=== PATIENT | female | born 1935 | race Caucasian/White ===

== ENCOUNTER 2017-09-29 16:42 | Observation (INO) | payer MEDICARE ==
[2017-09-29 18:27] LABS: Hematocrit 44 % (35-47); Hemoglobin 14.7 g/dl (12.0-16.0); Mean Corpuscular HGB Conc 34 g/dl (31-36); Mean Corpuscular Hemoglobin 31 pg (27-31); Mean Corpuscular Volume 91 fL (80-97); Mean Platelet Volume 8.4 um3 (7.4-10.4); Platelet Count 150 10^3/ul (150-450); Red Blood Count 4.79 10^6/ul (4.0-5.4); Red Cell Distribution Width 14 % (10.5-15); White Blood Count 6.1 10^3/ul (3.5-10.8)
[2017-09-29 18:57] LABS: EGFR Non-African American 110.2 (>60)
[2017-09-29] MEDS ORDERED: Acetaminophen TAB* 325 MG PO PRN (20:28)
--- NOTE | 2017-09-29 20:37 | CONS ---
CONSULTATION REPORT: DATE OF CONSULT: 09/29/17 HISTORY OF PRESENT ILLNESS: The patient is a very pleasant 82-year-old female with history of pacemaker, on Coumadin, hypertension, who was seen earlier today in Dr. Ernandez's office for back pain. Requested to see the patient by Dr. Ernandez because of CT scan findings consistent with a T12 subacute versus chronic fracture. Patient reports that approximately 2 weeks ago she felt a pop in her back when she was trying to open the refrigerator door. She felt mild pain and the pain improved initially, but gradually after that, started having more and more pain. She denies any weakness, numbness, or tingling of the extremities. She reports that the pain is mostly in the right paraspinal area. She denies any difficulty with her ambulation. She is ambulating at her baseline. Patient has severe kyphosis. Patient also denies any urinary or GI incontinence. She is wearing a pad because she has urinary urgency for the last 4 months or so. She denies any loss of perineal sensation. Patient is a , lives by herself and has 7 children, is accompanied today by her daughter -in-law. PAST MEDICAL HISTORY: Hypertension, atrial fibrillation, osteoporosis. PAST SURGICAL HISTORY: Pacemaker. MEDICATIONS: The patient is on Coumadin. SOCIAL HISTORY: Tobacco negative. Alcohol negative. Recreational use negative. PHYSICAL EXAM: The patient is not in acute distress. She is awake, alert, and oriented x3. Her pupils are equal and reactive. Cranial nerves II through XII are grossly intact. Motor 4-5/5 in the lower extremities. Sensory grossly intact to light touch. Deep tendon reflexes +1 bilaterally. No clonus, no Babinski. Goins's negative. Straight leg test negative in the sitting position. Patient ambulates without difficulty. Patient also has no tenderness to palpation in the cervical, thoracic, or lumbar spine. She has range of motion of the cervical spine. She has mild tenderness in the right paraspinal area and other aspect of her back. DIAGNOSTIC STUDIES: Patient had a CT scan of her thoracic spine that reveals stable old T7 compression fracture with an indeterminate age T12 burst fracture with approximately 25% canal compromise and retropulsion. The characteristic of the fracture seems to be chronic. Unfortunately, the patient is not able to have an MRI because of the pacemaker. ASSESSMENT: The patient is a very pleasant 82-year-old female with T7 chronic and T12 possible subacute fracture. PLAN: The patient at this point is doing quite well. She initially had some mild pain, but is able to ambulate and has no neurological deficits. We discussed about her imaging findings with her and her [id number] explaining that based on her presentation, this may represent a subacute injury , but it is difficult to confirm without an MRI or bone scan. The bone scan may not be very accurate in terms of timing of her injury. Based on her imaging , we discussed conservative versus operative treatment options with risks and benefits explained in detail to the patient and her [id number]. Patient at this point would like to continue with conservative treatments based on her age and her comorbidities. She understands that if there is progression of the fracture or more retropulsion occurs there is a risk of spinal cord injury with paralysis, loss of bladder and bowel function or even . We discussed again with Dr. Ernandez and will be happy to see the patient for followup if she can tolerate a brace. Patient also should get a baseline thoracolumbar plain x-ray and exercise full fall precautions and avoid any strenuous activities or activities that put her at risk of further injury. Also a DEXA scan may be useful if the patient did not have a recent study. Full instructions given to the patient and her [id number]. Thank you very much for allowing us to participate in the care of this patient. Please do not hesitate to contact our office in case you have any further questions or concerns regarding the care of this patient. [id number]/[facility] #: [id number] DEBRA
[2017-09-29] MEDS ORDERED: Metoprolol Succinate XL TAB* 100 MG PO SCH (21:00)
[2017-09-29] MEDS ORDERED: Warfarin TAB(*) 1 MG PO SCH (21:00)
[2017-09-29] MEDS: Calcitonin NASAL(NF) 200 UNITS/SPRAY NASAL.SPR ALT NARE SCH (21:19)
--- NOTE | 2017-09-30 01:19 | HP ---
CC: Dr. Solano, Neurosurgery * HISTORY AND PHYSICAL: DATE OF ADMISSION: 09/29/17 HISTORY OF PRESENT ILLNESS: Ann Duval is an 82-year-old woman admitted with back pain due to a T12 compression fracture. The patient presented to my office today with the history that she was in her usual state of health until 6 days ago. She was opening a refrigerator door when she heard a pop and experienced sudden pain in the right flank region. Since that time, she has had intermitted sharp pain like a knife in her back. She denied any abdominal pain, numbness, tingling of the lower extremities. She had been applying Icy Hot as well as a heating pad. Tylenol was ineffective. She was unable to take NSAIDs because of being on long-term warfarin therapy. The patient's INR earlier this weak was elevated at 4.5 and 4.8 on 09/26/17, yesterday down to 2 after holding warfarin for 2 days. She presented to my office, was sent to imaging for a CT scan of the thoracic spine and abdomen and pelvis and was found to have a T12 compression fracture, which was new since last September. Bladder was large and she had mild hydronephrosis. She is being admitted at this time. PAST MEDICAL HISTORY: Otherwise significant for the following medical problems: 1. Osteoporosis, on alendronate with history of T7 fracture last year. 2. Chronic atrial fibrillation, on warfarin therapy. 3. Pacemaker. 4. Mild cognitive impairment. 5. 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 6. Hypertension. 7. Hyperlipidemia. 8. History of colonic polyps. PAST SURGICAL HISTORY: Includes: 1. Mohs excision, dermatofibrosarcoma protuberans, left lateral thigh, . 2. Pacemaker insertion, 2007. 3. Hysterectomy, 1983. 4. Varicose vein stripping, injection in 1969. 5. Drainage of her abscess, left neck in 1936. CURRENT MEDICATIONS: 1. Alendronate 70 mg weekly. 2. Digoxin 125 mcg daily. 3. Norvasc 2.5 mg daily. 4. Potassium chloride extended release 10 mEq 2 capsules daily. 5. Metoprolol succinate ER 50 mg one and half in the morning, 100 mg at night. 6. Coumadin was 1.5 mg for the last 3 days since her INR was too high on 3 mg a day. 7. Furosemide 20 mg daily. 8. Vitamin D 1400 units daily. ALLERGIES: ZITHROMAX cause diarrhea, abdominal cramps. FAMILY HISTORY: Black lung disease in her father, who was a charcoal kiln burner. Mother at age 84. SOCIAL HISTORY AND PERSONAL HISTORY: The patient is . She lives alone. She has adult children in the area. Her daughter, Salome, is with her today. REVIEW OF SYSTEMS: Generally, she has been feeling well until her current back pain started. Appetite has been good. She denied fevers, chills, sweats, trouble sleeping. Her daughter says she does not eat enough and shows me food logs. Skin: Negative. HEENT: Negative. Nodes: Negative. Heme: Negative. Breast: Negative. Endocrine: Negative. Respiratory: Negative. Cardiovascular: See above. GI: Negative. : See above. Musculoskeletal: See above. Neurologic: Negative. PHYSICAL EXAMINATION GENERAL: She is an elderly white female, in no acute distress with discomfort on movement. VITAL SIGNS: Blood pressure 150/80, pulse 74, respirations 18, temp 97 degrees. SKIN: Warm and dry with bilateral long onychomycotic toenails. HEENT: Head: Atraumatic, normocephalic. Full EOMs. Oropharynx shows no lesions. Mucous membranes appear moist. NECK: Supple without thyromegaly. NODES: Without adenopathy. CHEST: Chest is clear with the pacemaker left upper chest. HEART: Regular. Normal S1, S2. Grade 1/6 systolic murmur. No rubs or gallops. Pulses are full except for absent left dorsalis pedis and posterior tibial. ABDOMEN: Soft, nontender. No hepatosplenomegaly. No hernias or masses. Bowel sounds are normal. EXTREMITIES: Without cyanosis, clubbing. She has varicose veins of the legs and 1+ ankle edema. MUSCULOSKELETAL: She has tenderness in lower thoracic spine and right posterior rib cage. NEUROLOGIC: She is alert and oriented. Cranial nerves are intact. Motor strength is 5/5 in lower extremities. DTRs show 1+ knee jerks. Absent ankle jerks, symmetric. PSYCHIATRIC: She seems to be in a good mood, anxious to go home. She does have somewhat tangential speech and has a hard time staying on topic. LABORATORY DATA/DIAGNOSTIC STUDIES: Imaging: An old T7 and what appears to be a new T12 compression fracture. Labs are essentially normal. IMPRESSION: The patient with known osteoporosis, on alendronate with new painful T12 compression fracture. She had similar pain with compression fracture last year. PLAN: Plan is to start her on calcitonin. She is having a neurosurgical consult. Thoracolumbar brace is being ordered. She will have a physical therapy evaluation. She will be followed by Neurosurgery in the future. Dr. Solano has seen her and does not recommend surgery at this time. Consideration will be given to switching from alendronate to either denosumab or teriparatide. She is DNR. This was discussed with her and a MOLST form was completed. She would have short term intubation if needed. She does not want feeding tube. This was discussed in the presence of her daughter, Salome. I will not give her DVT prophylaxis at this time as she is probably going to home tomorrow. She did actually walk from the x-ray department to the floor. She seemed to be in less pain this afternoon than she did earlier this morning. Tylenol is ordered for pain. [id number]/[facility] #: [id number] [facility]OSPITALHaile
[2017-09-30 06:20] LABS: INR 1.95 (0.77-1.02)
[2017-09-30] MEDS: Calcitonin NASAL(NF) 200 UNITS/SPRAY NASAL.SPR ALT NARE SCH (08:24)
[2017-09-30] MEDS ORDERED: Digoxin TAB* 0.125 MG PO SCH (09:00)
[2017-09-30] MEDS ORDERED: Cholecalciferol TAB* 400 UNIT PO SCH (09:00)
[2017-09-30] MEDS ORDERED: amLODIPine TAB* 5 MG PO SCH (09:00)
[2017-09-30] MEDS ORDERED: Metoprolol Succinate XL TAB* 25 MG PO SCH (09:00)
[2017-09-30] MEDS ORDERED: Cholecalciferol TAB* 1000 UNITS PO SCH (09:00)
[2017-09-30] MEDS ORDERED: Furosemide TAB* 20 MG PO SCH (09:00)
[2017-09-30] MEDS ORDERED: Potassium Chlor TAB* 20 MEQ TAB.ER PO SCH (09:00)
--- NOTE | 2017-09-30 10:09 | PN ---
Progress Note - Progress Note Date of Service: 09/30/17 SOAP: Subjective: []No events ON. Pain is significantly improved and is not present constantly. Ambulates well, Voids Objective: []AAOx3 JANENE, CN II-XII grossly intact. Motor 4-5/5 all extremities Sensory grossly intact to light touch. Assessment: [] 82 yof T12, T7 fractures. Plan: []Monitor VS, Neurochecks. Brace if tolerated. Medical treatment of osteoporosis. Follow up in the office in 2 weeks with new XR of thoracolumbar spine. Will be available if needed. Melba Solano MD
[2017-09-30 11:29] VITALS: BP 122/66
== END 2017-09-30 13:50 | disposition home or self-care (01) ==
LOC: SSU 16:54
PROVIDERS: ADMIT Internal Medicine Geriatric Medicine; ATTEND Internal Medicine Geriatric Medicine
DX: M81.8 Other osteoporosis without current pathological fracture (principal); Z87.310 Personal history of (healed) osteoporosis fracture; I48.2 Chronic atrial fibrillation; Z79.01 Long term (current) use of anticoagulants; Z95.0 Presence of cardiac pacemaker; G31.84 Mild cognitive impairment of uncertain or unknown etiology; I83.93 Asymptomatic varicose veins of bilateral lower extremities; I10 Essential (primary) hypertension; E78.5 Hyperlipidemia, unspecified; Z86.010 Personal history of colon polyps; S22.069A Unspecified fracture of T7-T8 vertebra, initial encounter for closed fracture; S22.089A Unspecified fracture of T11-T12 vertebra, initial encounter for closed fracture; X50.9XXA Other and unspecified overexertion or strenuous movements or postures, initial encounter; Y92.9 Unspecified place or not applicable; K76.89 Other specified diseases of liver; N13.39 Other hydronephrosis; K40.90 Unilateral inguinal hernia, without obstruction or gangrene, not specified as recurrent; M48.8X4 Other specified spondylopathies, thoracic region; M48.04 Spinal stenosis, thoracic region
CPT/HCPCS: 36415; 80053; 80162; 80375; 85027; 85610; 86140; 87086; A9270-GY; G0378; G0480; G8978-GP-CH; G8979-GP-CH; G8980-GP-CH

== ENCOUNTER 2017-10-06 10:58 | Inpatient (IN) | payer MEDICARE ==
[2017-10-06] MEDS ORDERED: NS 0.9% 1000 ML* 1,000 ML IV ONE ×2 (11:01→21:40)
--- NOTE | 2017-10-06 11:20 | RAD ---
HISTORY: Neurological changes, code garcia COMPARISONS: CT dated October 04, 2006 TECHNIQUE: Multiple contiguous axial CT scans were obtained of the head without intravenous contrast. FINDINGS: HEMORRHAGE/INFARCT: There is no hemorrhage or acute infarct. MASSES/SHIFT: There is no mass or shift. EXTRA-AXIAL SPACES: There are no extra-axial fluid collections. SULCI AND VENTRICLES: The sulci and ventricles are normal in size and position for the patient's stated age. CEREBRUM: There is hypoattenuation of the periventricular and subcortical white matter. There is stable encephalomalacia system with remote right GROUP SEGMENT CONSULTANT infarct.. BRAINSTEM: There are no focal parenchymal abnormalities. CEREBELLUM: There are no focal parenchymal abnormalities. VESSELS: There is calcification of the cavernous segments of the internal carotid arteries bilaterally and of the distal vertebral arteries bilaterally. PARANASAL SINUSES: The paranasal sinuses are clear. ORBITS: The orbits are unremarkable. BONES AND SOFT TISSUE: No bone or soft tissue abnormalities are noted. OTHER: None IMPRESSION: 1. NO ACUTE INTRACRANIAL PATHOLOGY. 2. REMOTE RIGHT GROUP SEGMENT CONSULTANT TERRITORY INFARCT. 3. CHRONIC SMALL VESSEL ISCHEMIC CHANGES. PRELIMINARY FINDINGS WERE DISCUSSED WITH DR. COATS AT APPROXIMATELY 11:16 AM ON OCTOBER 06, 2017.
[2017-10-06 11:25] LABS: ABS Basophils 0 10^3/ul (0-0.2); ABS Eosinophils 0.1 10^3/ul (0-0.6); ABS Lymphocytes 0.9 10^3/ul (1.0-4.8); ABS Monocytes 0.3 10^3/ul (0-0.8); ABS Neutrophils 3.5 10^3/ul (1.5-7.7); ABS Nucleated RBC 0 10^3/ul; Eosinophil % 2.2 % (0-6); Hematocrit 42 % (35-47); Hemoglobin 14.3 g/dl (12.0-16.0); Mean Corpuscular HGB Conc 34 g/dl (31-36); Mean Corpuscular Hemoglobin 31 pg (27-31); Mean Corpuscular Volume 91 fL (80-97); Mean Platelet Volume 8.4 um3 (7.4-10.4); Nucleated Red Blood Cells % 0.1; Platelet Count 145 10^3/ul (150-450); Red Blood Count 4.66 10^6/ul (4.0-5.4); Red Cell Distribution Width 14 % (10.5-15); White Blood Count 4.8 10^3/ul (3.5-10.8)
[2017-10-06 11:35] LABS: INR 1.33 (0.77-1.02)
[2017-10-06 11:46] LABS: EGFR Non-African American 82.6 (>60)
[2017-10-06] MEDS ORDERED: Iohexol 350* (CONTRAST) 500 ML MDV IV ONE (12:00)
--- NOTE | 2017-10-06 12:28 | RAD ---
INDICATION: Neurologic change. Code blake COMPARISON: July 30, 2016 TECHNIQUE: An AP portable view obtained at 1149 hours is submitted. FINDINGS: Bones/Soft Tissues: There are no acute bony findings. There is osteopenia with kyphosis. There is a left-sided cardiac pacemaker. Cardiomediastinal: The cardiomediastinal silhouette is normal. Lungs: There are no infiltrates. Pleura: There are no pleural effusions. Other: None IMPRESSION: NO ACTIVE DISEASE.
[2017-10-06 12:51] LABS: Urine Appearance Clear; Urine Blood Negative (Negative); Urine Color Yellow; Urine Ketones Negative (Negative); Urine Protein Negative (Negative); Urine Specific Gravity 1.008 (1.010-1.030); Urine Urobilinogen Negative (Negative)
--- NOTE | 2017-10-06 13:27 | RAD ---
HISTORY: Left dysmetria COMPARISONS: Head CT dated October 06, 2017 TECHNIQUE: Multiple contiguous axial CT scans were obtained of the head and neck after the administration of nonionic intravenous contrast timed to the systemic arterial phase of contrast enhancement. Coronal and sagittal multiplanar reformations are submitted for review. Multiple 3-D maximum intensity projection reconstructions are also submitted for review. FINDINGS: CTA NECK: AORTIC ARCH: The aortic arch is not completely visualized within the [id number] the current examination. There is no proximal stenosis of the cephalic great vessels. RIGHT VERTEBRAL ARTERY: The right vertebral artery is patent along its course, without stenosis. LEFT VERTEBRAL ARTERY: The left vertebral artery is patent along its course, without stenosis. DOMINANCE: The right vertebral artery is dominant. RIGHT COMMON CAROTID ARTERY: The right common carotid artery is patent. The right carotid bifurcation occurs at C4-C5 RIGHT INTERNAL CAROTID ARTERY: There is atheromatous disease of the right carotid bifurcation, without right internal carotid artery stenosis by NASCET criteria. RIGHT EXTERNAL CAROTID ARTERY: The right external carotid artery is unremarkable. LEFT COMMON CAROTID ARTERY: The left common carotid artery is patent. The left carotid bifurcation occurs at C4-C5 LEFT INTERNAL CAROTID ARTERY: There is atheromatous disease of the left carotid bifurcation, without left internal carotid artery stenosis by NASCET criteria. LEFT EXTERNAL CAROTID ARTERY: The left external carotid artery is unremarkable. VENOUS CIRCULATION: The venous system is unremarkable. SALIVARY GLANDS: The parotid glands, submandibular glands, sublingual glands are normal. NASAL CAVITY/NASOPHARYNX: The nasal cavity and nasopharynx are normal. ORAL CAVITY/OROPHARYNX: The oral cavity is obscured by streak artifact from dental amalgam. The visualized oral cavity and oropharynx are unremarkable. LARYNGEAL APPARATUS/HYPOPHARYNX: The laryngeal apparatus and hypopharynx are normal. UPPER AIRWAY/UPPER ESOPHAGUS: The visualized upper airway and esophagus are normal. LUNG APICES: The lung apices are clear. THYROID GLAND: The thyroid gland is normal. LYMPH NODES: There is no lymphadenopathy by size criteria. BONES AND SOFT TISSUES: Mild degenerative changes are noted. CTA HEAD: INTRACRANIAL CIRCULATION: There is attenuation of the right posterior cerebral artery distal to the P2 segment corresponding to the territory of infarct described below. Elsewhere, there is no aneurysm, vascular malformation, occlusion, or stenosis of the visualized intracranial circulation. The anterior communicating artery complex is clear. The posterior communicating arteries are diminutive, if present. VENOUS CIRCULATION: The venous system is unremarkable. PERFUSION: There is no obvious parenchymal perfusion deficit. HEMORRHAGE/INFARCT: There is no hemorrhage or acute infarct. MASSES/SHIFT: There is no mass or shift. EXTRA-AXIAL SPACES: There are no extra-axial fluid collections. SULCI AND VENTRICLES: There is diffuse and proportional enlargement of the sulci and ventricles. CEREBRUM: There is hypoattenuation of the periventricular and subcortical white matter. Again noted is right posterior temporal and occipital encephalomalacia consistent with remote right [employer]AG[employer] MACHINES territory infarct. BRAINSTEM: There are no focal parenchymal abnormalities. CEREBELLUM: There are no focal parenchymal abnormalities. PARANASAL SINUSES: The paranasal sinuses are clear. ORBITS: The orbits are unremarkable. BONES AND SOFT TISSUE: No bone or soft tissue abnormalities are noted. OTHER: There is no abnormal enhancement. IMPRESSION: 1. ATHEROSCLEROSIS. 2. NO INTERNAL CAROTID ARTERY STENOSIS BY NASCET CRITERIA. 3. THERE IS A CHRONIC APPEARING RIGHT [employer]ES TERRITORY INFARCT WITH ATTENUATION OF THE RIGHT [employer]ACHINES DISTAL TO THE P3 SEGMENT. 4. ELSEWHERE, THERE IS NO ANEURYSM, VASCULAR MALFORMATION, OCCLUSION, OR STENOSIS OF THE VISUALIZED INTRACRANIAL CIRCULATION. CPT II Codes: 3100F
[2017-10-06] MEDS ORDERED: Ondansetron INJ* 2 MG/ML VIAL IV PRN (15:37)
[2017-10-06] MEDS ORDERED: hydrALAZINE IV* 20 MG/ML VIAL IV SLOW PU PRN (15:37)
[2017-10-06] MEDS ORDERED: Acetaminophen TAB* 325 MG PO PRN (15:37)
[2017-10-06] MEDS ORDERED: Potassium Chlor TAB* 20 MEQ TAB.ER PO PRN (15:42)
[2017-10-06] MEDS ORDERED: Metoprolol Succinate XL TAB* 100 MG PO SCH (18:00)
--- NOTE | 2017-10-06 18:03 | PN ---
Hospitalist Progress Note Date of Service: 10/06/17 called by nursing staff as patient requesting full code status. Will update status in computer. Full code ordered placed.
--- NOTE | 2017-10-06 18:31 | ED ---
Anand Mccoy Gabriel, scribed for Tin Funk MD on 10/06/17 at 1106 . Neurological HPI - HPI Summary HPI Summary: This patient is a 82 year old F presenting to [facility] accompanied by her daughter with a chief complaint of a possible CVA. Pts daughter states when she talked to her on the phone at 0800 this morning she recognized some slurred speech. The patient was last seen normal late afternoon yesterday. Daughter reports slurred speech, left sided facial droop, unsteady ambulation, and left sided weakness. The patient states she feels fine, she woke up this morning and made breakfast for her self. She was recently admitted for 2 compression fractures in her back. - History of Current Complaint Stated Complaint: POSS. STROKE Hx Obtained From: Patient, Family/Business Applications Analyst Onset/Duration: Still Present, Other - unknown onset Timing: Constant Onset Severity: Mild Current Severity: Mild Pain Intensity: 0 Pain Scale Used: 0-10 Numeric Character: Impaired Speech, Other: - facial droop Associated Signs and Symptoms: Positive: Weakness - Additional Pertinent History Primary Care Physician: [id number] - Allergy/Home Medications Allergies/Adverse Reactions: Allergies Allergy/AdvReac Type Severity Reaction Status Date / Time azithromycin Allergy Nausea Verified 10/06/17 11:28 narcotics Allergy Altered Uncoded 10/06/17 11:28 Mental Status Home Medications: Home Medications Alendronate (NF) [Fosamax (NF)] 70 mg PO .Fridays10/06/17 [History Confirmed ] Cholecalciferol TAB* [Vitamin D TAB*] 1,400 unit PO DAILY 10/06/17 [History Confirmed 10/06/17] Digoxin TAB* [Lanoxin TAB*] 0.125 mg PO DAILY 10/06/17 [History Confirmed ] Metoprolol Succinate XL TAB* [Toprol XL TAB*] 75 mg PO QAM 10/06/17 [History Confirmed 10/06/17] Metoprolol Succinate XL TAB* [Toprol XL TAB*] 100 mg PO QPM 10/06/17 [History Confirmed 10/06/17] Potassium Chlor TAB* [Klor Con ER TAB*] 20 meq PO DAILY PRN 10/06/17 [History Confirmed 10/06/17] Warfarin TAB(*) [Coumadin TAB(*)] 1.5 - 3 mg PO QPM 10/06/17 [History Confirmed 10/06/17] amLODIPine TAB* [Norvasc 5 mg TAB*] 2.5 mg PO DAILY 10/06/17 [History Confirmed 10/06/17] PMH/Surg Hx/FS Hx/Imm Hx Cardiovascular History: Reports: Hx Hypercholesterolemia, Hx Hypertension, Hx Pacemaker/ICD - around 2005 Musculoskeletal History: Reports: Hx Arthritis, Hx Back Problems, Hx Osteoporosis, Other Musculoskeletal History Denies: Hx Rheumatoid Arthritis Sensory History: Reports: Hx Contacts or Glasses Denies: Hx Hearing Aid Opthamlomology History: Reports: Hx Contacts or Glasses - Surgical History Surgery Procedure, Year, and Place: PACER - Family History Known Family History: Negative: Hypertension, Respiratory Disease, Seizure Disorder - Social History Occupation: Unemployed Lives: Alone Alcohol Use: Rare Alcohol Amount: white wine with ice and water Substance Use Type: Reports: None Smoking Status (MU): Never Smoked Tobacco Review of Systems Positive: Other - pt denies any pain Neurological: Other - slurred speech, left sided facial droop, unsteady ambulation, and left sided weakness. The All Other Systems Reviewed And Are Negative: Yes Physical Exam - Summary Physical Exam Summary: Appearance: The patient is an elderly woman lying comfortable Skin: The skin is warm and dry and skin color reflects adequate perfusion. HEENT: The head is normocephalic and atraumatic. The pupils are equal and reactive. The conjunctivae are clear and without drainage. Nares are patent and without drainage. Mouth reveals moist mucous membranes and the throat is without erythema and exudate. The external ears are intact. The ear canals are patent and without drainage. The tympanic membranes are intact. Neck: the neck is supple with full range of motion and non-tender. There are no carotid bruits. There is no neck vein distension. Respiratory: Chest is non-tender. Lungs are clear to auscultation and breath sounds are symmetrical and equal. Cardiovascular: Heart is regular rate and rhythm. There is no murmur or rub auscultated. There is no peripheral edema and pulses are symmetrical and equal. Abdomen: The abdomen is soft and non-tender. There are normal bowel sounds heard in all four quadrants and there is no organomegaly palpated. Musculoskeletal: There is no back tenderness noted. Extremities are non-tender with full range of motion. There is good capillary refill. There is no peripheral edema or calf tenderness elicited. Neurological: Patient is alert and oriented to person, place and time.. Cranial nerves are grossly intact. Deep tendon reflexes are symmetrical and equal in all four extremities. Psychiatric: The patient has an appropriate affect and does not exhibit any anxiety or depression. Triage Information Reviewed: Yes Vital Signs On Initial Exam: Initial Vitals Pulse Ox 96 10/06/17 11:01 Vital Signs Reviewed: Yes Diagnostics - Vital Signs Vital Signs Temp Pulse Resp BP Pulse Ox 10/06/17 15:20 70 169/92 97 10/06/17 15:00 70 98 10/06/17 14:50 71 175/92 97 10/06/17 14:20 16 10/06/17 14:00 71 21 97 10/06/17 13:50 18 161/85 10/06/17 13:20 20 150/88 10/06/17 13:00 72 19 97 10/06/17 12:00 72 20 97 10/06/17 11:50 70 13 175/87 97 10/06/17 11:20 98.8 F 75 18 143/73 97 10/06/17 11:16 18 10/06/17 11:01 96 - Laboratory Lab Results: Lab Results 10/06/17 10/06/17 10/06/17 Range/Units 11:15 11:15 11:15 WBC 4.8 (3.5-10.8) 10^3/ul RBC 4.66 (4.0-5.4) 10^6/ul Hgb 14.3 (12.0-16.0) g/dl Hct 42 (35-47) % MCV 91 (80-97) fL MCH 31 (27-31) pg MCHC 34 (31-36) g/dl RDW 14 (10.5-15) % Plt Count 145 L (150-450) 10^3/ul MPV 8.4 (7.4-10.4) um3 Neut % (Auto) 72.6 (38-83) % Lymph % (Auto) 18.0 L (25-47) % [place] % (Auto) 6.9 (0-7) % Eos % (Auto) 2.2 (0-6) % Baso % (Auto) 0.3 (0-2) % Absolute Neuts (auto) 3.5 (1.5-7.7) 10^3/ul Absolute Lymphs (auto) 0.9 L (1.0-4.8) 10^3/ul Absolute Monos (auto) 0.3 (0-0.8) 10^3/ul Absolute Eos (auto) 0.1 (0-0.6) 10^3/ul Absolute Basos (auto) 0 (0-0.2) 10^3/ul Absolute Nucleated RBC 0 10^3/ul Nucleated RBC % 0.1 INR (Anticoag Therapy) 1.33 H (0.77-1.02) APTT 26.5 (26.0-36.3) seconds Sodium 139 (139-145) mmol/L Potassium 3.8 (3.5-5.0) mmol/L Chloride 104 (101-111) mmol/L Carbon Dioxide 28 (22-32) mmol/L Anion Gap 7 (2-11) mmol/L BUN 16 (6-24) mg/dL Creatinine 0.68 (0.51-0.95) mg/dL Est GFR ( Amer) 106.3 (>60) Est GFR (Non-Af Amer) 82.6 (>60) BUN/Creatinine Ratio 23.5 H (8-20) Glucose 110 H (70-100) mg/dL Lactic Acid (0.5-2.0) mmol/L Calcium 9.6 (8.6-10.3) mg/dL Total Bilirubin 1.60 H (0.2-1.0) mg/dL AST 23 (13-39) U/L ALT 17 (7-52) U/L Alkaline Phosphatase 55 (34-104) U/L Troponin I 0.02 (<0.04) ng/mL Total Protein 7.4 (6.4-8.9) g/dL Albumin 4.1 (3.2-5.2) g/dL Globulin 3.3 (2-4) g/dL Albumin/Globulin Ratio 1.2 (1-3) Triglycerides 101 mg/dL Cholesterol 255 mg/dL LDL Cholesterol 178 mg/dL HDL Cholesterol 56.9 mg/dL Urine Color Urine Appearance Urine pH (5-9) Ur Specific [place] (1.010-1.030) Urine Protein (Negative) Urine Ketones (Negative) Urine Blood (Negative) Urine Nitrate (Negative) Urine Bilirubin (Negative) Urine Urobilinogen (Negative) Ur Leukocyte Esterase (Negative) Urine Glucose (Negative) Digoxin 1.3 (0.8-2.0) ng/ml Blood Type Antibody Screen 10/06/17 10/06/17 10/06/17 Range/Units 11:15 11:15 12:30 WBC (3.5-10.8) 10^3/ul RBC (4.0-5.4) 10^6/ul Hgb (12.0-16.0) g/dl Hct (35-47) % MCV (80-97) fL MCH (27-31) pg MCHC (31-36) g/dl RDW (10.5-15) % Plt Count (150-450) 10^3/ul MPV (7.4-10.4) um3 Neut % (Auto) (38-83) % Lymph % (Auto) (25-47) % [place] % (Auto) (0-7) % Eos % (Auto) (0-6) % Baso % (Auto) (0-2) % Absolute Neuts (auto) (1.5-7.7) 10^3/ul Absolute Lymphs (auto) (1.0-4.8) 10^3/ul Absolute Monos (auto) (0-0.8) 10^3/ul Absolute Eos (auto) (0-0.6) 10^3/ul Absolute Basos (auto) (0-0.2) 10^3/ul Absolute Nucleated RBC 10^3/ul Nucleated RBC % INR (Anticoag Therapy) (0.77-1.02) APTT (26.0-36.3) seconds Sodium (139-145) mmol/L Potassium (3.5-5.0) mmol/L Chloride (101-111) mmol/L Carbon Dioxide (22-32) mmol/L Anion Gap (2-11) mmol/L BUN (6-24) mg/dL Creatinine (0.51-0.95) mg/dL Est GFR ( Amer) (>60) Est GFR (Non-Af Amer) (>60) BUN/Creatinine Ratio (8-20) Glucose (70-100) mg/dL Lactic Acid 1.5 (0.5-2.0) mmol/L Calcium (8.6-10.3) mg/dL Total Bilirubin (0.2-1.0) mg/dL AST (13-39) U/L ALT (7-52) U/L Alkaline Phosphatase (34-104) U/L Troponin I (<0.04) ng/mL Total Protein (6.4-8.9) g/dL Albumin (3.2-5.2) g/dL Globulin (2-4) g/dL Albumin/Globulin Ratio (1-3) Triglycerides mg/dL Cholesterol mg/dL LDL Cholesterol mg/dL HDL Cholesterol mg/dL Urine Color Yellow Urine Appearance Clear Urine pH 7.0 (5-9) Ur Specific [place] 1.008 L (1.010-1.030) Urine Protein Negative (Negative) Urine Ketones Negative (Negative) Urine Blood Negative (Negative) Urine Nitrate Negative (Negative) Urine Bilirubin Negative (Negative) Urine Urobilinogen Negative (Negative) Ur Leukocyte Esterase Negative (Negative) Urine Glucose Negative (Negative) Digoxin (0.8-2.0) ng/ml Blood Type B Positive Antibody Screen Negative Result Diagrams: 10/06/17 11:15 10/06/17 11:15 Lab Statement: Any lab studies that have been ordered have been reviewed, and results considered in the medical decision making process. - Radiology CXR Radiology Interpretation Completed By: Radiologist - no active disease ED physician has reviewed this radiology report - CT CT Head CT Interpretation Completed By: Radiologist - 1. NO ACUTE INTRACRANIAL PATHOLOGY. 2. REMOTE RIGHT MANUFACTURING TECHNICIAN TERRITORY INFARCT. 3. CHRONIC SMALL VESSEL ISCHEMIC CHANGES. ED physician has reviewed this radiology report. CTA Head CT Interpretation Completed By: Radiologist - 1. ATHEROSCLEROSIS. 2. NO INTERNAL CAROTID ARTERY STENOSIS BY NASCET CRITERIA. 3. THERE IS A CHRONIC APPEARING RIGHT MANUFACTURING TECHNICIAN TERRITORY INFARCT WITH ATTENUATION OF THE RIGHT MANUFACTURING TECHNICIAN DISTAL TO THE P3 SEGMENT. 4. ELSEWHERE, THERE IS NO ANEURYSM, VASCULAR MALFORMATION, OCCLUSION, OR STENOSIS OF THE VISUALIZED INTRACRANIAL CIRCULATION. CPT II Codes: 3100F Dr. Funk has reviewed this report - EKG 11:16 Cardiac Rate: NL, Other Rate - PACED EKG Interpretation: ventricular paced rhythm at 70 BPM Course/Dx - Course Course Of Treatment: Ms. Duval felt fine when she went to bed last night although she can't say when that was. She didn't feel quite right when she got up and had a little trouble picking something up with her left hand. At 0800 her [id number] called and noticed that her speech was slurred so she went over and called 911 when she saw that the patient had a facial droop. On arrival she was noted to have a lower facial droop with a possible visual field cut on the left and some left arm dysmetria. Her speech was a little unclear also. A Code Bermudez was called as she was within the 24 hour window for clot retrieval although she was out of the thrombolytic window. Her CT showed an old right MANUFACTURING TECHNICIAN infact that apparently was asymptomatic. Dr. Plummer was consulted and a CTA was obtained. She had no indication for clor removal therefore she is being admitted here for a further W/U. - Diagnoses Provider Diagnoses: CVA (cerebral vascular accident) - Critical Care Time Critical Care Time: 30-74 min Discharge - Sign-Out/Discharge Documenting (check all that apply): Discharge - Discharge Plan Condition: Fair Disposition: ADMITTED TO [facility] - Billing Disposition and Condition Condition: FAIR Disposition: [facility] Consult Consult: We discussed patient care with Dr. Alvarez and they recommended admission and states there is no retrievable clot. We discussed patient care with Dr. Ernandez and they agreed that the patient should be admitted; she also agreed to see the patient tomorrow. We discussed patient care with Dr. Alexis and they have accepted the patient for admission, The documentation as recorded by the Anand monroy Gabriel accurately reflects the service I personally performed and the decisions made by me, Tin Funk MD.
[2017-10-06] MEDS: Aspirin 81 mg CHEW TAB* 81 MG TAB.CHEW PO SCH (18:47)
--- NOTE | 2017-10-06 20:09 | HP ---
CC: Dr. Ernandez; Dr. Plummer * HISTORY AND PHYSICAL: DATE OF ADMISSION: 10/06/17 PRIMARY CARE PHYSICIAN: Dr. Ernandez. ATTENDING PHYSICIAN WHILE IN THE HOSPITAL: Jhon Alexis MD * (report dictated by Stephon De Leon NP). CONSULTING NEUROLOGIST: Dr. Plummer. CHIEF COMPLAINT: 1. Difficulty with speech. 2. Left facial droop. HISTORY OF PRESENT ILLNESS: Ms. Duval is an 82-year-old female patient. She carries a history of T12 fracture and a T7 fracture, history of osteoporosis, and AFib. She has been having difficulty managing her INR. She also carries a history of mild cognitive impairment of her varicose vein, hypertension, hyperlipidemia, colon polyps, and a history of skin cancer. She came into the ED today. Basically, the patient was just here in the hospital last week with a T12 compression fracture, was evaluated for that, was fitted with a brace, was sent home on the for conservative therapy. She was seen in evaluation by Dr. Solano and she was following with Dr. Ernandez, her primary. Unfortunately, the patient this morning, she was going for a followup with her primary. According to her, she picked the phone around 9 o'clock and the daughter noted that her speech did not sound right. Something was off. The speech was slowed. The patient did not recognize this. The family immediately went over and evaluated her. They noticed the left facial droop and the daughter brought the patient right into the hospital. The last time that she was seen well was 5 o'clock last night, presumably the patient woke up with this. The patient did not recall even noting that she had a facial droop. There was weakness noted to the left upper and left lower extremity as well. The patient says that prior to that she had been feeling well. Her pain has been well controlled in her back. She denied having any chest pain recently. No shortness of breath. No abdominal pain. There has been no nausea or vomiting. No diarrhea. No dysuria or frequency, but there was concern because of the facial drooping and the weakness of the left side for CVA, which was found on CT of the brain. The patient has no recollection of a previous stroke. She came into the ED. Because of these findings, we were asked to evaluate for admission. PAST MEDICAL HISTORY: Significant for: 1. T12 and 7 compression fracture, most recently the T12 fracture. 2. Osteoporosis. 3. AFib. 4. Mild cognitive impairment. 5. Varicose veins. 6. Hypertension. 7. Hyperlipidemia. 8. Colon polyps. 9. History of skin cancer. PAST SURGICAL HISTORY: 1. She has had a Mohs excision. 2. She has had a neck abscess I and D. 3. Vein stripping. 4. Hysterectomy. 5. Pacemaker implantation. HOME MEDICATIONS: Includes: 1. Toprol-XL 100 mg at bedtime, 75 mg in the morning. 2. Warfarin, she is alternating between 1.5 and 3 mg p.o. daily. 3. Fosamax 70 mg on Fridays. 4. Norvasc 2.5 mg daily. 5. Potassium 20 mEq p.o. daily as needed. 6. Lasix 20 mg p.o. daily as needed. 7. Digoxin 0.125 mg p.o. daily. 8. Vitamin D 1400 units p.o. daily. ALLERGIES: AZITHROMYCIN. She also is sensitive to TRAMADOL. FAMILY HISTORY: Her mother at the age of 84. Father had a history of a black lung. SOCIAL HISTORY: The patient does not smoke. Does not drink. Surrogate decision maker is her daughter, Perry. REVIEW OF SYSTEMS: There is no documented fever. She denied having any significant weight change. There was no double vision. She denies having any ear discharge. There is no rhinorrhea. There is no sore throat. No thyroid enlargement. She denies having any chest pain. There is no orthopnea. There is no nocturnal dyspnea. She denies having any abdominal pain. There is no nausea. No vomiting. No dysuria. No frequency. No seizure. No loss of consciousness. No pruritus. No skin ulcerations. Review of 14 systems completed, all others negative. PHYSICAL EXAMINATION GENERAL: At this time, Ms. Duval is an 82-year-old female patient. She appears to be well-nourished, well-developed. She is sitting in the ED stretcher. She does not appear to be in any acute distress. VITAL SIGNS: Blood pressure 161/85, pulse 71, respirations 18, O2 sat 97%, temperature 98.8. HEENT: Head: Atraumatic, normocephalic. Eyes: EOMs are intact. Sclerae are anicteric and not pale. Throat: Oral mucosa appears to be moist. No oropharyngeal erythema. NECK: Supple. LUNGS: Clear to auscultation bilaterally. No wheezes, rales, or rhonchi. HEART: Sounds S1, S2. Regular rate and rhythm. She did have a grade 2 to 3 aortic murmur. ABDOMEN: Soft, flat, and nontender. Bowel sounds were present. EXTREMITIES: Pulses were 2+ throughout. She is about 4/5 on the left. On the right, she has 5/5. NEUROLOGIC: She is awake. She is alert. She is oriented x3. Speech is clear. She does have a facial droop on the left side. Her project builder was a little weaker on the left side as well and [id number] on the left, she had some ataxia with that. [id number] was intact bilaterally. There was a little bit of weakness noted to the left lower extremity compared to the right. No other gross focal deficits. SKIN: Intact. DIAGNOSTIC STUDIES/LAB DATA: WBC 4.8, RBC of 4.66, hemoglobin of 14.3, hematocrit of 42, platelet count 145. INR was 1.33, PTT was 26.5. Sodium was 139, potassium 3.8, chloride 104, bicarb 28, BUN 16, creatinine 0.68, glucose 110, lactate 1.5, calcium 9.6. Total bili 1.6, AST 20, ALT 17, alk phos 55. Troponin 0.02. Albumin of 4.1. LDH is 178. Urine was obtained. It was negative. She did have a brain CT obtained today, impression: Showed no acute intracranial pathology. Remote right SURGICAL PHYSICIAN ASSISTANT infarct, chronic small vessel ischemic changes. Chest x-ray obtained today, showed no active disease. There was a head CTA which showed atherosclerosis. No internal carotid artery stenosis by NASCET criteria. There is a chronic appearing right SURGICAL PHYSICIAN ASSISTANT territory infarct with attenuation of the right SURGICAL PHYSICIAN ASSISTANT distal to the P3 segment. Elsewhere, there is no aneurysm, vascular malformation, occlusion, or stenosis visualized in the intracranial circulation. She did have an EKG today as well which showed a paced rhythm at a rate of 70 with a PVC that is again last EKG, I have is from 2006. At that point, she was not paced which was a normal rhythm. Old medical records were reviewed. ASSESSMENT AND PLAN: Ms. Duval is an 82-year-old female patient coming into the ED today with complaints of difficulty with speech and also facial droop evaluation. There is concern for cerebrovascular accident. She will be admitted under inpatient status for: 1. Cerebrovascular accident. Again I suspect, the patient did have a cerebrovascular accident. Unfortunately, we cannot do an MRI because of the pacemaker. I do think she needs an echo with bubble study. In addition to this , we will check a lipid panel A1c. Dr. Plummer did recommend giving the patient an aspirin which I am going to start for now. I think the culprit behind this stroke is most likely related to her INR being subtherapeutic. Certainly, she may have formed a clot which certainly may have caused the cerebrovascular accident. At some point, we should consider bridging. Dr. Plummer would like to repeat CT scan in 24 hours. This may be too acute to start the follow on anticoagulation and the risk for hemorrhagic conversion is too great at this point. So I think at this point, start aspirin only, get her back on her warfarin with a bridge and to get her INR between 2 and 3 when it is deemed appropriate by Neurology. I ordered swallow evaluation with nursing. In addition to this, ordered a PT evaluation. I will also order an OT evaluation and I have also ordered neuro checks. 2. T12 and 7 compression fracture. Again, I did ask the family to bring in her brace. They will be bringing this. 3. Atrial fibrillation. Again, I think at this point, I do not want her to go into rapid atrial fibrillation as that certainly would decrease perfusion. If she goes into rapid atrial fibrillation, which could make her stroke worse. I would like to go ahead and continue her on her beta-mary ann and her digoxin to maintain that. 4. Hypertension. I would like to try to keep her blood pressure at least greater than 140 to continue with cerebral perfusion. She is doing well now. I will give her boluses to get the blood pressure up, but I am going to continue the blood pressure meds, particularly the beta-mary ann. I do not want her to go into rapid atrial fibrillation. I will continue the digoxin as well. 5. Hyperlipidemia. At this point, we should consider starting a statin therapy. Her LDH was 178. Again, that was a nonfasting sample. We will get a fasting sample tomorrow morning and then consider starting statin therapy. 6. Varicose veins. Follow up with her primary. 7. History of mild cognitive impairment. Continue with supportive care. 8. History of colon polyps and skin cancer, not active. She is to follow with primary. 9. Osteoporosis. Follow with primary. It is an active issue, but at this point, it is not an acute issue. 10. DVT prophylaxis. Again, in the setting of acute cerebrovascular accident, I am going to hold off on heparin subcu. I will just put her on SCDs. 11. Code status: She wishes to be a do not resuscitate. There is a MOLST form in the computer. TIME SPENT: On the admission was approximately 60 minutes, greater than half of the time was spent [id number] with the patient obtaining my history and physical, other half the time spent going over the plan of care with the patient and implementing the plan of care. I did discuss the plan of care with my attending, Dr. Alexis; he is in agreement. STEPHON DE LEON, EDUARDO [id number]/CPS #: [id number]
--- NOTE | 2017-10-06 21:20 | RAD ---
INDICATION: New neurologic deficits. COMPARISON: Comparison is made with a prior CT of the brain from approximately 10 hours earlier. TECHNIQUE: Contiguous axial sections of the brain were obtained from the skull base to the vertex without contrast. FINDINGS: The ventricles, cisterns and sulci are enlarged consistent with diffuse atrophy. There are multiple focal areas of decreased density in the subcortical and periventricular white matter suggestive of moderate chronic small vessel ischemic changes. There is a focal area of encephalomalacia which is moderate in size in the right occipital lobe which is unchanged. No other focal abnormalities or mass effect are seen. There is no evidence for hemorrhage. No significant focal osseous abnormality is seen. The visualized portion of the paranasal sinuses and mastoid air cells appear clear. IMPRESSION: 1. NO EVIDENCE FOR GROSS ACUTE INFARCT, MASS EFFECT OR HEMORRHAGE. 2. OLD RIGHT OCCIPITAL LOBE INFARCT. 3. ATROPHY AND MODERATE CHRONIC SMALL VESSEL ISCHEMIC CHANGES.
--- NOTE | 2017-10-06 21:40 | PN ---
Hospitalist Progress Note Date of Service: 10/06/17 Dr shoemaker notifed of worsening facial droop at 20[address] Ct brain ordered. At [address] to assess patient pt noted to be in CT. On exam facial droop worse and noted left hand lineman weaker along with raising left arm. Pt in Ct scanner after CT scan completed asked for stat BP noted 130/60, pt in bed flat. Accompanied patient up to 447 1000ns bolus ordered, cased discussed with neuro site promotion agent recommended ivf and HOB flat, On reeval at 2129 after patient flat noted increased lineman to left hand facial droop improved to intial exam when patient eval in ED. Bolus infusing 2129 BP 136/65, goal is to try for sbp >140 and DBP > 70, will increase neuro checks and vital signs, will stop beta mary ann. Initially continued given concern for afib and abruptly stopping could lead to afib with rvr and could lead to hypoperfusion due to afib rvr, will hold now, hydrate and continue with frequent reassessment,
[2017-10-07] MEDS: NS 0.9% 1000 ML* 1,000 ML IV SCH ×3 (00:21→22:54)
[2017-10-07 06:37] LABS: INR 1.31 (0.77-1.02)
[2017-10-07 06:45] LABS: ABS Basophils 0.1 10^3/ul (0-0.2); ABS Eosinophils 0.2 10^3/ul (0-0.6); ABS Lymphocytes 0.9 10^3/ul (1.0-4.8); ABS Monocytes 0.4 10^3/ul (0-0.8); ABS Neutrophils 3.5 10^3/ul (1.5-7.7); ABS Nucleated RBC 0 10^3/ul; Eosinophil % 4.1 % (0-6); Hematocrit 39 % (35-47); Hemoglobin 13.3 g/dl (12.0-16.0); Lymphocyte % 17.4 % (25-47); Mean Corpuscular HGB Conc 34 g/dl (31-36); Mean Corpuscular Hemoglobin 31 pg (27-31); Mean Corpuscular Volume 91 fL (80-97); Mean Platelet Volume 8.8 um3 (7.4-10.4); Nucleated Red Blood Cells % 0.1; Platelet Count 122 10^3/ul (150-450); Red Cell Distribution Width 14 % (10.5-15); White Blood Count 5.1 10^3/ul (3.5-10.8)
--- NOTE | 2017-10-07 08:49 | RAD ---
INDICATION: CVA COMPARISON: October 06, 2017 TECHNIQUE: Noncontrast axial source images were acquired from the skull base to the vertex. FINDINGS: Ventricles/sulci: There is cortical atrophy with compensatory dilatation of the CSF spaces. Brain parenchyma: There is no acute focal parenchymal finding, evidence of intracranial mass, or intracranial mass effect. There are chronic microvascular ischemic changes and there is an old right occipital infarct with resultant encephalomalacia. Intracranial hemorrhage:None. Extra-axial spaces: There are no abnormal extra axial fluid collections or evidence of extra-axial mass. Calvarium: There is no calvarial fracture or other calvarial abnormality. Scalp: There is no evidence of scalp or extracalvarial soft tissue abnormality. Paranasal sinuses/mastoid: The paranasal sinuses and mastoid air cells are clear. Other: None. IMPRESSION: SEQUELA OF PRIOR VASCULAR INSULT TO INCLUDE REMOTE RIGHT OCCIPITAL INFARCT AND CHRONIC MICROVASCULAR ISCHEMIC CHANGE NO ACUTE FINDINGS OR INTERVAL CHANGES.
[2017-10-07] MEDS ORDERED: Metoprolol Succinate XL TAB* 50 MG PO SCH (09:00)
[2017-10-07 13:23] LABS: EGFR Non-African American 120.6 (>60)
--- NOTE | 2017-10-07 13:42 | ECHO ---
Patient: YARITZA BEYER [facility] Rec#: [id number] : 1935 Date: 10/07/2017 Age: 82y Height: 152.4 cm / 60.0 in Weight: 45.36 kg / 100.0 lbs Sex: F BSA: 1.39 Room#: [facility] Admit Date#: 10/06/2017 Type: Inpatient Referring: Stephon De Leon NP Reading: Dean De MD Law Tutor: Jody Tan RDCS CC: Sonia Ernandez MD Transthoracic Echocardiogram Indication: CVA BP: 129/65 HR: 69 Rhythm: Paced Findings History: S/P pacer/ICD, HTN, HLD, osteoporosis, chronic a-fib, murmur 06/25, T12 compression fracture 09/29/17. Technical Comments: The study quality is fair. The study is technically limited due to poor acoustic windows. Completed at 1300. Left Ventricle: The left ventricular chamber size is decreased. Mild concentric left ventricular hypertrophy is observed. There is increased basal septal hypertrophy noted without evidence of an increased gradient across the left ventricular outflow tract. Global left ventricular wall motion and contractility are within normal limits. There is normal left ventricular systolic function. The estimated ejection fraction is 60-65%. The assessment of diastolic function is non-diagnostic. Left Atrium: The left atrium is moderate to severely dilated. Right Ventricle: Moderator Band present. The right ventricle is mild to moderately dilated. The right ventricular global systolic function is normal. A pacemaker wire is visualized in the right ventricle. Right Atrium: The right atrium is moderately dilated. A pacemaker wire is visualized in the right atrium. Interatrial septum appears intact without evidence of shunting. The bubble study is negative. A patent foramen ovale is not demonstrated with color Doppler and agitated contrast. Aortic Valve: The aortic valve is trileaflet. Moderate aortic leaflet calcification is visualized. Systolic excursion of the aortic valve cusps is reduced. There is aortic annular calcification. There is no evidence of aortic regurgitation. There is moderate aortic stenosis. Mitral Valve: There is mitral annular calcification. The mitral valve leaflets are moderately thickened. There is mild to moderate mitral regurgitation. Tricuspid Valve: The tricuspid valve leaflets are mildly thickened. There is moderate tricuspid regurgitation. The right ventricular systolic pressure is estimated at 44 mmHg. There is evidence of mild to moderate pulmonary hypertension. Pulmonic Valve: The pulmonic valve appears normal. There is trace to mild pulmonic regurgitation. There is no pulmonic stenosis. Pericardium: There is no significant pericardial effusion. Aorta: There is no dilatation of the ascending aorta. There is no dilatation of the aortic arch. The aortic root is normal in size. Pulmonary Artery: The main pulmonary artery appears normal. Venous: The inferior vena cava appears normal in size. There is a greater than 50% respiratory change in the inferior vena cava dimension. Contrast: Normal saline was used as contrast for the bubble study. Images 1 and 2. Intravenous contrast was used to help determine presence of intracardiac shunting. Conclusions There is normal left ventricular systolic function. The estimated ejection fraction is 60-65%. Global left ventricular wall motion and contractility are within normal limits. The left ventricular chamber size is decreased. Mild concentric left ventricular hypertrophy is observed. The left atrium is moderate to severely dilated. The right ventricle is mild to moderately dilated. The right ventricular global systolic function is normal. The right atrium is moderately dilated. A patent foramen ovale is not demonstrated with color Doppler nor agitated contrast. There is moderate aortic stenosis. There is mild to moderate mitral regurgitation. There is moderate tricuspid regurgitation. There is evidence of mild to moderate pulmonary hypertension. Since the prior echocardiogram completed 01/06/17, pertinent changes are prior normal left ventricular size reported, prior normal right ventricular size reported and prior severe pulmonary hypertension reported. Measurements Name Value Normal Range RVIDd (AP) 2D 3.4 cm (0.9 - 2.6) RVDdMajor (2D) 4.9 cm (2.2 - 4.4) RAd ISD 4CH 5.8 cm (3.4 - 4.9) RA (A4C)W 4.7 cm (2.9 - 4.6) IVSd (2D) 1.3 cm (0.6 - 1) LVPWd (2D) 1.1 cm (0.6 - 1) LVIDd (2D) 3.5 cm (3.6 - 5.4) LVIDs (2D) 1.99 cm - LV FS (2D) 43 % (25 - 45) Aortic Annulus 1.7 cm (1.4 - 2.6) Ao root diameter (2D) 2.8 cm (2.1 - 3.5) Ascending Ao 3.2 cm (2.1 - 3.4) Aortic arch 2.3 cm (1.8 - 3.4) LA dimension (AP) 2D 5.5 cm (2.3 - 3.8) LAd ISD 4CH 6.2 cm (2.9 - 5.3) LA ISD 4CH W 4.8 cm (2.5 - 4.5) Name Value Normal Range LA ESV SP 4CH (A/L) 61 ml - LA ESV SP 2CH (A/L) 74 ml - LA ESV BP (A/L) 69 ml - LA ESV BP (A/L) index 50 ml/m2 - LA ESV SP 4CH (MOD) 58 ml - LA ESV SP 2CH (MOD) 70 ml - Name Value Normal Range MV E-wave Vmax 1 m/sec - MV deceleration time 181.7 msec - LV septal e' Vmax 0.06 m/sec - LV lateral e' Vmax 0.06 m/sec - LV E:e' septal ratio 16.67 ratio - LV E:e' lateral ratio 16.67 ratio - Name Value Normal Range AV Vmax 3.2 m/sec - AV VTI 76.9 cm - AV peak gradient 39.76 mmHg - AV mean gradient 21.8 mmHg - LVOT diameter 2 cm - LVOT Vmax 0.71 m/sec - LVOT VTI 15.09 cm - LVOT peak gradient 2.05 mmHg - LVOT mean gradient 1.27 mmHg - DOI (VTI) 0.2 ratio - CHELSEA Vmax 1.1 m/sec - Name Value Normal Range MR Vmax 5.4 m/sec - MR VTI 195 cm - MR flow (PISA) 76.89 ml/sec - MR ERO 0.14 cm2 - MR PISA radius 0.6 cm - MR alias Vmax 31 cm/sec - Name Value Normal Range TR Vmax 3.2 m/sec - TR peak gradient 41 mmHg - RAP 3 mmHg - RVSP 44 mmHg - IVC diameter 1.9 cm - Name Value Normal Range PV Vmax 0.8 m/sec - PV peak gradient 2.56 mmHg - IA end-diastolic Vmax 1.26 m/sec -
[2017-10-07] MEDS: Digoxin TAB* 0.125 MG PO SCH (16:53)
[2017-10-07] MEDS ORDERED: Warfarin TAB(*) 3 MG PO ONE (17:00)
--- NOTE | 2017-10-07 17:33 | CONS ---
CONSULTATION REPORT: DATE OF CONSULT: 10/07/17 PATIENT OF: Dr. Sonia Ernandez. HISTORY OF PRESENT ILLNESS: This is an 82-year-old right-handed woman I am asked to evaluate for stroke. Her stroke occurred sometime between 5 the night of Tuesday and 8 a.m. in the morning. It was noted that the speech sounded slurred and she had left facial droop and left arm and leg weakness. This is improved over the past 24 hours. She has some mild cognitive impairment. In general, she has a history of atrial fibrillation and has been on anticoagulation. She has had no headaches. She has had no clear visual changes. She denied any numbness. PAST MEDICAL HISTORY: She has had T12 and 7 compression fracture, osteoporosis , AFib, mild cognitive impairment, varicose veins, hypertension, hyperlipidemia , colonic polyps, and history of skin cancer. PAST SURGICAL HISTORY: She has had moles excision. She has had a neck abscess I and D. She has had vein stripping. She has had a hysterectomy and pacemaker implant. MEDICATIONS: Medicines at home include: 1. Toprol-XL 100 mg at bedtime, 75 in the morning. 2. Warfarin alternating between 1.5 and 3 mg a day. 3. Fosamax 70 mg daily. 4. Norvasc 2.5 daily. 5. Potassium 20 mEq daily. 6. Lasix 20 mg daily. 7. Digoxin 0.125 daily. 8. Vitamin D 1400 units daily. ALLERGIES: She is allergic to AZITHROMYCIN and sensitive to tramadol. FAMILY HISTORY: Mother at 84. Dad had a history of black lung. SOCIAL HISTORY: She does not smoke or drink. REVIEW OF SYSTEMS: Negative in all 14 spheres. PHYSICAL EXAM: Temperature 99.5, pulse 72, respiratory rate is 15, blood pressure 150/69. She was alert and oriented x3. She knew she was on the 4th floor, but she did not know that she had a stroke even though people had been telling her this all since yesterday repeatedly. She had a left facial droop. Cranial nerves II through XII were otherwise intact. Motor exam revealed normal tone. She had a right pronator drift and 5-/5 strength in the left arm. There is trace weakness in the left leg. Sensation decreased in the left arm and leg to touch. Reflexes were 1, toes were equivocal. She reached for objects, coordination in the left arm. Chest: Clear. Cardiovascular: Irregular rate and rhythm. Abdomen: Soft. There is no bruising or rashes. DIAGNOSTIC STUDIES/LAB DATA: Her CT scans were reviewed and showed no acute change but a right VALVER old stroke and chronic ischemic vessel disease and she had a scan last night when she had decreased blood pressure and some worsening of her symptoms which improved with improvement of blood pressure. Her CTA showed attenuation of the right posterior cerebral artery corresponding to the old stroke. No other major findings. Her echo showed no source of clot , there is moderate aortic stenosis, [id number] pulmonary hypertension, there is no PFO. Labs include normal CBC other than platelet count of 122. INR 1.31, initially 1.33. Normal CMP other than hemoglobin A1c of 5.8. Calcium today was 8.5. Total bili was 1.6. Her LDL was 162. UA was normal. Digoxin is 1.3. IMPRESSION AND PLAN: I discussed with the family that Ann most likely has a partial right middle cerebral artery stroke characterized by left facial weakness and arm weakness and some sensory deficit and what appears to be denial of illnesses. She is 82 and minimally confused, but the denial of illness seemed out of proportion with somebody who knew what floor she was on. She will ultimately need to continue her anticoagulation, it will need to be adjusted to maintain a therapeutic INR. However, given the recent stroke, she should be just on antiplatelet therapy for the next several days. Dr. Hyatt was called and will decide when it will be safe to switch her back to anticoagulation. She will be going to rehab in-house here. Thank you for sharing her case. [id number]/[facility] #: [id number] DEBRA
[2017-10-08] MEDS ORDERED: LORazepam INJ* 2 MG/ML 1 ML VIAL IV PUSH ONE ×2 (00:07→01:45)
[2017-10-08] MEDS ORDERED: LORazepam INJ* 2 MG/ML 1 ML VIAL IV PUSH PRN (04:00)
[2017-10-08 06:57] LABS: Hematocrit 40 % (35-47); Hemoglobin 13.5 g/dl (12.0-16.0); Mean Corpuscular HGB Conc 34 g/dl (31-36); Mean Corpuscular Hemoglobin 31 pg (27-31); Mean Corpuscular Volume 90 fL (80-97); Mean Platelet Volume 8.4 um3 (7.4-10.4); Platelet Count 108 10^3/ul (150-450); Red Blood Count 4.42 10^6/ul (4.0-5.4); Red Cell Distribution Width 14 % (10.5-15); White Blood Count 5.4 10^3/ul (3.5-10.8)
[2017-10-08 07:01] LABS: INR 1.29 (0.77-1.02)
[2017-10-08 07:12] LABS: EGFR Non-African American 120.6 (>60)
[2017-10-08] MEDS: Aspirin 81 mg CHEW TAB* 81 MG TAB.CHEW PO SCH (13:00)
[2017-10-08] MEDS: NS 0.9% 1000 ML* 1,000 ML IV SCH (13:00)
--- NOTE | 2017-10-08 16:50 | PN ---
CC: Dr. Sonia Ernandez PROGRESS NOTE: DATE OF FOLLOWUP: 10/08/17 OVERNIGHT EVENTS: No acute overnight events. The patient's family indicates that she had a rough night last night and this morning has been sleeping more and they are trying to allow her to get some rest. It appears that her left side weakness and dysarthria is improving. The patient reports that she had been on a cholesterol medication in the past, but this was discontinued when her cholesterol was doing well. HOSPITAL MEDICATIONS: 1. Acetaminophen 650 mg q.4 p.r.n. 2. Aspirin 81 mg daily. 3. Digoxin 0.125 mg daily. PHYSICAL EXAMINATION: Vital Signs: Temperature 99.1, blood pressure 155/66, heart rate 71, oxygen saturation 100% on 2 L nasal cannula. On examination, she is sleepy, but will wake up to participate in exam. She has a systolic ejection murmur and heart rhythm is irregularly irregular. Lungs appeared clear laterally but I did not ask her to sit up due to pain in her back when she does so. Extremities showed no edema. When asked why she is in the hospital, she states that it is related to some back problem that she has been having. When prompted, she does recall that she has been told that she has had stroke, but does not offer this spontaneously. She is aware that it is September 2017 and that she is on the 4th floor in the hospital. Her speech is mildly dysarthric. Otherwise, her versions are full, but she required tracking the examiner's face and was not able to perform eye movements with just tracking the finger. Pupils were equal, round, and reactive from 3 to 2 mm bilaterally. Sage appeared full to confrontation. She did appear to have some mild lower left facial weakness, but good activation with smile. Facial sensation is full and symmetric. The palate elevates symmetrically and the tongue is midline. On motor testing, she gave good resistance in both upper extremities today, but it was difficult to have her cooperate with pronator drift testing. Her paint dipper appeared to be slightly weaker on the left side. Her left lower extremity was approximately grade 4 at the hip flexor, but she gave good and essentially equal resistance in the knee flexor and extensor as well as ankle dorsiflexors bilaterally. Sensation to light touch was intact throughout with no extinction to double simultaneous stimulation. Her reflexes were 2+ in the upper extremities and at the knees. Her toes were downgoing. I did not complete coordination testing with her today. DIAGNOSTIC STUDIES/LAB DATA: Her BMP is notable only for slightly low sodium of 137 today. Hemoglobin A1c 5.8. Cholesterol studies notable for triglycerides of 102, total cholesterol 234, LDL 162, and HDL 51.9. Her telemetry showed a paced rhythm. I reviewed her CT scan, which shows an old right occipital infarction, but no evidence of any new process. IMPRESSION AND PLAN: An 82-year-old woman, who has most likely suffered a small right-sided ischemic infarct resulting in some left-sided weakness and dysarthria, which is improving. The exact localization of this event is uncertain. Given the fact that it has not yet shown up on a CAT scan, it may be a brainstem process and something small, which may not show up on CAT scan. However, there has been some question also as to whether this could have been partial right middle cerebral artery given her apparent denial of her new symptoms. However, it is not clear to me whether this could simply be a memory deficit as she is known to have some mild cognitive impairment per her chart. She has been continued on aspirin and the mechanism of the stroke is thought to be related to the subtherapeutic INR. I think it is likely safe to restart warfarin tomorrow, but would like to repeat CAT scan in the morning to see if there has been any evolution of a subacute stroke. I would bridge her with aspirin until her INR is therapeutic. In addition, in order to address all of her potential risk factors of her stroke, I think it would be advisable to restart her on a statin given her LDL of 162, though I do recognize that her HDL is in a good range. I can discuss this further with Dr. Ernandez tomorrow. [id number]/[facility] #: [id number] DEBRA
[2017-10-08] MEDS: Digoxin TAB* 0.125 MG PO SCH (17:34)
[2017-10-08] MEDS: Atorvastatin* 40 MG TAB PO SCH (17:34)
--- NOTE | 2017-10-08 17:40 | RAD ---
Indication: Follow-up stroke, left-sided hemiparesis. CT of the brain was performed without IV contrast. Ventricular structures are midline. No midline shift is noted. Central and cortical atrophy is noted. There is no evidence of intracranial mass or hemorrhage. No other high or low density lesions are identified. Hypodensity in the right medial occipital lobe consistent with old right posterior cerebral artery infarct is noted. Lacunar infarct is noted in the right thalamus region. This has evolved since previous exam. Periventricular lucency consistent with chronic ischemic White matter change is noted. IMPRESSION: Old infarct right occipital lobe. Right thalamus lacunar infarct. Chronic ischemic White matter change is noted.
[2017-10-08] MEDS ORDERED: Warfarin TAB(*) 3 MG PO ONE (18:40)
[2017-10-08] MEDS ORDERED: NS 0.9% 250 ML* 250 ML IV ONE (22:00)
[2017-10-09] MEDS: NS 0.9% 1000 ML* 1,000 ML IV SCH ×2 (03:06→15:56)
[2017-10-09 06:20] LABS: INR 1.95 (0.77-1.02)
[2017-10-09] MEDS: Aspirin 81 mg CHEW TAB* 81 MG TAB.CHEW PO SCH (08:25)
[2017-10-09] MEDS: Atorvastatin* 40 MG TAB PO SCH (16:44)
[2017-10-09] MEDS: Digoxin TAB* 0.125 MG PO SCH (16:44)
[2017-10-09] MEDS ORDERED: Warfarin TAB(*) 1 MG PO ONE (17:00)
[2017-10-10] MEDS: NS 0.9% 1000 ML* 1,000 ML IV SCH (02:18)
[2017-10-10 07:27] LABS: INR 1.74 (0.77-1.02)
[2017-10-10] MEDS ORDERED: ALENDRONATE 70 MG PO SCH (08:00)
[2017-10-10] MEDS: Aspirin 81 mg CHEW TAB* 81 MG TAB.CHEW PO SCH (08:19)
[2017-10-10 08:41] VITALS: BP 136/72
--- NOTE | 2017-10-10 11:39 | DS ---
DISCHARGE SUMMARY: DATE OF ADMISSION: 10/06/17 DATE OF DISCHARGE: 10/10/17 DISCHARGE DIAGNOSES: 1. Cerebrovascular accident with left hemiparesis, uncertain of exact localization, possible brainstem, possible right middle cerebral artery distribution.. 2. History of atrial fibrillation, on warfarin therapy. 3. Mild cognitive impairment. 4. Osteoporosis with recent T12 compression fracture, old T7 compression fracture. 5. History of hypertension. 6. Hyperlipidemia. 7. History of colonic polyps. 8. Pacemaker. 9. Varicose veins. 10. Moderate aortic stenosis on echo. 11. Mild dysphagia, improving. 12. Mild thrombocytopenia, chronic. 13. Impaired fasting glucose. HISTORY OF PRESENT ILLNESS: Ann Mccollum is an 82-year-old woman admitted with slurred speech and left-sided weakness. Please see the dictated admission note for details of the present illness, past medical history, family history, social and personal history, review of systems, and physical examination. LABORATORY DATA: CBC on admission: WBC 4.8, H and H 4.3/42, MCV 91, PLT 145K. CBC remains essentially unchanged during hospitalization except for a platelet count dropping to 108K. INRs were 1.33, 1.31, 1.29, 1.95, 1.74. Chemistries on admission: Sodium 139, potassium 3.8, chloride 104, CO2 28, BUN and creatinine 16 and 0.68, glucose 110. Total bili of 1.60. Otherwise, chemistry profile within normal limits. Triglycerides 101, total cholesterol 255, LDL cholesterol 178, HDL cholesterol 56.9. Calciums were 9.6, 8.5/8.3. Hemoglobin A1c was 5.8%. Urinalysis: Yellow, clear, specific gravity 1.08, pH 7, dipsticks negative. Toxicology: Digoxin level 1.3. IMAGING: Brain CT on 10/06/17 showed a remote PU[employer]IC[employer] HELPER territory infarct, small vessel ischemic changes. Chest x-ray on 10/06/17 showed no active disease. Head CT on 10/06/17 showed atherosclerosis. No internal carotid artery stenosis , chronic appearing right PU[employer] territory infarct with attenuation of the right [employer]PER distal to the P3 segment. Brain CT on 10/06/17, repeat, no evidence of gross acute infarct, mass effect or hemorrhage. Old right occipital lobe infarct, atrophy and moderate chronic small vessel ischemic changes. CT showed sequelae of prior vascular insult to the remote right occipital infarct and chronic microvascular ischemic changes. No acute findings. CT brain 10/08/17 showed old infarct of right occipital lobe, right thalamus lacunar infarct, chronic ischemic white matter change is noted. EKG 10/06/17 showed ventricular paced rhythm, 1 PVC, 1 fusion beat. Transthoracic echocardiogram 10/06/17 showed LVH, [id number] left atrial dilatation, moderator band in the right ventricle with [id number] right ventricular dilatation, pacemaker wire in the right ventricle, moderate right atrial dilatation, negative bubble study, moderate aortic stenosis, mitral annular calcification with mild to moderate mitral regurgitation, moderate tricuspid regurgitation, [id number] pulmonary hypertension. HOSPITAL COURSE: Patient was initially admitted, placed on telemetry. MRI could not be done because of her pacemaker. She had studies done as noted above. She was seen in neurological consultation by Dr. Plummer. He recommended repeat CT in 24 hours. He recommended aspirin and then holding her warfarin for now. Her INR was subtherapeutic. Neuro checks were done. Her hemiparesis gradually improved. Her heart was monitored. Her heart rate remained controlled. We were able to maintain her initial blood pressure greater than 140. She had been on the statin previously, this is being restarted. With regard to her osteoporosis, the family brought in her brace. This will be used when the patient is up. SCDs were used for DVT prophylaxis. She was DNR per her wishes. Neurological consultation by Dr. Plummer on . He felt that the patient had stroke. She had denial of illness related to her stroke. He recommended keeping her INR therapeutic and to be on antiplatelet therapy for several days. Dr. Hyatt saw her in followup neurological consultation on 10/08/17. She felt that the stroke could not clearly be localized to the cerebrum versus the brainstem. She felt that the stroke could have been done due to her subtherapeutic INR. She felt that it was safe to restart warfarin, continue aspirin in the meantime. The aspirin can be stopped when the INR is therapeutic. She recommended restarting statins. She received OT and PT evaluations. IV fluids were given. On , it was felt that she had dysphagia, did not pass swallow eval, but on , she did, so she was allowed to eat. She was able to eat, although she did not like having thickened liquids. On 10/10/17, she will be transferring to [facility]. MEDICATIONS: At the time of discharge: 1. Acetaminophen 650 p.o. q.4 h. p.r.n. fever or pain. 2. Alendronate 70 mg weekly. 3. Aspirin 81 mg daily, which should be stopped when her INR is therapeutic. 4. Atorvastatin 40 mg daily. 5. Digoxin 0.125 mg daily. 6. Lorazepam 0.5 mg q.6 h. p.r.n. agitation. 7. Ondansetron 4 mg IV q.6 h. p.r.n. nausea. 8. Warfarin 3 mg should be given today. INR should be measured daily. Dysphagia evaluation should be reviewed. [id number]/[facility] #: [id number] [facility]
== END 2017-10-10 11:08 | DRG 65 ==
LOC: ED 10:58 → MEDTELE 15:24
PROVIDERS: ADMIT Internal Medicine; ATTEND Internal Medicine Geriatric Medicine
DX: I63.9 Cerebral infarction, unspecified (principal); G81.94 Hemiplegia, unspecified affecting left nondominant side; R13.10 Dysphagia, unspecified; I48.91 Unspecified atrial fibrillation; G31.84 Mild cognitive impairment of uncertain or unknown etiology; M80.08XD Age-related osteoporosis with current pathological fracture, vertebra(e), subsequent encounter for fracture with routine healing; I10 Essential (primary) hypertension; E78.5 Hyperlipidemia, unspecified; I83.90 Asymptomatic varicose veins of unspecified lower extremity; D69.6 Thrombocytopenia, unspecified; I27.20 Pulmonary hypertension, unspecified; I35.0 Nonrheumatic aortic (valve) stenosis; R73.01 Impaired fasting glucose; Z85.828 Personal history of other malignant neoplasm of skin; Z79.01 Long term (current) use of anticoagulants; Z95.0 Presence of cardiac pacemaker; Z79.899 Other long term (current) drug therapy; Z88.1 Allergy status to other antibiotic agents; Z88.8 Allergy status to other drugs, medicaments and biological substances; Z82.5 Family history of asthma and other chronic lower respiratory diseases
CPT/HCPCS: 36415; 70450; 70496; 70498; 71045; 80048; 80053; 80061; 80162; 81003; 83036; 83605; 84484; 85025; 85027; 85610; 85730; 86850; 86900; 86901; 93005; 93306; 94760; 99284; A9270-GY; G8978-GP-CK; G8978-GP-CL; G8979-GP-CH; G8987-GO-CL; G8988-GO-CI; J2060; Q9967

== ENCOUNTER 2017-10-10 10:02 | Inpatient (IN) | payer MEDICARE ==
[2017-10-10] MEDS ORDERED: Magnesium Hydroxide LIQ* 30 ML UDC PO PRN (11:58)
[2017-10-10] MEDS ORDERED: Bisacodyl SUPP* 10 MG SUPP PR PRN (11:58)
[2017-10-10] MEDS ORDERED: Acetaminophen TAB* 325 MG PO PRN (11:58)
[2017-10-10] MEDS: Atorvastatin* 40 MG TAB PO SCH (16:54)
[2017-10-10] MEDS: Digoxin TAB* 0.125 MG PO SCH (16:54)
[2017-10-10] MEDS ORDERED: Warfarin TAB(*) 2 MG PO SCH (17:00)
[2017-10-10] MEDS: Docusate CAP* 100 MG PO SCH (19:52)
--- NOTE | 2017-10-10 21:16 | HP ---
ADMISSION HISTORY AND PHYSICAL: DATE OF ADMISSION: 10/10/17 REASON FOR ADMISSION: Stroke with left hemiparesis. HISTORY OF ILLNESS: Ann Duval is an 82-year-old female. She has a medical history significant for osteoporosis. She was hospitalized in early September with a T12 compression fracture. She was given a brace to wear. The patient began to wear it at home. She eased into the brace. A family member had checked up on her on 10/05/17. When they checked in on her again on 10/06/17 in the morning, she had left-sided weakness. The patient was brought to [facility]. She had a CT of the brain, which did not show any intracranial pathology. She had a CT angiogram showing some atherosclerosis. The patient cannot have an MRI because of her pacemaker. The patient was on Coumadin at that time. Because of the timing of getting into the hospital and because of the Coumadin, she was not a candidate for TPA. The patient was hospitalized. She had several subsequent CAT scans, which did not show an exact location of the stroke. As mentioned, the patient could not have an MRI because of the pacemaker. The patient was left with left-sided weakness. She also had some difficulty acknowledging that she had a stroke. The patient was felt to have physical therapy and occupational therapy needs. She is now being admitted for inpatient rehab so that she might return to independent living. PAST MEDICAL HISTORY: Significant for the aforementioned osteoporosis. She also has atrial fibrillation, is on chronic Coumadin therapy. She has a history of having had a pacemaker. She has a mild cognitive impairment, hypertension, hyperlipidemia, and colonic polyps. PAST SURGICAL HISTORY: She has had a skin cancer removed from her left lateral thigh and has had a hysterectomy. CURRENT MEDICATIONS: Include: 1. Lipitor. 2. Aspirin. 3. Digoxin. 4. She is on Coumadin and bowel medications. ALLERGIES: The patient has allergies listed to ZITHROMAX. SOCIAL HISTORY: She lives in the 3-story house by herself. She can live all on one level. She has 7 children, 3 sons live in the area. Usually, a family member checks in on her every day. She is a nonsmoker, nondrinker. REVIEW OF SYSTEMS: The patient reports no current shortness of breath or chest pain. PHYSICAL EXAMINATION VITAL SIGNS: The patient's temperature is 98.8, blood pressure is 136/53, pulse 74, respirations 18. HEENT: She did not have a facial palsy that I could detect. Her speech was clear. NECK: Supple. LUNGS: Sounded clear to auscultation bilaterally. HEART: Sounds were regular. S1, S2 audible. ABDOMEN: Soft, nontender. EXTREMITIES: Showed normal muscle tone. Peripheral pulses were intact. NEUROLOGIC: The patient was awake. She was oriented to herself and to place. She had difficulty acknowledging why she was in the hospital. Muscle strength was about 4/5 on the left and 5/5 on the right. FUNCTIONAL EXAM: She transfers with min assist. ASSESSMENT: Right-sided cerebrovascular accident. Exact location is unknown. Left hemiparesis. PLAN/RECOMMENDATIONS: Our plan is to integrate her into a comprehensive and therapeutic rehab program with the following goals: 1. Physical Therapy will work with the patient. They are going to work on functional transfer training and ambulation training with a walker. 2. Occupational Therapy will see the patient, work on her activities of daily living including toileting and toilet transfers. 3. Continue Coumadin for atrial fibrillation as well as DVT prophylaxis. 4. For her atrial fibrillation, we are going to continue her digoxin as well as her Coumadin. 5. Continue Lipitor. 6. She is on aspirin. We will check with Neurology if she needs both aspirin and Coumadin. 7. Consider SSRIs including Prozac as appropriate. 8. Family training as appropriate. 9. Home with appropriate services. ESTIMATED LENGTH OF STAY: Ten days. [id number]/[facility] #: [id number] DEBRA
[2017-10-11 06:38] LABS: INR 1.5 (0.77-1.02)
[2017-10-11] MEDS: Docusate CAP* 100 MG PO SCH ×2 (09:49→20:42)
[2017-10-11] MEDS: Aspirin 81 mg CHEW TAB* 81 MG TAB.CHEW PO SCH (09:49)
--- NOTE | 2017-10-11 12:35 | PMRUTEAM ---
PMRU: Team Meeting Current Status: Nursing: Current Status Skin Deviations [Bilateral Other Foot] Skin Deviations [Midline Other Breast] Skin Deviations [Left Breast] Other Skin Deviation Description [ mottled purple Bilateral Foot] Skin Deviation Description [ redness Midline Breast] Skin Deviation Description [ redness Left Breast] Bladder Current Status voiding using a cylinder. unable to sit on bsc or toilet d/t back spasm Bowel Current Status bowel meds given. last bm 10/09/17 Nutrition Current Status adequate Medication Current Status tylenol for pain Physical Therapy: Current Status Bed Mobility Assistance Supervision Transfer Moblility Assistance Supervision Ambulation Assistance Supervision Ambulation Assistive Devices Rolling Walker Stairs Assistance Contact guard Stairs Recommended Devices Two Rails Number of Stairs 10 Occupational Therapy: Current Status Upper Body Dressing Min Assist Lower Body Dressing Mod Assist Bathing Min Assist Toileting Min Assist Toilet Transfer Contact Guard Assist Eating Supervision Rec Therapy: Current Status Summary of Assessment and RT services introduced, enter RT assessment. Pt. Clinical Impression open to continued leisure visits. Treatment Goals Pt. will engage in leisure activities while on the unit. Treatment Plan Provide RT services and encourage involvement. Enter RT assessment. Social Work: Current Status Discharge Plan return home with home care svs and family support Potential for Family Training pt's family is involved and supportive Anticipated Discharge Home Destination Discharge With home care svs and family support Nutrition: Current Status Monitoring new adm; nutrition assessment planned 10/14 per NDS protocol. 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 Initial goals as outlined below. Goals: Occupational Therapy: Initial Goals Goals to be Completed in (Days 7-10 days ) Upper Body Bathing Routine Modified Independent with Lower Body Bathing Routine Modified Independent with Upper Body Dressing Routine Independent Lower Body Dressing Routine Modified Independent with Toilet Hygeine and Clothing Modified Independent with Management Routine Toilet Transfer Routine Modified Independent with Tub Transfer Routine Modified Independent with Functional Transfers for ADL Modified Independent with Grooming Routine Independent Feeding Routine Independent Nursing: Goals Bladder Goal independent Bowel Goal independent Nutrition Goal 100% of all meals eaten Medication Goal supervision of family Nutrition: Goals Intervention Goals 1. pt will tolerate least-restrictive diet texture without difficulty chewing or swallowing 2. adequate po intake to maintain stable wt, hydration, and lean body mass 3. maintain regular bowel pattern without c/o constipation or diarrhea 4. skin integrity will be maintained without evidence of breakdown Social Work: Goals Discharge Plan return home with home care svs and family support Potential for Family Training pt's family is involved and supportive Anticipated Discharge Home Destination Discharge With home care svs and family support Medicine Note: Length of Stay: 4 days Anticipated Discharge Destination: Home Tentative Discharge Date: October 15, 2017 Discharged to: Home
--- NOTE | 2017-10-11 16:41 | PN ---
Progress Note Date of Service: 10/11/17 Note: YARITZA BEYER was visited. Therapy notes read and reviewed. She is wondering about restarting her metoprolol and Norvasc. Generally want pressures a little high after a stroke. Her INR was 1.5, will increase Coumadin Current Medications: Active Medications Generic Name Dose Route Start Last Admin Trade Name Freq PRN Reason Stop Dose Admin Acetaminophen 650 mg 10/10/17 11:58 10/11/17 09:49 Tylenol Tab* PO 650 mg Q6H PRN Administration FEVER/PAIN Aspirin 81 mg 10/11/17 09:00 10/11/17 09:49 Aspirin 81 Mg Chew Tab* PO 81 mg DAILY [facility] Administration Atorvastatin Calcium 40 mg 10/10/17 17:00 10/10/17 16:54 Lipitor* PO 40 mg 1700 [facility] Administration Bisacodyl 10 mg 10/10/17 11:58 Dulcolax Supp* [place] DAILY PRN CONSTIPATION Digoxin 0.125 mg 10/10/17 17:00 10/10/17 16:54 Lanoxin Tab* PO 0.125 mg 1700 [facility] Administration Docusate Sodium 100 mg 10/10/17 21:00 10/11/17 09:49 Colace Cap* PO 100 mg BID [facility] Administration Magnesium Hydroxide 30 ml 10/10/17 11:58 Milk Of Magnesia Liq* PO Q6H PRN CONSTIPATION Pharmacy Profile Note 1 note 10/11/17 17:00 Coumadin Daily Reminder* FOLLOW UP 1700 [facility] Senna 2 tab 10/10/17 11:58 Senokot Tab* PO BEDTIME PRN CONSTIPATION Warfarin Sodium 3 mg 10/11/17 17:00 Coumadin Tab(*) PO DAILY@1700 [facility] Protocol Vital Signs: Vital Signs Temp Pulse Resp BP Pulse Ox 98.3 F 74 16 137/70 100 10/11/17 15:29 10/11/17 15:29 10/11/17 15:29 10/11/17 15:29 10/11/17 15:29 Lab Results: Laboratory Results - last 24 hr 10/11/17 06:04 INR (Anticoag Therapy) 1.50 H Exam: HEENT: No facial asymmetry LUNGS: Clear bilaterally HEART: Irreg rhythm ABDOMEN: Soft, +BS NEUROLOGIC: Strength 4-4+/5 on left Assessment/Plan: 1. Right CVA with left hemiparesis: PT/OT. She is improving rapidly. Lipitor/ASA /Coumadin 2. Atrial fibrillation: Coumadin. May resume beta mary ann 3. Osteoporosis: Fosamax 4. T12 Compression fracture: Brace 5. DVT Prophylaxis: Coumadin 6. Advanced directives: full code 10/11/17 16:43 10/11/17 16:44
[2017-10-11] MEDS: Warfarin TAB(*) 3 MG PO SCH (17:04)
[2017-10-11] MEDS: Digoxin TAB* 0.125 MG PO SCH (17:04)
[2017-10-11] MEDS: Atorvastatin* 40 MG TAB PO SCH (17:04)
[2017-10-11] MEDS: Metoprolol Tartrate TAB* 25 MG PO SCH (20:42)
[2017-10-12 07:56] LABS: ABS Basophils 0 10^3/ul (0-0.2); ABS Eosinophils 0.4 10^3/ul (0-0.6); ABS Lymphocytes 0.9 10^3/ul (1.0-4.8); ABS Monocytes 0.3 10^3/ul (0-0.8); ABS Neutrophils 2.8 10^3/ul (1.5-7.7); ABS Nucleated RBC 0 10^3/ul; Eosinophil % 8.3 % (0-6); Hematocrit 40 % (35-47); Hemoglobin 13.8 g/dl (12.0-16.0); Lymphocyte % 20.6 % (25-47); Mean Corpuscular HGB Conc 35 g/dl (31-36); Mean Corpuscular Hemoglobin 31 pg (27-31); Mean Corpuscular Volume 90 fL (80-97); Mean Platelet Volume 8.5 um3 (7.4-10.4); Nucleated Red Blood Cells % 0.2; Platelet Count 144 10^3/ul (150-450); Red Blood Count 4.43 10^6/ul (4.0-5.4); Red Cell Distribution Width 14 % (10.5-15); White Blood Count 4.5 10^3/ul (3.5-10.8)
[2017-10-12 08:00] LABS: INR 1.63 (0.77-1.02)
[2017-10-12] MEDS: Aspirin 81 mg CHEW TAB* 81 MG TAB.CHEW PO SCH (08:03)
[2017-10-12] MEDS: Docusate CAP* 100 MG PO SCH ×2 (08:03→20:44)
[2017-10-12] MEDS: Metoprolol Tartrate TAB* 25 MG PO SCH ×2 (08:03→20:44)
[2017-10-12 08:12] LABS: EGFR Non-African American 129.7 (>60)
[2017-10-12] MEDS: Digoxin TAB* 0.125 MG PO SCH (16:58)
[2017-10-12] MEDS: Warfarin TAB(*) 3 MG PO SCH (16:58)
[2017-10-12] MEDS: Atorvastatin* 40 MG TAB PO SCH (16:58)
--- NOTE | 2017-10-12 19:40 | PN ---
Progress Note Date of Service: 10/12/17 Note: YARITZA BEYER was visited. Therapy notes read and reviewed. She has some back pain that comes and feels like a spasm. She is reluctant to try a new pill. I have advised her it might be better to try it while in hospital. Current Medications: Active Medications Generic Name Dose Route Start Last Admin Trade Name Freq PRN Reason Stop Dose Admin Acetaminophen 650 mg 10/10/17 11:58 10/11/17 09:49 Tylenol Tab* PO 650 mg Q6H PRN Administration FEVER/PAIN Aspirin 81 mg 10/11/17 09:00 10/12/17 08:03 Aspirin 81 Mg Chew Tab* PO 81 mg DAILY [facility] Administration Atorvastatin Calcium 40 mg 10/10/17 17:00 10/12/17 16:58 Lipitor* PO 40 mg 1700 [facility] Administration Bisacodyl 10 mg 10/10/17 11:58 Dulcolax Supp* [place] DAILY PRN CONSTIPATION Digoxin 0.125 mg 10/10/17 17:00 10/12/17 16:58 Lanoxin Tab* PO 0.125 mg 1700 [facility] Administration Docusate Sodium 100 mg 10/10/17 21:00 10/12/17 08:03 Colace Cap* PO 100 mg BID [facility] Administration Magnesium Hydroxide 30 ml 10/10/17 11:58 Milk Of Magnesia Liq* PO Q6H PRN CONSTIPATION Metoprolol Tartrate 25 mg 10/11/17 21:00 10/12/17 08:03 Lopressor Tab* PO 25 mg BID [facility] Administration Pharmacy Profile Note 1 note 10/11/17 17:00 10/12/17 17:00 Coumadin Daily Reminder* FOLLOW UP 1 note 1700 [facility] Administration Senna 2 tab 10/10/17 11:58 Senokot Tab* PO BEDTIME PRN CONSTIPATION Warfarin Sodium 3 mg 10/11/17 17:00 10/12/17 16:58 Coumadin Tab(*) PO 3 mg DAILY@1700 [facility] Administration Protocol Vital Signs: Vital Signs Temp Pulse Resp BP Pulse Ox 98.4 F 76 18 134/54 99 10/12/17 15:09 10/12/17 16:58 10/12/17 15:09 10/12/17 15:09 10/12/17 15:09 Lab Results: Laboratory Results - last 24 hr 0410/12/17 10/12/17 07:45 07:45 07:45 WBC 4.5 RBC 4.43 Hgb 13.8 Hct 40 MCV 90 MCH 31 MCHC 35 RDW 14 Plt Count 144 L MPV 8.5 Neut % (Auto) 63.0 Lymph % (Auto) 20.6 L Hickman % (Auto) 7.8 H Eos % (Auto) 8.3 H Baso % (Auto) 0.3 Absolute Neuts (auto) 2.8 Absolute Lymphs (auto) 0.9 L Absolute Monos (auto) 0.3 Absolute Eos (auto) 0.4 Absolute Basos (auto) 0 Absolute Nucleated RBC 0 Nucleated RBC % 0.2 INR (Anticoag Therapy) 1.63 H Sodium 140 Potassium 4.0 Chloride 108 Carbon Dioxide 27 Anion Gap 5 BUN 8 Creatinine 0.46 L Est GFR ( Amer) 166.8 Est GFR (Non-Af Amer) 129.7 BUN/Creatinine Ratio 17.4 Glucose 92 Calcium 8.9 Total Bilirubin 1.10 H AST 23 ALT 16 Alkaline Phosphatase 45 Total Protein 6.3 L Albumin 3.3 Globulin 3.0 Albumin/Globulin Ratio 1.1 Exam: HEENT: No facial asymmetry LUNGS: Clear bilaterally HEART: Irreg rhythm ABDOMEN: Soft, +BS NEUROLOGIC: Strength 4-4+/5 on left Assessment/Plan: 1. Right CVA with left hemiparesis: PT/OT. She is improving rapidly. Lipitor/ASA /Coumadin 2. Atrial fibrillation: Coumadin. Resumed beta mary ann 3. Osteoporosis: Fosamax 4. T12 Compression fracture: Brace. will try Robaxin 5. DVT Prophylaxis: Coumadin 6. Advanced directives: full code 10/12/17 19:41 10/12/17 19:41
[2017-10-12] MEDS: Senna TAB PO PRN (20:46)
[2017-10-13 06:56] LABS: INR 1.78 (0.77-1.02)
[2017-10-13] MEDS: Metoprolol Tartrate TAB* 25 MG PO SCH (09:26)
[2017-10-13] MEDS: Aspirin 81 mg CHEW TAB* 81 MG TAB.CHEW PO SCH (09:26)
[2017-10-13] MEDS: Docusate CAP* 100 MG PO SCH ×2 (09:26→21:22)
--- NOTE | 2017-10-13 17:07 | PN ---
Progress Note Date of Service: 10/13/17 Note: YARITZA BEYER was visited. Therapy notes read and reviewed. She has not taken the muscle relaxant yet. She is moving pretty well. Current Medications: Active Medications Generic Name Dose Route Start Last Admin Trade Name Freq PRN Reason Stop Dose Admin Acetaminophen 650 mg 10/10/17 11:58 10/11/17 09:49 Tylenol Tab* PO 650 mg Q6H PRN Administration FEVER/PAIN Aspirin 81 mg 10/11/17 09:00 10/13/17 09:26 Aspirin 81 Mg Chew Tab* PO 81 mg DAILY [facility] Administration Atorvastatin Calcium 40 mg 10/10/17 17:00 10/12/17 16:58 Lipitor* PO 40 mg 1700 [facility] Administration Bisacodyl 10 mg 10/10/17 11:58 Dulcolax Supp* [place] DAILY PRN CONSTIPATION Digoxin 0.125 mg 10/10/17 17:00 10/12/17 16:58 Lanoxin Tab* PO 0.125 mg 1700 [facility] Administration Docusate Sodium 100 mg 10/10/17 21:00 10/13/17 09:26 Colace Cap* PO 100 mg BID [facility] Administration Magnesium Hydroxide 30 ml 10/10/17 11:58 Milk Of Magnesia Liq* PO Q6H PRN CONSTIPATION Methocarbamol 500 mg 10/12/17 19:42 Robaxin Tab* PO TID PRN SPASMS Metoprolol Tartrate 25 mg 10/11/17 21:00 10/13/17 09:26 Lopressor Tab* PO 25 mg BID [facility] Administration Pharmacy Profile Note 1 note 10/11/17 17:00 10/12/17 17:00 Coumadin Daily Reminder* FOLLOW UP 1 note 1700 [facility] Administration Senna 2 tab 10/10/17 11:58 10/12/17 20:46 Senokot Tab* PO 2 tab BEDTIME PRN Administration CONSTIPATION Warfarin Sodium 3 mg 10/11/17 17:00 10/12/17 16:58 Coumadin Tab(*) PO 3 mg DAILY@1700 [facility] Administration Protocol Vital Signs: Vital Signs Temp Pulse Resp BP Pulse Ox 97.6 F 70 16 82/60 80 10/13/17 14:32 10/13/17 14:32 10/13/17 14:32 10/13/17 15:56 10/13/17 15:56 Lab Results: Laboratory Results - last 24 hr 10/13/17 06:31 INR (Anticoag Therapy) 1.78 H Exam: HEENT: No facial asymmetry LUNGS: Clear bilaterally HEART: Irreg rhythm ABDOMEN: Soft, +BS NEUROLOGIC: Strength 4+/5 on left Assessment/Plan: 1. Right CVA with left hemiparesis: PT/OT. She is improving rapidly. Lipitor/ASA /Coumadin 2. Atrial fibrillation: Coumadin. Resumed beta mary ann. Check INR in am. 3. Osteoporosis: Fosamax 4. T12 Compression fracture: Brace. will try Robaxin 5. DVT Prophylaxis: Coumadin 6. Advanced directives: full code 10/13/17 17:07
[2017-10-13] MEDS: Atorvastatin* 40 MG TAB PO SCH (17:16)
[2017-10-13] MEDS: Digoxin TAB* 0.125 MG PO SCH (17:17)
[2017-10-13] MEDS: Warfarin TAB(*) 3 MG PO SCH (17:18)
[2017-10-13] MEDS: Methocarbamol TAB* 500 MG PO PRN (19:05)
[2017-10-13] MEDS: Metoprolol Succinate XL TAB* 50 MG PO SCH (21:22)
[2017-10-13] MEDS: Senna TAB PO PRN (21:22)
[2017-10-14 07:01] LABS: INR 1.89 (0.77-1.02)
[2017-10-14] MEDS: Aspirin 81 mg CHEW TAB* 81 MG TAB.CHEW PO SCH (08:20)
[2017-10-14] MEDS: Docusate CAP* 100 MG PO SCH ×2 (08:20→21:25)
[2017-10-14] MEDS: Metoprolol Succinate XL TAB* 50 MG PO SCH ×2 (08:20→21:25)
[2017-10-14] MEDS: Methocarbamol TAB* 500 MG PO PRN (12:37)
--- NOTE | 2017-10-14 15:56 | PN ---
Progress Note Date of Service: 10/14/17 Note: YARITZA BEYER was visited. Therapy notes read and reviewed. Family training went well today. Got one dose of muscle relaxer. made her very sleepy. She is also quite constipated. Current Medications: Active Medications Generic Name Dose Route Start Last Admin Trade Name Freq PRN Reason Stop Dose Admin Acetaminophen 650 mg 10/10/17 11:58 10/11/17 09:49 Tylenol Tab* PO 650 mg Q6H PRN Administration FEVER/PAIN Aspirin 81 mg 10/11/17 09:00 10/14/17 08:20 Aspirin 81 Mg Chew Tab* PO 81 mg DAILY [facility] Administration Atorvastatin Calcium 40 mg 10/10/17 17:00 10/13/17 17:16 Lipitor* PO 40 mg 1700 [facility] Administration Bisacodyl 10 mg 10/10/17 11:58 Dulcolax Supp* [place] DAILY PRN CONSTIPATION Digoxin 0.125 mg 10/10/17 17:00 10/13/17 17:17 Lanoxin Tab* PO 0.125 mg 1700 [facility] Administration Docusate Sodium 100 mg 10/10/17 21:00 10/14/17 08:20 Colace Cap* PO 100 mg BID [facility] Administration Lactulose 30 ml 10/14/17 17:00 Lactulose* PO 10/14/17 17:01 ONCE ONE Magnesium Hydroxide 30 ml 10/10/17 11:58 10/14/17 12:48 Milk Of Magnesia Liq* PO 30 ml Q6H PRN Administration CONSTIPATION Methocarbamol 500 mg 10/12/17 19:42 10/14/17 12:37 Robaxin Tab* PO 500 mg TID PRN Administration SPASMS Metoprolol Succinate 50 mg 10/13/17 21:00 10/14/17 08:20 Toprol Xl Tab* PO 50 mg BID [facility] Administration Pharmacy Profile Note 1 note 10/11/17 17:00 10/13/17 17:22 Coumadin Daily Reminder* FOLLOW UP 1 note 1700 [facility] Administration Senna 2 tab 10/10/17 11:58 10/13/17 21:22 Senokot Tab* PO 2 tab BEDTIME PRN Administration CONSTIPATION Warfarin Sodium 3 mg 10/11/17 17:00 10/13/17 17:18 Coumadin Tab(*) PO 3 mg DAILY@1700 [facility] Administration Protocol Vital Signs: Vital Signs Temp Pulse Resp BP Pulse Ox 98.2 F 70 16 133/53 93 10/14/17 05:32 10/14/17 05:32 10/14/17 14:38 10/14/17 05:32 10/14/17 05:32 Lab Results: Laboratory Results - last 24 hr 10/14/17 06:19 INR (Anticoag Therapy) 1.89 H Exam: HEENT: No facial asymmetry LUNGS: Clear bilaterally HEART: Irreg rhythm ABDOMEN: Soft, +BS NEUROLOGIC: Strength 4+/5 on left Assessment/Plan: 1. Right CVA with left hemiparesis: PT/OT. She is improving rapidly. Lipitor/ASA /Coumadin 2. Atrial fibrillation: Coumadin. Resumed beta mary ann. Check INR in am. 3. Osteoporosis: Fosamax 4. T12 Compression fracture: Brace. will d/c Robaxin as it made her sleepy 5. DVT Prophylaxis: Coumadin 6. Advanced directives: full code 7. Constipation: Had MOM. Will give Lactulose if no BM 10/14/17 15:56
[2017-10-14] MEDS: Digoxin TAB* 0.125 MG PO SCH (16:57)
[2017-10-14] MEDS: Atorvastatin* 40 MG TAB PO SCH (16:57)
[2017-10-14] MEDS: Warfarin TAB(*) 3 MG PO SCH (16:58)
[2017-10-14] MEDS ORDERED: celeCOXIB CAP* 100 MG PO PRN (22:55)
[2017-10-15 04:52] VITALS: BP 128/60
[2017-10-15 06:39] LABS: INR 2.11 (0.77-1.02)
[2017-10-15] MEDS: Docusate CAP* 100 MG PO SCH (09:16)
[2017-10-15] MEDS: Metoprolol Succinate XL TAB* 50 MG PO SCH (09:16)
[2017-10-15] MEDS: Aspirin 81 mg CHEW TAB* 81 MG TAB.CHEW PO SCH (09:16)
--- NOTE | 2017-10-15 13:43 | DS ---
CC: Sonia Ernandez MD * DISCHARGE SUMMARY: DATE OF ADMISSION: 10/10/17 DATE OF DISCHARGE: 10/15/17 DISCHARGE DIAGNOSES: 1. Stroke with left hemiparesis 2. Osteoporosis. 3. T12 compression fracture. 4. Atrial fibrillation. 5. Cognitive impairment. 6. Hypertension. 7. Hyperlipidemia. HISTORY OF PRESENT ILLNESS AND HOSPITAL COURSE: For complete history of the events leading up to her rehab stay, please see the history and physical dictated by me on 10/10/17. While on the rehab unit, the patient remained fairly stable from a medical point of view. Her beta-mary ann, her Toprol-XL was restarted. At the time of discharge, she was not at her usual dose, but was on 50 mg twice daily. Her Coumadin dose was kept at 3 mg and her INR slowly increased. Otherwise, she was medically stable. She was seen by physical therapy and occupational therapy and made good gains with both disciplines. With physical therapy at the time of admission, the patient required contact guard to transfer. She was able to ambulate 300 feet with supervision. With occupational therapy at the time of admission, the patient required min assist for upper body dressing, mod assist for lower body dressing , min assist for toileting, contact guard for toilet transfers. By the time of discharge, the patient was independent in transfers, independent ambulating 150 feet, independent with dressing, independent with toileting and toilet transfers. It is recommended that she wait for the home therapist in order to be cleared to do stairs at home. The patient's family came in for family training prior to discharge. The patient was discharged home on 10/15/17. DISCHARGE DIET: Regular. DISCHARGE MEDICATIONS: 1. Aspirin 81 mg daily. 2. Lipitor 40 mg daily. 3. Digoxin 0.125 mg daily. 4. Toprol-XL 50 mg twice daily. 5. Coumadin 3 mg daily at 5 p.m. 6. Lasix 20 mg daily as needed. 7. Potassium chloride 20 mEq daily as needed. 8. Fosamax 70 mg daily on Fridays. SERVICES AFTER DISCHARGE: Through [facility]. She will have home nursing, home physical therapy, and a home health aide. FOLLOWUP: Follow up with Dr. Sonia Ernandez in 1 to 2 weeks. [id number]/[facility] #: [id number] [facility]
== END 2017-10-15 11:45 | disposition home health service (06) | DRG 57 ==
LOC: PMRU 11:22 → EEVIPCON 11:22
PROVIDERS: ADMIT Physical Medicine & Rehabilitation; ATTEND Physical Medicine & Rehabilitation
PROC: F07Z5ZZ Bed Mobility Treatment (ICD-10-PCS; principal; 2017-10-10)
PROC: F07Z9ZZ Gait Training/Functional Ambulation Treatment (ICD-10-PCS; 2017-10-10)
PROC: F07Z8ZZ Transfer Training Treatment (ICD-10-PCS; 2017-10-10)
PROC: F08Z0ZZ Bathing/Showering Techniques Treatment (ICD-10-PCS; 2017-10-10)
PROC: F08Z1ZZ Dressing Techniques Treatment (ICD-10-PCS; 2017-10-10)
PROC: F08Z3ZZ Feeding/Eating Treatment (ICD-10-PCS; 2017-10-10)
DX: I69.354 Hemiplegia and hemiparesis following cerebral infarction affecting left non-dominant side (principal); M81.0 Age-related osteoporosis without current pathological fracture; M48.54XD Collapsed vertebra, not elsewhere classified, thoracic region, subsequent encounter for fracture with routine healing; I48.91 Unspecified atrial fibrillation; G31.84 Mild cognitive impairment of uncertain or unknown etiology; I10 Essential (primary) hypertension; E78.5 Hyperlipidemia, unspecified; K59.00 Constipation, unspecified; Z95.0 Presence of cardiac pacemaker; Z85.828 Personal history of other malignant neoplasm of skin; Z79.01 Long term (current) use of anticoagulants; Z79.82 Long term (current) use of aspirin; Z79.899 Other long term (current) drug therapy; Z88.1 Allergy status to other antibiotic agents
CPT/HCPCS: 36415; 80053; 85025; 85610; A9270-GY

== ENCOUNTER 2019-02-24 11:20 | Inpatient (IN) | payer MEDICARE ==
[2019-02-24] MEDS ORDERED: Nitroglycerin TAB 0.4 MG* 0.4 MG TAB SL ONE ×2 (11:47→12:35)
[2019-02-24 12:13] LABS: ABS Basophils 0.1 10^3/ul (0-0.2); ABS Eosinophils 0.1 10^3/ul (0-0.6); ABS Lymphocytes 0.6 10^3/ul (1.0-4.8); ABS Monocytes 0.5 10^3/ul (0-0.8); ABS Neutrophils 5.4 10^3/ul (1.5-7.7); Eosinophil % 1.4 %; Hematocrit 37 % (35-47); Hemoglobin 12.5 g/dL (12.0-16.0); Lymphocyte % 8.6 %; Mean Corpuscular HGB Conc 34 g/dL (31-36); Mean Corpuscular Hemoglobin 33 pg (27-31); Mean Corpuscular Volume 98 fL (80-97); Mean Platelet Volume 8.8 fL (7.4-10.4); Platelet Count 150 10^3/uL (150-450); Red Blood Count 3.79 10^6 /uL (3.70-4.87); Red Cell Distribution Width 14 % (10-15); White Blood Count 6.7 10^3/uL (3.5-10.8)
[2019-02-24 12:24] LABS: Albumin 3.9 g/dL (3.2-5.2); Albumin/Globulin Ratio 1.1 (1-3); BUN/Creatinine Ratio 43.4 (8-20); Calcium 9.1 mg/dL (8.6-10.3); EGFR Non-African American 109.9 (>60); Globulin 3.5 g/dL (2-4); Potassium 4.1 mmol/L (3.5-5.0); Total Bilirubin 1.8 mg/dL (0.2-1.0); Total Protein 7.4 g/dL (6.4-8.9)
[2019-02-24 12:26] LABS: Troponin I 0.03 ng/mL (<0.04)
--- NOTE | 2019-02-24 12:43 | ED ---
Shortness of Breath - HPI Summary HPI Summary: 83 year old F brought to [facility] by EMS with a chief complaint of shortness of breath since today, 02/24/19, at 11:23. Symptoms aggravated by nothing. Symptoms alleviated by nothing. Patient denies trouble breathing though half-way thinks she is breathing hard to the point that she is having trouble finishing sentences, fever, pain, and coughing. Patient reports worsening swelling in legs leading to concern of trouble of heart (patient denies no heart failure but has pacemaker). 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 Patient reports use of Coumadin for years but does not recall what for. Patient denies hx high BP and diabetes. Patient denies current smoking, allergies to medication, or inhaler use on daily basis. Patient is on Lasix. - History of Current Complaint Chief Complaint: EDShortnessOfBreath Time Seen by Provider: 02/24/19 11:31 Hx Obtained From: Patient Onset/Duration: Lasting Hours, Still Present Timing: Constant Aggravating Factors: Nothing Alleviating Factors: Nothing Associated Signs & Symptoms: Negative - denies fever, pain, coughing, trouble breathing (per pt), Calf Pain/Swelling - swelling in legs - Allergy/Home Medications Allergies/Adverse Reactions: Allergies Allergy/AdvReac Type Severity Reaction Status Date / Time azithromycin Allergy Nausea Verified 10/06/17 11:28 narcotics Allergy Altered Uncoded 10/06/17 11:28 Mental Status Home Medications: Home Medications Acetaminophen [Acetaminophen Extra Strength] 500 mg PO TID 02/24/19 [History Confirmed 02/24/19] Docusate CAP* [Colace Cap*] 100 mg PO DAILY PRN 02/24/19 [History Confirmed 01/05] Donepezil TAB* [Aricept 5 MG TAB*] 10 mg PO DAILY 02/24/19 [History Confirmed ] Nystatin 1 admin TOPICAL SEE INSTRUCTIONS PRN 02/24/19 [History Confirmed ] Ondansetron ODT TAB* [Zofran 4 MG Odt TAB*] 4 mg PO Q6HR 02/24/19 [History Confirmed 02/24/19] PMH/Surg Hx/FS Hx/Imm Hx Cardiovascular History: Reports: Hx Hypercholesterolemia, Hx Hypertension, Hx Pacemaker/ICD - around 2005, Other Cardiovascular Problems/Disorders - pacemaker Musculoskeletal History: Reports: Hx Arthritis, Hx Back Problems, Hx Osteoporosis, Other Musculoskeletal History - t 12 fracture, old t7 Denies: Hx Rheumatoid Arthritis Sensory History: Reports: Hx Contacts or Glasses Denies: Hx Hearing Aid Opthamlomology History: Reports: Hx Contacts or Glasses - Cancer History Cancer Type, Location and Year: skin cancer - Surgical History Surgery Procedure, Year, and Place: PACER, neck abscess I+D, vein stripping, hysterectomy Infectious Disease History: No Infectious Disease History: Denies: Traveled Outside the [place] in Last 30 Days - Family History Known Family History: Negative: Hypertension, Respiratory Disease, Seizure Disorder - Social History Alcohol Use: Rare Alcohol Amount: white wine with ice and water Hx Substance Use: No Substance Use Type: Reports: None Hx Tobacco Use: No Smoking Status (MU): Never Smoked Tobacco Review of Systems Negative: Fever Positive: Shortness Of Breath. Negative: Cough Positive: Other - swelling in legs All Other Systems Reviewed And Are Negative: Yes Physical Exam - Summary Physical Exam Summary: Constitutional: Well-developed, Well-nourished, Alert. (-) Distressed Skin: Warm, Dry HENT: Normocephalic; Atraumatic Eyes: Conjunctiva normal Neck: Musculoskeletal ROM normal neck. (-) JVD, (-) Stridor, (-) Tracheal deviation Cardio: Rhythm regular, rate normal, Heart sounds normal; Intact distal pulses; The pedal pulses are 2+ and symmetric. Radial pulses are 2+ and symmetric. (-) Murmur Pulmonary/Chest wall:Speaking and shortened sentences, tachypneic, Mild crackles at the bases Abd: Soft, (-) tenderness, (-) Distension, (-) Guarding, (-) Rebound Musculoskeletal: 2+ pedal edema Lymph: (-) Cervical adenopathy Neuro: Alert, Oriented x3 Psych: Mood and affect Normal Triage Information Reviewed: Yes Vital Signs On Initial Exam: Initial Vitals Temp Pulse Resp BP Pulse Ox 97.2 F 58 12 160/74 92 02/24/19 11:22 02/24/19 11:22 02/24/19 11:22 02/24/19 11:22 02/24/19 11:22 Vital Signs Reviewed: Yes Diagnostics - Vital Signs Vital Signs Temp Pulse Resp BP Pulse Ox 02/24/19 12:22 22 09/07/19 12:10 84 27 149/83 90 02/24/19 12:00 86 22 90 02/24/19 11:41 79 29 87 02/24/19 11:40 72 19 162/94 84 02/24/19 11:22 97.2 F 58 12 160/74 92 - Laboratory Lab Results: Lab Results 02/24/19 02/24/19 02/24/19 Range/Units 11:58 11:58 11:58 WBC 6.7 (3.5-10.8) 10^3/uL RBC 3.79 (3.70-4.87) 10^6 /uL Hgb 12.5 (12.0-16.0) g/dL Hct 37 (35-47) % MCV 98 H (80-97) fL MCH 33 H (27-31) pg MCHC 34 (31-36) g/dL RDW 14 (10-15) % Plt Count 150 (150-450) 10^3/uL MPV 8.8 (7.4-10.4) fL Neut % (Auto) 81.0 % Lymph % (Auto) 8.6 % [place] % (Auto) 7.8 % Eos % (Auto) 1.4 % Baso % (Auto) 1.2 % Absolute Neuts (auto) 5.4 (1.5-7.7) 10^3/ul Absolute Lymphs (auto) 0.6 L (1.0-4.8) 10^3/ul Absolute Monos (auto) 0.5 (0-0.8) 10^3/ul Absolute Eos (auto) 0.1 (0-0.6) 10^3/ul Absolute Basos (auto) 0.1 (0-0.2) 10^3/ul Absolute Nucleated RBC 0.0 10^3/ul Nucleated RBC % 0.0 Sodium 137 (135-145) mmol/L Potassium 4.1 (3.5-5.0) mmol/L Chloride 104 (101-111) mmol/L Carbon Dioxide 24 (22-32) mmol/L Anion Gap 9 (2-11) mmol/L BUN 23 (6-24) mg/dL Creatinine 0.53 (0.51-0.95) mg/dL Est GFR ( Amer) 133.0 (>60) Est GFR (Non-Af Amer) 109.9 (>60) BUN/Creatinine Ratio 43.4 H (8-20) Glucose 112 H (70-100) mg/dL Calcium 9.1 (8.6-10.3) mg/dL Total Bilirubin 1.80 H (0.2-1.0) mg/dL AST 93 H (13-39) U/L ALT 100 H (7-52) U/L Alkaline Phosphatase 110 H (34-104) U/L Troponin I 0.03 (<0.04) ng/mL B-Natriuretic Peptide 778 H (<=100) pg/mL Total Protein 7.4 (6.4-8.9) g/dL Albumin 3.9 (3.2-5.2) g/dL Globulin 3.5 (2-4) g/dL Albumin/Globulin Ratio 1.1 (1-3) Result Diagrams: 02/24/19 11:58 02/24/19 11:58 Lab Statement: Any lab studies that have been ordered have been reviewed, and results considered in the medical decision making process. - Radiology Chest X-Ray Radiology Interpretation Completed By: Radiologist Summary of Radiographic Findings: Per radiologist,. #. Pulmonary edema. #. Underlying stigmata obstructive lung disease. ED physician has reviewed this imaging report. - EKG 1149 Cardiac Rate: NL - 85 BPM Summary of EKG Findings: multiple paced beats followed by a strain of unpaced beats that are afib, no evident ischemia Re-Evaluation - Re-Evaluation First Eval Re-Evaluation Time: 12:30 Comment: Physician checks up on patient. Course/Dx - Course Course Of Treatment: Patient is here with shortness of breath from the half-way. Upon arrival, patient had no complaints but was obviously short of breath with tachypnea and speaking in shortened sentences. Patient has a new oxygen requirement as well. Patient was clinically fluid overloaded which was confirmed with a chest x-ray. Patient was given 2 doses of sublingual nitroglycerin due to her hypertension and possible flash pulmonary edema. Patient is also given 40 mg of IV Lasix. Patient has an elevated BNP. Patient had an EKG which showed a paced rhythm followed by atrial fibrillation. Patient had her pacemaker interrogated at the report is not back yet. Patient' s last echo was roughly 1 year ago which showed a normal EF. Given patient's probable new-onset heart failure, patient is admitted to the hospital for further management. - Diagnoses Provider Diagnoses: Pulmonary edema, Tachypnea, Hypoxemia, Atrial fibrillation, Respiratory distress - Physician Notifications Discussed Care of Patient With: Alessia Salcedo - hospitalist Time Discussed With Above Provider: 13:01 Instructed by Provider To: Admit As Inpatient Discharge ED - Sign-Out/Discharge Documenting (check all that apply): Patient Departure - admit Patient Received Moderate/Deep Sedation with Procedure: No - Discharge Plan Condition: Stable Disposition: ADMITTED TO [facility] Referrals: Sonia Ernandez MD [Primary Care Provider] - - Billing Disposition and Condition Condition: STABLE Disposition: Admitted to [facility] - Attestation Statements Document Initiated by Scribe: Yes Documenting Scribe: Padmini Malik Provider For Whom Wayne is Documenting (Include Credential): Dr. Dany Benitez MD Scribe Attestation: Padmini Mccoy, scribed for Dr. Dany Benitez MD on 02/24/19 at 1322. Scribe Documentation Reviewed: Yes Provider Attestation: The documentation as recorded by the Padmini monroy accurately reflects the service I personally performed and the decisions made by me, Dr. Dany Benitez MD Status of Scribe Document: Viewed
[2019-02-24] MEDS ORDERED: Furosemide IV* 10 MG/ML VIAL (40 MG) IV SCH (13:00)
[2019-02-24 14:55] LABS: Digoxin 1.4 ng/ml (0.8-2.0)
[2019-02-24 15:11] LABS: INR 3.46 (0.82-1.09)
[2019-02-24 15:25] LABS: TSH (Thyroid Stimulating Horm) 1.36 mcIU/mL (0.34-5.60)
[2019-02-24] MEDS: Atorvastatin* 40 MG TAB PO SCH (16:27)
--- NOTE | 2019-02-24 16:48 | HP ---
CC: Dr. Ernandez; Dr. Johnson * HISTORY AND PHYSICAL: DATE OF ADMISSION: 02/24/19 PRIMARY CARE PROVIDER: Sonia Ernandez MD CHIEF COMPLAINT: Shortness of breath. HISTORY OF PRESENT ILLNESS: Ms. Duval is an 83-year-old female who has a history of atrial fibrillation, mild cognitive impairment, hypertension, and hyperlipidemia, who presents to the emergency room with complaints of shortness of breath. I will prefer suspecting it is incredibly difficult to obtain any history from the patient. Reportedly, she became short of breath on the morning of admission, perhaps at breakfast time. EMS was contacted and the patient was found to be hypoxic at 83% on room air. The patient was brought to the emergency room for evaluation. The patient states that she does not believe that she needs to be in the hospital. She does not want to use oxygen. She states that she does not need it. She denies any cough or sputum production. She denies any fevers or chills, but she does feel cold in the ER room (it is cold in the room). The patient does note that her legs are swollen , but they are chronically swollen. She has staining on her shoes. She does not know what it came from. She in fact asked the aide in the ER if she missed the toilet and urinated on her shoes. PAST MEDICAL HISTORY: 1. Atrial fibrillation. 2. Mild cognitive impairment. 3. Hypertension. 4. Hyperlipidemia. 5. Osteoporosis. 6. T7 and T12 compression fractures - old. PAST SURGICAL HISTORY: 1. Mohs surgery. 2. Vein stripping. 3. Hysterectomy. 4. Pacer insertion. MEDICATIONS: 1. Colace 100 mg p.o. daily p.r.n. constipation. 2. Tylenol 500 mg p.o. t.i.d. 3. Nystatin apply topically for joao infection. 4. Zofran ODT 4 mg p.o. q.6 hours. 5. Donepezil 10 mg p.o. daily. 6. Fosamax 70 mg p.o. q. Tuesday. 7. Vitamin D 1400 units p.o. daily. 8. Lipitor 40 mg p.o. daily at 1700. 9. Lasix 20 mg p.o. daily p.r.n. leg edema. 10. Digoxin 0.125 mg p.o. daily. 11. Metoprolol XL 50 mg p.o. b.i.d. 12. Coumadin 3 mg p.o. daily. 13. Potassium chloride 20 mEq p.o. daily to be taken with the Lasix. 14. Amlodipine 5 mg p.o. daily. ALLERGIES: AZITHROMYCIN and NARCOTICS. FAMILY HISTORY: The patient's father had black lung disease. Mom at the age of 84 of unclear causes. SOCIAL HISTORY: The patient is . She lives at [address]. She has 7 children. She indicates her daughter, Chantell, would be her healthcare proxy as Chantell is a nurse. REVIEW OF SYSTEMS: A complete 11-system review of systems is obtained. Pertinent positives and negatives are as per HPI and otherwise negative. PHYSICAL EXAMINATION GENERAL: The patient is a well-developed, elderly female, seen sitting in the bed, appearing somewhat anxious and agitated, but in no acute distress. She is quite tachypneic and only able to speak in 2 to 3 word groupings at a time. VITAL SIGNS: Blood pressure 155/87, pulse 85, respirations 22, temp 97.2, O2 sat 90% on 5 L. HEENT: Pupils are equal. Extraocular muscles are intact. Oropharynx is clear. Oral mucosa is dry. The patient wears upper dentures. There is no submandibular, cervical, or supraclavicular adenopathy. PULMONARY: Breath sounds are diminished. There may be few coarse crackles at the bases, though the patient does not participate well with my exam. CARDIAC: Normal S1, S2. Heart rate is irregularly irregular and a controlled rate. There is a 3/6 systolic murmur heard best at the right upper sternal border. There is 2+ bilateral lower extremity pitting edema up to the hips. There is weeping of serous fluid from the right distal leg. ABDOMEN: Bowel sounds are present. Abdomen is soft, nontender, nondistended. MUSCULOSKELETAL: There is no cyanosis of the fingers. There is what appeared to be spider veins on the bilateral feet with slight purplish discoloration. NEURO: Cranial nerves II through XII are grossly intact. Sensation is intact to light touch throughout. Strength is 5/5 and symmetric in both upper and lower extremities bilaterally. PSYCH: The patient is alert. She appears to be oriented x3, though generally is a very poor historian, but is agitated and anxious at this time, not wanting to be admitted to the hospital. SKIN: Skin is warm. Her bilateral lower legs have chronic venous stasis changes with slight erythema and petechial lesions, and there is noted weeping of serous fluid from the right distal anterior leg. DIAGNOSTIC STUDIES/LAB DATA: WBC 6.7, hemoglobin 12.5, hematocrit 37, platelets 150. Sodium 137, potassium 4.1, chloride 104, CO2 of 24, BUN 23, creatinine 0.53, glucose 112, calcium 9.1. Bilirubin 1.8, AST 93, ALT 100, alk phos 110. Troponin 0.03. BNP 778. Albumin 3.9. EKG reveals a partially paced rhythm with underlying atrial fibrillation, there are inverted T waves inferolaterally in the intrinsic rhythm. Chest x-ray reveals pulmonary edema and underlying stigmata of obstructive lung disease. ASSESSMENT AND PLAN: Ms. Duval is an 83-year-old female with a history of atrial fibrillation, hypertension, hyperlipidemia, mild cognitive impairment, and chronic lower extremity edema which is treated with p.r.n. Lasix, who presents to the emergency room with complaints of shortness of breath and is found to be markedly hypoxic on room air. 1. Acute decompensated congestive heart failure. The patient at this time is appearing to be in acute decompensated congestive heart failure. Her most recent echocardiogram was in September 2017 which revealed an EF of 60% to 65%, though the assessment of diastolic function is nondiagnostic. At this point, she will be admitted to receive IV Lasix and supplemental oxygen. A new transthoracic echocardiogram has been ordered for tomorrow. The patient's BNP is elevated at 778 which is higher than where it has been previously. She has elevated LFTs which may be related to passive congestion of the liver; however, she also has been on standing Tylenol and this will be discontinued. 2. Atrial fibrillation. The patient is in a controlled rate. She will continue metoprolol XL 50 mg twice daily and digoxin 0.125 mg p.o. daily. She is on Coumadin 3 mg daily; however, an INR is yet to be obtained. I will therefore obtain an INR now and determine if the Coumadin should be continued or held based on her INR. 3. Hypertension. Blood pressure has been moderately elevated. For now, I am going to continue her metoprolol XL and amlodipine. If her blood pressures fail to come under control, adjustments will need to be made. The amlodipine may be contributing to her lower extremity edema. I am not stopping it at this point, but this as a source of her lower extremity edema could be considered. 4. Mild cognitive impairment. Continue donepezil. 5. Hyperlipidemia. Continue Lipitor. 6. DVT prophylaxis. According to the Adult Thrombosis Prophylaxis Risk Factor Assessment Guide, the patient has a total risk factor score of 5, making her the highest risk. Coumadin for now will be utilized as DVT prophylaxis unless her INR is subtherapeutic, at which time subcu heparin will be added. 7. Code status is full. TIME SPENT: Sixty-five minutes was spent admitting this patient. [id number]/[facility] #: [id number] DEBRA
[2019-02-24] MEDS ORDERED: Warfarin TAB(*) 3 MG PO SCH (17:00)
[2019-02-24 19:17] LABS: Urine Appearance Clear; Urine Bilirubin Negative (Negative); Urine Blood Negative (Negative); Urine Color Straw; Urine Glucose Negative (Negative); Urine Ketones Negative (Negative); Urine Nitrite Negative (Negative); Urine Protein Negative (Negative); Urine Specific Gravity 1.008 (1.010-1.030); Urine Urobilinogen Positive (Negative)
[2019-02-24] MEDS: Metoprolol Succinate XL TAB* 50 MG PO SCH (21:50)
[2019-02-24] MEDS ORDERED: Heparin VIAL(*) 5000 UNITS/ML VIAL (FIVE THOUSAND) SUBCUT SCH (22:00)
[2019-02-24] MEDS: Donepezil TAB* 5 MG PO SCH (22:58)
[2019-02-25 07:01] LABS: Albumin 3.4 g/dL (3.2-5.2); Albumin/Globulin Ratio 1.1 (1-3); BUN/Creatinine Ratio 27.1 (8-20); Calcium 8.4 mg/dL (8.6-10.3); EGFR African American 149.1 (>60); EGFR Non-African American 123.2 (>60); Potassium 3.9 mmol/L (3.5-5.0); Total Bilirubin 1.4 mg/dL (0.2-1.0); Total Protein 6.4 g/dL (6.4-8.9)
[2019-02-25] MEDS: amLODIPine TAB* 5 MG PO SCH (10:21)
[2019-02-25] MEDS: Furosemide IV* 10 MG/ML VIAL (40 MG) IV SCH (10:21)
[2019-02-25] MEDS: Metoprolol Succinate XL TAB* 50 MG PO SCH ×2 (10:21→21:40)
[2019-02-25] MEDS: Cholecalciferol TAB* 1000 UNITS PO SCH (10:21)
[2019-02-25] MEDS: Cholecalciferol TAB* 400 UNIT PO SCH (10:21)
[2019-02-25] MEDS: Digoxin TAB* 0.125 MG PO SCH (10:21)
[2019-02-25 11:53] LABS: INR 3.61 (0.82-1.09)
[2019-02-25] MEDS ORDERED: WARFARIN - No Order Today* 1 NOTE MISC FOLLOW UP ONE (14:00)
[2019-02-25] MEDS: Atorvastatin* 40 MG TAB PO SCH (17:07)
[2019-02-25] MEDS: Donepezil TAB* 5 MG PO SCH (21:41)
[2019-02-26 07:32] LABS: ABS Basophils 0.1 10^3/ul (0-0.2); ABS Eosinophils 0.2 10^3/ul (0-0.6); ABS Lymphocytes 0.6 10^3/ul (1.0-4.8); ABS Monocytes 0.5 10^3/ul (0-0.8); ABS Neutrophils 3.3 10^3/ul (1.5-7.7); Eosinophil % 4.5 %; Hematocrit 39 % (35-47); Lymphocyte % 12.4 %; Mean Corpuscular HGB Conc 34 g/dL (31-36); Mean Corpuscular Hemoglobin 33 pg (27-31); Mean Corpuscular Volume 97 fL (80-97); Mean Platelet Volume 8.3 fL (7.4-10.4); Nucleated Red Blood Cells % 0.1; Platelet Count 162 10^3/uL (150-450); Red Blood Count 3.97 10^6 /uL (3.70-4.87); Red Cell Distribution Width 14 % (10-15); White Blood Count 4.6 10^3/uL (3.5-10.8)
[2019-02-26 07:37] LABS: INR 3.63 (0.82-1.09)
[2019-02-26 07:46] LABS: Albumin 3.3 g/dL (3.2-5.2); Albumin/Globulin Ratio 1.1 (1-3); Calcium 8.6 mg/dL (8.6-10.3); EGFR African American 117.5 (>60); EGFR Non-African American 97.1 (>60); Potassium 4.1 mmol/L (3.5-5.0); Total Bilirubin 1.1 mg/dL (0.2-1.0); Total Protein 6.3 g/dL (6.4-8.9)
[2019-02-26] MEDS: amLODIPine TAB* 5 MG PO SCH (09:35)
[2019-02-26] MEDS: Cholecalciferol TAB* 1000 UNITS PO SCH (09:36)
[2019-02-26] MEDS: Metoprolol Succinate XL TAB* 50 MG PO SCH ×2 (09:36→20:31)
[2019-02-26] MEDS: Cholecalciferol TAB* 400 UNIT PO SCH (09:36)
[2019-02-26] MEDS: Digoxin TAB* 0.125 MG PO SCH (09:36)
[2019-02-26] MEDS: Furosemide IV* 10 MG/ML VIAL (40 MG) IV SCH (09:37)
--- NOTE | 2019-02-26 16:29 | ECHO ---
*[facility]* [place] [address] Fax #: [phone] Transthoracic Echocardiogram Patient: Ann Duval : 1935 Study Date: 02/26/2019 Age: 83 Gender: F HR: 70 bpm Height: 60 in /152.4 cm BSA: 1.48 m^2 Weight: 115.8 lb /52.6 kg BMI: 22.7 kg/m^2 *Ag Service Manager: Saloni Jimenez [facility] *Referring Physician: * Alessia Salcedo *Reading Physician: * Dean De MD Indications: Congestive Heart Failure. History: Atrial fibrillation. Aortic stenosis. Risk factors: Hypertension. Dyslipidemia. Labs, prior tests, procedures, and surgery: ICD system implantation. Conclusions Summary: - Left ventricle: The cavity size is normal. Wall thickness is moderately increased. Systolic function is normal. The estimated ejection fraction is 55-60%. Wall motion is normal; there are no regional wall motion abnormalities. - Left atrium: The atrium is severely dilated. - Mitral valve: There is mild to moderate regurgitation. - Aortic valve: The findings are consistent with severe stenosis. The valve area by the mean velocity method is 0.6 cm^2. - Tricuspid valve: There is moderate regurgitation. - Pulmonary arteries: Systolic pressure is moderately to severely increased. The peak pressure during systole by Doppler is 55.0 mm Hg. - Since the prior echocardiogram completed 10/07/17, pertinent changes are prior aortic stenosis graded moderate, prior decreased left ventricular size noted and prior mild to moderate pulmonary hypertension noted. Study data: Transthoracic echocardiogram. Procedure: Transthoracic echocardiography was performed. Image quality was good. Complete 2D, spectral Doppler, and color flow Doppler. Location: Bedside. Patient status: Inpatient. Patient room number: 447 01. Rhythm: Paced rhythm. Findings Left ventricle: The cavity size is normal. Wall thickness is moderately increased. Systolic function is normal. The estimated ejection fraction is 55-60%. Wall motion is normal; there are no regional wall motion abnormalities. The outflow tract shows moderate hypertrophy and a velocity flow profile with a normal, non-obstructive pattern. Left ventricular diastolic function parameters are indeterminate. Right ventricle: The cavity size is normal. Pacer wire noted in the right ventricle. Systolic function is normal. Left atrium: The atrium is severely dilated. Right atrium: The atrium is normal in size. Pacer wire noted in right atrium. Mitral valve: The Mitral valve annulus appears calcified. The leaflets are mildly thickened. There is no evidence of stenosis. There is mild to moderate regurgitation. Aortic valve: The annulus is calcified. The leaflets are severely calcified. Valve mobility is restricted. The findings are consistent with severe stenosis. There is no significant regurgitation. MAREK estimated at 0.6 cm2. Tricuspid valve: The leaflets are normal thickness. There is moderate regurgitation. Pulmonic valve: The leaflets are normal thickness. There is no evidence of stenosis. There is trace to mild regurgitation. Aorta: The aortic root appears normal. The aortic arch appears normal. Pericardium: No significant pericardial effusion is identified. Pulmonary arteries: Systolic pressure is moderately to severely increased. Systemic veins: Inferior vena cava: Not well visualized. Measurements Left ventricle Value Ref Aortic valve Value Ref CRISTÓBAL, LAX 3.8 cm 3.8 - 5.2 Gerard diam, ED 1.8 cm ----- ESD, LAX (L) 1.9 cm 2.2 - 3.5 Peak v, S 4.2 m/sec ----- FS, LAX (H) 51 % 27 - 45 VTI, S 95.6 cm ----- PW, ED, LAX (H) 1.4 cm 0.6 - 0.9 Mean grad, S 47.0 mm Hg ----- EF (H) 83 % 54 - 74 Peak grad, S 70.6 mm Hg ----- E', lat gerard, TDI (L) 6.9 cm/sec >=10.0 E/e', lat gerard, 16 Mitral valve Value Ref TDI Peak E 1.13 m/sec ----- Peak A 0.03 m/sec ----- LVOT Value Ref Decel time 164 ms ----- Diam, S 2.00 cm PHT 96 ms ----- Area 3.1 cm^2 Mean grad, D 2.0 mm Hg ----- Peak candice, S 0.83 m/sec Peak grad, D 8.0 mm Hg ----- Mean grad, S 2 mm Hg Peak E/A ratio 36.5 ----- SV 58 ml MVA, PHT 3.2 cm^2 ----- Ventricular septum Value Ref Pulmonic valve Value Ref IVS, ED (H) 1.4 cm 0.6 - 0.9 Peak v, S 0.78 m/sec ----- Peak grad, S 2.0 mm Hg ----- Right ventricle Value Ref CRISTÓBAL, LAX 3.8 cm Tricuspid valve Value Ref CRISTÓBAL minor ax, A4C 3.3 cm 1.9 - 3.5 TR peak v (H) 3.5 m/sec <=2.8 mid Peak RV-RA grad, S 49 mm Hg ----- Pressure, S 57 mm Hg Aortic root Value Ref Left atrium Value Ref Root diam 2.5 cm <3.8 AP dim, ES (H) 4.80 cm 2.70 - 3.80 Aortic arch Value Ref ML dim, A4C 4.9 cm Arch diam 3.1 cm ----- SI dim, A4C 6.6 cm Vol/bsa, ES, A/L (H) 71 ml/m^2 16 - 34 Decending aorta Value Ref Boris peak candice 0.45 m/sec ----- Right atrium Value Ref SI dim, ES 5.1 cm 3.4 - 5.3 Pulmonary artery Value Ref ML dim, ES, A4C 4.0 cm 2.6 - 4.4 Pressure, S 55.0 mm Hg ----- Estimated RAP 8 mm Hg Legend: (L) and (H) dede values outside specified reference range. Prepared and electronically signed by Dean De MD 02/26/2019 16:28
[2019-02-26] MEDS: Atorvastatin* 40 MG TAB PO SCH (17:17)
[2019-02-26] MEDS: Acetaminophen TAB* 325 MG PO PRN (18:34)
[2019-02-26] MEDS: Donepezil TAB* 5 MG PO SCH (20:31)
[2019-02-26 21:18] LABS: C Reactive Protein 74.48 mg/L (<8.01)
[2019-02-26 21:19] LABS: Urine Appearance Clear; Urine Bilirubin Negative (Negative); Urine Blood Negative (Negative); Urine Color Yellow; Urine Glucose Negative (Negative); Urine Ketones Negative (Negative); Urine Nitrite Negative (Negative); Urine Protein Negative (Negative); Urine Specific Gravity 1.013 (1.010-1.030); Urine Urobilinogen Positive (Negative)
[2019-02-26] MEDS: Cefepime 2 GM in Dextrose(*) 2 GM/50 ML BAG IV SCH (21:33)
[2019-02-27 05:58] LABS: ABS Basophils 0.1 10^3/ul (0-0.2); ABS Eosinophils 0.1 10^3/ul (0-0.6); ABS Lymphocytes 0.6 10^3/ul (1.0-4.8); ABS Monocytes 0.6 10^3/ul (0-0.8); Hematocrit 38 % (35-47); Hemoglobin 12.7 g/dL (12.0-16.0); Lymphocyte % 5.2 %; Mean Corpuscular HGB Conc 34 g/dL (31-36); Mean Corpuscular Hemoglobin 32 pg (27-31); Mean Corpuscular Volume 96 fL (80-97); Platelet Count 171 10^3/uL (150-450); Red Blood Count 3.91 10^6 /uL (3.70-4.87); Red Cell Distribution Width 14 % (10-15); White Blood Count 11.4 10^3/uL (3.5-10.8)
[2019-02-27 06:18] LABS: BUN/Creatinine Ratio 25.8 (8-20); C Reactive Protein 79.7 mg/L (<8.01); Calcium 8.8 mg/dL (8.6-10.3); EGFR Non-African American 91.7 (>60); Potassium 3.9 mmol/L (3.5-5.0)
[2019-02-27] MEDS: Cefepime 2 GM in Dextrose(*) 2 GM/50 ML BAG IV SCH ×2 (08:56→21:51)
[2019-02-27] MEDS: Furosemide IV* 10 MG/ML VIAL (40 MG) IV SCH (08:58)
[2019-02-27] MEDS: Metoprolol Succinate XL TAB* 50 MG PO SCH ×2 (09:03→21:48)
[2019-02-27] MEDS: Docusate CAP* 100 MG PO PRN (09:04)
[2019-02-27] MEDS: Acetaminophen TAB* 325 MG PO PRN (09:04)
[2019-02-27] MEDS: Digoxin TAB* 0.125 MG PO SCH (09:06)
[2019-02-27] MEDS: Cholecalciferol TAB* 400 UNIT PO SCH (09:07)
[2019-02-27] MEDS: Cholecalciferol TAB* 1000 UNITS PO SCH (09:07)
[2019-02-27] MEDS: amLODIPine TAB* 5 MG PO SCH (09:07)
[2019-02-27] MEDS ORDERED: Senna TAB 8.6 mg* TAB PO PRN (09:30)
[2019-02-27 09:42] LABS: C Reactive Protein 103.42 mg/L (<8.01)
[2019-02-27] MEDS ORDERED: WARFARIN - No Order Today* 1 NOTE MISC FOLLOW UP SCH (10:00)
[2019-02-27] MEDS ORDERED: Furosemide IV* 10 MG/ML VIAL (40 MG) IV ONE (12:00)
--- NOTE | 2019-02-27 17:45 | HP ---
H&P (Free Text) History and Physical: Full consultation to follow. Pt admitted with CHF, echo revealed severe , significant MR and pulmonary hypertension with good systolic ventricular function. Fever last night. The patient's daughter was present. The patient denies c/o, has significant dementia. Exam: Fluid in the lung bases Increased JVP Barely audible S2, loud late peaking SM and delay in carotid upstroke s/w severe . Legs showed signs of chronic edema, trace to mild noted today (improved markedly per daughter). Laboratory Results - last 24 hr 02/24/19 02/25/19 02/26/19 11:58 06:01 06:48 WBC RBC Hgb Hct MCV MCH MCHC RDW Plt Count MPV Neut % (Auto) Lymph % (Auto) [place] % (Auto) Eos % (Auto) Baso % (Auto) Absolute Neuts (auto) Absolute Lymphs (auto) Absolute Monos (auto) Absolute Eos (auto) Absolute Basos (auto) Absolute Nucleated RBC Nucleated RBC % Sodium 137 139 138 Potassium 4.1 3.9 4.1 Chloride 104 106 104 Carbon Dioxide 24 27 32 Anion Gap 9 6 2 BUN 23 13 13 Creatinine 0.53 0.48 L 0.59 Est GFR ( Amer) 133.0 149.1 117.5 Est GFR (Non-Af Amer) 109.9 123.2 97.1 BUN/Creatinine Ratio 43.4 H 27.1 H 22.0 H Glucose 112 H 92 85 Calcium 9.1 8.4 L 8.6 Total Bilirubin 1.80 H 1.40 H 1.10 H AST 93 H 68 H 49 H ALT 100 H 85 H 70 H Alkaline Phosphatase 110 H 85 87 Lactate Dehydrogenase 289 H Troponin I 0.03 C-Reactive Protein 137.00 H 103.42 H 74.48 H B-Natriuretic Peptide Total Protein 7.4 6.4 6.3 L Albumin 3.9 3.4 3.3 Globulin 3.5 3.0 3.0 Albumin/Globulin Ratio 1.1 1.1 1.1 Vitamin B12 804 TSH 1.36 Urine Color Urine Appearance Urine pH Ur Specific [place] Urine Protein Urine Ketones Urine Blood Urine Nitrate Urine Bilirubin Urine Urobilinogen Ur Leukocyte Esterase Urine Glucose Digoxin 1.4 02/26/19 02/27/19 02/27/19 21:00 05:47 05:47 WBC 11.4 H RBC 3.91 Hgb 12.7 Hct 38 MCV 96 MCH 32 H MCHC 34 RDW 14 Plt Count 171 MPV 8.0 Neut % (Auto) 87.1 Lymph % (Auto) 5.2 [place] % (Auto) 5.4 Eos % (Auto) 1.0 Baso % (Auto) 1.3 Absolute Neuts (auto) 10.0 H Absolute Lymphs (auto) 0.6 L Absolute Monos (auto) 0.6 Absolute Eos (auto) 0.1 Absolute Basos (auto) 0.1 Absolute Nucleated RBC 0.0 Nucleated RBC % 0.0 Sodium 139 Potassium 3.9 Chloride 103 Carbon Dioxide 33 H Anion Gap 3 BUN 16 Creatinine 0.62 Est GFR ( Amer) 111.0 Est GFR (Non-Af Amer) 91.7 BUN/Creatinine Ratio 25.8 H Glucose 109 H Calcium 8.8 Total Bilirubin AST ALT Alkaline Phosphatase Lactate Dehydrogenase Troponin I C-Reactive Protein 79.70 H B-Natriuretic Peptide Total Protein Albumin Globulin Albumin/Globulin Ratio Vitamin B12 TSH Urine Color Yellow Urine Appearance Clear Urine pH 7.0 Ur Specific [place] 1.013 Urine Protein Negative Urine Ketones Negative Urine Blood Negative Urine Nitrate Negative Urine Bilirubin Negative Urine Urobilinogen Positive A Ur Leukocyte Esterase Negative Urine Glucose Negative Digoxin 02/27/19 05:47 WBC RBC Hgb Hct MCV MCH MCHC RDW Plt Count MPV Neut % (Auto) Lymph % (Auto) [place] % (Auto) Eos % (Auto) Baso % (Auto) Absolute Neuts (auto) Absolute Lymphs (auto) Absolute Monos (auto) Absolute Eos (auto) Absolute Basos (auto) Absolute Nucleated RBC Nucleated RBC % Sodium Potassium Chloride Carbon Dioxide Anion Gap BUN Creatinine Est GFR ( Amer) Est GFR (Non-Af Amer) BUN/Creatinine Ratio Glucose Calcium Total Bilirubin AST ALT Alkaline Phosphatase Lactate Dehydrogenase Troponin I C-Reactive Protein B-Natriuretic Peptide 771 H Total Protein Albumin Globulin Albumin/Globulin Ratio Vitamin B12 TSH Urine Color Urine Appearance Urine pH Ur Specific [place] Urine Protein Urine Ketones Urine Blood Urine Nitrate Urine Bilirubin Urine Urobilinogen Ur Leukocyte Esterase Urine Glucose Digoxin A/P 83 yo with severe , acute CHF and longstanding dementia. I had significant discussions with the patient and her daughter about the natural course of w/o replacement. We discussed TAVR. I feel the patient is an excellent candidate for TAVR based on her physcical health, but need to determine etiology of fever, elevated CRP. Will continue with discussions on TAVR with dementia, patient wishes. The patient stated she is breathing well, isn't interested in a major procedure out of town.
[2019-02-27] MEDS: Atorvastatin* 40 MG TAB PO SCH (18:20)
[2019-02-27] MEDS: Donepezil TAB* 5 MG PO SCH (21:49)
[2019-02-28 06:17] LABS: ABS Basophils 0.1 10^3/ul (0-0.2); ABS Eosinophils 0.3 10^3/ul (0-0.6); ABS Lymphocytes 0.7 10^3/ul (1.0-4.8); ABS Monocytes 0.7 10^3/ul (0-0.8); ABS Neutrophils 4.8 10^3/ul (1.5-7.7); Eosinophil % 4.7 %; Hematocrit 36 % (35-47); Hemoglobin 12.2 g/dL (12.0-16.0); Lymphocyte % 10.8 %; Mean Corpuscular HGB Conc 34 g/dL (31-36); Mean Corpuscular Hemoglobin 32 pg (27-31); Mean Corpuscular Volume 97 fL (80-97); Mean Platelet Volume 8.3 fL (7.4-10.4); Platelet Count 177 10^3/uL (150-450); Red Blood Count 3.76 10^6 /uL (3.70-4.87); Red Cell Distribution Width 13 % (10-15); White Blood Count 6.5 10^3/uL (3.5-10.8)
[2019-02-28 06:23] LABS: INR 2.31 (0.82-1.09)
[2019-02-28 06:35] LABS: BUN/Creatinine Ratio 33.3 (8-20); C Reactive Protein 81.64 mg/L (<8.01); Calcium 8.6 mg/dL (8.6-10.3); EGFR Non-African American 114.9 (>60); Magnesium 1.9 mg/dL (1.9-2.7); Potassium 3.8 mmol/L (3.5-5.0)
[2019-02-28] MEDS: Furosemide IV* 10 MG/ML VIAL (40 MG) IV SCH (10:30)
[2019-02-28] MEDS: Cholecalciferol TAB* 400 UNIT PO SCH (10:30)
[2019-02-28] MEDS: Cholecalciferol TAB* 1000 UNITS PO SCH (10:30)
[2019-02-28] MEDS: amLODIPine TAB* 5 MG PO SCH (10:32)
[2019-02-28] MEDS: Metoprolol Succinate XL TAB* 50 MG PO SCH ×2 (10:33→21:02)
[2019-02-28] MEDS: Digoxin TAB* 0.125 MG PO SCH (10:33)
[2019-02-28] MEDS: Cefepime 2 GM in Dextrose(*) 2 GM/50 ML BAG IV SCH ×2 (10:35→22:51)
[2019-02-28] MEDS: Acetaminophen TAB* 325 MG PO PRN ×2 (13:33→21:00)
[2019-02-28] MEDS: Atorvastatin* 40 MG TAB PO SCH (16:40)
[2019-02-28] MEDS ORDERED: Warfarin TAB(*) 2 MG PO ONE (17:00)
[2019-02-28] MEDS: Lidocaine PATCH 5%* 1 PATCH TRANSDERM SCH (20:57)
--- NOTE | 2019-02-28 20:57 | CONS ---
CC: Dr. Sonia Ernandez; Dr. Johnson CARDIOLOGY CONSULTATION: DATE OF CONSULT: 02/27/19 REASON FOR CONSULTATION: Congestive heart failure. HISTORY OF PRESENT ILLNESS: Mrs. Duval is a very nice 83-year-old woman followed by Dr. Johnson w ith chronic AFib, pacer for tachybrady syndrome, and significant aortic stenosis. The patient's daughter was present and the patient has dementia. The patient's daughter stated that her mother is a resident of [place] and she was quite tachypneic on the phone and on the visit, so she was brought to the emergency room for evaluation. The patient was short of breath talking, having trouble finishing her sentences, coughing, significant increase in leg swelling according to her daughter, and orthopnea. She was admitted on 02/24/19. The emergency room workup on 02/24/19 revealed she was somewhat hypert ensive with a systolic blood pressure 160, increased transaminases, BNP was elevated at 778 and chest x-ray showed pulmonary edema. Since admission, the patient was given intravenous Lasix with good diu resis. An echo revealed her aortic valve stenosis had now reached to severe degree with preserved ve ntricular systolic function. At the time I saw her, she was sleeping, but I was able to wake her up. Her daughter stated she had some fevers the night before and had not slept well, but that her breathing is much improved from whe n she came in to the hospital and her leg swelling has markedly improved. In reviewing Dr. Johnson's note, a decision had been made in the past because of the patient's tania ntia not to proceed with interventional measures for her valve, but I have been asked to reevaluate t his decision. Her daughter had many questions. PAST MEDICAL HISTORY: The patient has a past medical history of: 1. Chronic AFib. 2. Tachybrady syndrome with [employer] pacemaker implantation. 3. Aortic valve stenosis, moderate to severe in 2018, severe in 2019. 4. Longstanding moderate to severe pulmonary hypertension. 5. Dyslipidemia. 6. Longstanding dementia. 7. TIAs in 2006. 8. Colonic polyps. 9. Osteoporosis. 10. T7 and T12 compression fractures. PAST SURGICAL HISTORY: Includes: 1. Pacemaker implantation, originally in 2005 with generator change in 2014. 2. Hysterectomy in 1970. 3. Vein stripping in 1972. 4. Tonsillectomy. MEDICATIONS: Outpatient medications include: 1. Metoprolol 75 mg a day. 2. Digoxin 0.125 mg a day. 3. Coumadin. 4. Fosamax 70 mg weekly. 5. Lasix 20 mg p.r.n. 6. Potassium chloride 20 mEq with Lasix. 7. Vitamin D 1000 units daily. 8. Norvasc 2.5 mg a day. 9. Donepezil 5 mg a day. 10. Lidocaine patch 12 hours a day. 11. Tylenol p.r.n. 12. Atorvastatin 40 mg a day. Current inpatient medications include: 1. Tylenol. 2. Norvasc. 3. Lipitor. 4. Digoxin. 5. Colace. 6. Aricept 10 mg a day. 7. Lasix 40 mg IV daily. 8. Toprol-XL 50 mg b.i.d. 9. Coumadin. 10. Senokot. ALLERGIES: AZITHROMYCIN. SOCIAL HISTORY: The patient is , resident at [place]. Never smoked. Not currently drinkin g alcohol. She has 7 children. FAMILY HISTORY: Significant that her father had black lung disease and mother at age 84. REVIEW OF SYSTEMS: Based on the daughter is as above with slowly progressive decline in functional a bility, orthopnea, lower extremity edema, trouble with sentences due to shortness of breath. The pat ient denies chest pain, pressure, heaviness. She thinks she feels fine. She states she walks around [place] and helps other people. All other review of systems was negative, but also unreliable due to the patient's dementia. PHYSICAL EXAM: On exam, the patient is 129 pounds and 5 feet with a BMI of 25. Vitals: Blood pressu re was 112/52, pulse was 70, respiratory rate was 18, oxygen saturation 87% on 4 L nasal cannula. Ge neral Appearance: Petite elderly woman, lying in bed, sleeping when I first met her at 30 degrees, s he was arousable, answered questions, thought she was in [facility], she did know that her cardio logist was Dr. Johnson. Psychologically, pleasant and cooperative. Neurologically, awake, alert, oriented to person. She kn ew her daughter, but not place or time. HEENT: Pupils are equal and round. Mucous membranes moist. Neck with palpable carotid pulses and referred bruits bilaterally. Breath sounds heard, crackles i n the lower one-thirds of the bases. Coronary: S1, barely audible S2, 3/6 late peaking systolic mur mur heard best in the right upper sternal border with radiation. Abdomen: Mild pulsatile liver. Lo wer extremities showed changes of chronic venous stasis with bony discoloration that was pronounced. She had only trace edema, but evidence of recent more prominent edema. DIAGNOSTIC STUDIES/LAB DATA: The patient's transthoracic echo from 04/26/15 showed an ejection fract ion of 55 to 60% with moderate left ventricular hypertrophy, mild to moderate mitral insufficiency, s evere aortic stenosis, aortic valve area 0.6 cm2, moderate tricuspid insufficiency, and moderate to s evere elevation PA pressure estimated at 55 mmHg. Chest x-ray showed pulmonary edema. Labs showed white count of 11.4, up from 6.7 on admission, hemoglobin 12.7, platelets 171. INR 3.63. Sodium 139, potassium 3.9, chloride 103, bicarb 33, BUN 16, creatinine 0.62, glucose 109. C-reacti ve protein 79.7 on 02/27/19, 74.5 on 02/26/19, 101.4 on 02/25/19, and 137 on 02/24/19. BNP 778 on ad mission and on 02/27/19 was 771. Troponin 0.03. TSH 1.36. Transaminases on admission, AST of 93, A LT 100 and on 02/26/19, AST improved to 49, ALT improved to 70. Urinalysis on admission was positive for urobilinogen, negative for nitrite or leukocyte esterase. Toxicology, digoxin level 1.4. IMPRESSION: In summary, Ann Duval is a very nice 83-year-old woman who presented with significan t congestive heart failure in the setting of chronic atrial fibrillation, on rate control and anticoa gulation with pacer backup, aortic stenosis that has been progressive over years has now reached the severe range and longstanding significant pulmonary hypertension presumed to be due to left heart sofiya vular heart disease who is demented and resident of [place]. From an acute standpoint, diuresis will improve the patient's quality of life going forward. Instead of p.r.n. Lasix, she will probably need Lasix a few days a week and low salt meals. I agree with th e use of metoprolol to avoid tachycardic response from her atrial fibrillation and from my standpoint , Norvasc could be stopped to allow blood pressure for her diuretics. I had a long comprehensive discussion with the patient's daughter about the details and specifics of TAVR. We discussed the natural course of aortic valve stenosis without replacement, which includes a 1 to 3 year life expectancy with progressive decline. The daughter wanted to know if we could keep her comfortable and I explained that this could be done [facility]. I also went through the details of the procedure, the acute risks and potential benefits, she underst ands. I suspect that Mrs. Duval is a good candidate physically to go through the aortic valve repla cement, although she would need formal evaluation with an educator senior clinical to fully determine th e risk, benefits, but I explained that her mentation would not improve from the procedure. The patient has another daughter who is a nurse who will be in town and we will try to have discussion with her when she is available. It is my understanding she will have power of manager statistics. Thank you for allowing me to assist in this nice woman's care. [id number]/[facility] #: [id number]
[2019-02-28] MEDS: Donepezil TAB* 5 MG PO SCH (20:59)
[2019-02-28] MEDS: Lidocaine Patch REMOVE* 1 NOTE MISC PATCH OFF SCH (21:00)
[2019-02-28] MEDS: Docusate CAP* 100 MG PO PRN (21:01)
--- NOTE | 2019-02-28 23:47 | PN ---
Cardiology Progress Note Date of Service: 02/28/19 - CC: tachypnea, fluid overload The patient was seen in the presence of both daughters (nurse corinna had arrived from [place]). The patient thinks she is feeling well. Hasn't walked, attributes this to her wardrobe (hospital gown) and IV's, O2. The patient's daughters think the patient is much improved wrt leg edema and comfort talking, sleeping. The nurse daughter asked if fevers and elevated CRP could be from endocarditis. ROS: + low back pain limiting activity. Acetaminophen (Tylenol Tab*) 650 mg PO Q4H PRN PRN Reason: TEMPERATURE > 101 Last Admin: 02/28/19 21:00 Dose: 650 mg Amlodipine Besylate (Norvasc Tab*) 5 mg PO DAILY [facility] Last Admin: 02/28/19 10:32 Dose: 5 mg Atorvastatin Calcium (Lipitor*) 40 mg PO 1700 AYE Last Admin: 02/28/19 16:40 Dose: 40 mg Cholecalciferol (Vitamin D Tab*) 1,000 units PO DAILY AYE Last Admin: 02/28/19 10:30 Dose: 1,000 units Cholecalciferol (Vitamin D Tab*) 400 unit PO DAILY AYE Last Admin: 02/28/19 10:30 Dose: 400 unit Digoxin (Lanoxin Tab*) 0.125 mg PO DAILY AYE Last Admin: 02/28/19 10:33 Dose: 0.125 mg Docusate Sodium (Colace Cap*) 100 mg PO DAILY PRN PRN Reason: CONSTIPATION Last Admin: 02/28/19 21:01 Dose: 100 mg Donepezil HCl (Aricept Tab*) 10 mg PO BEDTIME AYE Last Admin: 02/28/19 20:59 Dose: 10 mg Furosemide (Lasix Iv*) 40 mg IV DAILY [facility] Last Admin: 02/28/19 10:30 Dose: 40 mg Cefepime HCl (Maxipime 2 Gm In Dextrose Duplex (*)) 2 gm in 50 mls @ 100 mls/ hr IV Q12H [facility] Last Admin: 02/28/19 22:51 Dose: 100 mls/hr Lidocaine (Lidoderm 5% Patch*) 1 patch TRANSDERM DAILY [facility] Last Admin: 02/28/19 20:57 Dose: 1 patch Metoprolol Succinate (Toprol Xl Tab*) 50 mg PO BID [facility] Last Admin: 02/28/19 21:02 Dose: 50 mg Pharmacy Profile Note (Coumadin Daily Reminder*) 1 note FOLLOW UP 1700 [facility] Last Admin: 02/28/19 16:40 Dose: 1 note Pharmacy Profile Note (Lidocaine Patch Remove*) 1 note PATCH OFF 2100 [facility] Senna (Senokot 8.6 Mg Tab*) 2 tab PO DAILY PRN PRN Reason: CONSTIPATION Vital Signs - 12 hr Temp Pulse Resp BP Pulse Ox 02/28/19 16:00 97 02/28/19 15:50 97.5 F 70 20 118/55 97 Intake & Output 02/26/19 02/27/19 02/28/19 03/01/19 04:59 04:59 04:59 04:59 Intake Total 720 560 962 920 Output Total 0 0 600 0 Balance 720 560 362 920 Weight 112 lb 3.2 oz 116 lb 11.2 oz 129 lb 11.2 oz Intake: IV Fluids 30 10 20 IV fluids and antibiotics 30 10 20 IVPB 50 112 60 IV fluids and antibiotics 50 112 60 Oral 720 480 840 840 Output: Urine 0 0 600 0 Other: Estimated Void Medium # Voids 2 General appearance: Sleeping comfortabley, arrousable. HEENT: PERRLA, mucous membranes moist. Psychological: Pleasant, cooperative. Neuro: Follows commands, no gross motor abnormalities, +dementia. Lungs: Diminished BS and crackles lower 1/3 of the lung [place]. COr: S1, barely audible S2, 3/6 late peaking murmur USB, delay in carotid upstroke noted. Abd: Normal bowel sounds, soft. Ext: No edema, stippling/discoloration c/w chronic venous stasis. Laboratory Results - last 24 hr 02/27/19 02/28/19 02/28/19 05:47 05:42 05:42 WBC 6.5 RBC 3.76 Hgb 12.2 Hct 36 MCV 97 MCH 32 H MCHC 34 RDW 13 Plt Count 177 MPV 8.3 Neut % (Auto) 73.2 Lymph % (Auto) 10.8 [place] % (Auto) 10.4 Eos % (Auto) 4.7 Baso % (Auto) 0.9 Absolute Neuts (auto) 4.8 Absolute Lymphs (auto) 0.7 L Absolute Monos (auto) 0.7 Absolute Eos (auto) 0.3 Absolute Basos (auto) 0.1 Absolute Nucleated RBC 0.0 Nucleated RBC % 0.0 INR (Anticoag Therapy) 2.31 H Sodium Potassium Chloride Carbon Dioxide Anion Gap BUN Creatinine Est GFR ( Amer) Est GFR (Non-Af Amer) BUN/Creatinine Ratio Glucose Calcium Magnesium C-Reactive Protein B-Natriuretic Peptide Procalcitonin 4.0 H 02/28/19 02/28/19 05:42 05:42 WBC RBC Hgb Hct MCV MCH MCHC RDW Plt Count MPV Neut % (Auto) Lymph % (Auto) [place] % (Auto) Eos % (Auto) Baso % (Auto) Absolute Neuts (auto) Absolute Lymphs (auto) Absolute Monos (auto) Absolute Eos (auto) Absolute Basos (auto) Absolute Nucleated RBC Nucleated RBC % INR (Anticoag Therapy) Sodium 139 Potassium 3.8 Chloride 102 Carbon Dioxide 33 H Anion Gap 4 BUN 17 Creatinine 0.51 Est GFR ( Amer) 139.0 Est GFR (Non-Af Amer) 114.9 BUN/Creatinine Ratio 33.3 H Glucose 102 H Calcium 8.6 Magnesium 1.9 C-Reactive Protein 81.64 H B-Natriuretic Peptide 344 H Procalcitonin Patient Name: YARITZA BEYER Order Information: CT CHEST W/O Accession Number: [id number] CPT: 61413 HISTORY: pneumonia COMPARISONS: CT of the thoracic spine dated September 29, 2017 TECHNIQUE: Multiple contiguous axial CT scans of the chest were obtained without intravenous contrast. Coronal and sagittal multiplanar reformations are also submitted for review. FINDINGS: NECK AND THYROID: The lower neck and thyroid are unremarkable. CHEST WALL: There is no lower cervical, axillary, or supraclavicular lymphadenopathy by size criteria. HEART AND PERICARDIUM: There is biatrial and biventricular enlargement. AORTA AND PULMONARY VASCULATURE: There is calcification of the thoracic aorta. The pulmonary vasculature is unremarkable. MEDIASTINUM: There is no mediastinal lymphadenopathy by size criteria. ARIC: There is no hilar lymphadenopathy by size criteria. AIRWAY AND ESOPHAGUS: The airway is unremarkable, without endobronchial filling defect. The esophagus is grossly normal. LUNG PARENCHYMA: There is minimal compressive atelectasis of the lung bases bilaterally. There is a 0.7 cm nodule of the right upper lobe. This is stable from 2018. PLEURA: There are small bilateral pleural effusions. UPPER ABDOMEN: The upper abdomen is unremarkable. BONES AND SOFT TISSUES: There is diffuse osteopenia. There are stable compression deformities of T7 and T12. There is been interval element of a compression deformity at T10. There is osseous retropulsion at T12, stable. OTHER: A left-sided pacemaker is noted. IMPRESSION: 1. CARDIOMEGALY. 2. SMALL BILATERAL PLEURAL EFFUSIONS WITH COMPRESSIVE ATELECTASIS OF THE LOWER LUNGS BILATERALLY. 3. ATHEROSCLEROSIS 4. OSTEOPENIA WITH COMPRESSION DEFORMITIES OF THE THORACIC SPINE. THERE IS A COMPRESSION DEFORMITY OF T10 WITHOUT OSSEOUS RETROPULSION THAT IS NEW COMPARED TO SEPTEMBER 29, 2017. A/P 83 yo with chronic AF, pacer, that has progressed to severe presented with biventricular failure, elevated CRP and ? pneumonia. Clinically improved with IV diuresis, I presume I/o's and weights are not correct. : Continue diuretics Continue metoprolol, may be of benefit to lower dose with lasix added. Possible TAVR, comprehensive discussion with daughters had tonight. They stated if she did proceed with TAVR it would not be in [place] as their father there. It would be traumatic for their mother, they are interested in [place] (Dr Gonzalez performs TAVR). Fevers/elev. CRP: Uncertain etiology. SBE a possibility although not seen on TTE, the specificity of NIECY is much better. Consider NIECY for TAVR and ID evaluation if no other etiology of inflammation determined. Dr Johnson, the patient's regular bone plant supervisor will be rounding and TuesdayMarch 01
[2019-03-01 06:21] LABS: ABS Basophils 0.1 10^3/ul (0-0.2); ABS Eosinophils 0.3 10^3/ul (0-0.6); ABS Lymphocytes 0.7 10^3/ul (1.0-4.8); ABS Monocytes 0.6 10^3/ul (0-0.8); ABS Neutrophils 4.1 10^3/ul (1.5-7.7); Eosinophil % 4.8 %; Hematocrit 37 % (35-47); Hemoglobin 12.5 g/dL (12.0-16.0); Lymphocyte % 11.8 %; Mean Corpuscular HGB Conc 34 g/dL (31-36); Mean Corpuscular Hemoglobin 33 pg (27-31); Mean Corpuscular Volume 96 fL (80-97); Mean Platelet Volume 8.2 fL (7.4-10.4); Nucleated Red Blood Cells % 0.1; Platelet Count 182 10^3/uL (150-450); Red Blood Count 3.82 10^6 /uL (3.70-4.87); Red Cell Distribution Width 13 % (10-15); White Blood Count 5.7 10^3/uL (3.5-10.8)
[2019-03-01 06:26] LABS: INR 1.67 (0.82-1.09)
[2019-03-01] MEDS: Lidocaine Patch REMOVE* 1 NOTE MISC PATCH OFF SCH ×2 (06:29→21:22)
[2019-03-01 06:48] LABS: C Reactive Protein 43.61 mg/L (<8.01); Calcium 8.8 mg/dL (8.6-10.3); EGFR African American 142.2 (>60); EGFR Non-African American 117.5 (>60); Potassium 3.8 mmol/L (3.5-5.0)
[2019-03-01] MEDS: Cholecalciferol TAB* 400 UNIT PO SCH (10:03)
[2019-03-01] MEDS: Cholecalciferol TAB* 1000 UNITS PO SCH (10:03)
[2019-03-01] MEDS: Metoprolol Succinate XL TAB* 50 MG PO SCH ×2 (10:03→21:22)
[2019-03-01] MEDS: Furosemide IV* 10 MG/ML VIAL (40 MG) IV SCH (10:04)
[2019-03-01] MEDS: Lidocaine PATCH 5%* 1 PATCH TRANSDERM SCH (10:04)
[2019-03-01] MEDS: amLODIPine TAB* 5 MG PO SCH (10:04)
[2019-03-01] MEDS: Digoxin TAB* 0.125 MG PO SCH (10:05)
[2019-03-01] MEDS: Cefepime 2 GM in Dextrose(*) 2 GM/50 ML BAG IV SCH ×2 (10:07→21:22)
[2019-03-01] MEDS: Acetaminophen TAB* 325 MG PO PRN (14:12)
[2019-03-01] MEDS ORDERED: Warfarin TAB(*) 4 MG PO ONE (17:00)
[2019-03-01] MEDS: Atorvastatin* 40 MG TAB PO SCH (17:00)
[2019-03-01] MEDS: Donepezil TAB* 5 MG PO SCH (21:22)
[2019-03-02 06:07] LABS: INR 1.87 (0.82-1.09)
[2019-03-02] MEDS: Cefepime 2 GM in Dextrose(*) 2 GM/50 ML BAG IV SCH (09:22)
[2019-03-02] MEDS: Metoprolol Succinate XL TAB* 50 MG PO SCH ×2 (09:23→20:56)
[2019-03-02] MEDS: Cholecalciferol TAB* 1000 UNITS PO SCH (09:23)
[2019-03-02] MEDS: Cholecalciferol TAB* 400 UNIT PO SCH (09:24)
[2019-03-02] MEDS: amLODIPine TAB* 5 MG PO SCH (09:24)
[2019-03-02] MEDS: Digoxin TAB* 0.125 MG PO SCH (09:24)
[2019-03-02] MEDS: Lidocaine PATCH 5%* 1 PATCH TRANSDERM SCH (09:37)
[2019-03-02] MEDS: Furosemide IV* 10 MG/ML VIAL (40 MG) IV SCH (10:16)
[2019-03-02] MEDS: Atorvastatin* 40 MG TAB PO SCH (16:29)
[2019-03-02] MEDS ORDERED: Warfarin TAB(*) 3 MG PO ONE (17:00)
[2019-03-02] MEDS: Acetaminophen TAB* 325 MG PO PRN (18:02)
[2019-03-02] MEDS: Donepezil TAB* 5 MG PO SCH (20:57)
[2019-03-02] MEDS: Lidocaine Patch REMOVE* 1 NOTE MISC PATCH OFF SCH (22:00)
[2019-03-02] MEDS: Cefdinir cap* 300 MG CAP PO SCH (22:03)
[2019-03-03 08:12] LABS: ABS Eosinophils 0.2 10^3/ul (0-0.6); ABS Lymphocytes 0.6 10^3/ul (1.0-4.8); ABS Monocytes 0.5 10^3/ul (0-0.8); ABS Neutrophils 4.4 10^3/ul (1.5-7.7); Eosinophil % 3.5 %; Hematocrit 39 % (35-47); Hemoglobin 13.3 g/dL (12.0-16.0); Mean Corpuscular HGB Conc 34 g/dL (31-36); Mean Corpuscular Hemoglobin 33 pg (27-31); Mean Corpuscular Volume 96 fL (80-97); Mean Platelet Volume 8.2 fL (7.4-10.4); Nucleated Red Blood Cells % 0.1; Platelet Count 161 10^3/uL (150-450); Red Blood Count 4.08 10^6 /uL (3.70-4.87); Red Cell Distribution Width 13 % (10-15); White Blood Count 5.8 10^3/uL (3.5-10.8)
[2019-03-03 08:32] LABS: Calcium 8.7 mg/dL (8.6-10.3); Magnesium 2.1 mg/dL (1.9-2.7)
[2019-03-03 08:38] LABS: BUN/Creatinine Ratio 22.4 (8-20); C Reactive Protein 17.42 mg/L (<8.01); EGFR African American 119.8 (>60)
[2019-03-03] MEDS: Digoxin TAB* 0.125 MG PO SCH (09:57)
[2019-03-03] MEDS: Cholecalciferol TAB* 1000 UNITS PO SCH (09:58)
[2019-03-03] MEDS: Metoprolol Succinate XL TAB* 50 MG PO SCH ×2 (09:58→21:11)
[2019-03-03] MEDS: amLODIPine TAB* 5 MG PO SCH (09:58)
[2019-03-03] MEDS: Cholecalciferol TAB* 400 UNIT PO SCH (09:59)
[2019-03-03] MEDS: Furosemide TAB* 40 MG PO SCH (09:59)
[2019-03-03] MEDS: Cefdinir cap* 300 MG CAP PO SCH ×2 (09:59→21:11)
[2019-03-03] MEDS: Lidocaine PATCH 5%* 1 PATCH TRANSDERM SCH (10:09)
--- NOTE | 2019-03-03 14:17 | PN ---
Subjective Date of Service: 03/03/19 - CC: SOB Interval History: Patient seen with nurse daughter. Eating, coughing a bit. Daughter informed me of her mother walking around floor, able to do so but SOB/ fatigue. No sig. drop in sats walking. Discussed overnight oximetry with drop in sats 19%. Medications Active Medications: Acetaminophen (Tylenol Tab*) 650 mg PO Q4H PRN PRN Reason: TEMPERATURE > 101 Last Admin: 03/02/19 18:02 Dose: 650 mg Amlodipine Besylate (Norvasc Tab*) 5 mg PO DAILY [facility] Last Admin: 03/03/19 09:58 Dose: 5 mg Atorvastatin Calcium (Lipitor*) 40 mg PO 1700 [facility] Last Admin: 03/02/19 16:29 Dose: 40 mg Cefdinir (Cefdinir Cap*) 300 mg PO BID [facility] Last Admin: 03/03/19 09:59 Dose: 300 mg Cholecalciferol (Vitamin D Tab*) 1,000 units PO DAILY [facility] Last Admin: 03/03/19 09:58 Dose: 1,000 units Cholecalciferol (Vitamin D Tab*) 400 unit PO DAILY [facility] Last Admin: 03/03/19 09:59 Dose: 400 unit Digoxin (Lanoxin Tab*) 0.125 mg PO DAILY [facility] Last Admin: 03/03/19 09:57 Dose: 0.125 mg Docusate Sodium (Colace Cap*) 100 mg PO DAILY PRN PRN Reason: CONSTIPATION Last Admin: 02/28/19 21:01 Dose: 100 mg Donepezil HCl (Aricept Tab*) 10 mg PO BEDTIME [facility] Last Admin: 03/02/19 20:57 Dose: 10 mg Furosemide (Lasix Tab*) 40 mg PO DAILY [facility] Last Admin: 03/03/19 09:59 Dose: 40 mg Lidocaine (Lidoderm 5% Patch*) 1 patch TRANSDERM DAILY [facility] Last Admin: 03/03/19 10:09 Dose: 1 patch Metoprolol Succinate (Toprol Xl Tab*) 50 mg PO BID [facility] Last Admin: 03/03/19 09:58 Dose: 50 mg Pharmacy Profile Note (Coumadin Daily Reminder*) 1 note FOLLOW UP 1700 [facility] Last Admin: 03/02/19 16:30 Dose: 1 note Pharmacy Profile Note (Lidocaine Patch Remove*) 1 note PATCH OFF 2100 [facility] Last Admin: 03/02/19 22:00 Dose: 1 note Potassium Chloride (Klor Con Er Tab*) 20 meq PO DAILY [facility] Senna (Senokot 8.6 Mg Tab*) 2 tab PO DAILY PRN PRN Reason: CONSTIPATION Warfarin Sodium (Coumadin Tab(*)) 3 mg PO ONCE@1700 ONE; Protocol Stop: 03/03/19 17:01 Objective Vital Signs: Temp Pulse Resp BP Pulse Ox 98.4 F 78 18 121/60 93 03/03/19 11:30 03/03/19 11:30 03/03/19 11:30 03/03/19 11:30 03/03/19 11:30 Appearance: petite, elederly, lying 45 degrees. Eyes: PERRLA Ears/Nose/Mouth/Throat: Clear Oropharnyx Neck: No Thyroid Enlargement, Masses Respiratory: Symmetrical Chest Expansion and Respiratory Effort - crackles bases Cardiovascular: RRR - 2-3/6 late peaking murmur usb, barely audible S2. Abdominal: NL Sounds; No Tenderness; No Distention Extremities: No Edema Lines/Tubes/Other Access: Clean, Dry and Intact Peripheral IV Nutrition: Taking PO's Laboratory Results: 03/03/19 07:56 03/03/19 07:56 INR (Anticoag Therapy) 1.87 (0.82-1.09) H 03/02/19 05:33 Total Bilirubin 1.10 mg/dL (0.2-1.0) H 02/26/19 06:48 AST 49 U/L (13-39) H 02/26/19 06:48 ALT 70 U/L (7-52) H 02/26/19 06:48 Alkaline Phosphatase 87 U/L (34-104) 02/26/19 06:48 B-Natriuretic Peptide 305 pg/mL (<=100) H 03/03/19 07:53 Total Protein 6.3 g/dL (6.4-8.9) L 02/26/19 06:48 Albumin 3.3 g/dL (3.2-5.2) 02/26/19 06:48 Globulin 3.0 g/dL (2-4) 02/26/19 06:48 Albumin/Globulin Ratio 1.1 (1-3) 02/26/19 06:48 TSH 1.36 mcIU/mL (0.34-5.60) 02/24/19 11:58 02/24/19 11:58 Troponin I 0.03 Diagnostic Imaging: *[facility]* Transthoracic Echocardiogram Patient: Ann Duval *Reading Physician: Dean Desai MD Summary: - Left ventricle: The cavity size is normal. Wall thickness is moderately increased. Systolic function is normal. The estimated ejection fraction is 55-60%. Wall motion is normal; there are no regional wall motion abnormalities. - Left atrium: The atrium is severely dilated. - Mitral valve: There is mild to moderate regurgitation. - Aortic valve: The findings are consistent with severe stenosis. The valve area by the mean velocity method is 0.6 cm^2. - Tricuspid valve: There is moderate regurgitation. - Pulmonary arteries: Systolic pressure is moderately to severely increased. The peak pressure during systole by Doppler is 55.0 mm EKG Data: Monitor: afib Assessment/Plan 83 yo female with progressive increase in SOB, tachypnea, LE edema with CHF, severe . CHF: Short term improved with diuresis half-way Dr Johnson arranging for TAVR outpatient with Dr Parker. AFIB: Rate control and anticoagulation, chronic. ID: Getting treated for pneumonia. Hypoxemia noted, hx O2 being arranged by Dr Sonia Ernandez. Cardiology will follow distantly/PRN for in patient stay.
[2019-03-03] MEDS: Acetaminophen TAB* 325 MG PO PRN ×2 (14:28→21:35)
[2019-03-03] MEDS: Potassium Chlor TAB* 20 MEQ TAB.ER PO SCH (14:28)
[2019-03-03] MEDS ORDERED: Warfarin TAB(*) 3 MG PO ONE (17:00)
[2019-03-03] MEDS: Atorvastatin* 40 MG TAB PO SCH (17:54)
[2019-03-03] MEDS: Donepezil TAB* 5 MG PO SCH (21:11)
[2019-03-03] MEDS: Lidocaine Patch REMOVE* 1 NOTE MISC PATCH OFF SCH (21:18)
[2019-03-04 07:08] LABS: INR 2.13 (0.82-1.09)
--- NOTE | 2019-03-04 10:02 | PN ---
Subjective - Subjective Reason for Note: Progress Note History: I spoke at length with Dr. Sonia Ernandez about Ann Duval and have reviewed her EMR. She is due for discharge after an episode of CHF, atrial fibrillation and pneumonia. She is feeling no distress this morning and is looking forward to discharge. She has dyspnea - no worse today. She is not coughing and has no chest pain. She ate her full breakfast and has normal bowel movements. She has no fevers/ sweats. Active Problems: Active Problems Aortic stenosis, severe (Acute) I35.0 Congestive heart failure due to valvular disease (Acute) I50.9, I38 Hypoxemia requiring supplemental oxygen (Acute) R09.02, Z99.81 Pneumonia (Acute) J18.9 Anticoagulation goal of INR 2 to 3 (Chronic) Z51.81, Z79.01 Atrial fibrillation (Chronic) I48.91 Dementia (Chronic) F03.90 Hyperlipidemia (Chronic) E78.5 Hypertension (Chronic) I10 Osteoporosis (Chronic) M81.0 Current Medications: Current Medications Acetaminophen (Tylenol Tab*) 650 mg PO Q4H PRN PRN Reason: TEMPERATURE > 101 Last Admin: 03/03/19 21:35 Dose: 650 mg Amlodipine Besylate (Norvasc Tab*) 5 mg PO DAILY REPLACED BY [facility] Last Admin: 03/03/19 09:58 Dose: 5 mg Atorvastatin Calcium (Lipitor*) 40 mg PO 1700 [facility] Last Admin: 03/03/19 17:54 Dose: 40 mg Cefdinir (Cefdinir Cap*) 300 mg PO BID REPLACED BY [facility] Last Admin: 03/03/19 21:11 Dose: 300 mg Cholecalciferol (Vitamin D Tab*) 1,000 units PO DAILY [facility] Last Admin: 03/03/19 09:58 Dose: 1,000 units Cholecalciferol (Vitamin D Tab*) 400 unit PO DAILY [facility] Last Admin: 03/03/19 09:59 Dose: 400 unit Digoxin (Lanoxin Tab*) 0.125 mg PO DAILY REPLACED BY [facility] Last Admin: 03/03/19 09:57 Dose: 0.125 mg Docusate Sodium (Colace Cap*) 100 mg PO DAILY PRN PRN Reason: CONSTIPATION Last Admin: 02/28/19 21:01 Dose: 100 mg Donepezil HCl (Aricept Tab*) 10 mg PO BEDTIME REPLACED BY [facility] Last Admin: 03/03/19 21:11 Dose: 10 mg Furosemide (Lasix Tab*) 40 mg PO DAILY REPLACED BY [facility] Last Admin: 03/03/19 09:59 Dose: 40 mg Lidocaine (Lidoderm 5% Patch*) 1 patch TRANSDERM DAILY REPLACED BY [facility] Last Admin: 03/03/19 10:09 Dose: 1 patch Metoprolol Succinate (Toprol Xl Tab*) 50 mg PO BID REPLACED BY [facility] Last Admin: 03/03/19 21:11 Dose: 50 mg Pharmacy Profile Note (Coumadin Daily Reminder*) 1 note FOLLOW UP 1700 REPLACED BY [facility] Last Admin: 03/03/19 17:54 Dose: 1 note Pharmacy Profile Note (Lidocaine Patch Remove*) 1 note PATCH OFF 2100 REPLACED BY [facility] Last Admin: 03/03/19 21:18 Dose: 1 note Potassium Chloride (Klor Con Er Tab*) 20 meq PO DAILY REPLACED BY [facility] Last Admin: 03/03/19 14:28 Dose: 20 meq Senna (Senokot 8.6 Mg Tab*) 2 tab PO DAILY PRN PRN Reason: CONSTIPATION Home Medications: Home Medications Medication Instructions Recorded Confirmed Type Furosemide TAB* [Lasix TAB*] 20 mg PO DAILY PRN 12/30/14 02/24/19 History Alendronate (NF) [Fosamax (NF)] 70 mg PO .Fridays10/06/17 02/24/19 History Cholecalciferol TAB* [Vitamin D 1,400 unit PO DAILY 10/06/17 02/24/19 History TAB*] Digoxin TAB* [Lanoxin TAB*] 0.125 mg PO DAILY 10/06/17 02/24/19 History Potassium Chlor TAB* [Potassium 20 meq PO DAILY PRN 10/06/17 02/24/19 History Chlor TAB 20 MEQ*] amLODIPine TAB* [Norvasc 5 mg TAB*] 5 mg PO DAILY 10/06/17 02/24/19 History Atorvastatin* [Lipitor 40 MG*] 40 mg PO 1700 #30 tab 10/15/17 02/24/19 Rx Metoprolol Succinate XL TAB* 50 mg PO BID tab.xl 10/15/17 02/24/19 Rx [Toprol XL TAB*] Warfarin TAB(*) [Coumadin TAB(*)] 3 mg PO DAILY@1700 tab 10/15/17 02/24/19 Rx Acetaminophen [Acetaminophen Extra 500 mg PO TID 02/24/19 02/24/19 History Strength] Docusate CAP* [Colace Cap*] 100 mg PO DAILY PRN 02/24/19 02/24/19 History Donepezil TAB* [Aricept 5 MG TAB*] 10 mg PO DAILY 02/24/19 02/24/19 History Nystatin 1 admin TOPICAL SEE INSTRUCTIONS 02/24/19 02/24/19 History PRN Ondansetron ODT TAB* [Zofran 4 MG 4 mg PO Q6HR 02/24/19 02/24/19 History Odt TAB*] Cefdinir cap* [Cefdinir 300 MG cap 300 mg PO BID 5 Days #10 cap 03/03/19 Rx (NF)] Cholecalciferol TAB* [Vitamin D 400 unit PO DAILY tab 03/03/19 Rx TAB*] Furosemide TAB* [Lasix TAB*] 40 mg PO DAILY #30 tab 03/03/19 Rx Lidocaine PATCH 5%* [Lidoderm 5% 1 patch TRANSDERM DAILY patch 03/03/19 Rx Patch*] Lidocaine Patch REMOVE* 1 note PATCH OFF 2100 misc 03/03/19 Rx Potassium Chlor TAB* [Potassium 20 meq PO DAILY #30 tab.er 03/03/19 Rx Chlor TAB 20 MEQ*] Senna TAB 8.6 mg* [Senokot 8.6 mg 2 tab PO DAILY PRN tab 03/03/19 Rx TAB*] Allergies: Allergies Allergy/AdvReac Type Severity Reaction Status Date / Time azithromycin Allergy Nausea Verified 10/06/17 11:28 Objective - Vital Signs Vital Signs: Vital Signs 03/03/19 03/03/19 03/03/19 09:57 11:30 15:15 Temperature 98.4 F 98.4 F Pulse Rate 70 78 70 Respiratory 18 14 Rate Blood Pressure 121/60 123/54 (mmHg) O2 Sat by Pulse 93 93 Oximetry 03/03/19 03/03/19 03/03/19 19:15 20:30 23:15 Temperature 97.7 F 98 F Pulse Rate 70 70 Respiratory 16 18 16 Rate Blood Pressure 120/57 123/56 (mmHg) O2 Sat by Pulse 96 95 Oximetry 03/04/19 03/04/19 03:15 07:15 Temperature 97.2 F 98.8 F Pulse Rate 69 69 Respiratory 18 16 Rate Blood Pressure 121/56 125/56 (mmHg) O2 Sat by Pulse 97 99 Oximetry - Intake and Output Intake and Output: Intake & Output 03/01/19 03/02/19 03/03/19 03/04/19 11:59 11:59 11:59 11:59 Intake Total 624 730 730 845 Output Total 0 0 Balance 624 730 730 845 Weight 125 lb 14.4 oz 124 lb 4.8 oz 106 lb 1.6 oz Intake: IV Fluids 29 50 0 IV fluids and antibiotics 29 50 0 IVPB 115 IV fluids and antibiotics 115 Oral 480 680 730 845 Output: Urine 0 0 Other: # Bowel Movements 1 Estimated Stool Amount Small Small # Voids 1 ADLs: Meal Record Start: 02/24/19 15: 20 Freq: DAILY@0900,1400,1800 Status: Active Protocol: Created 02/24/19 15:20 System (Rec: 02/24/19 15:20 System TELE-C13) Document 02/24/19 18:00 [id number] (Rec: 02/24/19 20:38 JUU1292 TELE-C01) Document 02/25/19 09:00 OPR7867 (Rec: 02/25/19 10:44 HYU9564 TELE-C05) Document 02/25/19 14:00 UMY8405 (Rec: 02/25/19 14:16 WLK9170 TELE-C05) Document 02/26/19 09:00 HLC8647 (Rec: 02/26/19 10:15 JSD9976 TELE-C09) Document 02/26/19 14:00 LQF4741 (Rec: 02/26/19 14:15 LUC5843 TELE-C09) Document 02/26/19 18:00 KTL8002 (Rec: 02/26/19 21:44 GKY0723 TELE-M12) Document 02/27/19 09:00 SKY1956 (Rec: 02/27/19 09:19 XVK2276 TELE-C01) Document 02/27/19 13:58 KKJ3124 (Rec: 02/27/19 13:58 ZKO9085 TELE-C01) Document 02/27/19 18:00 AIM5700 (Rec: 02/27/19 20:32 OWA7243 TELE-C03) Document 02/28/19 09:00 TOK6623 (Rec: 02/28/19 10:07 GAP5199 TELE-C01) Document 02/28/19 14:00 DGE9571 (Rec: 02/28/19 14:56 SLH6679 TELE-C01) Document 02/28/19 18:00 WRQ4431 (Rec: 02/28/19 22:16 GTF0356 TELE-C11) Document 03/01/19 09:00 DYW0079 (Rec: 03/01/19 10:38 DZK3706 TELE-C01) Document 03/01/19 13:55 WAQ7874 (Rec: 03/01/19 13:55 IQI5144 TELE-C01) Document 03/01/19 18:00 GYD0152 (Rec: 03/01/19 18:49 RVC9100 TELE-C09) Document 03/02/19 18:00 GIJ8253 (Rec: 03/02/19 18:26 IYA1688 TELE-C01) Document 03/03/19 09:00 EUZ5894 (Rec: 03/03/19 11:52 VHK8115 TELE-C13) Document 03/03/19 14:00 MMX0992 (Rec: 03/03/19 14:50 HOG4551 TELE-C13) Document 03/03/19 18:00 LAM0082 (Rec: 03/03/19 18:05 FIR0082 TELE-C01) Intake and Output Start: 02/24/19 11: 24 Freq: Status: Active Protocol: Created 02/24/19 11:24 System (Rec: 02/24/19 11:24 System ED-C26) Intake and Output Start: 02/24/19 15: 20 Freq: DAILY@0600,1400,2200 Status: Active Protocol: Created 02/24/19 15:20 System (Rec: 02/24/19 15:20 System TELE-C13) Document 02/24/19 21:53 MZN9039 (Rec: 02/24/19 21:54 NVV3630 TELE-C09) Document 02/25/19 06:00 FBK7162 (Rec: 02/25/19 06:36 MOB1518 TELE-C35) Document 02/25/19 14:00 HZH6879 (Rec: 02/25/19 14:03 UNB9793 TELE-C05) Document 02/25/19 22:00 CLE9017 (Rec: 02/25/19 22:47 JUV6269 TELE-C05) Document 02/26/19 06:00 ART8653 (Rec: 02/26/19 06:08 REY0961 TELE-C35) Document 02/26/19 14:00 FUM7324 (Rec: 02/26/19 14:16 BLH5094 TELE-C09) Document 02/26/19 21:55 IBE9882 (Rec: 02/26/19 21:57 OAL9884 TELE-M12) Document 02/27/19 06:00 SLG4515 (Rec: 02/27/19 07:03 NYN5993 TELE-C07) Document 02/27/19 14:00 XYE8234 (Rec: 02/27/19 14:01 BWA5696 TELE-C01) Document 02/27/19 22:00 AEM2385 (Rec: 02/27/19 22:18 MOG7600 TELE-C03) Document 02/28/19 06:00 RTH5921 (Rec: 02/28/19 06:36 GHF6114 TELE-C07) Document 02/28/19 14:00 KQG1900 (Rec: 02/28/19 14:59 UKC3232 TELE-C01) Document 02/28/19 22:00 XKL3003 (Rec: 02/28/19 22:17 OQB6640 TELE-C11) Document 03/01/19 06:00 OBA9609 (Rec: 03/01/19 06:37 MJJ9900 TELE-C11) Document 03/01/19 14:00 APN4761 (Rec: 03/01/19 14:01 RLG7611 TELE-C01) Document 03/01/19 22:00 KKA0822 (Rec: 03/01/19 22:03 GBG1272 TELE-C09) Document 03/02/19 06:00 LBP2675 (Rec: 03/02/19 06:08 DGW2154 TELE-C05) Document 03/02/19 22:00 LNF3954 (Rec: 03/02/19 22:39 LGB3225 TELE-C01) Document 03/03/19 06:00 LKG1098 (Rec: 03/03/19 06:48 EID1020 TELE-C13) Document 03/03/19 14:00 FKF5057 (Rec: 03/03/19 14:50 FNP1584 TELE-C13) Document 03/03/19 22:00 OJZ9139 (Rec: 03/03/19 22:31 KPR1436 TELE-C06) Document 03/04/19 05:35 NOG6769 (Rec: 03/04/19 05:37 NDY9809 TELE-C06) - Physical Exam General Physical Exam Comment: Frail, but alert, oriented and conversational General: No Cyanosis, No Anemia, No Jaundice, No Clubbing Lungs and Chest: Yes: Chest Expansion Symetrica, Percussion Note Resonant. No: Chest Expansion Full - She has a dorsal kyphosis, Crackles, Wheezes, Respiratory Distress, Use of Accessory Muscles Heart Rate and Rhythm: Other - small volume pulse Additional Cardiovascular: Yes: Normal Heart Sounds, Heart Murmur - 3/6 murmur aortic area. No: Carotid Bruits, Pedal Edema Abdominal Exam: Yes: Soft, Bowel Sounds Present. No: Distention, Abdominal Mass , Hepatomegaly, Abdominal Tenderness Results - Results Lab Results: Laboratory Results - last 24 hr 03/02/19 03/04/19 05:33 06:37 INR (Anticoag Therapy) 2.13 H Procalcitonin 1.1 H Assessment - Problem List Assessment: Patient Problems Aortic stenosis, severe (Acute) Congestive heart failure due to valvular disease (Acute) Hypoxemia requiring supplemental oxygen (Acute) Pneumonia (Acute) Anticoagulation goal of INR 2 to 3 (Chronic) Atrial fibrillation (Chronic) Dementia (Chronic) Hyperlipidemia (Chronic) Hypertension (Chronic) Osteoporosis (Chronic) Plan: Aortic stenosis, severe (Acute) This is the underlying problem - she is due for TAVR at some point following discharge Congestive heart failure due to valvular disease (Acute) She has recovered from this acute presentation Hypoxemia requiring supplemental oxygen (Acute) She had an overnight oximetry and qualifies for home O2 Pneumonia (Acute) She is recovering and tolerating the cefdinir secondary diagnoses Dementia (Chronic) Hyperlipidemia (Chronic) Hypertension (Chronic) Osteoporosis (Chronic) Anticoagulation - on target Atrial fibrillation - regular rhythm - stop telemetry I called Salome Duval (daughter) - she has no concerns - I updated her.
[2019-03-04] MEDS: Cefdinir cap* 300 MG CAP PO SCH ×2 (10:19→22:04)
[2019-03-04] MEDS: Potassium Chlor TAB* 20 MEQ TAB.ER PO SCH (10:20)
[2019-03-04] MEDS: Cholecalciferol TAB* 1000 UNITS PO SCH (10:20)
[2019-03-04] MEDS: Metoprolol Succinate XL TAB* 50 MG PO SCH ×2 (10:20→22:05)
[2019-03-04] MEDS: Cholecalciferol TAB* 400 UNIT PO SCH (10:20)
[2019-03-04] MEDS: Digoxin TAB* 0.125 MG PO SCH (10:21)
[2019-03-04] MEDS: amLODIPine TAB* 5 MG PO SCH (10:21)
[2019-03-04] MEDS: Furosemide TAB* 40 MG PO SCH (10:21)
[2019-03-04] MEDS: Lidocaine PATCH 5%* 1 PATCH TRANSDERM SCH (10:28)
[2019-03-04] MEDS: Acetaminophen TAB* 325 MG PO PRN (13:01)
[2019-03-04] MEDS: Atorvastatin* 40 MG TAB PO SCH (17:36)
[2019-03-04] MEDS: Donepezil TAB* 5 MG PO SCH (22:04)
[2019-03-04] MEDS: Lidocaine Patch REMOVE* 1 NOTE MISC PATCH OFF SCH (22:05)
[2019-03-05] MEDS: Acetaminophen TAB* 325 MG PO PRN ×2 (01:25→16:08)
[2019-03-05 06:06] LABS: ABS Basophils 0.1 10^3/ul (0-0.2); ABS Lymphocytes 0.6 10^3/ul (1.0-4.8); ABS Neutrophils 13.2 10^3/ul (1.5-7.7); Eosinophil % 0.3 %; Hematocrit 40 % (35-47); Hemoglobin 13.3 g/dL (12.0-16.0); Lymphocyte % 3.9 %; Mean Corpuscular HGB Conc 33 g/dL (31-36); Mean Corpuscular Hemoglobin 32 pg (27-31); Mean Corpuscular Volume 96 fL (80-97); Platelet Count 160 10^3/uL (150-450); Red Blood Count 4.16 10^6 /uL (3.70-4.87); Red Cell Distribution Width 13 % (10-15); White Blood Count 14.9 10^3/uL (3.5-10.8)
[2019-03-05 06:11] LABS: INR 2.06 (0.82-1.09)
[2019-03-05 06:22] LABS: EGFR African American 83.9 (>60); EGFR Non-African American 69.3 (>60)
[2019-03-05] MEDS: Metoprolol Succinate XL TAB* 50 MG PO SCH ×2 (07:45→22:28)
[2019-03-05] MEDS: Potassium Chlor TAB* 20 MEQ TAB.ER PO SCH (07:45)
[2019-03-05] MEDS: Cholecalciferol TAB* 400 UNIT PO SCH (07:45)
[2019-03-05] MEDS: Furosemide TAB* 40 MG PO SCH (07:45)
[2019-03-05] MEDS: Digoxin TAB* 0.125 MG PO SCH (07:45)
[2019-03-05] MEDS: Cholecalciferol TAB* 1000 UNITS PO SCH (07:45)
[2019-03-05] MEDS: Lidocaine PATCH 5%* 1 PATCH TRANSDERM SCH (07:45)
[2019-03-05] MEDS: Cefdinir cap* 300 MG CAP PO SCH (07:45)
[2019-03-05] MEDS: amLODIPine TAB* 5 MG PO SCH (07:45)
--- NOTE | 2019-03-05 08:53 | PN ---
Subjective - Subjective Reason for Note: Progress Note History: She is feeling weak today and doesn't feel ready to go back to [place]. She is more dyspneic, despite oxygen. She denies any chest pain or palpitations. Active Problems: Active Problems Aortic stenosis, severe (Acute) I35.0 Congestive heart failure due to valvular disease (Acute) I50.9, I38 Frailty (Acute) R54 Hypoxemia requiring supplemental oxygen (Acute) R09.02, Z99.81 Pneumonia (Acute) J18.9 Anticoagulation goal of INR 2 to 3 (Chronic) Z51.81, Z79.01 Atrial fibrillation (Chronic) I48.91 Dementia (Chronic) F03.90 Hyperlipidemia (Chronic) E78.5 Hypertension (Chronic) I10 Osteoporosis (Chronic) M81.0 Current Medications: Current Medications Acetaminophen (Tylenol Tab*) 650 mg PO Q4H PRN PRN Reason: TEMPERATURE > 101 Last Admin: 03/05/19 01:25 Dose: 650 mg Amlodipine Besylate (Norvasc Tab*) 5 mg PO DAILY [facility] Last Admin: 03/05/19 07:45 Dose: 5 mg Atorvastatin Calcium (Lipitor*) 40 mg PO 1700 [facility] Last Admin: 03/04/19 17:36 Dose: 40 mg Cefdinir (Cefdinir Cap*) 300 mg PO BID [facility] Last Admin: 03/05/19 07:45 Dose: 300 mg Cholecalciferol (Vitamin D Tab*) 1,000 units PO DAILY [facility] Last Admin: 03/05/19 07:45 Dose: 1,000 units Cholecalciferol (Vitamin D Tab*) 400 unit PO DAILY [facility] Last Admin: 03/05/19 07:45 Dose: 400 unit Digoxin (Lanoxin Tab*) 0.125 mg PO DAILY [facility] Last Admin: 03/05/19 07:45 Dose: 0.125 mg Docusate Sodium (Colace Cap*) 100 mg PO DAILY PRN PRN Reason: CONSTIPATION Last Admin: 02/28/19 21:01 Dose: 100 mg Donepezil HCl (Aricept Tab*) 10 mg PO BEDTIME [facility] Last Admin: 03/04/19 22:04 Dose: 10 mg Furosemide (Lasix Tab*) 40 mg PO DAILY [facility] Last Admin: 03/05/19 07:45 Dose: 40 mg Lidocaine (Lidoderm 5% Patch*) 1 patch TRANSDERM DAILY [facility] Last Admin: 03/05/19 07:45 Dose: 1 patch Metoprolol Succinate (Toprol Xl Tab*) 50 mg PO BID [facility] Last Admin: 03/05/19 07:45 Dose: 50 mg Pharmacy Profile Note (Coumadin Daily Reminder*) 1 note FOLLOW UP 1700 [facility] Last Admin: 03/04/19 19:00 Dose: 1 note Pharmacy Profile Note (Lidocaine Patch Remove*) 1 note PATCH OFF 2100 [facility] Last Admin: 03/04/19 22:05 Dose: 1 note Potassium Chloride (Klor Con Er Tab*) 20 meq PO DAILY [facility] Last Admin: 03/05/19 07:45 Dose: 20 meq Senna (Senokot 8.6 Mg Tab*) 2 tab PO DAILY PRN PRN Reason: CONSTIPATION Home Medications: Home Medications Medication Instructions Recorded Confirmed Type Furosemide TAB* [Lasix TAB*] 20 mg PO DAILY PRN 12/30/14 02/24/19 History Alendronate (NF) [Fosamax (NF)] 70 mg PO .Fridays10/06/17 02/24/19 History Cholecalciferol TAB* [Vitamin D 1,400 unit PO DAILY 10/06/17 02/24/19 History TAB*] Digoxin TAB* [Lanoxin TAB*] 0.125 mg PO DAILY 10/06/17 02/24/19 History Potassium Chlor TAB* [Potassium 20 meq PO DAILY PRN 10/06/17 02/24/19 History Chlor TAB 20 MEQ*] amLODIPine TAB* [Norvasc 5 mg TAB*] 5 mg PO DAILY 10/06/17 02/24/19 History Atorvastatin* [Lipitor 40 MG*] 40 mg PO 1700 #30 tab 10/15/17 02/24/19 Rx Metoprolol Succinate XL TAB* 50 mg PO BID tab.xl 10/15/17 02/24/19 Rx [Toprol XL TAB*] Warfarin TAB(*) [Coumadin TAB(*)] 3 mg PO DAILY@1700 tab 10/15/17 02/24/19 Rx Acetaminophen [Acetaminophen Extra 500 mg PO TID 02/24/19 02/24/19 History Strength] Docusate CAP* [Colace Cap*] 100 mg PO DAILY PRN 02/24/19 02/24/19 History Donepezil TAB* [Aricept 5 MG TAB*] 10 mg PO DAILY 02/24/19 02/24/19 History Nystatin 1 admin TOPICAL SEE INSTRUCTIONS 02/24/19 02/24/19 History PRN Ondansetron ODT TAB* [Zofran 4 MG 4 mg PO Q6HR 02/24/19 02/24/19 History Odt TAB*] Cefdinir cap* [Cefdinir 300 MG cap 300 mg PO BID 5 Days #10 cap 03/03/19 Rx (NF)] Cholecalciferol TAB* [Vitamin D 400 unit PO DAILY tab 03/03/19 Rx TAB*] Furosemide TAB* [Lasix TAB*] 40 mg PO DAILY #30 tab 03/03/19 Rx Lidocaine PATCH 5%* [Lidoderm 5% 1 patch TRANSDERM DAILY patch 03/03/19 Rx Patch*] Lidocaine Patch REMOVE* 1 note PATCH OFF 2100 misc 03/03/19 Rx Potassium Chlor TAB* [Potassium 20 meq PO DAILY #30 tab.er 03/03/19 Rx Chlor TAB 20 MEQ*] Senna TAB 8.6 mg* [Senokot 8.6 mg 2 tab PO DAILY PRN tab 03/03/19 Rx TAB*] Allergies: Allergies Allergy/AdvReac Type Severity Reaction Status Date / Time azithromycin Allergy Nausea Verified 10/06/17 11:28 Objective - Vital Signs Vital Signs: Vital Signs 03/04/19 03/04/19 03/04/19 10:11 10:21 11:15 Temperature 98.1 F Pulse Rate 72 72 70 Respiratory 16 Rate Blood Pressure 124/63 133/57 (mmHg) O2 Sat by Pulse 94 Oximetry 03/04/19 03/04/19 03/04/19 15:15 19:45 20:00 Temperature 98.1 F 98.9 F Pulse Rate 70 70 Respiratory 24 18 18 Rate Blood Pressure 111/50 137/61 (mmHg) O2 Sat by Pulse 92 96 Oximetry 03/04/19 03/05/19 03/05/19 23:31 00:00 03:15 Temperature 98.4 F 98.3 F Pulse Rate 73 83 Respiratory 18 18 Rate Blood Pressure 137/56 121/48 (mmHg) O2 Sat by Pulse 96 96 96 Oximetry 03/05/19 03/05/19 07:15 07:45 Temperature 98.3 F Pulse Rate 75 75 Respiratory 16 Rate Blood Pressure 140/78 (mmHg) O2 Sat by Pulse 96 Oximetry - Intake and Output Intake and Output: Intake & Output 03/02/19 03/03/19 03/04/19 03/05/19 11:59 11:59 11:59 11:59 Intake Total 730 730 965 220 Output Total 0 Balance 730 730 965 220 Weight 124 lb 4.8 oz 106 lb 1.6 oz 100 lb 9.6 oz Intake: IV Fluids 50 0 IV fluids and antibiotics 50 0 Oral 680 730 965 220 Output: Urine 0 Other: Estimated Void Small # Bowel Movements 1 1 1 Estimated Stool Amount Small Medium # Voids 1 ADLs: Meal Record Start: 02/24/19 15: 20 Freq: DAILY@0900,1400,1800 Status: Active Protocol: Created 02/24/19 15:20 System (Rec: 02/24/19 15:20 System TELE-C13) Document 02/24/19 18:00 [id number] (Rec: 02/24/19 20:38 ZFK3201 TELE-C01) Document 02/25/19 09:00 WHL0220 (Rec: 02/25/19 10:44 QAY4222 TELE-C05) Document 02/25/19 14:00 DEK4607 (Rec: 02/25/19 14:16 GJO6765 TELE-C05) Document 02/26/19 09:00 OSK8986 (Rec: 02/26/19 10:15 LRA7057 TELE-C09) Document 02/26/19 14:00 SNO5217 (Rec: 02/26/19 14:15 LFE0464 TELE-C09) Document 02/26/19 18:00 QBX0014 (Rec: 02/26/19 21:44 ADL3591 TELE-M12) Document 02/27/19 09:00 EKT5880 (Rec: 02/27/19 09:19 ZSD5630 TELE-C01) Document 02/27/19 13:58 BME8016 (Rec: 02/27/19 13:58 APD1978 TELE-C01) Document 02/27/19 18:00 UED9293 (Rec: 02/27/19 20:32 PHJ6714 TELE-C03) Document 02/28/19 09:00 VKX1443 (Rec: 02/28/19 10:07 FMF6425 TELE-C01) Document 02/28/19 14:00 NJJ4204 (Rec: 02/28/19 14:56 VOT4910 TELE-C01) Document 02/28/19 18:00 RSK7702 (Rec: 02/28/19 22:16 LVM7310 TELE-C11) Document 03/01/19 09:00 YBW9634 (Rec: 03/01/19 10:38 RYT4426 TELE-C01) Document 03/01/19 13:55 DSC3730 (Rec: 03/01/19 13:55 PWP0938 TELE-C01) Document 03/01/19 18:00 GOY8088 (Rec: 03/01/19 18:49 CFF6627 TELE-C09) Document 03/02/19 18:00 ZCR5744 (Rec: 03/02/19 18:26 GDL6718 TELE-C01) Document 03/03/19 09:00 QUW3420 (Rec: 03/03/19 11:52 KAO8304 TELE-C13) Document 03/03/19 14:00 GIJ9580 (Rec: 03/03/19 14:50 DOC6787 TELE-C13) Document 03/03/19 18:00 LQL3347 (Rec: 03/03/19 18:05 MCK6672 TELE-C01) Document 03/04/19 09:00 HPP1316 (Rec: 03/04/19 10:08 LTM9080 TELE-C09) Document 03/04/19 14:00 VLP2642 (Rec: 03/04/19 14:02 USO0046 TELE-C09) Document 03/04/19 18:00 UIX7303 (Rec: 03/04/19 21:02 OPK2198 TELE-C05) Intake and Output Start: 02/24/19 11: 24 Freq: Status: Active Protocol: Created 02/24/19 11:24 System (Rec: 02/24/19 11:24 System ED-C26) Intake and Output Start: 02/24/19 15: 20 Freq: DAILY@0600,1400,2200 Status: Active Protocol: Created 02/24/19 15:20 System (Rec: 02/24/19 15:20 System TELE-C13) Document 02/24/19 21:53 GJZ9277 (Rec: 02/24/19 21:54 YQM3828 TELE-C09) Document 02/25/19 06:00 DPD7053 (Rec: 02/25/19 06:36 ZAT9313 TELE-C35) Document 02/25/19 14:00 TAE9088 (Rec: 02/25/19 14:03 APC9481 TELE-C05) Document 02/25/19 22:00 THW9963 (Rec: 02/25/19 22:47 GXE6195 TELE-C05) Document 02/26/19 06:00 DXM9775 (Rec: 02/26/19 06:08 GZH9903 TELE-C35) Document 02/26/19 14:00 VMD5917 (Rec: 02/26/19 14:16 LRA4788 TELE-C09) Document 02/26/19 21:55 PWD2029 (Rec: 02/26/19 21:57 WOR1479 TELE-M12) Document 02/27/19 06:00 ZEW3574 (Rec: 02/27/19 07:03 FEG8357 TELE-C07) Document 02/27/19 14:00 KKC4604 (Rec: 02/27/19 14:01 STV5103 TELE-C01) Document 02/27/19 22:00 WKK0560 (Rec: 02/27/19 22:18 GBT1928 TELE-C03) Document 02/28/19 06:00 HYA5110 (Rec: 02/28/19 06:36 WJN8226 TELE-C07) Document 02/28/19 14:00 LGY2959 (Rec: 02/28/19 14:59 MRL0246 TELE-C01) Document 02/28/19 22:00 KBX0478 (Rec: 02/28/19 22:17 MVB7348 TELE-C11) Document 03/01/19 06:00 HXR2053 (Rec: 03/01/19 06:37 WXW5599 TELE-C11) Document 03/01/19 14:00 GPS6645 (Rec: 03/01/19 14:01 UQY5888 TELE-C01) Document 03/01/19 22:00 HJN7280 (Rec: 03/01/19 22:03 VSN2523 TELE-C09) Document 03/02/19 06:00 YAI9419 (Rec: 03/02/19 06:08 LWM4660 TELE-C05) Document 03/02/19 22:00 FZB4849 (Rec: 03/02/19 22:39 EAO4725 TELE-C01) Document 03/03/19 06:00 AUZ3658 (Rec: 03/03/19 06:48 ZBI0073 TELE-C13) Document 03/03/19 14:00 XRF6349 (Rec: 03/03/19 14:50 TEJ1583 TELE-C13) Document 03/03/19 22:00 RFX9380 (Rec: 03/03/19 22:31 BUR4318 TELE-C06) Document 03/04/19 05:35 NOS0770 (Rec: 03/04/19 05:37 DVV9045 TELE-C06) Document 03/04/19 14:00 XRD1347 (Rec: 03/04/19 14:33 DRS4217 TELE-C09) Document 03/04/19 22:00 IGZ6878 (Rec: 03/04/19 22:23 SXP5471 TELE-C05) Document 03/05/19 06:00 PIE0764 (Rec: 03/05/19 06:10 YDP1480 TELE-C09) - Physical Exam General Physical Exam Comment: She is looking frail. She had her food on a tray in front of her. A large piece of eggwhite is draped across the knuckles of her right hand. She is not aware of this. She is tachypneic. General: No Cyanosis, No Anemia, No Jaundice, No Clubbing Lungs and Chest: Yes: Chest Expansion Full, Chest Expansion Symetrica, Percussion Note Resonant, Vessicular Breath Sounds, Crackles - bibasilar fine crackles. No: Wheezes, Respiratory Distress, Use of Accessory Muscles Heart Rate and Rhythm: Irregular Additional Cardiovascular: Yes: Normal Heart Sounds, Heart Murmur - 3/6 BREE aortic area. No: Pedal Edema Abdominal Exam: Yes: Soft, Bowel Sounds Present. No: Distention, Abdominal Tenderness Results - Results Lab Results: Laboratory Results - last 24 hr 03/05/19 03/05/19 03/05/19 05:42 05:42 05:42 WBC 14.9 H RBC 4.16 Hgb 13.3 Hct 40 MCV 96 MCH 32 H MCHC 33 RDW 13 Plt Count 160 MPV 9.0 Neut % (Auto) 88.1 Lymph % (Auto) 3.9 Mercer % (Auto) 7.0 Eos % (Auto) 0.3 Baso % (Auto) 0.7 Absolute Neuts (auto) 13.2 H Absolute Lymphs (auto) 0.6 L Absolute Monos (auto) 1.0 H Absolute Eos (auto) 0.0 Absolute Basos (auto) 0.1 Absolute Nucleated RBC 0.0 Nucleated RBC % 0.0 INR (Anticoag Therapy) 2.06 H BUN 24 Creatinine 0.79 Est GFR ( Amer) 83.9 Est GFR (Non-Af Amer) 69.3 Assessment - Problem List Assessment: Patient Problems Aortic stenosis, severe (Acute) Congestive heart failure due to valvular disease (Acute) Frailty (Acute) Hypoxemia requiring supplemental oxygen (Acute) Pneumonia (Acute) Anticoagulation goal of INR 2 to 3 (Chronic) Atrial fibrillation (Chronic) Dementia (Chronic) Hyperlipidemia (Chronic) Hypertension (Chronic) Osteoporosis (Chronic) Plan: Congestive heart failure due to valvular disease (Acute)Hypoxemia requiring supplemental oxygen (Acute) Pneumonia (Acute) She has more tachypnia today. She is not coughing or bringing up sputum. She has find crackles at her lung bases. I think she has an exacerbation of her CHF secondary to aortic stenosis. I will give her some IV diurectic. Aortic stenosis, severe (Acute) this remains a major problem and I think is a barrier to discharge Frailty This is accentuated. She looks fragile and feels too weak to return to [facility]. Secondary diagnoses: Anticoagulation goal of INR 2 to 3 (Chronic) Atrial fibrillation (Chronic) Dementia (Chronic) Hyperlipidemia (Chronic) Hypertension (Chronic) Osteoporosis (Chronic) I spoke to the discharge workforce planning analyst. We will have [facility] evaluate her and have another assessment from PT. I will add a BNP to this morning's labs and check a CXR. I will give her some IV furosemide (her BUN/CR are fine). I couldn't get through to either Liam or Salome Duval on their phones. Ann Duval doesn't feel ready to go back to [facility], she may require a SNF for subacute rehab - she thinks this is "a step backwards". I think she needs a TAVR and her prospects are limited without this.
[2019-03-05] MEDS: Furosemide IV* 10 MG/ML VIAL (40 MG) IV SLOW PU SCH (09:50)
[2019-03-05] MEDS: Atorvastatin* 40 MG TAB PO SCH (16:08)
[2019-03-05] MEDS ORDERED: Warfarin TAB(*) 2 MG PO ONE (17:15)
[2019-03-05] MEDS ORDERED: Cefepime 2 GM in Dextrose(*) 2 GM/50 ML BAG IV SCH (21:30)
[2019-03-05] MEDS: Donepezil TAB* 5 MG PO SCH (22:28)
[2019-03-05] MEDS: Lidocaine Patch REMOVE* 1 NOTE MISC PATCH OFF SCH (22:39)
[2019-03-06] MEDS: Digoxin TAB* 0.125 MG PO SCH (07:58)
[2019-03-06] MEDS: Furosemide IV* 10 MG/ML VIAL (40 MG) IV SLOW PU SCH (07:58)
[2019-03-06] MEDS: Lidocaine PATCH 5%* 1 PATCH TRANSDERM SCH (07:59)
[2019-03-06] MEDS: amLODIPine TAB* 5 MG PO SCH (07:59)
[2019-03-06] MEDS: Metoprolol Succinate XL TAB* 50 MG PO SCH ×2 (07:59→21:37)
[2019-03-06] MEDS: Cholecalciferol TAB* 400 UNIT PO SCH (07:59)
[2019-03-06] MEDS: Potassium Chlor TAB* 20 MEQ TAB.ER PO SCH (07:59)
[2019-03-06] MEDS: Cholecalciferol TAB* 1000 UNITS PO SCH (07:59)
--- NOTE | 2019-03-06 08:45 | PN ---
Subjective - Subjective Reason for Note: Progress Note History: Yesterday, she was more weak and had increased dyspnea and fine crackles. I gave her IV furosemide. The chemistry returned with an elevated CRP - I assumed that the cefdinir was not working and restarted cefepime. She developed profuse incontinence last night and this proved to be C. difficile diarrhea. She is unaware of this "do I have diarrhea" right after her bed was cleared. She is in no pain or distress and surprisingly feels stronger. She is not coughing or bringing up sputum Active Problems: Active Problems Aortic stenosis, severe (Acute) I35.0 Clostridium difficile diarrhea (Acute) A04.72 Congestive heart failure due to valvular disease (Acute) I50.9, I38 Frailty (Acute) R54 Hypoxemia requiring supplemental oxygen (Acute) R09.02, Z99.81 Pneumonia (Acute) J18.9 Anticoagulation goal of INR 2 to 3 (Chronic) Z51.81, Z79.01 Atrial fibrillation (Chronic) I48.91 Dementia (Chronic) F03.90 Hyperlipidemia (Chronic) E78.5 Hypertension (Chronic) I10 Osteoporosis (Chronic) M81.0 Current Medications: Current Medications Acetaminophen (Tylenol Tab*) 650 mg PO Q4H PRN PRN Reason: TEMPERATURE > 101 Last Admin: 03/05/19 16:08 Dose: 650 mg Amlodipine Besylate (Norvasc Tab*) 5 mg PO DAILY [facility] Last Admin: 03/06/19 07:59 Dose: 5 mg Atorvastatin Calcium (Lipitor*) 40 mg PO 1700 [facility] Last Admin: 03/05/19 16:08 Dose: 40 mg Cholecalciferol (Vitamin D Tab*) 1,000 units PO DAILY [facility] Last Admin: 03/06/19 07:59 Dose: 1,000 units Cholecalciferol (Vitamin D Tab*) 400 unit PO DAILY [facility] Last Admin: 03/06/19 07:59 Dose: 400 unit Digoxin (Lanoxin Tab*) 0.125 mg PO DAILY [facility] Last Admin: 03/06/19 07:58 Dose: 0.125 mg Docusate Sodium (Colace Cap*) 100 mg PO DAILY PRN PRN Reason: CONSTIPATION Last Admin: 02/28/19 21:01 Dose: 100 mg Donepezil HCl (Aricept Tab*) 10 mg PO BEDTIME [facility] Last Admin: 03/05/19 22:28 Dose: 10 mg Furosemide (Lasix Iv*) 40 mg IV SLOW PU DAILY [facility] Last Admin: 03/06/19 07:58 Dose: 40 mg Cefepime HCl (Maxipime 2 Gm In Dextrose Duplex (*)) 2 gm in 50 mls @ 100 mls/ hr IV Q12H [facility] Last Admin: 03/05/19 21:00 Dose: 100 mls/hr Lidocaine (Lidoderm 5% Patch*) 1 patch TRANSDERM DAILY [facility] Last Admin: 03/06/19 07:59 Dose: 1 patch Metoprolol Succinate (Toprol Xl Tab*) 50 mg PO BID [facility] Last Admin: 03/06/19 07:59 Dose: 50 mg Pharmacy Profile Note (Coumadin Daily Reminder*) 1 note FOLLOW UP 1700 [facility] Last Admin: 03/05/19 17:28 Dose: 1 note Pharmacy Profile Note (Lidocaine Patch Remove*) 1 note PATCH OFF 2100 [facility] Last Admin: 03/05/19 22:39 Dose: 1 note Potassium Chloride (Klor Con Er Tab*) 20 meq PO DAILY [facility] Last Admin: 03/06/19 07:59 Dose: 20 meq Senna (Senokot 8.6 Mg Tab*) 2 tab PO DAILY PRN PRN Reason: CONSTIPATION Home Medications: Home Medications Medication Instructions Recorded Confirmed Type Furosemide TAB* [Lasix TAB*] 20 mg PO DAILY PRN 12/30/14 02/24/19 History Alendronate (NF) [Fosamax (NF)] 70 mg PO .Fridays10/06/17 02/24/19 History Cholecalciferol TAB* [Vitamin D 1,400 unit PO DAILY 10/06/17 02/24/19 History TAB*] Digoxin TAB* [Lanoxin TAB*] 0.125 mg PO DAILY 10/06/17 02/24/19 History Potassium Chlor TAB* [Potassium 20 meq PO DAILY PRN 10/06/17 02/24/19 History Chlor TAB 20 MEQ*] amLODIPine TAB* [Norvasc 5 mg TAB*] 5 mg PO DAILY 10/06/17 02/24/19 History Atorvastatin* [Lipitor 40 MG*] 40 mg PO 1700 #30 tab 10/15/17 02/24/19 Rx Metoprolol Succinate XL TAB* 50 mg PO BID tab.xl 10/15/17 02/24/19 Rx [Toprol XL TAB*] Warfarin TAB(*) [Coumadin TAB(*)] 3 mg PO DAILY@1700 tab 10/15/17 02/24/19 Rx Acetaminophen [Acetaminophen Extra 500 mg PO TID 02/24/19 02/24/19 History Strength] Docusate CAP* [Colace Cap*] 100 mg PO DAILY PRN 02/24/19 02/24/19 History Donepezil TAB* [Aricept 5 MG TAB*] 10 mg PO DAILY 02/24/19 02/24/19 History Nystatin 1 admin TOPICAL SEE INSTRUCTIONS 02/24/19 02/24/19 History PRN Ondansetron ODT TAB* [Zofran 4 MG 4 mg PO Q6HR 02/24/19 02/24/19 History Odt TAB*] Cefdinir cap* [Cefdinir 300 MG cap 300 mg PO BID 5 Days #10 cap 03/03/19 Rx (NF)] Cholecalciferol TAB* [Vitamin D 400 unit PO DAILY tab 03/03/19 Rx TAB*] Furosemide TAB* [Lasix TAB*] 40 mg PO DAILY #30 tab 03/03/19 Rx Lidocaine PATCH 5%* [Lidoderm 5% 1 patch TRANSDERM DAILY patch 03/03/19 Rx Patch*] Lidocaine Patch REMOVE* 1 note PATCH OFF 2100 misc 03/03/19 Rx Potassium Chlor TAB* [Potassium 20 meq PO DAILY #30 tab.er 03/03/19 Rx Chlor TAB 20 MEQ*] Senna TAB 8.6 mg* [Senokot 8.6 mg 2 tab PO DAILY PRN tab 03/03/19 Rx TAB*] Allergies: Allergies Allergy/AdvReac Type Severity Reaction Status Date / Time azithromycin Allergy Nausea Verified 10/06/17 11:28 Objective - Vital Signs Vital Signs: Vital Signs 03/05/19 03/05/19 03/05/19 11:15 15:15 16:00 Temperature 98.6 F 100.6 F Pulse Rate 71 78 Respiratory 16 22 Rate Blood Pressure 132/68 127/61 (mmHg) O2 Sat by Pulse 97 99 95 Oximetry 03/05/19 03/05/19 03/05/19 17:15 19:15 20:45 Temperature 98.3 F 98.7 F Pulse Rate 71 Respiratory 18 18 Rate Blood Pressure 109/32 (mmHg) O2 Sat by Pulse 95 Oximetry 03/05/19 03/06/19 03/06/19 23:15 00:00 01:55 Temperature 97.9 F Pulse Rate 71 Respiratory 18 Rate Blood Pressure 112/56 (mmHg) O2 Sat by Pulse 95 95 98 Oximetry 03/06/19 03/06/19 03/06/19 03:15 07:15 07:58 Temperature 98.3 F Pulse Rate 85 70 70 Respiratory 18 20 Rate Blood Pressure 112/60 115/53 (mmHg) O2 Sat by Pulse 93 97 Oximetry - Intake and Output Intake and Output: Intake & Output 03/03/19 03/04/19 03/05/19 03/06/19 11:59 11:59 11:59 11:59 Intake Total 730 560 194 0900 Balance 730 009 203 7762 Weight 106 lb 1.6 oz 100 lb 9.6 oz 100 lb 12.8 oz Intake: IV Fluids 0 59 IV fluids and antibiotics 0 59 IVPB 105 IV fluids and antibiotics 105 Oral 730 622 438 5024 Other: Estimated Void Small # Bowel Movements 1 1 1 Estimated Stool Amount Medium Small # Voids 1 ADLs: Meal Record Start: 02/24/19 15: 20 Freq: DAILY@0900,1400,1800 Status: Active Protocol: Created 02/24/19 15:20 System (Rec: 02/24/19 15:20 System TELE-C13) Document 02/24/19 18:00 [id number] (Rec: 02/24/19 20:38 [id number] TELE-C01) Document 02/25/19 09:00 JFB6681 (Rec: 02/25/19 10:44 UWH6286 TELE-C05) Document 02/25/19 14:00 OXD1698 (Rec: 02/25/19 14:16 HJT0845 TELE-C05) Document 02/26/19 09:00 HVI5862 (Rec: 02/26/19 10:15 GKG2435 TELE-C09) Document 02/26/19 14:00 DEG5998 (Rec: 02/26/19 14:15 ZIA3831 TELE-C09) Document 02/26/19 18:00 HFO0166 (Rec: 02/26/19 21:44 CZG6369 TELE-M12) Document 02/27/19 09:00 WBJ7784 (Rec: 02/27/19 09:19 CSG8106 TELE-C01) Document 02/27/19 13:58 VQQ2153 (Rec: 02/27/19 13:58 TRY4940 TELE-C01) Document 02/27/19 18:00 ONT9280 (Rec: 02/27/19 20:32 PPK7053 TELE-C03) Document 02/28/19 09:00 BEO2869 (Rec: 02/28/19 10:07 UDD1567 TELE-C01) Document 02/28/19 14:00 JLV5442 (Rec: 02/28/19 14:56 FOP0789 TELE-C01) Document 02/28/19 18:00 GDF1299 (Rec: 02/28/19 22:16 MHI0023 TELE-C11) Document 03/01/19 09:00 VZZ5368 (Rec: 03/01/19 10:38 NHW4227 TELE-C01) Document 03/01/19 13:55 EJL5418 (Rec: 03/01/19 13:55 JBP1262 TELE-C01) Document 03/01/19 18:00 DYG5864 (Rec: 03/01/19 18:49 RMP8750 TELE-C09) Document 03/02/19 18:00 RSF9942 (Rec: 03/02/19 18:26 QAI6073 TELE-C01) Document 03/03/19 09:00 NES5558 (Rec: 03/03/19 11:52 WQO6890 TELE-C13) Document 03/03/19 14:00 LRW8478 (Rec: 03/03/19 14:50 BWQ8051 TELE-C13) Document 03/03/19 18:00 ZEQ4528 (Rec: 03/03/19 18:05 CMX5440 TELE-C01) Document 03/04/19 09:00 UVB5050 (Rec: 03/04/19 10:08 NJS4846 TELE-C09) Document 03/04/19 14:00 QJE5886 (Rec: 03/04/19 14:02 ISK3203 TELE-C09) Document 03/04/19 18:00 ARF7166 (Rec: 03/04/19 21:02 UTZ5362 TELE-C05) Document 03/05/19 09:00 NCD3925 (Rec: 03/05/19 09:48 MFZ8665 TELE-C01) Document 03/05/19 14:00 MFB7362 (Rec: 03/05/19 14:34 TTW1737 TELE-C01) Document 03/05/19 18:00 HWL5131 (Rec: 03/05/19 21:21 ZWZ5312 TELE-C09) Intake and Output Start: 02/24/19 11: 24 Freq: Status: Active Protocol: Created 02/24/19 11:24 System (Rec: 02/24/19 11:24 System ED-C26) Intake and Output Start: 02/24/19 15: 20 Freq: DAILY@0600,1400,2200 Status: Active Protocol: Created 02/24/19 15:20 System (Rec: 02/24/19 15:20 System TELE-C13) Document 02/24/19 21:53 PUD1063 (Rec: 02/24/19 21:54 BRP7493 TELE-C09) Document 02/25/19 06:00 JTB4032 (Rec: 02/25/19 06:36 KIH9797 TELE-C35) Document 02/25/19 14:00 LMT3320 (Rec: 02/25/19 14:03 SCS2520 TELE-C05) Document 02/25/19 22:00 VOQ6312 (Rec: 02/25/19 22:47 FKX7936 TELE-C05) Document 02/26/19 06:00 YUB0477 (Rec: 02/26/19 06:08 VPK0356 TELE-C35) Document 02/26/19 14:00 ICD5245 (Rec: 02/26/19 14:16 WYJ2028 TELE-C09) Document 02/26/19 21:55 LKS1273 (Rec: 02/26/19 21:57 CWX6731 TELE-M12) Document 02/27/19 06:00 VNG9678 (Rec: 02/27/19 07:03 LQS5462 TELE-C07) Document 02/27/19 14:00 DMM9921 (Rec: 02/27/19 14:01 NJI2947 TELE-C01) Document 02/27/19 22:00 CTZ1193 (Rec: 02/27/19 22:18 KTN7062 TELE-C03) Document 02/28/19 06:00 ORC2953 (Rec: 02/28/19 06:36 TON0201 TELE-C07) Document 02/28/19 14:00 MHJ7940 (Rec: 02/28/19 14:59 UWH9859 TELE-C01) Document 02/28/19 22:00 LUT3676 (Rec: 02/28/19 22:17 GVQ9957 TELE-C11) Document 03/01/19 06:00 EVJ2654 (Rec: 03/01/19 06:37 VZN9737 TELE-C11) Document 03/01/19 14:00 MSP5759 (Rec: 03/01/19 14:01 DPD4256 TELE-C01) Document 03/01/19 22:00 EEF3250 (Rec: 03/01/19 22:03 EZW8393 TELE-C09) Document 03/02/19 06:00 ABY6139 (Rec: 03/02/19 06:08 PGY3547 TELE-C05) Document 03/02/19 22:00 RKL5527 (Rec: 03/02/19 22:39 GIL5817 TELE-C01) Document 03/03/19 06:00 AUY7420 (Rec: 03/03/19 06:48 RMN2920 TELE-C13) Document 03/03/19 14:00 LCC8657 (Rec: 03/03/19 14:50 VJH3916 TELE-C13) Document 03/03/19 22:00 ONM8256 (Rec: 03/03/19 22:31 GCL0168 TELE-C06) Document 03/04/19 05:35 WDS6227 (Rec: 03/04/19 05:37 GFW8968 TELE-C06) Document 03/04/19 14:00 PGQ4523 (Rec: 03/04/19 14:33 EGP2044 TELE-C09) Document 03/04/19 22:00 LFP8476 (Rec: 03/04/19 22:23 DJI3346 TELE-C05) Document 03/05/19 06:00 NTX1817 (Rec: 03/05/19 06:10 MKX0229 TELE-C09) Document 03/05/19 13:55 YII3380 (Rec: 03/05/19 13:55 DSH1028 MED-M16) Document 03/05/19 16:52 TEU7810 (Rec: 03/05/19 16:52 EAY2696 TELE-C09) Document 03/05/19 21:40 JIC7544 (Rec: 03/05/19 21:41 TELE-C09) Document 03/06/19 06:00 ACP9641 (Rec: 03/06/19 06:11 WRP3683 TELE-C07) - Physical Exam General Physical Exam Comment: Cool hands. Sitting in a chair and in no acute distress General: No Cyanosis, No Anemia, No Jaundice, No Clubbing Lungs and Chest: Yes: Chest Expansion Symetrica, Percussion Note Resonant, Vessicular Breath Sounds. No: Chest Expansion Full, Crackles, Wheezes Heart Rate and Rhythm: Irregular Additional Cardiovascular: Yes: Normal Heart Sounds, Heart Murmur. No: Pedal Edema Abdominal Exam: Yes: Rigidity, Bowel Sounds Present. No: Distention, Abdominal Tenderness, Guarding, Rebound Tenderness Results - Results Lab Results: Laboratory Results - last 24 hr 03/05/19 03/05/19 12:58 12:58 C-Reactive Protein 51.80 H B-Natriuretic Peptide 395 H Radiology Results: Patient Name: YARITZA BEYER Medical Record#: [id number] Ordering Physician: Roberto Rangel MD Acct.#: [id number] : 1935 Age: 83 Sex: F Location: [address] [place] [address] MEDICAL/TELEMETRY Exam Date: 03/05/19853 ADM Status: ADM IN Order Information: CHEST PA & LAT 2 VWS Accession Number: [id number] CPT: 30188 INDICATION: CHF COMPARISON: March 02, 2019 chest radiograph TECHNIQUE: Dual-energy PA and lateral views of the chest were obtained. FINDINGS: There is no new focal airspace opacification of the hyperinflated lungs. The recently described small pleural effusions are less perceptible. Unchanged cardiomegaly with a left chest wall pacemaker in place. The upper abdominal contents are unremarkable. There are old right rib fractures. Exaggerated kyphosis of the thoracic spine with several compression fractures are also redemonstrated. IMPRESSION: 1. No new airspace opacification. 2. The recently described small pleural effusions are less perceptible. 3. Unchanged cardiomegaly. 4. 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 <Electronically signed by Jamar Hudson MD in [place]> 03/05/19943 Dictated By: Jamar Hudson MD Dictated Date/Time: 03/05/19940 Transcribed Date/Time: 03/05/19940 Copy to: Assessment - Problem List Assessment: Patient Problems Aortic stenosis, severe (Acute) Clostridium difficile diarrhea (Acute) Congestive heart failure due to valvular disease (Acute) Frailty (Acute) Hypoxemia requiring supplemental oxygen (Acute) Pneumonia (Acute) Anticoagulation goal of INR 2 to 3 (Chronic) Atrial fibrillation (Chronic) Dementia (Chronic) Hyperlipidemia (Chronic) Hypertension (Chronic) Osteoporosis (Chronic) Plan: Clostridium difficile diarrhea (Acute) This is secondary to broad spectrum antibacterials. I will start her on oral vancomycin 125 mg qid and stop the cefepime - she has had more than 5 days of IV antibacterials for a minor pneumonia Aortic stenosis, severe (Acute) Underlying pathology Congestive heart failure due to valvular disease (Acute) She is much better from the cardiac point of view - I will stop the IV furosemide because of the diarrhea. secondary diagnoses Frailty (Acute) Hypoxemia requiring supplemental oxygen (Acute) Pneumonia (Acute) Anticoagulation goal of INR 2 to 3 (Chronic) Atrial fibrillation (Chronic) Dementia (Chronic) Hyperlipidemia (Chronic) Hypertension (Chronic) Osteoporosis (Chronic) I will treat her C difficile diarrhea and hope the CRP was not going up for the reason I feared yesterday - recrudescence of the pneumonia despite cefdinir. Phone call to daughter.
[2019-03-06] MEDS ORDERED: Furosemide TAB* 20 MG PO ONE (08:51)
[2019-03-06] MEDS: Vancomycin CAP* 125 MG CAP PO SCH ×4 (09:27→21:37)
[2019-03-06 09:33] LABS: INR 1.72 (0.82-1.09)
[2019-03-06] MEDS: Acetaminophen TAB* 325 MG PO PRN ×2 (09:36→17:39)
[2019-03-06 09:38] LABS: BUN/Creatinine Ratio 26.2 (8-20); Calcium 9.2 mg/dL (8.6-10.3); EGFR African American 105.1 (>60); EGFR Non-African American 86.8 (>60); Potassium 3.8 mmol/L (3.5-5.0)
[2019-03-06] MEDS: Atorvastatin* 40 MG TAB PO SCH (17:34)
[2019-03-06] MEDS: Warfarin TAB(*) 2 MG PO SCH (17:35)
[2019-03-06] MEDS: Donepezil TAB* 5 MG PO SCH (21:37)
[2019-03-07] MEDS: Lidocaine Patch REMOVE* 1 NOTE MISC PATCH OFF SCH ×2 (00:19→21:08)
[2019-03-07 05:48] LABS: ABS Basophils 0.1 10^3/ul (0-0.2); ABS Eosinophils 0.2 10^3/ul (0-0.6); ABS Lymphocytes 0.8 10^3/ul (1.0-4.8); ABS Monocytes 0.7 10^3/ul (0-0.8); ABS Neutrophils 4.6 10^3/ul (1.5-7.7); Eosinophil % 3.6 %; Hematocrit 37 % (35-47); Hemoglobin 12.4 g/dL (12.0-16.0); Lymphocyte % 12.7 %; Mean Corpuscular HGB Conc 33 g/dL (31-36); Mean Corpuscular Hemoglobin 32 pg (27-31); Mean Corpuscular Volume 96 fL (80-97); Mean Platelet Volume 9.3 fL (7.4-10.4); Nucleated Red Blood Cells % 0.1; Platelet Count 143 10^3/uL (150-450); Red Blood Count 3.88 10^6 /uL (3.70-4.87); Red Cell Distribution Width 13 % (10-15); White Blood Count 6.4 10^3/uL (3.5-10.8)
[2019-03-07 06:12] LABS: BUN/Creatinine Ratio 30.6 (8-20); C Reactive Protein 72.58 mg/L (<8.01); Calcium 8.9 mg/dL (8.6-10.3); EGFR African American 145.6 (>60); EGFR Non-African American 120.3 (>60); Potassium 3.9 mmol/L (3.5-5.0)
--- NOTE | 2019-03-07 08:37 | PN ---
Subjective - Subjective Reason for Note: Progress Note History: Ann Duval reports her diarrhea is improved. She is tolerating oral vancomycin. She walked a little yesterday. According to the patient, she is eating/drinking. She denies fevers/sweats. She is not feeling dyspneic. She denies any pain Active Problems: Active Problems Aortic stenosis, severe (Acute) I35.0 Clostridium difficile diarrhea (Acute) A04.72 Congestive heart failure due to valvular disease (Acute) I50.9, I38 Frailty (Acute) R54 Hypoxemia requiring supplemental oxygen (Acute) R09.02, Z99.81 Pneumonia (Acute) J18.9 Anticoagulation goal of INR 2 to 3 (Chronic) Z51.81, Z79.01 Atrial fibrillation (Chronic) I48.91 Dementia (Chronic) F03.90 Hyperlipidemia (Chronic) E78.5 Hypertension (Chronic) I10 Osteoporosis (Chronic) M81.0 Current Medications: Current Medications Acetaminophen (Tylenol Tab*) 650 mg PO Q4H PRN PRN Reason: TEMPERATURE > 101 Last Admin: 03/06/19 17:39 Dose: 650 mg Amlodipine Besylate (Norvasc Tab*) 5 mg PO DAILY [facility] [place] Last Admin: 03/06/19 07:59 Dose: 5 mg Atorvastatin Calcium (Lipitor*) 40 mg PO 1700 [facility] [place] Last Admin: 03/06/19 17:34 Dose: 40 mg Cholecalciferol (Vitamin D Tab*) 1,000 units PO DAILY [facility] [place] Last Admin: 03/06/19 07:59 Dose: 1,000 units Cholecalciferol (Vitamin D Tab*) 400 unit PO DAILY [facility] [place] Last Admin: 03/06/19 07:59 Dose: 400 unit Digoxin (Lanoxin Tab*) 0.125 mg PO DAILY [facility] [place] Last Admin: 03/06/19 07:58 Dose: 0.125 mg Docusate Sodium (Colace Cap*) 100 mg PO DAILY PRN PRN Reason: CONSTIPATION Last Admin: 02/28/19 21:01 Dose: 100 mg Donepezil HCl (Aricept Tab*) 10 mg PO BEDTIME [facility] [place] Last Admin: 03/06/19 21:37 Dose: 10 mg Lidocaine (Lidoderm 5% Patch*) 1 patch TRANSDERM DAILY [facility] [place] Last Admin: 03/06/19 07:59 Dose: 1 patch Metoprolol Succinate (Toprol Xl Tab*) 50 mg PO BID [facility] [place] Last Admin: 03/06/19 21:37 Dose: 50 mg Pharmacy Profile Note (Coumadin Daily Reminder*) 1 note FOLLOW UP 1699 [facility] [place] Last Admin: 03/06/19 17:10 Dose: 1 note Pharmacy Profile Note (Lidocaine Patch Remove*) 1 note PATCH OFF 2100 [facility] [place] Last Admin: 03/07/19 00:19 Dose: Not Given Potassium Chloride (Klor Con Er Tab*) 20 meq PO DAILY [facility] [place] Last Admin: 03/06/19 07:59 Dose: 20 meq Senna (Senokot 8.6 Mg Tab*) 2 tab PO DAILY PRN PRN Reason: CONSTIPATION Vancomycin HCl (Vancomycin Cap*) 125 mg PO QID [facility] [place] Last Admin: 03/06/19 21:37 Dose: 125 mg Warfarin Sodium (Coumadin Tab(*)) 2 mg PO 1699 [facility] [place] Last Admin: 03/06/19 17:35 Dose: 2 mg Home Medications: Home Medications Medication Instructions Recorded Confirmed Type Furosemide TAB* [Lasix TAB*] 20 mg PO DAILY PRN 12/30/14 02/24/19 History Alendronate (NF) [Fosamax (NF)] 70 mg PO .Fridays10/06/17 02/24/19 History Cholecalciferol TAB* [Vitamin D 1,400 unit PO DAILY 10/06/17 02/24/19 History TAB*] Digoxin TAB* [Lanoxin TAB*] 0.125 mg PO DAILY 10/06/17 02/24/19 History Potassium Chlor TAB* [Potassium 20 meq PO DAILY PRN 10/06/17 02/24/19 History Chlor TAB 20 MEQ*] amLODIPine TAB* [Norvasc 5 mg TAB*] 5 mg PO DAILY 10/06/17 02/24/19 History Atorvastatin* [Lipitor 40 MG*] 40 mg PO 1700 #30 tab 10/15/17 02/24/19 Rx Metoprolol Succinate XL TAB* 50 mg PO BID tab.xl 10/15/17 02/24/19 Rx [Toprol XL TAB*] Warfarin TAB(*) [Coumadin TAB(*)] 3 mg PO DAILY@1700 tab 10/15/17 02/24/19 Rx Acetaminophen [Acetaminophen Extra 500 mg PO TID 02/24/19 02/24/19 History Strength] Docusate CAP* [Colace Cap*] 100 mg PO DAILY PRN 02/24/19 02/24/19 History Donepezil TAB* [Aricept 5 MG TAB*] 10 mg PO DAILY 02/24/19 02/24/19 History Nystatin 1 admin TOPICAL SEE INSTRUCTIONS 02/24/19 02/24/19 History PRN Ondansetron ODT TAB* [Zofran 4 MG 4 mg PO Q6HR 02/24/19 02/24/19 History Odt TAB*] Cefdinir cap* [Cefdinir 300 MG cap 300 mg PO BID 5 Days #10 cap 03/03/19 Rx (NF)] Cholecalciferol TAB* [Vitamin D 400 unit PO DAILY tab 03/03/19 Rx TAB*] Furosemide TAB* [Lasix TAB*] 40 mg PO DAILY #30 tab 03/03/19 Rx Lidocaine PATCH 5%* [Lidoderm 5% 1 patch TRANSDERM DAILY patch 03/03/19 Rx Patch*] Lidocaine Patch REMOVE* 1 note PATCH OFF 2100 misc 03/03/19 Rx Potassium Chlor TAB* [Potassium 20 meq PO DAILY #30 tab.er 03/03/19 Rx Chlor TAB 20 MEQ*] Senna TAB 8.6 mg* [Senokot 8.6 mg 2 tab PO DAILY PRN tab 03/03/19 Rx TAB*] Allergies: Allergies Allergy/AdvReac Type Severity Reaction Status Date / Time azithromycin Allergy Nausea Verified 10/06/17 11:28 Objective - Vital Signs Vital Signs: Vital Signs 03/06/19 03/06/19 03/06/19 11:15 15:15 16:00 Temperature 97.8 F 97.8 F Pulse Rate 71 70 Respiratory 20 16 Rate Blood Pressure 119/57 122/57 (mmHg) O2 Sat by Pulse 98 99 99 Oximetry 03/06/19 03/06/19 03/06/19 19:15 19:30 23:55 Temperature 97.7 F 98.3 F Pulse Rate 70 71 Respiratory 16 16 18 Rate Blood Pressure 103/49 110/56 (mmHg) O2 Sat by Pulse 96 93 Oximetry 03/07/19 03:38 Temperature 98.3 F Pulse Rate 70 Respiratory 18 Rate Blood Pressure 122/54 (mmHg) O2 Sat by Pulse 100 Oximetry - Intake and Output Intake and Output: Intake & Output 03/04/19 03/05/19 03/06/19 03/07/19 11:59 11:59 11:59 11:59 Intake Total 242 628 9923 960 Balance 757 358 3085 960 Weight 106 lb 1.6 oz 100 lb 9.6 oz 100 lb 12.8 oz 100 lb 8 oz Intake: IV Fluids 0 59 IV fluids and antibiotics 0 59 IVPB 105 IV fluids and antibiotics 105 Oral 032 997 5415 960 Other: Estimated Void Small # Bowel Movements 1 1 1 1 Estimated Stool Amount Medium Small Small ADLs: Meal Record Start: 02/24/19 15: 20 Freq: DAILY@0900,1400,1800 Status: Active Protocol: Created 02/24/19 15:20 System (Rec: 02/24/19 15:20 System TELE-C13) Document 02/24/19 18:00 [id number] (Rec: 02/24/19 20:38 JVQ2432 TELE-C01) Document 02/25/19 09:00 HMH5963 (Rec: 02/25/19 10:44 HAF4869 TELE-C05) Document 02/25/19 14:00 WEB8655 (Rec: 02/25/19 14:16 DZA8162 TELE-C05) Document 02/26/19 09:00 LQF1888 (Rec: 02/26/19 10:15 MTJ7711 TELE-C09) Document 02/26/19 14:00 XGV7159 (Rec: 02/26/19 14:15 JNJ7638 TELE-C09) Document 02/26/19 18:00 KVV0445 (Rec: 02/26/19 21:44 OUS5616 TELE-M12) Document 02/27/19 09:00 GVQ3321 (Rec: 02/27/19 09:19 WBJ4309 TELE-C01) Document 02/27/19 13:58 QFD2761 (Rec: 02/27/19 13:58 BTO3416 TELE-C01) Document 02/27/19 18:00 CLF2883 (Rec: 02/27/19 20:32 TTI0361 TELE-C03) Document 02/28/19 09:00 OKP1480 (Rec: 02/28/19 10:07 CQC7217 TELE-C01) Document 02/28/19 14:00 BKJ9511 (Rec: 02/28/19 14:56 KMO8999 TELE-C01) Document 02/28/19 18:00 JUR0364 (Rec: 02/28/19 22:16 OGC7829 TELE-C11) Document 03/01/19 09:00 WZV5413 (Rec: 03/01/19 10:38 DFX7150 TELE-C01) Document 03/01/19 13:55 ZZI8582 (Rec: 03/01/19 13:55 KWD3326 TELE-C01) Document 03/01/19 18:00 CDM4037 (Rec: 03/01/19 18:49 PTG8334 TELE-C09) Document 03/02/19 18:00 RKW9688 (Rec: 03/02/19 18:26 SGJ2022 TELE-C01) Document 03/03/19 09:00 EQW5343 (Rec: 03/03/19 11:52 WCU0338 TELE-C13) Document 03/03/19 14:00 ZWV4079 (Rec: 03/03/19 14:50 KIR2769 TELE-C13) Document 03/03/19 18:00 TPA6853 (Rec: 03/03/19 18:05 YBB5941 TELE-C01) Document 03/04/19 09:00 QOV6204 (Rec: 03/04/19 10:08 BCB1943 TELE-C09) Document 03/04/19 14:00 OES9429 (Rec: 03/04/19 14:02 BJR9006 TELE-C09) Document 03/04/19 18:00 GIW5844 (Rec: 03/04/19 21:02 KJJ3257 TELE-C05) Document 03/05/19 09:00 HDK0638 (Rec: 03/05/19 09:48 PZZ6170 TELE-C01) Document 03/05/19 14:00 DFT2542 (Rec: 03/05/19 14:34 IMO0034 TELE-C01) Document 03/05/19 18:00 WKM8458 (Rec: 03/05/19 21:21 GBR4708 TELE-C09) Document 03/06/19 09:00 LFP2627 (Rec: 03/06/19 12:14 XDE1045 TELE-C07) Document 03/06/19 14:00 MFU8611 (Rec: 03/06/19 14:32 SEC6867 TELE-C07) Document 03/06/19 18:00 NCA4306 (Rec: 03/06/19 20:22 JEP4916 TELE-C05) Intake and Output Start: 02/24/19 11: 24 Freq: Status: Active Protocol: Created 02/24/19 11:24 System (Rec: 02/24/19 11:24 System ED-C26) Intake and Output Start: 02/24/19 15: 20 Freq: DAILY@0600,1400,2200 Status: Active Protocol: Created 02/24/19 15:20 System (Rec: 02/24/19 15:20 System TELE-C13) Document 02/24/19 21:53 HFX4970 (Rec: 02/24/19 21:54 PUU6294 TELE-C09) Document 02/25/19 06:00 BPX6975 (Rec: 02/25/19 06:36 RKX6203 TELE-C35) Document 02/25/19 14:00 OGG1368 (Rec: 02/25/19 14:03 PMX8537 TELE-C05) Document 02/25/19 22:00 PGD5064 (Rec: 02/25/19 22:47 YGO6045 TELE-C05) Document 02/26/19 06:00 ZSW2571 (Rec: 02/26/19 06:08 RFY3434 TELE-C35) Document 02/26/19 14:00 USJ9525 (Rec: 02/26/19 14:16 FWQ6373 TELE-C09) Document 02/26/19 21:55 KDG2105 (Rec: 02/26/19 21:57 KGB6046 TELE-M12) Document 02/27/19 06:00 EHB6085 (Rec: 02/27/19 07:03 KXN1611 TELE-C07) Document 02/27/19 14:00 NJB7588 (Rec: 02/27/19 14:01 UTB9451 TELE-C01) Document 02/27/19 22:00 WAA1371 (Rec: 02/27/19 22:18 ZVM4120 TELE-C03) Document 02/28/19 06:00 HRX8263 (Rec: 02/28/19 06:36 AAK6217 TELE-C07) Document 02/28/19 14:00 GOU3575 (Rec: 02/28/19 14:59 ABP8606 TELE-C01) Document 02/28/19 22:00 XXN6278 (Rec: 02/28/19 22:17 BVZ5990 TELE-C11) Document 03/01/19 06:00 GPQ9059 (Rec: 03/01/19 06:37 RJD9505 TELE-C11) Document 03/01/19 14:00 WRG3997 (Rec: 03/01/19 14:01 IBA5377 TELE-C01) Document 03/01/19 22:00 TKG5620 (Rec: 03/01/19 22:03 BLD0813 TELE-C09) Document 03/02/19 06:00 ZZB4379 (Rec: 03/02/19 06:08 UCI3906 TELE-C05) Document 03/02/19 22:00 KSJ3709 (Rec: 03/02/19 22:39 DKI9618 TELE-C01) Document 03/03/19 06:00 WUE1614 (Rec: 03/03/19 06:48 JVL2916 TELE-C13) Document 03/03/19 14:00 CCY7257 (Rec: 03/03/19 14:50 FEC2394 TELE-C13) Document 03/03/19 22:00 APY4892 (Rec: 03/03/19 22:31 WXC2797 TELE-C06) Document 03/04/19 05:35 XDU2813 (Rec: 03/04/19 05:37 QHR3060 TELE-C06) Document 03/04/19 14:00 HHZ6930 (Rec: 03/04/19 14:33 IKF8765 TELE-C09) Document 03/04/19 22:00 AEZ2473 (Rec: 03/04/19 22:23 CTJ7562 TELE-C05) Document 03/05/19 06:00 YZH8340 (Rec: 03/05/19 06:10 GEX6081 TELE-C09) Document 03/05/19 13:55 MYZ7644 (Rec: 03/05/19 13:55 TQX6296 MED-M16) Document 03/05/19 16:52 VTW3035 (Rec: 03/05/19 16:52 GJD8838 TELE-C09) Document 03/05/19 21:40 TMW7996 (Rec: 03/05/19 21:41 TOT4532 TELE-C09) Document 03/06/19 06:00 TJP8382 (Rec: 03/06/19 06:11 CQG5488 TELE-C07) Document 03/06/19 14:00 EJJ0049 (Rec: 03/06/19 14:32 VYM9162 TELE-C07) Document 03/06/19 22:00 HTZ5336 (Rec: 03/06/19 22:03 ZUV3313 TELE-C05) Document 03/07/19 06:00 TIH2292 (Rec: 03/07/19 06:24 PQT9430 TELE-C09) - Physical Exam General: No Cyanosis, No Anemia, No Jaundice, No Clubbing Skin: Normal: Rash Lungs and Chest: Yes: Chest Expansion Full, Chest Expansion Symetrica, Percussion Note Resonant, Vessicular Breath Sounds. No: Crackles, Wheezes Heart Rate and Rhythm: Irregular Additional Cardiovascular: Yes: Normal Heart Sounds, Heart Murmur - 3/6 systolic ejection murmur. No: Pedal Edema Abdominal Exam: Yes: Soft, Bowel Sounds Present. No: Distention, Abdominal Tenderness Results - Results Lab Results: Laboratory Results - last 24 hr 03/06/19 03/06/19 03/06/19 09:10 09:11 09:11 WBC RBC Hgb Hct MCV MCH MCHC RDW Plt Count MPV Neut % (Auto) Lymph % (Auto) [place] % (Auto) Eos % (Auto) Baso % (Auto) Absolute Neuts (auto) Absolute Lymphs (auto) Absolute Monos (auto) Absolute Eos (auto) Absolute Basos (auto) Absolute Nucleated RBC Nucleated RBC % INR (Anticoag Therapy) 1.72 H Sodium 135 Potassium 3.8 Chloride 101 Carbon Dioxide 28 Anion Gap 6 BUN 17 Creatinine 0.65 Est GFR ( Amer) 105.1 Est GFR (Non-Af Amer) 86.8 BUN/Creatinine Ratio 26.2 H Glucose 111 H Calcium 9.2 C-Reactive Protein 95.06 H 03/07/19 03/07/19 03/07/19 05:16 05:16 05:16 WBC 6.4 RBC 3.88 Hgb 12.4 Hct 37 MCV 96 MCH 32 H MCHC 33 RDW 13 Plt Count 143 L MPV 9.3 Neut % (Auto) 72.2 Lymph % (Auto) 12.7 [place] % (Auto) 10.5 Eos % (Auto) 3.6 Baso % (Auto) 1.0 Absolute Neuts (auto) 4.6 Absolute Lymphs (auto) 0.8 L Absolute Monos (auto) 0.7 Absolute Eos (auto) 0.2 Absolute Basos (auto) 0.1 Absolute Nucleated RBC 0.0 Nucleated RBC % 0.1 INR (Anticoag Therapy) 2.00 H Sodium 137 Potassium 3.9 Chloride 103 Carbon Dioxide 28 Anion Gap 6 BUN 15 Creatinine 0.49 L Est GFR ( Amer) 145.6 Est GFR (Non-Af Amer) 120.3 BUN/Creatinine Ratio 30.6 H Glucose 94 Calcium 8.9 C-Reactive Protein 72.58 H Assessment - Problem List Assessment: Patient Problems Aortic stenosis, severe (Acute) Clostridium difficile diarrhea (Acute) Congestive heart failure due to valvular disease (Acute) Frailty (Acute) Hypoxemia requiring supplemental oxygen (Acute) Pneumonia (Acute) Anticoagulation goal of INR 2 to 3 (Chronic) Atrial fibrillation (Chronic) Dementia (Chronic) Hyperlipidemia (Chronic) Hypertension (Chronic) Osteoporosis (Chronic) Plan: Congestive heart failure due to valvular disease (Acute) This appears to be compensated today. Aortic stenosis, severe (Acute) This is a barrier to recovery Clostridium difficile diarrhea (Acute) this is improving with vancomycin. Frailty (Acute) ongoing Hypoxemia requiring supplemental oxygen (Acute) She is tolerating this. Pneumonia (Acute) This appears resolved Anticoagulation goal of INR 2 to 3 (Chronic) Her INR is 2.0. She takes warfarin 3 mg daily at home, here she is requiring warfarin 2 mg - likely because of antibiotic interactions. I will watch this closely Atrial fibrillation (Chronic) Dementia (Chronic) Hyperlipidemia (Chronic) Hypertension (Chronic) Osteoporosis (Chronic) I explained the above to the patient. I am hoping she will be sufficiently recovered from her diarrhea to allow discharge tomorrow. I called her daughter - didn't bulk picker.
[2019-03-07] MEDS: amLODIPine TAB* 5 MG PO SCH (09:05)
[2019-03-07] MEDS: Metoprolol Succinate XL TAB* 50 MG PO SCH ×2 (09:05→21:07)
[2019-03-07] MEDS: Lidocaine PATCH 5%* 1 PATCH TRANSDERM SCH (09:07)
[2019-03-07] MEDS: Cholecalciferol TAB* 1000 UNITS PO SCH (09:10)
[2019-03-07] MEDS: Cholecalciferol TAB* 400 UNIT PO SCH (09:11)
[2019-03-07] MEDS: Potassium Chlor TAB* 20 MEQ TAB.ER PO SCH (09:11)
[2019-03-07] MEDS: Vancomycin CAP* 125 MG CAP PO SCH ×4 (10:30→21:06)
[2019-03-07] MEDS: Digoxin TAB* 0.125 MG PO SCH (10:30)
[2019-03-07] MEDS: Atorvastatin* 40 MG TAB PO SCH (16:16)
[2019-03-07] MEDS: Warfarin TAB(*) 2 MG PO SCH (16:16)
[2019-03-07] MEDS: Donepezil TAB* 5 MG PO SCH (21:07)
--- NOTE | 2019-03-08 07:53 | PN ---
Subjective - Subjective Reason for Note: Discharge Note History: She has 2 formed bowel movements yesterday and some diarrhea last night. She had no incontinence and went to the toilet in time. She had a session with PT and the report - she is safe to be discharged to assisted living - no need for further rehab in SNF. Also her O2 saturation was 95% after walking around [place]. She is disoriented place/time. She denies any new symptoms. Active Problems: Active Problems Aortic stenosis, severe (Acute) I35.0 Clostridium difficile diarrhea (Acute) A04.72 Congestive heart failure due to valvular disease (Acute) I50.9, I38 Frailty (Acute) R54 Hypoxemia requiring supplemental oxygen (Acute) R09.02, Z99.81 Pneumonia (Acute) J18.9 Anticoagulation goal of INR 2 to 3 (Chronic) Z51.81, Z79.01 Atrial fibrillation (Chronic) I48.91 Dementia (Chronic) F03.90 Hyperlipidemia (Chronic) E78.5 Hypertension (Chronic) I10 Osteoporosis (Chronic) M81.0 Current Medications: Current Medications Acetaminophen (Tylenol Tab*) 650 mg PO Q4H PRN PRN Reason: TEMPERATURE > 101 Last Admin: 03/06/19 17:39 Dose: 650 mg Amlodipine Besylate (Norvasc Tab*) 5 mg PO DAILY [facility] Last Admin: 03/07/19 09:05 Dose: 5 mg Atorvastatin Calcium (Lipitor*) 40 mg PO 1700 AYE Last Admin: 03/07/19 16:16 Dose: 40 mg Cholecalciferol (Vitamin D Tab*) 1,000 units PO DAILY [facility] Last Admin: 03/07/19 09:10 Dose: 1,000 units Cholecalciferol (Vitamin D Tab*) 400 unit PO DAILY [facility] Last Admin: 03/07/19 09:11 Dose: 400 unit Digoxin (Lanoxin Tab*) 0.125 mg PO DAILY [facility] Last Admin: 03/07/19 10:30 Dose: 0.125 mg Docusate Sodium (Colace Cap*) 100 mg PO DAILY PRN PRN Reason: CONSTIPATION Last Admin: 02/28/19 21:01 Dose: 100 mg Donepezil HCl (Aricept Tab*) 10 mg PO BEDTIME [facility] Last Admin: 03/07/19 21:07 Dose: 10 mg Lidocaine (Lidoderm 5% Patch*) 1 patch TRANSDERM DAILY [facility] Last Admin: 03/07/19 09:07 Dose: 1 patch Metoprolol Succinate (Toprol Xl Tab*) 50 mg PO BID [facility] Last Admin: 03/07/19 21:07 Dose: 50 mg Pharmacy Profile Note (Coumadin Daily Reminder*) 1 note FOLLOW UP 1700 [facility] Last Admin: 03/07/19 16:22 Dose: 1 note Pharmacy Profile Note (Lidocaine Patch Remove*) 1 note PATCH OFF 2100 [facility] Last Admin: 03/07/19 21:08 Dose: 1 note Potassium Chloride (Klor Con Er Tab*) 20 meq PO DAILY [facility] Last Admin: 03/07/19 09:11 Dose: 20 meq Senna (Senokot 8.6 Mg Tab*) 2 tab PO DAILY PRN PRN Reason: CONSTIPATION Vancomycin HCl (Vancomycin Cap*) 125 mg PO QID [facility] Last Admin: 03/07/19 21:06 Dose: 125 mg Warfarin Sodium (Coumadin Tab(*)) 2 mg PO 1700 [facility] Last Admin: 03/07/19 16:16 Dose: 2 mg Home Medications: Home Medications Medication Instructions Recorded Confirmed Type Furosemide TAB* [Lasix TAB*] 20 mg PO DAILY PRN 12/30/14 02/24/19 History Alendronate (NF) [Fosamax (NF)] 70 mg PO .Fridays10/06/17 02/24/19 History Cholecalciferol TAB* [Vitamin D 1,400 unit PO DAILY 10/06/17 02/24/19 History TAB*] Digoxin TAB* [Lanoxin TAB*] 0.125 mg PO DAILY 10/06/17 02/24/19 History Potassium Chlor TAB* [Potassium 20 meq PO DAILY PRN 10/06/17 02/24/19 History Chlor TAB 20 MEQ*] amLODIPine TAB* [Norvasc 5 mg TAB*] 5 mg PO DAILY 10/06/17 02/24/19 History Atorvastatin* [Lipitor 40 MG*] 40 mg PO 1700 #30 tab 10/15/17 02/24/19 Rx Metoprolol Succinate XL TAB* 50 mg PO BID tab.xl 10/15/17 02/24/19 Rx [Toprol XL TAB*] Warfarin TAB(*) [Coumadin TAB(*)] 3 mg PO DAILY@1700 tab 10/15/17 02/24/19 Rx Acetaminophen [Acetaminophen Extra 500 mg PO TID 02/24/19 02/24/19 History Strength] Docusate CAP* [Colace Cap*] 100 mg PO DAILY PRN 02/24/19 02/24/19 History Donepezil TAB* [Aricept 5 MG TAB*] 10 mg PO DAILY 02/24/19 02/24/19 History Nystatin 1 admin TOPICAL SEE INSTRUCTIONS 02/24/19 02/24/19 History PRN Ondansetron ODT TAB* [Zofran 4 MG 4 mg PO Q6HR 02/24/19 02/24/19 History Odt TAB*] Cholecalciferol TAB* [Vitamin D 400 unit PO DAILY tab 03/03/19 Rx TAB*] Furosemide TAB* [Lasix TAB*] 40 mg PO DAILY #30 tab 03/03/19 Rx Lidocaine PATCH 5%* [Lidoderm 5% 1 patch TRANSDERM DAILY patch 03/03/19 Rx Patch*] Lidocaine Patch REMOVE* 1 note PATCH OFF 2100 misc 03/03/19 Rx Potassium Chlor TAB* [Potassium 20 meq PO DAILY #30 tab.er 03/03/19 Rx Chlor TAB 20 MEQ*] Senna TAB 8.6 mg* [Senokot 8.6 mg 2 tab PO DAILY PRN tab 03/03/19 Rx TAB*] Vancomycin CAP* 125 mg PO QID #30 cap 03/08/19 Rx Allergies: Allergies Allergy/AdvReac Type Severity Reaction Status Date / Time azithromycin Allergy Nausea Verified 10/06/17 11:28 Objective - Vital Signs Vital Signs: Vital Signs 03/07/19 03/07/19 03/07/19 07:55 08:10 10:21 Temperature 97.7 F Pulse Rate 69 Respiratory 20 18 Rate Blood Pressure 116/56 (mmHg) O2 Sat by Pulse 94 94 Oximetry 03/07/19 03/07/19 03/07/19 10:30 10:34 15:15 Temperature 98.7 F 97.9 F Pulse Rate 64 70 70 Respiratory 17 20 Rate Blood Pressure 122/53 127/58 (mmHg) O2 Sat by Pulse 97 96 Oximetry 03/07/19 03/07/19 03/07/19 16:12 20:07 21:30 Temperature 97.9 F Pulse Rate 70 Respiratory 18 20 Rate Blood Pressure 128/51 (mmHg) O2 Sat by Pulse 95 93 Oximetry 09/03/08/19 03/08/19 00:13 01:42 04:31 Temperature 98.0 F 98.5 F Pulse Rate 86 71 Respiratory 16 18 Rate Blood Pressure 125/54 132/66 (mmHg) O2 Sat by Pulse 93 97 95 Oximetry - Intake and Output Intake and Output: Intake & Output 03/05/19 03/06/19 03/07/19 03/08/19 11:59 11:59 11:59 11:59 Intake Total 340 1669 1200 760 Output Total 0 Balance 340 1669 1200 760 Weight 100 lb 9.6 oz 100 lb 12.8 oz 100 lb 8 oz Intake: IV Fluids 59 IV fluids and antibiotics 59 IVPB 105 IV fluids and antibiotics 105 Oral 340 1505 1200 760 Output: Urine 0 Other: Estimated Void Small # Bowel Movements 1 1 1 1 Estimated Stool Amount Medium Small Small Small ADLs: Meal Record Start: 02/24/19 15: 20 Freq: DAILY@0900,1400,1800 Status: Active Protocol: Created 02/24/19 15:20 System (Rec: 02/24/19 15:20 System TELE-C13) Document 02/24/19 18:00 [id number] (Rec: 02/24/19 20:38 LNX6795 TELE-C01) Document 02/25/19 09:00 CVU4670 (Rec: 02/25/19 10:44 UQG4701 TELE-C05) Document 02/25/19 14:00 CSJ9395 (Rec: 02/25/19 14:16 ZGA6190 TELE-C05) Document 02/26/19 09:00 WYZ4372 (Rec: 02/26/19 10:15 BTP2354 TELE-C09) Document 02/26/19 14:00 SAR5939 (Rec: 02/26/19 14:15 CXK2658 TELE-C09) Document 02/26/19 18:00 SEY2927 (Rec: 02/26/19 21:44 LDJ5090 TELE-M12) Document 02/27/19 09:00 XCF8830 (Rec: 02/27/19 09:19 UYA3359 TELE-C01) Document 02/27/19 13:58 OOA4053 (Rec: 02/27/19 13:58 HYH5349 TELE-C01) Document 02/27/19 18:00 NDH5483 (Rec: 02/27/19 20:32 ACY2709 TELE-C03) Document 02/28/19 09:00 DPF2736 (Rec: 02/28/19 10:07 IZY9034 TELE-C01) Document 02/28/19 14:00 JWL0805 (Rec: 02/28/19 14:56 CGA5226 TELE-C01) Document 02/28/19 18:00 GBV8154 (Rec: 02/28/19 22:16 MVX2570 TELE-C11) Document 03/01/19 09:00 XCF5908 (Rec: 03/01/19 10:38 GSN5605 TELE-C01) Document 03/01/19 13:55 JLD2204 (Rec: 03/01/19 13:55 GVG2171 TELE-C01) Document 03/01/19 18:00 CJX1470 (Rec: 03/01/19 18:49 ZYS3661 TELE-C09) Document 03/02/19 18:00 ULS3427 (Rec: 03/02/19 18:26 CJW3356 TELE-C01) Document 03/03/19 09:00 RDK7701 (Rec: 03/03/19 11:52 BRA7761 TELE-C13) Document 03/03/19 14:00 HYL7216 (Rec: 03/03/19 14:50 YTC3944 TELE-C13) Document 03/03/19 18:00 WOJ9244 (Rec: 03/03/19 18:05 FBX0188 TELE-C01) Document 03/04/19 09:00 YPU9504 (Rec: 03/04/19 10:08 EHS9499 TELE-C09) Document 03/04/19 14:00 HXI3256 (Rec: 03/04/19 14:02 TNU1604 TELE-C09) Document 03/04/19 18:00 FFC2454 (Rec: 03/04/19 21:02 JMM8178 TELE-C05) Document 03/05/19 09:00 TPI7958 (Rec: 03/05/19 09:48 RAT4556 TELE-C01) Document 03/05/19 14:00 AZA0913 (Rec: 03/05/19 14:34 HYP8987 TELE-C01) Document 03/05/19 18:00 AMF4291 (Rec: 03/05/19 21:21 OZC6283 TELE-C09) Document 03/06/19 09:00 HCY6941 (Rec: 03/06/19 12:14 AJD4955 TELE-C07) Document 03/06/19 14:00 DAI0822 (Rec: 03/06/19 14:32 LBR5898 TELE-C07) Document 03/06/19 18:00 ZGL0526 (Rec: 03/06/19 20:22 WNS9792 TELE-C05) Document 03/07/19 09:00 OCD4934 (Rec: 03/07/19 10:50 PBZ3883 TELE-C01) Document 03/07/19 14:00 NEV1515 (Rec: 03/07/19 15:14 JMY3913 TELE-C01) Intake and Output Start: 02/24/19 11: 24 Freq: Status: Active Protocol: Created 02/24/19 11:24 System (Rec: 02/24/19 11:24 System ED-C26) Intake and Output Start: 02/24/19 15: 20 Freq: DAILY@0600,1400,2200 Status: Active Protocol: Created 02/24/19 15:20 System (Rec: 02/24/19 15:20 System TELE-C13) Document 02/24/19 21:53 RQR6323 (Rec: 02/24/19 21:54 CVG4975 TELE-C09) Document 02/25/19 06:00 OCP7176 (Rec: 02/25/19 06:36 YVA0497 TELE-C35) Document 02/25/19 14:00 GTL1887 (Rec: 02/25/19 14:03 GFF3245 TELE-C05) Document 02/25/19 22:00 FMN0793 (Rec: 02/25/19 22:47 XTA3799 TELE-C05) Document 02/26/19 06:00 JPI6840 (Rec: 02/26/19 06:08 ATV9975 TELE-C35) Document 02/26/19 14:00 NOF1953 (Rec: 02/26/19 14:16 YHY8800 TELE-C09) Document 02/26/19 21:55 SBZ8556 (Rec: 02/26/19 21:57 YFQ0442 TELE-M12) Document 02/27/19 06:00 VTV4312 (Rec: 02/27/19 07:03 LKF5059 TELE-C07) Document 02/27/19 14:00 FJU9120 (Rec: 02/27/19 14:01 QZU7258 TELE-C01) Document 02/27/19 22:00 EMU4753 (Rec: 02/27/19 22:18 ENC3258 TELE-C03) Document 02/28/19 06:00 RYP6428 (Rec: 02/28/19 06:36 NVF5459 TELE-C07) Document 02/28/19 14:00 VZR7605 (Rec: 02/28/19 14:59 XNG8480 TELE-C01) Document 02/28/19 22:00 WLJ9299 (Rec: 02/28/19 22:17 GLB1389 TELE-C11) Document 03/01/19 06:00 BAC3598 (Rec: 03/01/19 06:37 PCL0855 TELE-C11) Document 03/01/19 14:00 CFQ2077 (Rec: 03/01/19 14:01 OVD4435 TELE-C01) Document 03/01/19 22:00 UKQ9918 (Rec: 03/01/19 22:03 CZR8999 TELE-C09) Document 03/02/19 06:00 OZP6715 (Rec: 03/02/19 06:08 SKM3821 TELE-C05) Document 03/02/19 22:00 KAI0331 (Rec: 03/02/19 22:39 DLU1454 TELE-C01) Document 03/03/19 06:00 RVL3607 (Rec: 03/03/19 06:48 QQP1220 TELE-C13) Document 03/03/19 14:00 OBG8260 (Rec: 03/03/19 14:50 ISO4234 TELE-C13) Document 03/03/19 22:00 MTY7186 (Rec: 03/03/19 22:31 WBA3242 TELE-C06) Document 03/04/19 05:35 FMG2934 (Rec: 03/04/19 05:37 WSR5317 TELE-C06) Document 03/04/19 14:00 CWO7100 (Rec: 03/04/19 14:33 KUV8308 TELE-C09) Document 03/04/19 22:00 JDC5862 (Rec: 03/04/19 22:23 KFC8229 TELE-C05) Document 03/05/19 06:00 NBY0917 (Rec: 03/05/19 06:10 LSC2176 TELE-C09) Document 03/05/19 13:55 KEU9443 (Rec: 03/05/19 13:55 RTJ8140 MED-M16) Document 03/05/19 16:52 XCL1724 (Rec: 03/05/19 16:52 TRR8400 TELE-C09) Document 03/05/19 21:40 OAH9742 (Rec: 03/05/19 21:41 OLP7634 TELE-C09) Document 03/06/19 06:00 NLF8801 (Rec: 03/06/19 06:11 YMI4050 TELE-C07) Document 03/06/19 14:00 STQ4392 (Rec: 03/06/19 14:32 RDP2162 TELE-C07) Document 03/06/19 22:00 HDQ2181 (Rec: 03/06/19 22:03 KVJ4214 TELE-C05) Document 03/07/19 06:00 PFN5803 (Rec: 03/07/19 06:24 UBR4354 TELE-C09) Document 03/07/19 14:00 ZRB2680 (Rec: 03/07/19 15:14 QAG8900 TELE-C01) Document 03/07/19 22:00 ATR3921 (Rec: 03/07/19 22:43 TIR5229 TELE-C01) Document 03/08/19 06:00 RTI8246 (Rec: 03/08/19 07:44 BFY5769 TELE-C09) - Physical Exam General Physical Exam Comment: She walked around the [place] without walker with confidence and stability, she turned without problem and returned to her room. She was not dyspneic. General: No Cyanosis, No Anemia, No Jaundice, No Clubbing Lungs and Chest: Yes: Chest Expansion Full, Chest Expansion Symetrica, Percussion Note Resonant, Vessicular Breath Sounds. No: Crackles, Wheezes Heart Rate and Rhythm: Irregular Additional Cardiovascular: Yes: Normal Heart Sounds, Heart Murmur - 3/6 BREE aortic area. No: Pedal Edema Abdominal Exam: Yes: Soft, Bowel Sounds Present. No: Distention, Abdominal Tenderness Assessment - Problem List Assessment: Patient Problems Aortic stenosis, severe (Acute) Clostridium difficile diarrhea (Acute) Congestive heart failure due to valvular disease (Acute) Frailty (Acute) Hypoxemia requiring supplemental oxygen (Acute) Pneumonia (Acute) Anticoagulation goal of INR 2 to 3 (Chronic) Atrial fibrillation (Chronic) Dementia (Chronic) Hyperlipidemia (Chronic) Hypertension (Chronic) Osteoporosis (Chronic) Plan: Congestive heart failure due to valvular disease (Acute) Aortic stenosis, severe (Acute) Her CHF has recovered and she is tolerating her diuretic dose. I will send her home on her usual regimen. Clostridium difficile diarrhea (Acute) This is improving - she will continue oral vancomycin Frailty (Acute) She is rallying Hypoxemia requiring supplemental oxygen (Acute) She qualified earlier in the week and no longer needs this. Pneumonia (Acute) resolved Anticoagulation goal of INR 2 to 3 (Chronic) resume usual warfarin - recheck INR 3 days Atrial fibrillation (Chronic) rate controlled Dementia (Chronic) ongoing Hyperlipidemia (Chronic) continue current Rx Hypertension (Chronic) Not a problem Osteoporosis (Chronic) Resume alendronate. I am confident she can return to [place] today without hazard. I am canceling referral to SNF.
[2019-03-08] MEDS: Vancomycin CAP* 125 MG CAP PO SCH ×4 (10:39→20:36)
[2019-03-08] MEDS: Cholecalciferol TAB* 1000 UNITS PO SCH (10:39)
[2019-03-08] MEDS: Metoprolol Succinate XL TAB* 50 MG PO SCH ×2 (10:40→20:36)
[2019-03-08] MEDS: Potassium Chlor TAB* 20 MEQ TAB.ER PO SCH (10:40)
[2019-03-08] MEDS: amLODIPine TAB* 5 MG PO SCH (10:40)
[2019-03-08] MEDS: Digoxin TAB* 0.125 MG PO SCH (10:49)
[2019-03-08] MEDS: Lidocaine PATCH 5%* 1 PATCH TRANSDERM SCH (10:50)
[2019-03-08] MEDS: Cholecalciferol TAB* 400 UNIT PO SCH (10:50)
--- NOTE | 2019-03-08 12:23 | DS ---
CC: Dr. Sonia Ernandez; Dr. Kristie Godinez * DISCHARGE SUMMARY: DATE OF ADMISSION: 02/24/19 DATE OF DISCHARGE: 03/08/19 DISCHARGE DIAGNOSES: 1. Acute congestive cardiac failure. 2. Severe aortic stenosis. 3. Atrial fibrillation. 4. Pneumonia. 5. Clostridium difficile diarrhea. COMORBIDITIES: Frailty, dementia. SECONDARY DIAGNOSES: 1. Osteoporosis. 2. Hypertension. 3. Anticoagulation with warfarin. 4. Hyperlipidemia. CONDITION: Fair. DISPOSITION: [facility], which is her current home. NOTE: Dr. Sonia Ernandez was her attending physician 02/24/19 until 03/03/19. I assumed care 03/04/[address] Sonia Ernandez may wish to add an addendum to this note if there is anything I have missed. HISTORY: Ann Duval is an 83-year-old white female. Her presentation is documented in Alessia Salcedo DO's admitting history and physical. She has a history of atrial fibrillation, cognitive impairment, and tight aortic stenosis. She did not provide a history in the emergency room, but was short of breath, she was hypoxemic at 83% on room air. PHYSICAL EXAMINATION AT PRESENTATION: Blood pressure 155/87, pulse 85, respirations 22, temperature 97.2, oxygen saturation 90% on 5 L. She was tachypneic and only able to speak a couple of words. She was anxious and agitated. Cardiac Examination: 3/6 systolic murmur in the right upper sternal border, 2+ bilateral edema which is pitting to the hips. She had diminished breath sounds and a few coarse crackles at the bases. INITIAL DIAGNOSTIC LABORATORY DATA: White count 6.7, hemoglobin 12.5, hematocrit 37, platelets 150. Chemistry, abnormal BNP 778. Troponin I was 0.03. EKG: Atrial fibrillation, inverted T waves inferolaterally. Chest x-ray: Pulmonary edema and signs of COPD. INITIAL IMPRESSION: 1. Decompensated heart failure. 2. Atrial fibrillation. 3. Hypertension. 4. Mild cognitive impairment. INVESTIGATIONS LABORATORY DATA DURING HOSPITALIZATION: Her peak white count was on 02/27/19 at 11.4, peak neutrophil count on 02/27/19 at 87.1. Chemistry on 02/27/19, procalcitonin was 4. 02/24/19 TSH 1.36. Vitamin B12 on 02/25/19 at 804. C-reactive protein at presentation was 137, it gradually came down to the lowest value of 17.42 on 03/03/19, but on 03/06/19 it daniel again to 95. Lactate dehydrogenase on 02/25/19 was 289. BNP was maximal at presentation and came down to 395. Urine's were negative. Toxicology: Digoxin was 1.4 on 02/24. Imaging showed numerous chest x-rays and on 02/28/[address], which showed small bilateral pleural effusions, compressive atelectasis of lower lungs bilaterally and her spine showed compression deformities, a new one at T10 since study on 09/29/17. Chest x-ray showed various amounts of CHF. Cardiovascular Investigations: 02/24/19, transthoracic echocardiogram dated 03/08, LV wall thickness moderately increased, normal systolic function, estimated ejection fraction 55% to 60%, normal wall motion, no regional abnormalities, and severely dilated LA. Mitral valve, [id number] regurgitation. Aortic valve severe stenosis with valve area calculated by velocity of 0.6 cm squared. She had moderate tricuspid regurgitation, pulmonary hypertension with peak blood pressure of 55 mmHg. Since previous study 10/07/17, progression of aortic stenosis from moderate to severe. CONSULTATIONS: She was seen during her hospital stay by Dr. Kristie Godinez, 02/28, first consultation is part of the electronic medical record and subsequent progress notes also. 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 HOSPITAL COURSE: Dr. Sonia Ernandez noted a dual diagnosis of pneumonia and CHF. Her microbiology was negative for blood cultures and urine cultures; however, she had a markedly elevated C-reactive protein at presentation. She was treated with cefepime and then transferred on to cefdinir. She responded to this well. The CHF was treated with parenteral furosemide and came under control. Unfortunately, she developed C. difficile diarrhea, which required treatment with vancomycin and to which she responded. On the day of discharge, she was fully awake and alert. She remains disoriented owing to her dementia; however, she was able to stand up from sitting independently and walk long-term around the [place] and back. She was engaged with people around so and did not require any support even though she usually uses a walker. She is aware of her diarrhea and had two formed stools yesterday but a little diarrhea last night and no further incontinence. PHYSICAL EXAM ON THE DAY OF DISCHARGE: Temperature 98.5, pulse 71, respirations 18, blood pressure 132/66, oxygen saturation by oximetry 95% after walking. She is warm and well perfused. She has a kyphosis. She is conversational and cooperative. Cardiovascular System: Her pulses are small volume. Heart sounds are normal. She has a loud 3/6 systolic ejection murmur at the aortic area, which radiates throughout her precordium. I had difficulty distinguishing the mitral murmur. Her pedal edema has cleared. Respiratory System: Her chest expansion was symmetrical. Percussion note was resonant. Breath sounds vesicular and without crackles or wheezes. Abdomen: No distention, masses, tenderness, or organomegaly. Bowel sounds present. Neurological Examination: She is back to baseline, as noted in her normal gait. Cranial nerves were intact and she is fully alert, though not oriented. ASSESSMENT AND PLAN: 1. Acute congestive cardiac failure. There were 2 reasons that this happened. Number one, she developed an infection and this presumably had a negative inotropic effect resulting in her congestive cardiac failure. Number two, she has had worsening of her tight aortic stenosis. I have returned to her usual diuretic regimen after discharge on the basis that the infection is cleared and she should be able to cope. 2. Tight aortic stenosis. The family are electing to consider a transcatheter aortic valve replacement once she is stable back at [place]. 3. Pneumonia. This was cleared by cefepime and cefdinir. 4. Clostridium difficile diarrhea. This was due to the broad-spectrum antibiotics, which was discontinued. She also had good response to vancomycin. 5. Frailty. She is returning back to her baseline and does not require any skilled care. 6. Hypoxemia. She had this when she had episodes of congestive heart failure during her hospitalization; however, this is not required at the time of discharge as oxygen saturation was 95% on room air after walking. 7. Anticoagulation. INR 1 to 3. She will resume her usual regimen of warfarin 3 mg a day now that her antibacterials have been stopped. 8. Atrial fibrillation, rate controlled. 9. Dementia. Chronic comorbidities. 10. Hyperlipidemia. Continue current medication. 11. Hypertension, not a problem. 12. Osteoporosis, definitely a big problem. This will be handled by Dr. Sonia Ernandez as an outpatient. DISCHARGE MEDICATIONS: 1. Cholecalciferol 400 units daily. 2. Furosemide 40 mg daily. 3. Lidocaine patch 5% one patch transdermally each day with a patch off at 2100 hours. 4. Senna 8.5 mg p.r.n. for constipation. 5. Potassium chloride 20 mEq daily. 6. Vancomycin 125 mg 4 times a day for another 10 days. 7. Alendronate 70 mg q. weekly. 8. Amlodipine 5 mg daily. 9. Digoxin 0.125 mg daily. 10. Atorvastatin 40 mg q.h.s. 11. Metoprolol 50 mg twice daily. 12. Warfarin 3 mg daily. 13. Donepezil 10 mg daily. 14. Ondansetron 4 mg q.6 hours p.r.n. for nausea. 15. Acetaminophen 500 mg t.i.d. 16. Docusate sodium 100 mg per day as needed for constipation. [id number]/[facility] #: [id number] MTDD
[2019-03-08 16:27] LABS: ABS Basophils 0.1 10^3/ul (0-0.2); ABS Eosinophils 0.1 10^3/ul (0-0.6); ABS Monocytes 0.5 10^3/ul (0-0.8); ABS Neutrophils 3.4 10^3/ul (1.5-7.7); Eosinophil % 2.8 %; Hematocrit 39 % (35-47); Hemoglobin 13.2 g/dL (12.0-16.0); Lymphocyte % 19.7 %; Mean Corpuscular HGB Conc 34 g/dL (31-36); Mean Corpuscular Hemoglobin 32 pg (27-31); Mean Corpuscular Volume 96 fL (80-97); Nucleated Red Blood Cells % 0.1; Platelet Count 182 10^3/uL (150-450); Red Blood Count 4.07 10^6 /uL (3.70-4.87); Red Cell Distribution Width 13 % (10-15); White Blood Count 5.1 10^3/uL (3.5-10.8)
[2019-03-08 16:39] LABS: INR 1.74 (0.82-1.09)
[2019-03-08 17:01] LABS: Potassium 4.7 mmol/L (3.5-5.0)
[2019-03-08 17:07] LABS: BUN/Creatinine Ratio 25.5 (8-20); C Reactive Protein 43.8 mg/L (<8.01); EGFR African American 127.4 (>60); EGFR Non-African American 105.3 (>60)
[2019-03-08] MEDS: Atorvastatin* 40 MG TAB PO SCH (17:47)
[2019-03-08] MEDS: Warfarin TAB(*) 2 MG PO SCH (17:48)
[2019-03-08] MEDS: Lidocaine Patch REMOVE* 1 NOTE MISC PATCH OFF SCH (20:36)
[2019-03-08] MEDS: Donepezil TAB* 5 MG PO SCH (20:36)
--- NOTE | 2019-03-09 08:11 | PN ---
Subjective - Subjective Reason for Note: Discharge Note History: Addendum to dictated discharge summary 03/08/19 She is feeling well this morning and has no new issues. She states she has not had further diarrhea. Small BM mentioned in I and O. Active Problems: Active Problems Aortic stenosis, severe (Acute) I35.0 Clostridium difficile diarrhea (Acute) A04.72 Congestive heart failure due to valvular disease (Acute) I50.9, I38 Frailty (Acute) R54 Hypoxemia requiring supplemental oxygen (Acute) R09.02, Z99.81 Pneumonia (Acute) J18.9 Anticoagulation goal of INR 2 to 3 (Chronic) Z51.81, Z79.01 Atrial fibrillation (Chronic) I48.91 Dementia (Chronic) F03.90 Hyperlipidemia (Chronic) E78.5 Hypertension (Chronic) I10 Osteoporosis (Chronic) M81.0 Current Medications: Current Medications Acetaminophen (Tylenol Tab*) 650 mg PO Q4H PRN PRN Reason: TEMPERATURE > 101 Last Admin: 03/06/19 17:39 Dose: 650 mg Amlodipine Besylate (Norvasc Tab*) 5 mg PO DAILY [facility] Last Admin: 03/08/19 10:40 Dose: 5 mg Atorvastatin Calcium (Lipitor*) 40 mg PO 1700 [facility] Last Admin: 03/08/19 17:47 Dose: 40 mg Cholecalciferol (Vitamin D Tab*) 1,000 units PO DAILY [facility] Last Admin: 03/08/19 10:39 Dose: 1,000 units Cholecalciferol (Vitamin D Tab*) 400 unit PO DAILY [facility] Last Admin: 03/08/19 10:50 Dose: 400 unit Digoxin (Lanoxin Tab*) 0.125 mg PO DAILY [facility] Last Admin: 03/08/19 10:49 Dose: 0.125 mg Docusate Sodium (Colace Cap*) 100 mg PO DAILY PRN PRN Reason: CONSTIPATION Last Admin: 02/28/19 21:01 Dose: 100 mg Donepezil HCl (Aricept Tab*) 10 mg PO BEDTIME [facility] Last Admin: 03/08/19 20:36 Dose: 10 mg Lidocaine (Lidoderm 5% Patch*) 1 patch TRANSDERM DAILY [facility] Last Admin: 03/08/19 10:50 Dose: 1 patch Metoprolol Succinate (Toprol Xl Tab*) 50 mg PO BID [facility] Last Admin: 03/08/19 20:36 Dose: 50 mg Pharmacy Profile Note (Coumadin Daily Reminder*) 1 note FOLLOW UP 170 [facility] Last Admin: 03/08/19 17:48 Dose: 1 note Pharmacy Profile Note (Lidocaine Patch Remove*) 1 note PATCH OFF 2100 [facility] Last Admin: 03/08/19 20:36 Dose: 1 note Potassium Chloride (Klor Con Er Tab*) 20 meq PO DAILY [facility] Last Admin: 03/08/19 10:40 Dose: 20 meq Senna (Senokot 8.6 Mg Tab*) 2 tab PO DAILY PRN PRN Reason: CONSTIPATION Vancomycin HCl (Vancomycin Cap*) 125 mg PO QID [facility] Last Admin: 03/08/19 20:36 Dose: 125 mg Warfarin Sodium (Coumadin Tab(*)) 2 mg PO 1700 [facility] Last Admin: 03/08/19 17:48 Dose: 2 mg Home Medications: Home Medications Medication Instructions Recorded Confirmed Type Furosemide TAB* [Lasix TAB*] 20 mg PO DAILY PRN 12/30/14 02/24/19 History Alendronate (NF) [Fosamax (NF)] 70 mg PO .Fridays10/06/17 02/24/19 History Cholecalciferol TAB* [Vitamin D 1,400 unit PO DAILY 10/06/17 02/24/19 History TAB*] Digoxin TAB* [Lanoxin TAB*] 0.125 mg PO DAILY 10/06/17 02/24/19 History Potassium Chlor TAB* [Potassium 20 meq PO DAILY PRN 10/06/17 02/24/19 History Chlor TAB 20 MEQ*] amLODIPine TAB* [Norvasc 5 mg TAB*] 5 mg PO DAILY 10/06/17 02/24/19 History Atorvastatin* [Lipitor 40 MG*] 40 mg PO 1700 #30 tab 10/15/17 02/24/19 Rx Metoprolol Succinate XL TAB* 50 mg PO BID tab.xl 10/15/17 02/24/19 Rx [Toprol XL TAB*] Warfarin TAB(*) [Coumadin TAB(*)] 3 mg PO DAILY@1700 tab 10/15/17 02/24/19 Rx Acetaminophen [Acetaminophen Extra 500 mg PO TID 02/24/19 02/24/19 History Strength] Docusate CAP* [Colace Cap*] 100 mg PO DAILY PRN 02/24/19 02/24/19 History Donepezil TAB* [Aricept 5 MG TAB*] 10 mg PO DAILY 02/24/19 02/24/19 History Nystatin 1 admin TOPICAL SEE INSTRUCTIONS 02/24/19 02/24/19 History PRN Ondansetron ODT TAB* [Zofran 4 MG 4 mg PO Q6HR 02/24/19 02/24/19 History Odt TAB*] Cholecalciferol TAB* [Vitamin D 400 unit PO DAILY tab 03/03/19 Rx TAB*] Furosemide TAB* [Lasix TAB*] 40 mg PO DAILY #30 tab 03/03/19 Rx Lidocaine PATCH 5%* [Lidoderm 5% 1 patch TRANSDERM DAILY patch 03/03/19 Rx Patch*] Lidocaine Patch REMOVE* 1 note PATCH OFF 2100 misc 03/03/19 Rx Potassium Chlor TAB* [Potassium 20 meq PO DAILY #30 tab.er 03/03/19 Rx Chlor TAB 20 MEQ*] Senna TAB 8.6 mg* [Senokot 8.6 mg 2 tab PO DAILY PRN tab 03/03/19 Rx TAB*] Vancomycin CAP* 125 mg PO QID #30 cap 03/08/19 Rx Allergies: Allergies Allergy/AdvReac Type Severity Reaction Status Date / Time azithromycin Allergy Nausea Verified 10/06/17 11:28 Objective - Vital Signs Vital Signs: Vital Signs 03/08/19 03/08/19 03/08/19 08:29 10:49 11:15 Temperature 97.9 F Pulse Rate 77 80 88 Respiratory 18 Rate Blood Pressure 122/55 128/75 (mmHg) O2 Sat by Pulse 96 Oximetry 03/08/19 03/08/19 03/08/19 11:16 12:14 12:41 Temperature 97.9 F Pulse Rate 71 Respiratory 20 24 Rate Blood Pressure 110/42 (mmHg) O2 Sat by Pulse 97 95 Oximetry 03/08/19 03/08/19 03/08/19 20:00 20:35 23:34 Temperature 98.1 F 97.8 F Pulse Rate 70 68 Respiratory 28 28 20 Rate Blood Pressure 125/59 134/55 (mmHg) O2 Sat by Pulse 95 92 Oximetry 03/09/19 03:12 Temperature 97.9 F Pulse Rate 69 Respiratory 20 Rate Blood Pressure 129/49 (mmHg) O2 Sat by Pulse 94 Oximetry - Intake and Output Intake and Output: Intake & Output 03/06/19 03/07/19 03/08/19 03/09/19 11:59 11:59 11:59 11:59 Intake Total 1669 1200 940 730 Output Total 0 0 Balance 1669 1200 940 730 Weight 100 lb 12.8 oz 100 lb 8 oz 95 lb 11.2 oz Intake: IV Fluids 59 IV fluids and antibiotics 59 IVPB 105 100 IV fluids and antibiotics 105 100 Oral 1505 1200 940 630 Output: Urine 0 0 Other: # Bowel Movements 1 1 1 0 Estimated Stool Amount Small Small Small Small ADLs: Meal Record Start: 02/24/19 15: 20 Freq: DAILY@0900,1400,1800 Status: Active Protocol: Created 02/24/19 15:20 System (Rec: 02/24/19 15:20 System TELE-C13) Document 02/24/19 18:00 [id number] (Rec: 02/24/19 20:38 [id number] TELE-C01) Document 02/25/19 09:00 SIB7724 (Rec: 02/25/19 10:44 MQR7148 TELE-C05) Document 02/25/19 14:00 YRN6927 (Rec: 02/25/19 14:16 NFY6281 TELE-C05) Document 02/26/19 09:00 SUC3640 (Rec: 02/26/19 10:15 RML7974 TELE-C09) Document 02/26/19 14:00 BTB9304 (Rec: 02/26/19 14:15 XHU4140 TELE-C09) Document 02/26/19 18:00 YRF7710 (Rec: 02/26/19 21:44 HRB2672 TELE-M12) Document 02/27/19 09:00 XGX6596 (Rec: 02/27/19 09:19 EEA2652 TELE-C01) Document 02/27/19 13:58 VDS3586 (Rec: 02/27/19 13:58 BCG9158 TELE-C01) Document 02/27/19 18:00 HOU2104 (Rec: 02/27/19 20:32 OQF5891 TELE-C03) Document 02/28/19 09:00 VVA0493 (Rec: 02/28/19 10:07 QYV8843 TELE-C01) Document 02/28/19 14:00 FBY2203 (Rec: 02/28/19 14:56 TMO9494 TELE-C01) Document 02/28/19 18:00 AYW9050 (Rec: 02/28/19 22:16 EQX2730 TELE-C11) Document 03/01/19 09:00 XGH9591 (Rec: 03/01/19 10:38 AKW9862 TELE-C01) Document 03/01/19 13:55 KRO8585 (Rec: 03/01/19 13:55 ZXW7743 TELE-C01) Document 03/01/19 18:00 FFA8611 (Rec: 03/01/19 18:49 RVR6099 TELE-C09) Document 03/02/19 18:00 TOW4275 (Rec: 03/02/19 18:26 AON0947 TELE-C01) Document 03/03/19 09:00 BPU1230 (Rec: 03/03/19 11:52 VWW8868 TELE-C13) Document 03/03/19 14:00 SVM7901 (Rec: 03/03/19 14:50 XHA9232 TELE-C13) Document 03/03/19 18:00 DOL5090 (Rec: 03/03/19 18:05 BVK7224 TELE-C01) Document 03/04/19 09:00 XXK8204 (Rec: 03/04/19 10:08 YDE1666 TELE-C09) Document 03/04/19 14:00 KJC2670 (Rec: 03/04/19 14:02 BAW3903 TELE-C09) Document 03/04/19 18:00 SKU0124 (Rec: 03/04/19 21:02 SLW4181 TELE-C05) Document 03/05/19 09:00 QTM4924 (Rec: 03/05/19 09:48 TTC9678 TELE-C01) Document 03/05/19 14:00 DXF0003 (Rec: 03/05/19 14:34 VRB8248 TELE-C01) Document 03/05/19 18:00 LDP4745 (Rec: 03/05/19 21:21 AFW7539 TELE-C09) Document 03/06/19 09:00 HKW9544 (Rec: 03/06/19 12:14 AUG7029 TELE-C07) Document 03/06/19 14:00 FYT8368 (Rec: 03/06/19 14:32 CMP1014 TELE-C07) Document 03/06/19 18:00 GTN1928 (Rec: 03/06/19 20:22 HPL5249 TELE-C05) Document 03/07/19 09:00 UIA5682 (Rec: 03/07/19 10:50 FQY3664 TELE-C01) Document 03/07/19 14:00 YAT9759 (Rec: 03/07/19 15:14 EOF2629 TELE-C01) Document 03/08/19 09:00 LKW0897 (Rec: 03/08/19 14:47 XHN2660 TELE-C09) Document 03/08/19 14:00 ZUX7592 (Rec: 03/08/19 14:48 GKP8203 TELE-C09) Document 03/08/19 18:00 TVF2630 (Rec: 03/08/19 18:45 JMK1161 TELE-C01) Intake and Output Start: 02/24/19 11: 24 Freq: Status: Active Protocol: Created 02/24/19 11:24 System (Rec: 02/24/19 11:24 System ED-C26) Intake and Output Start: 02/24/19 15: 20 Freq: DAILY@0600,1400,2200 Status: Active Protocol: Created 02/24/19 15:20 System (Rec: 02/24/19 15:20 System TELE-C13) Document 02/24/19 21:53 PFI0041 (Rec: 02/24/19 21:54 KVA5800 TELE-C09) Document 02/25/19 06:00 GIX1693 (Rec: 02/25/19 06:36 HRV2679 TELE-C35) Document 02/25/19 14:00 ZLK2560 (Rec: 02/25/19 14:03 SYK7664 TELE-C05) Document 02/25/19 22:00 ZZM8305 (Rec: 02/25/19 22:47 NXN6788 TELE-C05) Document 02/26/19 06:00 PLP9753 (Rec: 02/26/19 06:08 EED1392 TELE-C35) Document 02/26/19 14:00 QHA9931 (Rec: 02/26/19 14:16 QQH8524 TELE-C09) Document 02/26/19 21:55 FRR4561 (Rec: 02/26/19 21:57 ARF7539 TELE-M12) Document 02/27/19 06:00 OEZ3964 (Rec: 02/27/19 07:03 ZCI8466 TELE-C07) Document 02/27/19 14:00 AWJ1380 (Rec: 02/27/19 14:01 RWE4104 TELE-C01) Document 02/27/19 22:00 XQV8096 (Rec: 02/27/19 22:18 CYP7153 TELE-C03) Document 02/28/19 06:00 SCD9553 (Rec: 02/28/19 06:36 CHG4574 TELE-C07) Document 02/28/19 14:00 RWF8008 (Rec: 02/28/19 14:59 TGX2827 TELE-C01) Document 02/28/19 22:00 UDP5851 (Rec: 02/28/19 22:17 DOS4760 TELE-C11) Document 03/01/19 06:00 ULE4732 (Rec: 03/01/19 06:37 FHS4403 TELE-C11) Document 03/01/19 14:00 ODL6850 (Rec: 03/01/19 14:01 YRH1626 TELE-C01) Document 03/01/19 22:00 BCR2003 (Rec: 03/01/19 22:03 MNM5637 TELE-C09) Document 03/02/19 06:00 WBG0503 (Rec: 03/02/19 06:08 BZH2414 TELE-C05) Document 03/02/19 22:00 NGH2403 (Rec: 03/02/19 22:39 HAD3000 TELE-C01) Document 03/03/19 06:00 JJK1678 (Rec: 03/03/19 06:48 PWI0225 TELE-C13) Document 03/03/19 14:00 TEQ9491 (Rec: 03/03/19 14:50 LDQ1322 TELE-C13) Document 03/03/19 22:00 FWQ6795 (Rec: 03/03/19 22:31 EDH4209 TELE-C06) Document 03/04/19 05:35 XEC9106 (Rec: 03/04/19 05:37 NZP3950 TELE-C06) Document 03/04/19 14:00 DHW7075 (Rec: 03/04/19 14:33 NFG6349 TELE-C09) Document 03/04/19 22:00 REH0003 (Rec: 03/04/19 22:23 DIW7159 TELE-C05) Document 03/05/19 06:00 CHS2249 (Rec: 03/05/19 06:10 CAM5295 TELE-C09) Document 03/05/19 13:55 UYD1551 (Rec: 03/05/19 13:55 RVX1590 MED-M16) Document 03/05/19 16:52 YSY4553 (Rec: 03/05/19 16:52 VGP6084 TELE-C09) Document 03/05/19 21:40 EUO9616 (Rec: 03/05/19 21:41 TAD5585 TELE-C09) Document 03/06/19 06:00 BVR7653 (Rec: 03/06/19 06:11 ZHN8926 TELE-C07) Document 03/06/19 14:00 AEB8390 (Rec: 03/06/19 14:32 RRK8101 TELE-C07) Document 03/06/19 22:00 FXM9058 (Rec: 03/06/19 22:03 MII2001 TELE-C05) Document 03/07/19 06:00 YKG1464 (Rec: 03/07/19 06:24 YJF9556 TELE-C09) Document 03/07/19 14:00 CSV8399 (Rec: 03/07/19 15:14 TGU7728 TELE-C01) Document 03/07/19 22:00 YBV6702 (Rec: 03/07/19 22:43 XFM5543 TELE-C01) Document 03/08/19 06:00 HQR9923 (Rec: 03/08/19 07:44 WDU1182 TELE-C09) Document 03/08/19 14:00 DRI1566 (Rec: 03/08/19 14:48 SQC6029 TELE-C09) Document 03/08/19 21:53 IWO3681 (Rec: 03/08/19 21:53 XDR9913 TELE-C01) Document 03/09/19 05:27 XWL3360 (Rec: 03/09/19 05:28 IZE3001 TELE-C08) - Physical Exam General Physical Exam Comment: She is warm and well perfused. She is conversational and cooperative General: No Cyanosis, No Anemia, No Jaundice, No Clubbing Lungs and Chest: Yes: Chest Expansion Full, Chest Expansion Symetrica, Percussion Note Resonant, Vessicular Breath Sounds. No: Crackles, Wheezes Heart Rate and Rhythm: Irregular Additional Cardiovascular: Yes: Normal Heart Sounds, Heart Murmur. No: Pedal Edema Abdominal Exam: Yes: Soft, Bowel Sounds Present. No: Distention, Abdominal Tenderness Results - Results Lab Results: Laboratory Results - last 24 hr 03/08/19 03/08/19 03/08/19 16:16 16:16 16:16 WBC 5.1 RBC 4.07 Hgb 13.2 Hct 39 MCV 96 MCH 32 H MCHC 34 RDW 13 Plt Count 182 MPV 9.0 Neut % (Auto) 66.6 Lymph % (Auto) 19.7 [place] % (Auto) 9.8 Eos % (Auto) 2.8 Baso % (Auto) 1.1 Absolute Neuts (auto) 3.4 Absolute Lymphs (auto) 1.0 Absolute Monos (auto) 0.5 Absolute Eos (auto) 0.1 Absolute Basos (auto) 0.1 Absolute Nucleated RBC 0.0 Nucleated RBC % 0.1 INR (Anticoag Therapy) 1.74 H Sodium 136 Potassium 4.7 Chloride 104 Carbon Dioxide 25 Anion Gap 7 BUN 14 Creatinine 0.55 Est GFR ( Amer) 127.4 Est GFR (Non-Af Amer) 105.3 BUN/Creatinine Ratio 25.5 H Glucose 93 Calcium 9.0 C-Reactive Protein 43.80 H Assessment - Problem List Assessment: Patient Problems Aortic stenosis, severe (Acute) Clostridium difficile diarrhea (Acute) Congestive heart failure due to valvular disease (Acute) Frailty (Acute) Hypoxemia requiring supplemental oxygen (Acute) Pneumonia (Acute) Anticoagulation goal of INR 2 to 3 (Chronic) Atrial fibrillation (Chronic) Dementia (Chronic) Hyperlipidemia (Chronic) Hypertension (Chronic) Osteoporosis (Chronic) Plan: She is now feeling much better and has been taking vancomycin for C difficile since 03/06/2019. No has accepted her back and I am discharging her. condition Fair Disposition No assisted living
[2019-03-09] MEDS: Potassium Chlor TAB* 20 MEQ TAB.ER PO SCH (11:04)
[2019-03-09] MEDS: Cholecalciferol TAB* 400 UNIT PO SCH (11:04)
[2019-03-09] MEDS: amLODIPine TAB* 5 MG PO SCH (11:05)
[2019-03-09] MEDS: Metoprolol Succinate XL TAB* 50 MG PO SCH (11:05)
[2019-03-09] MEDS: Cholecalciferol TAB* 1000 UNITS PO SCH (11:06)
[2019-03-09] MEDS: Digoxin TAB* 0.125 MG PO SCH (11:06)
[2019-03-09] MEDS: Lidocaine PATCH 5%* 1 PATCH TRANSDERM SCH (11:07)
[2019-03-09] MEDS: Vancomycin CAP* 125 MG CAP PO SCH (11:07)
[2019-03-09 13:55] VITALS: BP 116/60
== END 2019-03-09 13:30 | DRG 291 ==
LOC: ED 11:20 → MEDTELE 14:33
PROVIDERS: ADMIT Hospitalist; ATTEND Internal Medicine
DX: I11.0 Hypertensive heart disease with heart failure (principal); J18.9 Pneumonia, unspecified organism; J98.11 Atelectasis; A04.72 Enterocolitis due to Clostridium difficile, not specified as recurrent; I27.20 Pulmonary hypertension, unspecified; F03.90 Unspecified dementia, unspecified severity, without behavioral disturbance, psychotic disturbance, mood disturbance, and anxiety; G31.84 Mild cognitive impairment of uncertain or unknown etiology; E78.5 Hyperlipidemia, unspecified; M81.0 Age-related osteoporosis without current pathological fracture; R09.02 Hypoxemia; E78.00 Pure hypercholesterolemia, unspecified; M19.90 Unspecified osteoarthritis, unspecified site; M54.5 Low back pain; I08.3 Combined rheumatic disorders of mitral, aortic and tricuspid valves; I48.2 Chronic atrial fibrillation; I50.82 Biventricular heart failure; R54 Age-related physical debility; I49.5 Sick sinus syndrome; Z86.73 Personal history of transient ischemic attack (TIA), and cerebral infarction without residual deficits; Z90.710 Acquired absence of both cervix and uterus; Z88.5 Allergy status to narcotic agent; Z88.1 Allergy status to other antibiotic agents; Z83.6 Family history of other diseases of the respiratory system; Z95.0 Presence of cardiac pacemaker; Z85.828 Personal history of other malignant neoplasm of skin; Z86.010 Personal history of colon polyps; Z79.01 Long term (current) use of anticoagulants
CPT/HCPCS: 36415; 71045; 71046; 71250; 80048; 80053; 80162; 81003; 82565; 82607; 83615; 83735; 83880; 84145; 84443; 84484; 84520; 85025; 85610; 86140; 87040; 87086; 87493; 93005; 93306; 94762; 99284; A9270-GY; G8978-GP-CI; G8979-GP-CI; G8980-GP-CI; J0692; J1940

== ENCOUNTER 2019-08-25 03:04 | Inpatient (IN) | payer MEDICARE ==
[2019-08-25] MEDS ORDERED: Lactated Ringers 1000 ML Bag* 1,000 ML IV.FLUID IV ONE (03:19)
--- NOTE | 2019-08-25 03:32 | ED ---
Shortness of Breath - HPI Summary HPI Summary: Level 5 Caveat - AMS This patient is an 84 year old F presenting to [facility] by EMS with a chief complaint of shortness of breath since prior to arrival. Pt lives at [facility] [place] and they sent her here. Pt had fever with SOB, and wears O2 at night. Home Medications Medication Instructions Recorded Confirmed Type Furosemide TAB* [Lasix TAB*] 20 mg PO DAILY PRN 12/30/14 02/24/19 History Alendronate (NF) [Fosamax (NF)] 70 mg PO .Fridays10/06/17 02/24/19 History Cholecalciferol TAB* [Vitamin D 1,400 unit PO DAILY 10/06/17 02/24/19 History TAB*] Digoxin TAB* [Lanoxin TAB*] 0.125 mg PO DAILY 10/06/17 02/24/19 History Potassium Chlor TAB* [Potassium 20 meq PO DAILY PRN 10/06/17 02/24/19 History Chlor TAB 20 MEQ*] amLODIPine TAB* [Norvasc 5 mg TAB*] 5 mg PO DAILY 10/06/17 02/24/19 History Atorvastatin* [Lipitor 40 MG*] 40 mg PO 1700 #30 tab 10/15/17 02/24/19 Rx Metoprolol Succinate XL TAB* 50 mg PO BID tab.xl 10/15/17 02/24/19 Rx [Toprol XL TAB*] Warfarin TAB(*) [Coumadin TAB(*)] 3 mg PO DAILY@1700 tab 10/15/17 02/24/19 Rx Acetaminophen [Acetaminophen Extra 500 mg PO TID 02/24/19 02/24/19 History Strength] Docusate CAP* [Colace Cap*] 100 mg PO DAILY PRN 02/24/19 02/24/19 History Donepezil TAB* [Aricept 5 MG TAB*] 10 mg PO DAILY 02/24/19 02/24/19 History Nystatin 1 admin TOPICAL SEE INSTRUCTIONS 02/24/19 02/24/19 History PRN Ondansetron ODT TAB* [Zofran 4 MG 4 mg PO Q6HR 02/24/19 02/24/19 History Odt TAB*] Cholecalciferol TAB* [Vitamin D 400 unit PO DAILY tab 03/03/19 Rx TAB*] Furosemide TAB* [Lasix TAB*] 40 mg PO DAILY #30 tab 03/03/19 Rx Lidocaine PATCH 5%* [Lidoderm 5% 1 patch TRANSDERM DAILY patch 03/03/19 Rx Patch*] Lidocaine Patch REMOVE* 1 note PATCH OFF 2100 misc 03/03/19 Rx Potassium Chlor TAB* [Potassium 20 meq PO DAILY #30 tab.er 03/03/19 Rx Chlor TAB 20 MEQ*] Senna TAB 8.6 mg* [Senokot 8.6 mg 2 tab PO DAILY PRN tab 03/03/19 Rx TAB*] Vancomycin CAP* [Vancomycin 125 mg 125 mg PO QID #30 cap 03/08/19 Rx CAP*] - History of Current Complaint Chief Complaint: EDFever Time Seen by Provider: 08/25/19 03:12 Hx Obtained From: EMS Hx From Patient Unobtainable Due To: Other - Level 5 Caveat - AMS Onset/Duration: Gradual Onset, Lasting Days, Still Present - Allergy/Home Medications Allergies/Adverse Reactions: Allergies Allergy/AdvReac Type Severity Reaction Status Date / Time azithromycin Allergy Nausea Verified 08/25/19 09:01 Home Medications: Home Medications Alendronate (NF) [Fosamax (NF)] 70 mg PO .Fridays10/06/17 [History Confirmed ] Digoxin TAB* [Lanoxin TAB*] 0.125 mg PO DAILY 10/06/17 [History Confirmed ] Potassium Chlor TAB* [Potassium Chlor TAB 20 MEQ*] 20 meq PO DAILY PRN 10/06/17 [History Confirmed 08/25/19] amLODIPine TAB* [Norvasc 5 mg TAB*] 5 mg PO DAILY 10/06/17 [History Confirmed ] Metoprolol Succinate XL TAB* [Toprol XL TAB*] 50 mg PO BID tab.xl 10/15/17 [Rx Confirmed 08/25/19] Acetaminophen [Acetaminophen Extra Strength] 500 mg PO TID 02/24/19 [History Confirmed 08/25/19] Docusate CAP* [Colace Cap*] 100 mg PO DAILY PRN 02/24/19 [History Confirmed 01/06] Donepezil TAB* [Aricept 5 MG TAB*] 10 mg PO DAILY@1800 02/24/19 [History Confirmed 08/25/19] Nystatin 1 admin TOPICAL SEE INSTRUCTIONS PRN 02/24/19 [History Confirmed ] Ondansetron ODT TAB* [Zofran 4 MG Odt TAB*] 4 mg PO Q6HR 02/24/19 [History Confirmed 08/25/19] Potassium Chlor TAB* [Potassium Chlor TAB 20 MEQ*] 20 meq PO DAILY #30 tab.er [Rx Confirmed 08/25/19] Aspirin [Ecotrin] 81 mg PO DAILY 08/25/19 [History Confirmed 08/25/19] Bumetanide TAB* [Bumex 2 MG TAB*] 2 mg PO DAILY 08/25/19 [History Confirmed 01/06] Cholecalciferol TAB* [Vitamin D TAB*] 1,000 units PO DAILY 08/25/19 [History Confirmed 08/25/19] Cholecalciferol TAB* [Vitamin D TAB*] 400 units PO DAILY 08/25/19 [History Confirmed 08/25/19] Lidocaine PATCH 5%* [Lidoderm 5% Patch*] 1 patch TOPICAL DAILY 08/25/19 [ History Confirmed 08/25/19] Lidocaine Patch REMOVE* 1 note PATCH OFF 1800 08/25/19 [History Confirmed ] Ondansetron ODT TAB* [Zofran 4 MG Odt TAB*] 4 mg PO Q6H PRN 08/25/19 [History Confirmed 08/25/19] Warfarin TAB(*) [Coumadin TAB(*)] 3 mg PO DAILY@1800 08/25/19 [History Confirmed 08/25/19] PMH/Surg Hx/FS Hx/Imm Hx Previously Healthy: No - Level 5 Caveat - AMS Endocrine/Hematology History: Denies: Hx Anemia Cardiovascular History: Reports: Hx Auto Implanted Cardiovert Defib, Hx Hypercholesterolemia, Hx Hypertension, Hx Pacemaker/ICD - around 2005, Other Cardiovascular Problems/Disorders - pacemaker GI History: Denies: Hx Jaundice Musculoskeletal History: Reports: Hx Arthritis, Hx Back Problems, Hx Osteoporosis, Other Musculoskeletal History - t 12 fracture, old t7 Denies: Hx Rheumatoid Arthritis Sensory History: Reports: Hx Contacts or Glasses Denies: Hx Hearing Aid Opthamlomology History: Reports: Hx Contacts or Glasses - Cancer History Cancer Type, Location and Year: skin cancer - Surgical History Surgery Procedure, Year, and Place: PACER, neck abscess I+D, vein stripping, hysterectomy Infectious Disease History: Unable to Obtain/Confirm Infectious Disease History: Denies: Hx Clostridium Difficile, Hx Hepatitis, Hx Human Immunodeficiency Virus (HIV), Traveled Outside the [place] in Last 30 Days - Family History Known Family History: Negative: Hypertension, Respiratory Disease, Seizure Disorder - Social History Alcohol Use: None Alcohol Amount: white wine with ice and water Hx Substance Use: No Substance Use Type: Reports: None Hx Tobacco Use: No Smoking Status (MU): Never Smoked Tobacco - Additional Comments History Additional Comments: Level 5 Caveat - AMS Review of Systems Positive: Shortness Of Breath All Other Systems Reviewed And Are Negative: No - Comments Additional Review of Systems Comments: Level 5 Caveat - AMS Physical Exam - Summary Physical Exam Summary: Level 5 Caveat - AMS Appearance: elderly women laying on stretcher with fever and mild tachypnea Skin: Warm, dry, no obvious rash Eyes: sclera anicteric, no conjunctival pallor HENT: mucous membranes moist, pharynx appears normal Neck: Supple, nontender Respiratory: Clear to auscultation, no signs of respiratory distress Cardiovascular: Normal S1, S2. No murmurs. Normal distal pulses in tibial and radial bilaterally. Abdomen: Soft, nontender, normal active bowel sounds present Musculoskeletal: Normal, Strength/ROM Intact; lower extremity bilateral vena stasis edema Neurological: A&Ox3, awake and alert, mentation is normal, speech is fluent and appropriate Psychiatric: affect is normal, does not appear anxious or depressed Triage Information Reviewed: Yes Vital Signs On Initial Exam: Initial Vitals Temp Pulse Resp BP Pulse Ox 102.5 F 106 22 201/86 89 08/25/19 03:15 08/25/19 03:15 08/25/19 03:15 08/25/19 03:15 08/25/19 03:15 Vital Signs Reviewed: Yes Procedures - Sedation Patient Received Moderate/Deep Sedation with Procedure: No Diagnostics - Vital Signs Vital Signs Temp Pulse Resp BP Pulse Ox 08/25/19 03:15 102.5 F 106 22 201/86 89 - Laboratory Result Diagrams: 08/26/19 05:44 08/26/19 05:44 Lab Statement: Any lab studies that have been ordered have been reviewed, and results considered in the medical decision making process. - Radiology CXR Radiology Interpretation Completed By: ED Physician Summary of Radiographic Findings: CXR reveals, per ED physician, no acute process. Pending official radiology report. Course/Dx - Course Course Of Treatment: Level 5 Caveat - AMS. This patient is an 84 year old F presenting to [facility] by EMS with a chief complaint of shortness of breath since prior to arrival. Pt lives at [facility] and they sent her here. Pt had fever with SOB, and wears O2 at night. CXR reveals, per ED physician, no acute process. Blood work obtained. Pendign repeat attempt at urine sample. Pt will be signed out to Dr. Ledbetter. - Diagnoses Provider Diagnoses: Fever, Confusion, Elevated troponin Discharge ED - Sign-Out/Discharge Documenting (check all that apply): Sign-Out Patient Signing out patient TO: Micah Ledbetter - pending repeat attempt at urine sample - Discharge Plan Condition: Stable Disposition: ADMITTED TO [facility] - Billing Disposition and Condition Condition: STABLE Disposition: Admitted to [facility] - Attestation Statements Document Initiated by Baibe: Yes Documenting Scribe: Kellie Villafuerte Provider For Whom Scribe is Documenting (Include Credential): Tin Collins MD Scribe Attestation: Kellie Mccoy scribed for Tin Collins MD on 08/27/19 at 0113. Scribe Documentation Reviewed: Yes Provider Attestation: The documentation as recorded by the Kellie monroy accurately reflects the service I personally performed and the decisions made by Tin orourke MD Status of Scribe Document: Viewed
--- OUTSIDE RECORDS SUMMARY | 2019-08-25 03:42 | XMS REPORT | Continuity of Care Document ---
:1935 External Reference #:[id number] Author Name Nurse Visit cc (transmitted by agent of provider Rosalia Angeles) Address [address] [facility] [address] [place] [address] Care Team Providers Name Role Phone Sonia Ernandez MD - Internal Medicine Care Team Information Import Export Coordinator Problems Active Problems Provider Date Sinus node dysfunction Ceasar Johnson M.D. Onset: 07/30/2011 Cardiac pacemaker in situ Ceasar Johnson M.D. Onset: 07/30/2011 Atrial fibrillation Ceasar Johnson M.D. Onset: 07/30/2011 Benign essential hypertension Ceasar Johnson M.D. Onset: 07/30/2011 Electrocardiogram abnormal Ceasar Johnson M.D. Onset: 03/31/2012 Essential hypertension Ceasar Johnson M.D. Onset: 10/28/2015 Social History Type Date Description Comments Sex Unknown ETOH Use Occasionally consumes alcohol Tobacco Use Start: Unknown Patient has never smoked Recreational Drug Use Denies Drug Use Smoking Status Reviewed: 06/07/19 Patient has never smoked Exercise Type/Frequency Exercises regularly Allergies, Adverse Reactions, Alerts Description No Known Drug Allergies Medications Active Medications SIG Qnty Indications Ordering Date Provider Bumex take 1 tablet 30tabs Ange Chisholm, 06/07/2019 2mg Tablets daily in the TRANSMISSION SUPERINTENDENT morning. Ondansetron dissolve one Unknown 05/07/2019 4mg Tablets tablet orally Dispers every 6 hours as needed for nausea. Nystatin apply to under Unknown 05/07/2019 [id number]/GM breasts prn for Powder yeast Oxygen 2L NC prn hs for CHF Unknown 05/07/2019 Ensure Powder Give one can by Unknown 05/07/2019 mouth 1x daily for supplement Metoprolol Succinate 1 by mouth twice Unknown 03/29/2019 ER daily 50mg Tablets ER 24HR Digoxin 1 po qd 90tabs Qutalobo S. 04/03/2008 0.125mg Tablets Tahmina Johnson Stool Softener once daily Unknown 100mg Capsules Aspirin 1 by mouth every Unknown 81mg Tablets DR day Atorvastatin Calcium 1 by mouth every Unknown day 40mg Tablets Tylenol Extra 2 by mouth 3 times Unknown Strength daily as needed 500mg Tablets Lidocaine apply patch up to Unknown 5% Patches 12 hours once a day. Donepezil HCL 1 every day Unknown 10mg Tablets Vitamin D3 1 by mouth every Unknown 400Unit day (takes with Capsules 1000 u) Norvasc 1 po qd Unknown 5mg Tablets Vit D 3 one po qd (takes Unknown 1000U with 400 u daily) Klor-Con 10 2 po qd only on 30tabs Unknown 10Meq days you take Tablets ER Lasix Fosamax take 1 tablet by 12tabs Unknown 70mg Tablets mouth every week Coumadin 1 tab every night 90tabs Unknown 3mg Tablets and as directed ( as of 05/25/19) Immunizations Description No Information Available Vital Signs Date Vital Result Comment 06/07/2019 2:14pm Height 61 inches 5'1" Weight 109.00 lb with shoes Heart Rate 74 /min BP Systolic Sitting 130 mmHg Ra BP Diastolic Sitting 76 mmHg Ra Respiratory Rate 15 /min O2 % BldC Oximetry 97 % at room air BMI (Body Mass Index) 20.6 kg/m2 Ejection Fraction 60-65% Echo 12/20/17 03/07/2018 9:50am Height 61 inches 5'1" Weight 99.50 lb Heart Rate 72 /min BP Systolic 162 mmHg left arm BP Diastolic 96 mmHg left arm BMI (Body Mass Index) 18.8 kg/m2 Ejection Fraction 60-65% 12/19/2017 Echocardiogram Results Test Acquired Date Facility Test Result H/L Range Note Basic Metabolic 06/14/2019 [facility] Sodium 142 mmol/L Normal 135-145 [address] [place] [address] [phone] Potassium 4.0 mmol/L Normal 3.5-5.0 Chloride 105 mmol/L Normal 101-111 Co2 Carbon Dioxide 32 mmol/L Normal 22-32 Anion Gap 5 mmol/L Normal 2-11 Glucose 105 mg/dL High 70-100 Blood Urea Nitrogen 19 mg/dL Normal 6-24 Creatinine 0.66 mg/dL Normal 0.51-0.95 BUN/Creatinine Ratio 28.8 High 8-20 Calcium 9.4 mg/dL Normal 8.6-10.3 Egfr Non- 85.1 >60 Egfr 103.0 >60 2 Laboratory test 06/14/2019 [facility] B-Type 288 pg/mL High <= 100 [address] [address] Peptide BNP [phone] Comp Metabolic 06/07/2019 [facility] Sodium 141 Normal 135- [address] mmol/[place] [address] [phone] Potassium 4.2 mmol/L Normal 3.5-5.0 Chloride 104 mmol/L Normal 101-111 Co2 Carbon Dioxide 33 mmol/L High 22-32 Anion Gap 4 mmol/L Normal 2-11 Glucose 89 mg/dL Normal 70-100 Blood Urea Nitrogen 20 mg/dL Normal 6-24 Creatinine 0.77 mg/dL Normal 0.51-0.95 BUN/Creatinine Ratio 26.0 High 8-20 Calcium 9.3 mg/dL Normal 8.6-10.3 Total Protein 7.1 g/dL Normal 6.4-8.9 Albumin 3.9 g/dL Normal 3.2-5.2 Globulin 3.2 g/dL Normal 2-4 Albumin/Globulin Ratio 1.2 Normal 1-3 Total Bilirubin 0.70 mg/dL Normal 0.2-1.0 Alkaline Phosphatase 72 U/L Normal 34-104 Alt 26 U/L Normal 7-52 Ast 31 U/L Normal 13-39 Egfr Non- 71.2 >60 Egfr 86.2 >60 4 Laboratory test 06/07/2019 [facility] B-Type 299 pg/mL High <= [address] [address] Peptide BNP [phone] 1 [id number] 2 Because ethnic data is not always readily available, this report includes an eGFR for both -Americans and non- Americans. The National Kidney Disease Education Program (NKDEP) does not endorse the use of the MDRD equation for patients that are not between the ages of 18 and 70, are , have extremes of body size, muscle mass, or nutritional status, or are non- or non-. According to the National Kidney Foundation, irrespective of diagnosis, the stage of the disease is based on the level of kidney function: Stage Description GFR(mL/min/1.73 m(2)) 1 Kidney damage with normal or decreased GFR 90 2 Kidney damage with mild decrease in GFR 60-89 3 Moderate decrease in GFR 30-59 4 Severe decrease in GFR 15-29 5 Kidney failure <15 (or dialysis) 3 [id number] 4 Because ethnic data is not always readily available, this report includes an eGFR for both -Americans and non- Americans. The National Kidney Disease Education Program (NKDEP) does not endorse the use of the MDRD equation for patients that are not between the ages of 18 and 70, are , have extremes of body size, muscle mass, or nutritional status, or are non- or non-. According to the National Kidney Foundation, irrespective of diagnosis, the stage of the disease is based on the level of kidney function: Stage Description GFR(mL/min/1.73 m(2)) 1 Kidney damage with normal or decreased GFR 90 2 Kidney damage with mild decrease in GFR 60-89 3 Moderate decrease in GFR 30-59 4 Severe decrease in GFR 15-29 5 Kidney failure <15 (or dialysis) Procedures Date Code Description Status 06/26/2019 70476 EKG Tracing & Interpretation Completed 06/07/2019 30035 EKG Tracing & Interpretation Completed 05/30/2019 11420 Pace Maker Eval W/Iterative Adjustment Single Lead Completed 05/30/2019 69084 Pace Maker Eval W/Iterative Adjustment Single Lead Completed 05/08/2019 38127 EKG Tracing & Interpretation Completed 02/26/2019 73916 ECHO Transthorasic Realtime 2D W Doppler & Color Flow Completed Hosp 10/31/2008 [id number] Bone Mineral Density Test Completed 10/31/2008 [id number] Mammogram Completed Medical Devices Description No Information Available Encounters Type Date Location Provider Dx Diagnosis Office Visit 06/07/2019 [facility] Ange Chisholm I50.9 Heart failure, 2:30p Of Casino Banker TRANSMISSION SUPERINTENDENT unspecified Z95.0 Presence of cardiac pacemaker I35.0 Nonrheumatic aortic (valve) stenosis Z79.899 Other terminologist (current) drug therapy Office Visit 03/03/2019 3:40p [facility] Kristie Godinez I50.9 Heart failure, Of Brad Martel unspecified I35.0 Nonrheumatic aortic (valve) stenosis I48.2 Chronic atrial fibrillation Office Visit 03/02/2019 [place] Mcdonough S. I35.0 Nonrheumatic 6:06p Cardiology Tahmina Johnson aortic (valve) stenosis J18.9 Pneumonia, unspecified organism Office Visit 03/01/2019 [place] Ceasar S. I35.0 Nonrheumatic 5:44p Cardiology Tahmina Johnson aortic (valve) stenosis Office Visit 02/28/2019 [place] Kristie Godinez I50.Laura Heart failure, 6:56a Cardiology Estephanie Caballero.DEstela unspecified Casino Banker I35.0 Nonrheumatic aortic (valve) stenosis R50.9 Fever, unspecified R79.82 Elevated C-reactive protein (CRP) Office Visit 02/27/2019 2:06p [facility] Kristie Godinez I50.9 Heart failure, Of Brad Martel unspecified I48.2 Chronic atrial fibrillation I35.0 Nonrheumatic aortic (valve) stenosis Office Visit 02/24/2019 [place] [facility] Alessia I50.21 Acute systolic 10:19a Assocsriram D.O. (congestive) heart Hospitalists failure I48.91 Unspecified atrial fibrillation I10 Essential (primary) hypertension G31.84 Mild cognitive impairment, so stated E78.5 Hyperlipidemia, unspecified Assessments Date Code Description Provider 06/07/2019 I48.20 Chronic atrial fibrillation, Ceasar Johnson M.D. unspecified 06/07/2019 I50.9 Heart failure, unspecified Ange Chisholm TRANSMISSION SUPERINTENDENT 06/07/2019 Z95.0 Presence of cardiac pacemaker Ceasar Johnson M.D. 06/07/2019 Z95.0 Presence of cardiac pacemaker Ange Chisholm NP 06/07/2019 I35.0 Nonrheumatic aortic (valve) Angeerica Chisholm NP stenosis 06/07/2019 Z79.899 Other longterm (current) drug Angeerica Chisholm NP therapy 05/30/2019 I50.9 Heart failure, unspecified Ica Pacer Schedule 05/30/2019 Z95.0 Presence of cardiac pacemaker Ceasar Johnson M.D. 05/30/2019 Z95.0 Presence of cardiac pacemaker Ica Pacer Schedule 03/03/2019 I50.9 Heart failure, unspecified Kristie Godinez M.D. 03/03/2019 I35.0 Nonrheumatic aortic (valve) Kristie Godinez M.D. stenosis 03/03/2019 I48.2 Chronic atrial fibrillation Kristie Godinez M.D. 03/02/2019 I35.0 Nonrheumatic aortic (valve) Ceasar Johnson M.D. stenosis 03/02/2019 J18.9 Pneumonia, unspecified organism Ceasar Johnson M.D. 03/01/2019 I35.0 Nonrheumatic aortic (valve) Ceasar Johnson M.D. stenosis 02/28/2019 I50.9 Heart failure, unspecified Kristie Godinez M.D. 02/28/2019 I35.0 Nonrheumatic aortic (valve) Kristie Godinez M.D. stenosis 02/28/2019 R50.9 Fever, unspecified Kristie Godinez M.D. 02/28/2019 R79.82 Elevated C-reactive protein (CRP) Kristie Godinez M.D. 02/27/2019 I50.9 Heart failure, unspecified Kristie Godinez M.D. 02/27/2019 I48.2 Chronic atrial fibrillation Kristie Godinez M.D. 02/27/2019 I35.0 Nonrheumatic aortic (valve) Kristie Godinez M.D. stenosis 02/26/2019 I50.9 Heart failure, unspecified Dean Elder De M.D., [facility] 02/24/2019 I50.21 Acute systolic (congestive) heart Alessia Salcedo D.O. failure 02/24/2019 I48.91 Unspecified atrial fibrillation Alessia Salcedo D.O. 02/24/2019 I10 Essential (primary) hypertension Alessia Salcedo D.O. 02/24/2019 G31.84 Mild cognitive impairment, so Alessia Salcedo D.O. stated 02/24/2019 E78.5 Hyperlipidemia, unspecified Alessia Salcedo D.O. Plan of Treatment Future Appointment(s):06/28/2019 1:30 pm [facility] ECHO Schedule at [facility] Functional Status Description No Information Available Mental Status Description No Information Available Referrals Refer to Reason for Referral Status Appt Date Elias Parker MD severe aortic stenosis and to discuss TAVR. Sent [address] [place] [address] [phone]
--- OUTSIDE RECORDS SUMMARY | 2019-08-25 03:42 | XMS REPORT | Continuity of Care Document ---
:1935 External Reference #:[id number] Author Name Ceasar Johnson M.D. (transmitted by agent of provider Radha Hernandez) Address [address] [facility] [address] [place] [address] Care Team Providers Name Role Phone Sonia Ernandez MD - Internal Medicine Care Team Information Propagation Manager Problems Active Problems Provider Date Sinus node [...] Use Denies Drug Use Smoking Status Reviewed: 07/03/19 Patient has never smoked Exercise Type/Frequency Exercises sporadically Allergies, Adverse Reactions, Alerts Description No Known Drug Allergies Medications Active Medications SIG Qnty Indications Ordering Date Provider Bumex take 1 tablet 30tabs Ange Chisholm, 06/07/2019 2mg Tablets daily in the REMOTE CONTROL ASSEMBLER morning. Ondansetron dissolve one Unknown 05/07/2019 4mg Tablets tablet orally Dispers every 6 hours as needed for nausea. Nystatin apply to under Unknown 05/07/2019 364578Ftvy/GM breasts prn for Powder yeast Oxygen 2L NC prn hs for CHF Unknown 05/07/2019 Ensure Powder Give one can by Unknown 05/07/2019 mouth 1x daily for supplement Metoprolol Succinate 1 by mouth twice Unknown 03/29/2019 ER daily 50mg Tablets ER 24HR Digoxin 1 po qd 90tabs Ceasar S. 04/03/2008 0.125mg Tablets Tahmina Johnson Atorvastatin Calcium 1 by mouth every Unknown [...] Unknown 10Meq days you take Tablets ER Bumex Fosamax take 1 tablet by 12tabs Unknown 70mg Tablets mouth every week Coumadin 1 tab every night 90tabs Unknown 3mg Tablets and as directed ( as of 05/25/19) Immunizations Description No Information Available Vital Signs Date Vital Result Comment 07/03/2019 10:21am Height 61 inches 5'1" Weight 110.25 lb with shoes Heart Rate 64 /min BP Systolic Sitting 118 mmHg Rue (regular cuff) BP Diastolic Sitting 66 mmHg Rue (regular cuff) BMI (Body Mass Index) 20.8 kg/m2 Ejection Fraction 55-60% 06/28/2019 Echocardiogram 06/07/2019 2:14pm Height 61 inches 5'1" Weight 109.00 lb with shoes Heart Rate 74 /min BP Systolic Sitting 130 mmHg Ra BP Diastolic Sitting 76 mmHg Ra Respiratory Rate 15 /min O2 % BldC Oximetry 97 % at room air BMI (Body Mass Index) 20.6 kg/m2 Ejection Fraction 60-65% Echo 12/20/17 Results Test Acquired Date Facility Test Result H/L Range Note Basic Metabolic 06/14/2019 [facility] Sodium 142 mmol/L Normal 135-145 [address] [place] [address] [phone] Potassium 4.0 mmol/L Normal 3.5-5.0 Chloride 105 mmol/L Normal 101-111 Co2 Carbon Dioxide 32 mmol/L Normal 22-32 Anion Gap 5 mmol/L Normal 2-11 Glucose 105 mg/dL High 70-100 Blood Urea Nitrogen 19 mg/dL Normal 6-24 Creatinine 0.66 mg/dL Normal 0.51-0.95 BUN/Creatinine Ratio 28.8 High 8-20 Calcium 9.4 mg/dL Normal 8.6-10.3 Egfr Non- 85.1 >60 Egfr 103.0 >60 2 Laboratory test 06/14/2019 [facility] B-Type 288 pg/mL High <= [address] [place] [address] Peptide BNP [phone] Comp Metabolic 06/07/2019 [facility] Sodium 141 Normal 135- [address] mmol/[place] [address] [phone] Potassium 4.2 mmol/L Normal 3.5-5.0 Chloride 104 [...] Egfr 86.2 >60 4 Laboratory test 06/07/2019 [facility] B-Type 299 pg/mL High <= [address] [place] [address] Peptide BNP [phone] [id number] 2 Because ethnic data is not always [...] 5 Kidney failure <15 (or dialysis) 3 [id number] 4 Because ethnic data is not always [...] (or dialysis) Procedures Date Code Description Status 06/28/2019 07363 ECHO Transthoracic, Real-Time 2D With Doppler And Completed Color Flow 06/28/2019 37150 ECHO Transthoracic, Real-Time 2D With Doppler And Completed Color Flow 06/26/2019 39264 EKG Tracing & Interpretation Completed 06/07/2019 86327 EKG Tracing & Interpretation Completed 05/30/2019 57651 Pace Maker Eval W/Iterative Adjustment Single Lead Completed 05/30/2019 23709 Pace Maker Eval W/Iterative Adjustment Single Lead Completed 05/08/2019 54196 EKG Tracing & Interpretation Completed 02/26/2019 06841 ECHO Transthorasic Realtime 2D W Doppler & Color Flow Completed Hosp 10/31/2008 [id number] Bone Mineral Density Test Completed 10/31/2008 [id number] Mammogram Completed Medical Devices Description No Information Available Encounters Type Date Location Provider Dx Diagnosis Office Visit 06/07/2019 [facility] Ange Chisholm I50.9 Heart failure, 2:30p Of Gas Station 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 I35.0 Nonrheumatic 6:06p Cardiology Tahmina Johnson aortic (valve) stenosis J18.9 Pneumonia, unspecified organism Office Visit 03/01/2019 [place] S. I35.0 Nonrheumatic 5:44p Cardiology Tahmina Johnson aortic (valve) stenosis Office Visit 02/28/2019 [place] Kristie Godinez I50.Laura Heart failure, 6:56a Cardiology Of Federico.DEstela unspecified Gas Station Operator I35.0 Nonrheumatic aortic (valve) stenosis R50.9 Fever, unspecified R79.82 Elevated C-reactive protein (CRP) Office Visit 02/27/2019 2:06p [facility] Kristie Godinez I50.9 Heart failure, Of Brad Martel unspecified I48.2 Chronic atrial fibrillation I35.0 Nonrheumatic aortic (valve) stenosis Office Visit 02/24/2019 [facility] I50.21 Acute systolic 10:19a sriram Farmer D.O. (congestive) heart Hospitalists failure I48.91 Unspecified atrial fibrillation I10 Essential (primary) hypertension G31.84 Mild cognitive impairment, so stated E78.5 Hyperlipidemia, unspecified Assessments Date Code Description Provider 07/03/2019 I35.0 Nonrheumatic aortic (valve) Ceasar Johnson M.D. stenosis 07/03/2019 I48.20 Chronic atrial fibrillation, Ceasar Johnson M.D. unspecified 07/03/2019 Z95.0 Presence of cardiac pacemaker Ceasar Johnson M.D. 07/03/2019 Z95.2 Presence of prosthetic heart valve Ceasar Johnson M.D. 06/28/2019 I35.0 Nonrheumatic aortic (valve) Ceasar Johnson M.D. stenosis 06/28/2019 I35.0 Nonrheumatic aortic (valve) [facility] stenosis 06/28/2019 I48.20 Chronic atrial fibrillation, [facility] unspecified 06/28/2019 Z95.0 Presence of cardiac pacemaker [facility] Schedule 06/07/2019 I48.20 Chronic atrial fibrillation, Ceasar Johnson M.D. unspecified 06/07/2019 I50.9 Heart failure, unspecified Ange Chisholm NP 06/07/2019 Z95.0 Presence of cardiac pacemaker Ceasar Johnson M.D. 06/07/2019 Z95.0 Presence of cardiac pacemaker Ange Chisholm NP 06/07/2019 I35.0 Nonrheumatic aortic (valve) Ange Chisholm NP stenosis 06/07/2019 Z79.899 Other care home (current) drug Ange Chisholm NP therapy 05/30/2019 I50.9 Heart failure, [...] Heart failure, unspecified Dean Elder De M.D., [facility] 02/24/2019 I50.21 Acute systolic (congestive) heart Alessia Salcedo D.O. failure 02/24/2019 I48.91 Unspecified atrial fibrillation Alessia Salcedo D.O. 02/24/2019 I10 Essential (primary) hypertension Alessia Salcedo D.O. 02/24/2019 G31.84 Mild cognitive impairment, so [address].Graciela. stated 02/24/2019 E78.5 Hyperlipidemia, unspecified Alessia Salcedo D.O. Plan of Treatment 07/03/2019 - Ceasar Johnson M.D.I35.0 Nonrheumatic aortic (valve) zjnugcraJ29.20 Chronic atrial fibrillation, gkatvududkkP92.0 Presence of cardiac qtpigoplxW54.2 Presence of prosthetic heart valveNew Orders: Echocardiogram, Ordered: 07/03/19Follow up:6 months ov REMOTE CONTROL ASSEMBLER one yr ov with wa Functional Status Description No Information Available Mental Status Description No Information Available Referrals Refer to Reason for Referral Status Appt Date Elias Parker MD severe aortic stenosis and to discuss TAVR. Sent [address] [place] [address] [phone]
[2019-08-25] MEDS ORDERED: Acetaminophen TAB* 325 MG PO ONE ×2 (03:48→08:08)
[2019-08-25 04:24] LABS: ABS Basophils 0.1 10^3/ul (0-0.2); ABS Lymphocytes 0.3 10^3/ul (1.0-4.8); ABS Monocytes 0.5 10^3/ul (0-0.8); ABS Neutrophils 8.6 10^3/ul (1.5-7.7); Eosinophil % 0.2 %; Hematocrit 37 % (35-47); Hemoglobin 12.5 g/dL (12.0-16.0); Lymphocyte % 3.1 %; Mean Corpuscular HGB Conc 33 g/dL (31-36); Mean Corpuscular Hemoglobin 32 pg (27-31); Mean Corpuscular Volume 97 fL (80-97); Mean Platelet Volume 8.9 fL (7.4-10.4); Platelet Count 104 10^3/uL (150-450); Red Blood Count 3.85 10^6 /uL (3.70-4.87); Red Cell Distribution Width 14 % (10-15); White Blood Count 9.4 10^3/uL (3.5-10.8)
[2019-08-25 04:48] LABS: Albumin 3.9 g/dL (3.2-5.2); Anion Gap 9 mmol/L (2-11); CO2 Carbon Dioxide 26 mmol/L (22-32); Calcium 9.4 mg/dL (8.6-10.3); Chloride 105 mmol/L (101-111); Potassium 3.7 mmol/L (3.5-5.0); Sodium 140 mmol/L (135-145)
[2019-08-25 04:54] LABS: ALT 33 U/L (7-52); AST 43 U/L (13-39); Albumin/Globulin Ratio 1.1 (1-3); Alkaline Phosphatase 66 U/L (34-104); BUN/Creatinine Ratio 28.4 (8-20); Blood Urea Nitrogen 19 mg/dL (6-24); EGFR African American 101.2 (>60); EGFR Non-African American 83.7 (>60); Globulin 3.4 g/dL (2-4); Glucose 140 mg/dL (70-100); Total Protein 7.3 g/dL (6.4-8.9)
[2019-08-25 05:00] LABS: Troponin I 0.04 ng/mL (<0.03)
[2019-08-25 05:03] LABS: Influenza A Molecular Negative (Negative); Influenza B Molecular Negative (Negative)
[2019-08-25 05:04] LABS: Digoxin 0.9 ng/ml (0.8-2.0)
[2019-08-25 08:07] LABS: Urine Appearance Clear; Urine Bilirubin Negative (Negative); Urine Blood Negative (Negative); Urine Color Yellow; Urine Glucose Negative (Negative); Urine Ketones Negative (Negative); Urine Nitrite Negative (Negative); Urine Protein 1+(30 mg/dL) (Negative); Urine Urobilinogen Negative (Negative)
[2019-08-25 08:09] LABS: Urine Bacteria Absent (Absent); Urine Red Blood Cell Trace(0-2/hpf) (Absent); Urine White Blood Cell Trace(0-5/hpf) (Absent)
--- NOTE | 2019-08-25 08:19 | ED ---
Progress - Progress Note Progress Note: Patient is received as a sign out from Dr. Collins at 0700 on 08/25/2019 shift change pending UA. 0816 Re-Evaluation: Patient is slightly lethargic, hypoxic and is currently 91- 92% RA. Her temperature is 102 degrees Fahrenheit. Course/Dx - Course Course Of Treatment: This patient was signed out by Dr. Collins at shift change. He reports that the patient is an 84-year-old female who presents to the emergency department with a chief complaint of having shortness of breath, confusion and fever. He had some blood work and a chest x-ray that shows no source of infection at this time. He recommended to follow-up the urine culture and admission for this patient. The urinalysis is negative for UTI, BMP is 525. Second troponin 0.04. The patient spiked a fever to 102 F. The patient was given Tylenol for the fever. At this time there is no source of the infection. The influenza A and B was also negative. Lactic acid is normal. Since the patient is still slightly lethargic especially when there is no oxygen, I discussed my physical exam and findings with Dr. Ly who accepted the patient for admission. Patient is hemodynamically stable. - Diagnoses Provider Diagnoses: Fever, Confusion, Elevated troponin - Provider Notifications Discussed Care Of Patient With: Janina Ly Time Discussed With Above Provider: 09:09 Instructed by Provider To: Other - Patient's case was discussed with Dr. Ly, Dr. Ly accepts for admission. Discharge ED - Sign-Out/Discharge Documenting (check all that apply): Patient Departure - admit - Discharge Plan Condition: Stable Disposition: ADMITTED TO [facility] - Billing Disposition and Condition Condition: STABLE Disposition: Admitted to [facility] - Attestation Statements Document Initiated by Wayne: Yes Documenting Scribe: Mikayla Hernandez Provider For Whom Wayne is Documenting (Include Credential): Micah Ledbetter MD Scribe Attestation: Mikayla Mccoy, scrriced for Micah Ledbetter MD on 08/26/19 at 0825. Scribe Documentation Reviewed: Yes Provider Attestation: The documentation as recorded by the Mikayla monroy accurately reflects the service I personally performed and the decisions made by me, Micah Ledbetter MD Status of Scribe Document: Viewed
[2019-08-25] MEDS ORDERED: Acetaminophen TAB* 325 MG ONE (08:28)
[2019-08-25 08:30] LABS: Activated Partial Thrombo Time 43.2 seconds (26.0-38.0); INR 4.21 (0.82-1.09)
[2019-08-25 08:46] LABS: Troponin I 0.04 ng/mL (<0.03)
[2019-08-25] MEDS ORDERED: Ondansetron INJ* 2 MG/ML VIAL IV PRN (09:50)
[2019-08-25] MEDS: cefTRIAXone(*) 1 GM in NS 0.9% 50 ML* 50 ML IVPB SCH (10:05)
[2019-08-25] MEDS ORDERED: NS 0.9% 250 ML* 250 ML ONE (10:13)
[2019-08-25] MEDS ORDERED: DOXYcycline IV* 100 MG in NS 0.9% 250 ML* 250 ML IVPB SCH (10:30)
[2019-08-25 10:54] LABS: C Reactive Protein 31.58 mg/L (<8.01)
[2019-08-25] MEDS: Bumetanide TAB* 2 MG PO SCH (12:40)
--- NOTE | 2019-08-25 13:34 | HP ---
CC: Dr. Sonia Ernandez * HISTORY AND PHYSICAL: DATE OF ADMISSION: 08/25/19 PRIMARY CARE PROVIDER: Dr. Sonia Ernandez. MY ATTENDING WHILE IN THE HOSPITAL: Dr. Janina Ly.* (DICTATED BY JU BO) CHIEF COMPLAINT: Shortness of breath. HISTORY OF PRESENT ILLNESS: Ms. Duval is an 84-year-old female with past medical history significant for heart failure, preserved ejection fraction, severe aortic stenosis, dementia, atrial fibrillation, who was sent from her assisted living facility at [place] overnight for shortness of breath. Per the staff, the patient is a poor historian and not able to well elucidate what the events leading up to her arrival to emergency department are and collateral information from her family and/or staff facility is not available. The states she did feel somewhat short of breath. Denies having any cough. The patient cannot assess the time course when asked about fevers or chills, initially says yes then states that she did at one point feel hot before she came into the hospital. The patient has not had any rashes. The patient has not had any urinary symptoms, but she can think of besides urinating quite a bit. The patient denies any dizziness, palpitations, chest pain. The patient denies feeling short of breath at this time. In the emergency department, the patient had a chest x-ray, which showed possible pulmonary edema on COPD. The patient was found to have a fever of 102.2 rectally and was tachycardic and was given a fluid bolus of 2000 mL and we were asked to evaluate the patient for admission to the hospital. PAST MEDICAL HISTORY: Heart failure, preserved ejection fraction, aortic stenosis severe, status post TAVR, hypertension, dementia, permanent atrial fibrillation, history of CVA, pacemaker, hyperlipidemia, osteoporosis, history of multiple compression fracture. PAST SURGICAL HISTORY: Mohs surgery, pacemaker implantation, vein stripping, hysterectomy, TAVR in late 2019. MEDICATIONS: 1. Alendronate 70 mg p.o. daily. 2. Amlodipine 5 mg p.o. daily. 3. Aspirin 81 mg p.o. daily. 4. Lipitor 40 mg p.o. daily. 5. Bumex 2 mg p.o. daily. 6. Coumadin 3 mg p.o. daily. 7. Digoxin 0.125 mg p.o. daily. 8. Donepezil 10 mg p.o. daily. 9. Lidoderm patch 5% transdermal daily. 10. Potassium chloride 20 mEq p.o. daily. 11. Vitamin D 1400 units p.o. daily. 12. Metoprolol succinate 50 mg p.o. b.i.d. 13. Tylenol 1000 mg p.o. t.i.d. 14. Docusate 100 mg p.o. daily. 15. Nystatin 100,000 units topically as needed for rash. 16. Zofran 4 mg ODT q.6 hours. ALLERGIES: AZITHROMYCIN, NARCOTICS. FAMILY HISTORY: The patient's father of black lung. The patient's mother at age 84 of unclear causes. SOCIAL HISTORY: The patient is a retired, lives at [place]. The patient never smoked. The patient does not drink alcohol. The patient has 7 children. REVIEW OF SYSTEMS: A 10-point review of systems was reviewed and is negative except as above in the HPI. PHYSICAL EXAMINATION GENERAL: The patient is an 84-year-old female, who appears her stated age, sitting in bed, in no acute distress. VITAL SIGNS: At time of evaluation, temperature 99.2, pulse rate 81, respiratory rate 19, oxygen saturation 96% on 2 L, blood pressure 156/77. HEENT: Head: Normocephalic, atraumatic. Sclerae anicteric. No conjunctival injection. Nasal mucosa moist. Oral mucosa dry. No pharyngeal erythema, discharge, or exudate. NECK: Supple, nontender. No lymphadenopathy. No carotid bruits auscultated. No JVD. RESPIRATORY: Rales or rhonchi heard at the bilateral lower lobes. No adventitious lung sounds. Good aeration bilaterally. CARDIAC: Regular rate and rhythm. No clicks, murmurs, gallops, or rubs. Pulses are 2+ in the dorsalis pedis, posterior tibial, and radial areas, 1+ bilateral lower extremity edema noted. Chronic skin changes associated with this edema. ABDOMEN: Soft, nontender, nondistended. Bowel sounds present and normoactive in all 4 quadrants. No hepatosplenomegaly. No abdominal bruits auscultated. No hepatojugular reflux. GENITOURINARY: No suprapubic or CVA tenderness. NEURO: Cranial nerves II through XII intact. Alert, oriented to self and place. No focal deficits. PSYCHIATRIC: Pleasant and cooperative. SKIN: Clean, dry, and intact. No rash. DIAGNOSTIC STUDIES/LAB DATA: White blood cell count 9.4, hemoglobin 12.5, platelet count 104. INR 4.21, MCV 43.2. Sodium 140, potassium 3.7, chloride 105, carbon dioxide 26, anion gap 9, BUN 19, creatinine 0.67, glucose 140, lactic acid 1.0. Bilirubin 1.1, AST 43, ALT 36, alkaline phosphatase 66. Troponin I 0.04 x2. BNP 525. Studies: Chest x-ray read as radiographic appearance most consistent with mild interstitial edema and chronic obstructive pulmonary disease. ASSESSMENT AND PLAN: Ms. Duval is an 84-year-old female with past medical history significant for heart failure, preserved ejection fraction, previous aortic stenosis, status post transcatheter aortic valve replacement, atrial fibrillation, dementia, who presents to the emergency department with shortness of breath, found to be hypoxic with a fear the patient does not have lobar pneumonia on chest x-ray, does have interstitial changes and given her clinical picture will be admitted to the hospital for treatment community-acquired pneumonia and there may also be a component of congestive heart failure though the patient does appear dry at this time. 1. Acute hypoxic respiratory failure likely induced community-acquired pneumonia, possible some contribution from heart failure with preserved ejection fraction. The patient had acute onset of shortness of breath overnight accompanied by fevers. The patient does not have prominent cough per her report , but this is not necessarily the most trustworthy. The patient has been having high fevers, and is hypoxic. The patient will be started on ceftriaxone and doxycycline for coverage community-acquired pneumonia. The patient will have repeat chest x-ray in the morning as she has been rehydrated and this may show blossoming infiltrate if we are early in the course of disease. If the patient has no infiltrate, if not improving on antibiotics, consideration for stopping antibiotics for possible viral process would be considered though in an 84-year-old viral process that is not the flu would be less likely the cause of a fever of 102. The patient is having blood cultures. The patient's urinalysis is unremarkable, not suspicious for infection, pandemic coronavirus has been considered as a possibility and per CDC guidelines, the patient has not had exposure to any known suspicious persons for having coronavirus and will not be tested at this time. The patient will be restarted on her home Bumex. Daily weights will be followed and if needed additional diuresis should be considered. 2. Sepsis. The patient on admission was tachycardic with an all day temperature with a presumed underlying cause being pneumonia. The patient was given 2 L bolus of fluid. Blood cultures were drawn. The patient was not started on antibiotics at that time, but was started on antibiotics after approximately 6 hours in the emergency department. The patient did not have leukocytosis. The patient's lactic acid was normal. The patient's tachycardia did resolve after fluid administration and antipyretics. 3. Heart failure, preserved ejection fraction. The patient is on Bumex chronically. The patient does appear a little dry with chapped lips and dry oral mucosa. In the emergency department, the patient, however, does have a BMP elevated above her baseline and possible interstitial edema on chest x-ray. The patient will have her home Bumex restarted. Her fluid does monitor closely. 4. Hypertension. The patient markedly hypertensive on admission. This is trending down without intervention. Resume the patient's amlodipine, Bumex, and metoprolol. 5. Dementia, supportive care. Continue the patient donepezil. 6. Atrial fibrillation. The patient is currently rate controlled on metoprolol. The patient is anticoagulated with Coumadin and supratherapeutic, hold the patient's Coumadin until tomorrow and recheck an INR in the morning. 7. History of cerebrovascular accident. Continue the patient's Coumadin as above. 8. History of aortic stenosis. The patient does not have a murmur on exam at this time. There is no concern that her valve is not functioning properly. If the patient has had positive blood cultures assessment of the functioning of the valve should be considered. 9. DVT prophylaxis: The patient is supratherapeutic on Coumadin. 10. FEN: The patient will have a heart healthy diet, caffeine okay, on no additional fluids to be given at this time. 11. Disposition: The patient is admitted to observation in the hospital. TIME SPENT: Approximately 60 minutes was spent on the admission of this patient , 30 of which was spent [id number] with the patient obtaining history and physical discussing treatment plan. This plan has been discussed with my attending, Dr. Janina Ly, and she is in agreement. JU BO [id number]/[facility] #: [id number] DEBRA
[2019-08-25] MEDS: Donepezil TAB* 5 MG PO SCH (18:05)
[2019-08-25] MEDS: Nystatin TOP POWDER* 15 GM BTL TOPICAL SCH ×2 (18:05→22:17)
[2019-08-25] MEDS: Metoprolol Succinate XL TAB* 50 MG PO SCH (22:06)
[2019-08-25] MEDS: Benzonatate CAP* 100 MG PO PRN (22:06)
[2019-08-25] MEDS: guaiFENesin ER TAB 600 MG PO SCH (22:06)
[2019-08-25] MEDS: DOXYcycline CAP(*) 100 MG PO SCH (22:06)
[2019-08-26] MEDS: Lidocaine Patch REMOVE* 1 NOTE MISC PATCH OFF SCH ×2 (00:48→20:00)
[2019-08-26 06:17] LABS: INR 3.62 (0.82-1.09)
[2019-08-26 06:22] LABS: BUN/Creatinine Ratio 21.7 (8-20); Calcium 8.8 mg/dL (8.6-10.3); Magnesium 1.7 mg/dL (1.9-2.7); Potassium 3.7 mmol/L (3.5-5.0)
[2019-08-26 06:29] LABS: ABS Lymphocytes 0.6 10^3/ul (1.0-4.8); ABS Monocytes 0.5 10^3/ul (0-0.8); ABS Neutrophils 5.9 10^3/ul (1.5-7.7); Eosinophil % 0.6 %; Hematocrit 32 % (35-47); Hemoglobin 10.6 g/dL (12.0-16.0); Lymphocyte % 8.2 %; Mean Corpuscular HGB Conc 34 g/dL (31-36); Mean Corpuscular Hemoglobin 32 pg (27-31); Mean Corpuscular Volume 97 fL (80-97); Mean Platelet Volume 9.2 fL (7.4-10.4); Platelet Count 89 10^3/uL (150-450); Red Blood Count 3.27 10^6 /uL (3.70-4.87); Red Cell Distribution Width 14 % (10-15); White Blood Count 7.1 10^3/uL (3.5-10.8)
[2019-08-26] MEDS: Aspirin EC TAB* 81 MG TAB.EC PO SCH (07:58)
[2019-08-26] MEDS: Bumetanide TAB* 2 MG PO SCH (07:58)
[2019-08-26] MEDS: Cholecalciferol TAB* 1000 UNITS PO SCH (07:58)
[2019-08-26] MEDS: Cholecalciferol TAB* 400 UNIT PO SCH (07:58)
[2019-08-26] MEDS: guaiFENesin ER TAB 600 MG PO SCH ×2 (07:58→20:00)
[2019-08-26] MEDS: Metoprolol Succinate XL TAB* 50 MG PO SCH ×2 (07:58→19:59)
[2019-08-26] MEDS: amLODIPine TAB* 5 MG PO SCH (07:58)
[2019-08-26] MEDS: Potassium Chlor TAB* 20 MEQ TAB.ER PO SCH (07:58)
[2019-08-26] MEDS: Digoxin TAB* 0.125 MG PO SCH (07:59)
[2019-08-26] MEDS: Nystatin TOP POWDER* 15 GM BTL TOPICAL SCH ×2 (08:00→20:00)
[2019-08-26] MEDS: Acetaminophen TAB* 325 MG PO PRN ×2 (08:00→15:44)
[2019-08-26] MEDS: Lidocaine PATCH 5%* 1 PATCH TRANSDERM SCH (08:00)
[2019-08-26] MEDS: DOXYcycline CAP(*) 100 MG PO SCH (08:00)
[2019-08-26] MEDS ORDERED: Bumetanide TAB* 2 MG PO SCH (09:00)
[2019-08-26] MEDS: cefTRIAXone(*) 1 GM in NS 0.9% 50 ML* 50 ML IVPB SCH (11:35)
[2019-08-26 12:45] LABS: C Reactive Protein 120.79 mg/L (<8.01)
[2019-08-26] MEDS ORDERED: Vancomycin per Pharmacy* NOTE FOLLOW UP PRN (12:57)
[2019-08-26] MEDS ORDERED: Vancomycin(*) 1,000 MG in NS 0.9% 250 ML* 250 ML IV ONE (13:30)
[2019-08-26] MEDS: Donepezil TAB* 5 MG PO SCH (18:09)
[2019-08-27] MEDS: Vancomycin(*) 500 MG in NS 0.9% 250 ML* 250 ML IVPB SCH ×2 (02:02→12:43)
[2019-08-27 05:38] LABS: ABS Lymphocytes 0.6 10^3/ul (1.0-4.8); ABS Monocytes 0.6 10^3/ul (0-0.8); ABS Neutrophils 6.2 10^3/ul (1.5-7.7); Eosinophil % 0.2 %; Hematocrit 33 % (35-47); Hemoglobin 11.3 g/dL (12.0-16.0); Lymphocyte % 8.2 %; Mean Corpuscular HGB Conc 34 g/dL (31-36); Mean Corpuscular Hemoglobin 33 pg (27-31); Mean Corpuscular Volume 99 fL (80-97); Mean Platelet Volume 8.7 fL (7.4-10.4); Platelet Count 97 10^3/uL (150-450); Red Blood Count 3.38 10^6 /uL (3.70-4.87); Red Cell Distribution Width 14 % (10-15); White Blood Count 7.5 10^3/uL (3.5-10.8)
[2019-08-27 05:43] LABS: Magnesium 1.8 mg/dL (1.9-2.7)
[2019-08-27 05:44] LABS: INR 2.22 (0.82-1.09)
[2019-08-27 05:49] LABS: C Reactive Protein 187.2 mg/L (<8.01); Phosphorus 2.4 mg/dL (2.5-5.0)
[2019-08-27] MEDS: Lidocaine PATCH 5%* 1 PATCH TRANSDERM SCH (08:31)
[2019-08-27] MEDS: Cholecalciferol TAB* 1000 UNITS PO SCH (08:34)
[2019-08-27] MEDS: Bumetanide TAB* 2 MG PO SCH (08:34)
[2019-08-27] MEDS: Cholecalciferol TAB* 400 UNIT PO SCH (08:34)
[2019-08-27] MEDS: Digoxin TAB* 0.125 MG PO SCH (08:34)
[2019-08-27] MEDS: Metoprolol Succinate XL TAB* 50 MG PO SCH ×2 (08:34→19:55)
[2019-08-27] MEDS: Aspirin EC TAB* 81 MG TAB.EC PO SCH (08:34)
[2019-08-27] MEDS: Potassium Chlor TAB* 20 MEQ TAB.ER PO SCH (08:35)
[2019-08-27] MEDS: amLODIPine TAB* 5 MG PO SCH (08:35)
[2019-08-27] MEDS: Nystatin TOP POWDER* 15 GM BTL TOPICAL SCH ×2 (08:36→22:00)
[2019-08-27] MEDS: guaiFENesin ER TAB 600 MG PO SCH ×2 (08:36→19:55)
--- NOTE | 2019-08-27 12:38 | ECHO ---
*[facility]* [place] [address] Fax #: [phone] Transthoracic Echocardiogram Patient: Ann Duval : 1935 Study Date: 08/27/2019 Age: 84 Gender: F HR: 51 bpm Height: 59 in /149.9 cm BSA: 1.45 m^2 Weight: 112.8 lb /51.3 kg BMI: 22.8 kg/m^2 *Ed Tech: * Corine Hansen *Referring Physician: * Gerard ErnandezReading Physician: * Berto Torres MD Indications: Aortic Valve Disorder. History: Prosthetic valve.(TAVR) Fever. Atrial fibrillation. Congestive heart failure. Risk factors: Hypertension. Dyslipidemia. Labs, prior tests, procedures, and surgery: Pacer. Conclusions Summary: - Left ventricle: The cavity size is normal. Wall thickness is mildly to moderately increased. Systolic function is normal. The estimated ejection fraction is 55-60%. Wall motion is normal; there are no regional wall motion abnormalities. - Right ventricle: Systolic function is normal. - Left atrium: The atrium is severely dilated. - Mitral valve: There is mild regurgitation. - Aortic valve: There is a bioprosthetic valve. (TAVR) There is no evidence of stenosis. There is no significant regurgitation. - Tricuspid valve: There is moderate regurgitation. - No Obvious vegetations Compared to study of 06/28/2019, there is little change. Study data: Transthoracic echocardiogram. Procedure: Transthoracic echocardiography was performed. Image quality was good. Complete 2D, spectral Doppler, and color flow Doppler. Location: Bedside. Patient status: Inpatient. Patient room number: 417-1. Rhythm: Paced rhythm. Findings Left ventricle: The cavity size is normal. Wall thickness is mildly to moderately increased. Systolic function is normal. The estimated ejection fraction is 55-60%. Wall motion is normal; there are no regional wall motion abnormalities. Left ventricular diastolic function parameters are normal. Right ventricle: The cavity size is normal. Pacer wire noted in the right ventricle. Systolic function is normal. Ventricular septum: The ventricular septum is normal. Left atrium: The atrium is severely dilated. Right atrium: The atrium is mildly to moderately dilated. Atrial septum: There is a patent foramen ovale. Mitral valve: The leaflets are mildly thickened. No echocardiographic evidence for prolapse. There is no evidence of stenosis. There is mild regurgitation. Aortic valve: There is a bioprosthetic valve. (TAVR) The leaflets are normal thickness. There is no evidence of stenosis. There is no significant regurgitation. Tricuspid valve: The valve is structurally normal. There is no evidence of stenosis. There is moderate regurgitation. Pulmonic valve: The valve is structurally normal. There is no evidence of stenosis. There is mild to moderate regurgitation. Aorta: The aortic arch appears normal. Pericardium: There is no significant pericardial effusion. Pulmonary arteries: Systolic pressure is severely increased, estimated to be 66 mm Hg. Systemic veins: Inferior vena cava: The vessel is normal in size. There is (>= 50%) respiratory change in the IVC dimension. Pulmonary veins: Not well visualized. Measurements Left ventricle Value Ref Aortic valve continued Value Ref CRISTÓBAL, LAX (L) 3.7 cm 3.8 - 5.2 VTI, S 53.4 cm ----- ESD, LAX 2.4 cm 2.2 - 3.5 Mean grad, S 16.0 mm Hg ----- FS, LAX 37 % 27 - 45 Peak grad, S 31.0 mm Hg ----- PW, ED, LAX (H) 1.2 cm 0.6 - 0.9 MRAEK, VTI 1.53 cm^2 ----- Qs 2.2 L/min MAREK, Vmax 1.49 cm^2 ----- E', lat gerard, TDI 13.1 cm/sec >=10.0 E/e', lat gerard, 10 Mitral valve Value R ef TDI Peak E 1.36 m/sec ----- Peak A 0 m/sec ----- LVOT Value Ref Decel time 296 ms ----- Diam, S 2.00 cm Peak grad, D 7.4 mm Hg ----- Area 3.1 cm^2 Peak candice, S 1.32 m/sec Pulmonic valve Value Ref Peak grad, S 7 mm Hg Peak v, S 0.87 m/sec ----- Mean grad, S 6 mm Hg Peak grad, S 3.0 mm Hg ----- Ventricular septum Value Ref Tricuspid valve Value Ref IVS, ED (H) 1.3 cm 0.6 - 0.9 TR peak v (H) 3.9 m/sec <=2 .8 Peak RV-RA grad, S 61 mm Hg ----- Right ventricle Value Ref Max TR candice 3.78 m/sec ----- CRISTÓBAL, LAX 3.7 cm CRISTÓBAL minor ax, 3.5 cm 1.9 - 3.5 Aortic root Value Ref A4C mid Root diam 2.7 cm <3. 7 Left atrium Value Ref Ascending aorta Value Ref AP dim, ES (H) 5.80 cm 2.70 - AAo AP diam, S 2.7 cm ----- 3.80 ML dim, A4C 4.9 cm Aortic arch Value Ref SI dim, A4C 6.3 cm Arch diam 2.6 cm ----- Vol/bsa, ES, 1-p (H) 57 ml/m^2 11 - 40 A4C Decending aorta Value Ref Boris peak candice 0.65 m/sec ----- Right atrium Value Ref SI dim, ES (H) 5.4 cm 3.4 - 5.3 Inferior vena cava Value Ref ML dim, ES, A4C 4.0 cm 2.6 - 4.4 Diam 2.7 cm ----- SI dim, ES, A4C (H) 5.4 cm 3.4 - 5.3 SI dim/bsa, ES, (H) 3.7 cm/m^2 1.9 - 3.1 A4C Aortic valve Value Ref Peak v, S 2.78 m/sec Legend: (L) and (H) dede values outside specified reference range. Prepared and electronically signed by Berto Torres MD 08/27/2019 12:37
[2019-08-27] MEDS ORDERED: Bumetanide TAB* 2 MG PO ONE (13:00)
--- NOTE | 2019-08-27 13:34 | CONS ---
CONSULTATION REPORT: DATE OF CONSULT: 08/27/19 REQUESTING PHYSICIAN: Dr. Sonia Ernandez. CONSULTING SERVICE: Infectious Disease. REASON FOR CONSULT: Fever. IMPRESSION: 1. Fever as an outpatient with elevated C-reactive protein which is increasing here, although her fever curve was a bit better since the morning of admission on 08/25/19. She has supplemental oxygen requirement. No leukocytosis. She has thrombocytopenia and lymphopenia, which she has had in the past. Her urinalysis is negative. An influenza PCR was negative. Blood cultures are growing 2/4 bottles Staphylococcus hominis. In the setting of a pacemaker and a TAVR, consideration for cardiac device infection or endocarditis is present. However, with only 2/4 bottles being positive, I think it is less likely and we will add another set of cultures. 2. Mild dementia. 3. Status post pacemaker. 4. Status post TAVR in 2019. RECOMMENDATIONS: Continue vancomycin, goal trough 15 to 20. We will recheck blood cultures. She has had a transthoracic echocardiogram. With only 2 bottles positive, I do not think the pretest probability of device infection or endocarditis is high enough to require a transesophageal echocardiogram. HISTORY OF PRESENT ILLNESS: This is an 84-year-old woman with a pacemaker and TAVR, who came from [place] with shortness of breath and fever. She has not been coughing. She has been on 2 to 3 L of supplemental oxygen and denies shortness of breath now. Her chest x-ray was done that showed pulmonary edema in the setting of her COPD. She had some fluid bolus. She has not had recurrence of fever. Blood cultures came back 2/4 bottles growing Staph hominis. She was started on vancomycin, which she has tolerated well. She has no abdominal pain, dysuria, or source. PAST MEDICAL HISTORY: 1. Heart failure with preserved ejection fraction. 2. Severe aortic stenosis, status post TAVR. 3. Hypertension. 4. Dementia. 5. Atrial fibrillation. 6. History of CVA. 7. Status post pacemaker placement. 8. Hyperlipidemia. 9. Osteoporosis. 10. Spinal compression fractures. 11. Status post Mohs surgery. 12. Status post hysterectomy. ALLERGIES: AZITHROMYCIN and NARCOTICS. MEDICATIONS: 1. Tylenol. 2. Amlodipine. 3. Aspirin. 4. Bumex. 5. Cholecalciferol. 6. Digoxin. 7. Donepezil. 8. Guaifenesin. 9. Lidocaine patch. 10. Metoprolol. 11. Nystatin topical powder. 12. Vancomycin 500 mg IV every 12 hours. 13. Warfarin. SOCIAL HISTORY: She lives in [place]. She is retired. She is a nonsmoker. She does not drink alcohol. FAMILY HISTORY: Father of black lung. Mother at 84, unknown causes. REVIEW OF SYSTEMS: A 14-point review was negative except as noted above in history of present illness. PHYSICAL EXAM: Vital Signs: Temperature 37.5, heart rate 75, respiratory rate 20, blood pressure 160/70, oxygen saturation 96% on 3 L. In general, she is awake, not in distress. Neurologic: She is oriented x2 and follows commands. Moves all her extremities. HEENT: There is no conjunctival hemorrhage. Oropharynx without lesions. Neck is supple without mass. Heart is regular rate and rhythm without murmurs, rubs, or gallops. Lungs: Scattered rales at the base without wheeze or rhonchi. There is no egophony. Abdomen: Soft, nontender, nondistended. There are bowel sounds present. Skin: There is no rash or splinter hemorrhage. Musculoskeletal: There is no spine tenderness to palpation or joint synovitis. LABORATORY DATA: White blood cell count 7.5, hemoglobin 11.3, platelets 97, MCV 99. Creatinine 0.6. CRP 187 from 120 yesterday. Please see impression and recommendations outlined above, which I have discussed with Dr. Ernandez. Thank you for asking me to see Ms. Duval in consultation. [id number]/[facility] #: [id number] MTDHaile
[2019-08-27] MEDS: Donepezil TAB* 5 MG PO SCH (16:55)
[2019-08-27] MEDS ORDERED: Warfarin TAB(*) 2 MG PO NR (17:00)
[2019-08-27] MEDS: Benzonatate CAP* 100 MG PO PRN (19:55)
[2019-08-27] MEDS: Lidocaine Patch REMOVE* 1 NOTE MISC PATCH OFF SCH (22:00)
[2019-08-28] MEDS: Vancomycin(*) 500 MG in NS 0.9% 250 ML* 250 ML IVPB SCH ×2 (02:44→14:25)
[2019-08-28 05:57] LABS: ABS Eosinophils 0.1 10^3/ul (0-0.6); ABS Lymphocytes 0.5 10^3/ul (1.0-4.8); ABS Monocytes 0.7 10^3/ul (0-0.8); ABS Neutrophils 4.8 10^3/ul (1.5-7.7); Eosinophil % 1.4 %; Hematocrit 32 % (35-47); Lymphocyte % 8.6 %; Mean Corpuscular HGB Conc 34 g/dL (31-36); Mean Corpuscular Hemoglobin 33 pg (27-31); Mean Corpuscular Volume 96 fL (80-97); Mean Platelet Volume 8.8 fL (7.4-10.4); Platelet Count 101 10^3/uL (150-450); Red Blood Count 3.36 10^6 /uL (3.70-4.87); Red Cell Distribution Width 13 % (10-15); White Blood Count 6.2 10^3/uL (3.5-10.8)
[2019-08-28 06:09] LABS: INR 1.77 (0.82-1.09)
[2019-08-28 06:13] LABS: BUN/Creatinine Ratio 23.6 (8-20); C Reactive Protein 214.57 mg/L (<8.01); Calcium 8.1 mg/dL (8.6-10.3); EGFR African American 127.1 (>60); Potassium 3.2 mmol/L (3.5-5.0)
[2019-08-28] MEDS: Metoprolol Succinate XL TAB* 50 MG PO SCH ×2 (09:23→21:03)
[2019-08-28] MEDS: Aspirin EC TAB* 81 MG TAB.EC PO SCH (09:23)
[2019-08-28] MEDS: Cholecalciferol TAB* 400 UNIT PO SCH (09:23)
[2019-08-28] MEDS: Digoxin TAB* 0.125 MG PO SCH (09:23)
[2019-08-28] MEDS: Bumetanide TAB* 2 MG PO SCH (09:23)
[2019-08-28] MEDS: guaiFENesin ER TAB 600 MG PO SCH ×2 (09:23→21:01)
[2019-08-28] MEDS: Potassium Chlor TAB* 20 MEQ TAB.ER PO SCH ×3 (09:24→21:02)
[2019-08-28] MEDS: amLODIPine TAB* 5 MG PO SCH (09:24)
[2019-08-28] MEDS: Lidocaine PATCH 5%* 1 PATCH TRANSDERM SCH (09:24)
[2019-08-28] MEDS: Cholecalciferol TAB* 1000 UNITS PO SCH (09:24)
[2019-08-28] MEDS: Nystatin TOP POWDER* 15 GM BTL TOPICAL SCH ×2 (10:00→21:03)
[2019-08-28] MEDS ORDERED: Vancomycin Trough Check NOTE FOLLOW UP ONE (12:30)
[2019-08-28] MEDS: Acetaminophen TAB* 325 MG PO PRN ×2 (12:40→21:00)
[2019-08-28] MEDS: Donepezil TAB* 5 MG PO SCH (16:48)
[2019-08-28] MEDS ORDERED: Warfarin TAB(*) 2 MG PO ONE (17:00)
[2019-08-28] MEDS: Vancomycin(*) 750 MG in NS 0.9% 250 ML* 250 ML IVPB SCH (20:58)
[2019-08-28] MEDS: Benzonatate CAP* 100 MG PO PRN (21:01)
[2019-08-28] MEDS: Lidocaine Patch REMOVE* 1 NOTE MISC PATCH OFF SCH (22:00)
[2019-08-29 05:11] LABS: ABS Basophils 0.1 10^3/ul (0-0.2); ABS Eosinophils 0.3 10^3/ul (0-0.6); ABS Lymphocytes 0.7 10^3/ul (1.0-4.8); ABS Monocytes 0.4 10^3/ul (0-0.8); ABS Neutrophils 3.3 10^3/ul (1.5-7.7); Eosinophil % 6.3 %; Hematocrit 34 % (35-47); Hemoglobin 11.6 g/dL (12.0-16.0); Lymphocyte % 14.5 %; Mean Corpuscular HGB Conc 34 g/dL (31-36); Mean Corpuscular Hemoglobin 33 pg (27-31); Mean Corpuscular Volume 96 fL (80-97); Mean Platelet Volume 8.9 fL (7.4-10.4); Nucleated Red Blood Cells % 0.1; Platelet Count 121 10^3/uL (150-450); Red Blood Count 3.57 10^6 /uL (3.70-4.87); Red Cell Distribution Width 13 % (10-15); White Blood Count 4.7 10^3/uL (3.5-10.8)
[2019-08-29 05:27] LABS: BUN/Creatinine Ratio 28.1 (8-20); C Reactive Protein 196.49 mg/L (<8.01); Calcium 8.9 mg/dL (8.6-10.3); EGFR Non-African American 100.8 (>60); Potassium 3.8 mmol/L (3.5-5.0)
[2019-08-29] MEDS: Vancomycin(*) 750 MG in NS 0.9% 250 ML* 250 ML IVPB SCH ×2 (05:31→17:46)
[2019-08-29] MEDS: Potassium Chlor TAB* 20 MEQ TAB.ER PO SCH ×2 (09:56→20:42)
[2019-08-29] MEDS: Metoprolol Succinate XL TAB* 50 MG PO SCH ×2 (10:07→20:41)
[2019-08-29] MEDS: amLODIPine TAB* 5 MG PO SCH (10:07)
[2019-08-29] MEDS: Cholecalciferol TAB* 400 UNIT PO SCH (10:07)
[2019-08-29] MEDS: Bumetanide TAB* 2 MG PO SCH (10:07)
[2019-08-29] MEDS: Aspirin EC TAB* 81 MG TAB.EC PO SCH (10:07)
[2019-08-29] MEDS: Cholecalciferol TAB* 1000 UNITS PO SCH (10:07)
[2019-08-29] MEDS: Digoxin TAB* 0.125 MG PO SCH (10:08)
[2019-08-29] MEDS: guaiFENesin ER TAB 600 MG PO SCH ×2 (10:08→20:41)
[2019-08-29] MEDS: Lidocaine PATCH 5%* 1 PATCH TRANSDERM SCH (10:15)
[2019-08-29] MEDS: Nystatin TOP POWDER* 15 GM BTL TOPICAL SCH ×2 (10:35→20:47)
[2019-08-29 12:08] LABS: INR 1.62 (0.82-1.09)
[2019-08-29] MEDS: Acetaminophen TAB* 325 MG PO PRN ×2 (13:44→22:05)
[2019-08-29] MEDS ORDERED: Warfarin TAB(*) 3 MG PO ONE (17:00)
[2019-08-29] MEDS: Donepezil TAB* 5 MG PO SCH ×2 (17:46→18:25)
[2019-08-29] MEDS: Lidocaine Patch REMOVE* 1 NOTE MISC PATCH OFF SCH (20:48)
[2019-08-30] MEDS ORDERED: Vancomycin Trough Check NOTE FOLLOW UP ONE (06:00)
[2019-08-30 06:41] LABS: C Reactive Protein 116.28 mg/L (<8.01)
[2019-08-30 06:55] LABS: Vancomycin Trough 8.9 mcg/mL
[2019-08-30] MEDS: Vancomycin(*) 750 MG in NS 0.9% 250 ML* 250 ML IVPB SCH ×3 (07:09→22:17)
[2019-08-30] MEDS: Cholecalciferol TAB* 400 UNIT PO SCH (08:40)
[2019-08-30] MEDS: amLODIPine TAB* 5 MG PO SCH (08:40)
[2019-08-30] MEDS: guaiFENesin ER TAB 600 MG PO SCH ×3 (08:40→22:33)
[2019-08-30] MEDS: Potassium Chlor TAB* 20 MEQ TAB.ER PO SCH ×3 (08:41→22:34)
[2019-08-30] MEDS: Bumetanide TAB* 2 MG PO SCH (08:41)
[2019-08-30] MEDS: Cholecalciferol TAB* 1000 UNITS PO SCH (08:41)
[2019-08-30] MEDS: Aspirin EC TAB* 81 MG TAB.EC PO SCH (08:41)
[2019-08-30] MEDS: Nystatin TOP POWDER* 15 GM BTL TOPICAL SCH ×2 (08:41→22:17)
[2019-08-30] MEDS: Metoprolol Succinate XL TAB* 50 MG PO SCH ×2 (08:41→22:17)
[2019-08-30] MEDS: Lidocaine PATCH 5%* 1 PATCH TRANSDERM SCH (08:42)
[2019-08-30] MEDS: Digoxin TAB* 0.125 MG PO SCH (08:43)
[2019-08-30 11:37] LABS: INR 1.97 (0.82-1.09)
[2019-08-30] MEDS: Acetaminophen TAB* 325 MG PO PRN (14:07)
[2019-08-30] MEDS ORDERED: Warfarin TAB(*) 2 MG PO ONE (19:15)
[2019-08-30] MEDS: Donepezil TAB* 5 MG PO SCH (19:34)
[2019-08-30] MEDS: Lidocaine Patch REMOVE* 1 NOTE MISC PATCH OFF SCH (22:18)
[2019-08-31] MEDS: Metoprolol Succinate XL TAB* 50 MG PO SCH ×3 (00:19→20:23)
[2019-08-31] MEDS: Vancomycin(*) 750 MG in NS 0.9% 250 ML* 250 ML IVPB SCH ×3 (06:20→21:31)
[2019-08-31] MEDS: Bumetanide TAB* 2 MG PO SCH (09:27)
[2019-08-31] MEDS: Cholecalciferol TAB* 400 UNIT PO SCH (09:28)
[2019-08-31] MEDS: Cholecalciferol TAB* 1000 UNITS PO SCH (09:28)
[2019-08-31] MEDS: Aspirin EC TAB* 81 MG TAB.EC PO SCH (09:28)
[2019-08-31] MEDS: Digoxin TAB* 0.125 MG PO SCH (09:28)
[2019-08-31] MEDS: Potassium Chlor TAB* 20 MEQ TAB.ER PO SCH ×2 (09:28→20:23)
[2019-08-31] MEDS: guaiFENesin ER TAB 600 MG PO SCH ×2 (09:28→20:23)
[2019-08-31] MEDS: amLODIPine TAB* 5 MG PO SCH (09:29)
[2019-08-31] MEDS: Lidocaine PATCH 5%* 1 PATCH TRANSDERM SCH (09:34)
[2019-08-31] MEDS: Nystatin TOP POWDER* 15 GM BTL TOPICAL SCH ×2 (09:39→20:30)
[2019-08-31] MEDS ORDERED: Vancomycin Trough Check NOTE FOLLOW UP ONE (13:30)
[2019-08-31 13:51] LABS: ABS Basophils 0.1 10^3/ul (0-0.2); ABS Eosinophils 0.3 10^3/ul (0-0.6); ABS Lymphocytes 0.7 10^3/ul (1.0-4.8); ABS Monocytes 0.6 10^3/ul (0-0.8); ABS Neutrophils 4.3 10^3/ul (1.5-7.7); Eosinophil % 4.2 %; Hematocrit 37 % (35-47); Hemoglobin 12.6 g/dL (12.0-16.0); Lymphocyte % 11.6 %; Mean Corpuscular HGB Conc 34 g/dL (31-36); Mean Corpuscular Hemoglobin 33 pg (27-31); Mean Corpuscular Volume 96 fL (80-97); Mean Platelet Volume 8.8 fL (7.4-10.4); Nucleated Red Blood Cells % 0.1; Platelet Count 178 10^3/uL (150-450); Red Blood Count 3.87 10^6 /uL (3.70-4.87); Red Cell Distribution Width 13 % (10-15)
[2019-08-31 14:06] LABS: INR 1.87 (0.82-1.09)
[2019-08-31 14:08] LABS: C Reactive Protein 76.84 mg/L (<8.01)
[2019-08-31 14:48] LABS: Vancomycin Trough 18.3 mcg/mL
[2019-08-31] MEDS: Acetaminophen TAB* 325 MG PO PRN (15:00)
[2019-08-31] MEDS ORDERED: Warfarin TAB(*) 3 MG PO ONE (17:00)
[2019-08-31] MEDS: Donepezil TAB* 5 MG PO SCH (18:19)
[2019-08-31] MEDS: Lidocaine Patch REMOVE* 1 NOTE MISC PATCH OFF SCH (20:29)
[2019-09-01 04:41] LABS: INR 2.05 (0.82-1.09)
[2019-09-01] MEDS: Vancomycin(*) 750 MG in NS 0.9% 250 ML* 250 ML IVPB SCH ×2 (06:03→14:05)
[2019-09-01] MEDS: Metoprolol Succinate XL TAB* 50 MG PO SCH (08:10)
[2019-09-01] MEDS: Cholecalciferol TAB* 400 UNIT PO SCH (08:10)
[2019-09-01] MEDS: guaiFENesin ER TAB 600 MG PO SCH (08:10)
[2019-09-01] MEDS: Acetaminophen TAB* 325 MG PO PRN (08:10)
[2019-09-01] MEDS: Digoxin TAB* 0.125 MG PO SCH (08:11)
[2019-09-01] MEDS: Potassium Chlor TAB* 20 MEQ TAB.ER PO SCH (08:11)
[2019-09-01] MEDS: Cholecalciferol TAB* 1000 UNITS PO SCH (08:11)
[2019-09-01] MEDS: Bumetanide TAB* 2 MG PO SCH (08:12)
[2019-09-01] MEDS: amLODIPine TAB* 5 MG PO SCH (08:12)
[2019-09-01] MEDS: Lidocaine PATCH 5%* 1 PATCH TRANSDERM SCH (08:12)
[2019-09-01] MEDS: Aspirin EC TAB* 81 MG TAB.EC PO SCH (08:12)
[2019-09-01] MEDS: Nystatin TOP POWDER* 15 GM BTL TOPICAL SCH (08:14)
--- NOTE | 2019-09-01 15:21 | DS ---
DISCHARGE SUMMARY: DATE OF ADMISSION: 08/25/19 DATE OF DISCHARGE: 09/01/19 DISCHARGE DIAGNOSES: 1. Staphylococcus hominis infection with acute hypoxic respiratory failure, possible pneumonia. 2. Sepsis. 3. Heart failure with preserved ejection fraction, decompensated likely due to acute infection. 4. History of hypertension. 5. History of TAVR for aortic stenosis. 6. History of dementia. The patient is on donepezil. 7. History of atrial fibrillation, on chronic warfarin therapy. 8. History of cerebrovascular accident. 9. Thrombocytopenia, improved. 10. DNR. 11. Supratherapeutic INR on admission and subtherapeutic INRs during hospitalization . 12. Hypokalemia, treated. 13. Osteoporosis. HISTORY: Ann Duval is an 84-year-old woman admitted with shortness of breath, fever. Please see the dictated note for details of the present illness , past medical history, family history, social and personal history, review of systems, and physical examination. DIAGNOSTIC STUDIES/LAB DATA: CBC on admission: WBC 9.4, H and H 12.5/37, MCV 87, PLT 104,000. White count went down to 6 on 08/31/19; H and H went down as low as 11/32 on 08/28/19, was 12.6/36 on 08/31/19; platelet count went down as low as 89 on 08/26/19, was 178 on 08/31/19. INR was initially supratherapeutic 4.21, came down as low as 1.62 on 08/29/19, was in the therapeutic range 2.05 on 09/01/19. Chemistries on admission: Sodium 140, potassium 3.7, chloride 105 , CO2 26, BUN and creatinine 19/0.67, glucose 140, calcium 9.4. Rest of the comprehensive metabolic panel was within normal limits except for AST slightly elevated at 43 and total bilirubin was 1.10. Lactic acid was 1.6, repeat at 1.0. Troponins were 0.04, 0.04 on repeat. C-reactive protein started at 3.58, went up as high as 214.57 on 08/28/19, was down to 76.84 on 08/31/19. BNP was 525 on 08/25/19, went up to 633 on 08/27/19, was 280 on 08/29/19 and 343 on , which is about at her baseline. Urinalysis: Yellow, clear, specific gravity 1.020, pH 6, dipstick positive for wbc's trace, rbc's trace. Vancomycin level was 6.7 on 08/28/19, 8.9 on 08/30/19, and 18.3 on 08/31/19. Digoxin level was 0.9 on 08/25/19. Influenza A and B were negative. Microbiology: Blood cultures were positive for Staphylococcus hominis on admission. Second set of blood cultures a few hours later was no growth. Urine culture was no growth. Another set of blood cultures drawn on 08/29/19 was no growth. Imaging: Chest x-ray on 08/25/19 showed radiographic appearance consistent with mild interstitial edema and chronic obstructive pulmonary disease. Chest x-ray on 08/26/19 was unchanged with mild interstitial pulmonary edema, small left pleural effusion, osteopenia with compression fractures mid thoracic spine. Chest x-ray on 08/29/19 showed some clearing of the infiltrates. EKG on 08/25/19 showed ventricular paced rhythm. Transthoracic echocardiogram on 08/26/19 showed EF 55% to 60%, mild mitral regurgitation, bioprosthetic aortic valve, no evidence of stenosis or regurgitation. Left atrium was dilated. Right atrium was dilated. There was a patent foramen ovale. Mitral valve leaflets were mildly thickened with mild regurgitation. There was moderate tricuspid regurgitation, [id number] pulmonic regurgitation. HOSPITAL COURSE: The patient was initially admitted with hypoxic respiratory failure, likely due to community-acquired pneumonia, possibly some contribution from heart failure with preserved ejection fraction. She had a high fever. She was placed on ceftriaxone and doxycycline for coverage of community- acquired pneumonia. Blood cultures were done (see above). She was placed on her usual Bumex. Because of initial sepsis with tachycardia and fever, the patient was given 2 L bolus of fluid. She was started on antibiotics as noted above. Her tachycardia resolved after fluid administration and antipyretics. She was continued on her usual medications for hypertension. Donepezil was continued for her dementia. Warfarin was initially held because of the elevated INR. By the following day, her blood cultures had turned positive for Staph hominis. She was switched from the initial antibiotics to vancomycin. Echo was ordered (see above). It was noted that she had thrombocytopenia. This was followed and resolved. She improved clinically with vancomycin. She had an infectious disease consult with Dr. Rees. It was his feeling that the patient had fever with positive blood cultures, was not sure whether she had infection of cardiac device. He thought it was unlikely given that only 1 set of cultures was positive. He felt that we should recheck blood cultures. This was done. He did not recommend a transesophageal echocardiogram. He recommended treating for 1 week and then stopping antibiotics and repeating her blood cultures in another week. She did improve clinically over the course of a week. She did become somewhat confused. Initially, her CRP went up then came down. She had CHF. She was given additional Bumex. This seemed to resolve. It seemed to have been triggered by her infection. She was then continued on her usual dose of Bumex. She initially was on oxygen. She was able to wean off, just wearing it during the day. By the time of discharge, she was feeling better. She felt up to going back to [facility]. She had no complaints. Chest was clear. Heart was regular. Abdomen was nontender. Her extremities showed no edema or calf tenderness. She is going back to [facility] in improved condition. Her INR today is 2.05. DIET AND ACTIVITIES: At the time of discharge, her diet as usual. Her activities as tolerated with walker. She is to get PT and OT. DISCHARGE MEDICATIONS: She is to be on the following medications: 1. Acetaminophen 1000 mg 3 times a day. 2. Amlodipine 5 mg daily. 3. Aspirin 81 mg daily. 4. Bumetanide 2 mg daily. 5. Vitamin D 1400 units daily. 6. Digoxin 0.125 mg daily. 7. Donepezil 10 mg daily. 8. Lidocaine patches daily. 9. Metoprolol 50 mg twice a day. 10. Nystatin powder as needed. 11. Alendronate 70 mg weekly. 12. Docusate 100 mg daily. 13. Ondansetron ODT 4 mg q.6 hours p.r.n. nausea. 14. Potassium chloride 20 mEq daily. 15. Warfarin 3 mg daily or as directed. FOLLOWUP LABS: She is to have labs done on 09/07/19. These are to be a CBC, an INR, 2 blood cultures, a C-reactive protein. DIAGNOSIS: Staphylococcus hominis infection. She received 7 days of vancomycin in the hospital. [id number]/[facility] #: [id number] DEBRA
[2019-09-01 17:35] VITALS: BP 118/51
== END 2019-09-01 17:00 | DRG 871 ==
LOC: ED 03:04 → MED 09:50 → OBSVTOIN 08-26 14:19 → MED 08-26 22:16
PROVIDERS: ADMIT Internal Medicine; ATTEND Internal Medicine Geriatric Medicine
DX: A41.1 Sepsis due to other specified staphylococcus (principal); J96.01 Acute respiratory failure with hypoxia; J18.9 Pneumonia, unspecified organism; D69.6 Thrombocytopenia, unspecified; F03.90 Unspecified dementia, unspecified severity, without behavioral disturbance, psychotic disturbance, mood disturbance, and anxiety; I11.0 Hypertensive heart disease with heart failure; I50.9 Heart failure, unspecified; I48.0 Paroxysmal atrial fibrillation; J44.9 Chronic obstructive pulmonary disease, unspecified; R79.1 Abnormal coagulation profile; E87.6 Hypokalemia; Z66 Do not resuscitate; D72.810 Lymphocytopenia; M81.0 Age-related osteoporosis without current pathological fracture; I07.1 Rheumatic tricuspid insufficiency; Z86.73 Personal history of transient ischemic attack (TIA), and cerebral infarction without residual deficits; Z95.3 Presence of xenogenic heart valve; Z79.01 Long term (current) use of anticoagulants; Z95.0 Presence of cardiac pacemaker; Z87.311 Personal history of (healed) other pathological fracture; Z79.82 Long term (current) use of aspirin; Z79.899 Other long term (current) drug therapy; Z88.1 Allergy status to other antibiotic agents; Z88.5 Allergy status to narcotic agent; Z82.5 Family history of asthma and other chronic lower respiratory diseases
CPT/HCPCS: 36415; 71045; 71046; 80048; 80053; 80162; 80202; 81003; 81015; 83605; 83735; 83880; 84100; 84484; 85025; 85060; 85610; 85730; 86140; 87040; 87077; 87086; 87150; 87186; 87205; 87641; 87899; 93005; 93306; 96360; 99285; A9270-GY; G0378; J0696; J3370

== ENCOUNTER 2020-09-04 02:33 | Inpatient (IN) ==
[2020-09-04 05:27] LABS: Sodium 142 mmol/L (135-145)
[2020-09-04 05:28] LABS: Anion Gap 10 mmol/L (2-11); BUN/Creatinine Ratio 21.7 (8-20); Blood Urea Nitrogen 20 mg/dL (6-24); CO2 Carbon Dioxide 26 mmol/L (22-32); Chloride 106 mmol/L (101-111); EGFR Non-African American 57.9 (>60); Glucose 116 mg/dL (70-100); Potassium 3.3 mmol/L (3.5-5.0)
[2020-09-04 05:29] LABS: ALT 24 U/L (7-52); AST 33 U/L (13-39); Albumin 3.4 g/dL (3.2-5.2); Albumin/Globulin Ratio 0.9 (1-3); Alkaline Phosphatase 83 U/L (34-104); Calcium 9.2 mg/dL (8.6-10.3); Globulin 3.8 g/dL (2-4); Total Protein 7.2 g/dL (6.4-8.9); Troponin I 0.28 ng/mL (<0.03)
[2020-09-04 05:30] LABS: Activated Partial Thrombo Time 31.5 seconds (26.0-38.0); INR 2.82 (0.82-1.09)
[2020-09-04 05:31] LABS: Red Blood Count 3.26 10^6 /uL (3.70-4.87); White Blood Count 16.6 10^3/uL (3.5-10.8)
[2020-09-04 05:32] LABS: ABS Lymphocytes 0.3 10^3/ul (1.0-4.8); ABS Monocytes 0.8 10^3/ul (0-0.8); ABS Neutrophils 14.8 10^3/ul (1.5-7.7); Hematocrit 29 % (35-47); Hemoglobin 8.9 g/dL (12.0-16.0); Mean Corpuscular HGB Conc 31 g/dL (31-36); Mean Corpuscular Hemoglobin 27 pg (27-31); Mean Corpuscular Volume 88 fL (80-97); Mean Platelet Volume 8.3 fL (7.4-10.4); Platelet Count 224 10^3/uL (150-450); Red Cell Distribution Width 17 % (10-15)
[2020-09-04 05:33] LABS: ABS Basophils 0.7 10^3/ul (0-0.2); Lymphocyte % 1.9 %
[2020-09-04] MEDS ORDERED: cefTRIAXone 1 gm/50 mL NS BAG 1 GM/50 ML BAG IV ONE (07:12)
[2020-09-04] MEDS ORDERED: DOXYcycline 100 MG in NS 0.9% 250 ml 250 ML IVPB ONE (07:13)
[2020-09-04] MEDS ORDERED: NS 0.9% 1000 ml BAG 1,000 ML IV SCH (07:30)
[2020-09-04] MEDS ORDERED: Potassium Chloride LIQUID 20 MEQ/15 ML LIQUID PO ONE (08:06)
[2020-09-04 08:32] LABS: % Iron Saturation 6 % (15-55); Iron < 20 ug/dL (50-212); Total Iron Binding Capacity 333 mcg/dL (250-450); Transferrin 238 mg/dL (203-362); Unsaturated Iron Binding < 318 ug/dL
[2020-09-04] MEDS ORDERED: NS 0.9% 250 ml 250 ML ONE (08:42)
[2020-09-04 08:53] LABS: Ferritin 48.8 ng/mL (11-307)
[2020-09-04 08:57] LABS: Vitamin B12 530 pg/mL (180-914)
[2020-09-04 09:37] LABS: Troponin I 0.54 ng/mL (<0.03)
[2020-09-04 23:42] LABS: Urine Appearance Cloudy; Urine Bilirubin Negative (Negative); Urine Blood Negative (Negative); Urine Color Yellow; Urine Glucose Negative (Negative); Urine Ketones Negative (Negative); Urine Nitrite Negative (Negative); Urine Protein 1+(30 mg/dL) (Negative); Urine Specific Gravity 1.018 (1.010-1.030); Urine Urobilinogen Negative (Negative)
[2020-09-04 23:50] LABS: Urine Bacteria Absent (Absent); Urine Red Blood Cell Trace(0-2/hpf) (Absent); Urine Squamous Epithelial Cell Present (Absent); Urine White Blood Cell Trace(0-5/hpf) (Absent)
[2020-09-05] MEDS: DOXYcycline 100 MG in NS 0.9% 250 ml 250 ML IVPB SCH ×3 (00:42→23:56)
[2020-09-05] MEDS ORDERED: Albuterol 0.5% CONC CONTINUOUS NEB.SOL 5 mg/ml 20 ml BOT INH SCH (01:00)
[2020-09-05] MEDS: Furosemide 40 mg/4 ml IV VIAL IV SCH (01:25)
[2020-09-05] MEDS ORDERED: Albuterol 2.5mg/3 ml (0.083%) NEB.SOLN INH PRN (02:53)
[2020-09-05] MEDS: cefTRIAXone 1 gm/50 mL NS BAG 1 GM/50 ML BAG IVPB SCH (06:20)
[2020-09-05 11:18] LABS: ABS Basophils 0.1 10^3/ul (0-0.2); ABS Eosinophils 0.1 10^3/ul (0-0.6); ABS Lymphocytes 0.8 10^3/ul (1.0-4.8); ABS Monocytes 0.9 10^3/ul (0-0.8); ABS Neutrophils 10.3 10^3/ul (1.5-7.7); Eosinophil % 0.5 %; Hematocrit 28 % (35-47); Hemoglobin 8.8 g/dL (12.0-16.0); Lymphocyte % 6.7 %; Mean Corpuscular HGB Conc 31 g/dL (31-36); Mean Corpuscular Hemoglobin 27 pg (27-31); Mean Corpuscular Volume 87 fL (80-97); Mean Platelet Volume 8.3 fL (7.4-10.4); Platelet Count 225 10^3/uL (150-450); Red Blood Count 3.23 10^6 /uL (3.70-4.87); Red Cell Distribution Width 17 % (10-15); White Blood Count 12.2 10^3/uL (3.5-10.8)
[2020-09-05 11:29] LABS: INR 2.67 (0.82-1.09)
[2020-09-05 11:55] LABS: BUN/Creatinine Ratio 27.9 (8-20); Calcium 8.6 mg/dL (8.6-10.3); EGFR African American 112.5 (>60); Potassium 3.7 mmol/L (3.5-5.0)
[2020-09-05] MEDS ORDERED: Warfarin per PHARMACY **NOTE FOLLOW UP SCH (21:00)
[2020-09-06] MEDS: cefTRIAXone 1 gm/50 mL NS BAG 1 GM/50 ML BAG IVPB SCH (05:38)
[2020-09-06 07:17] LABS: INR 2.61 (0.82-1.09)
[2020-09-06 07:25] LABS: ABS Basophils 0.1 10^3/ul (0-0.2); ABS Eosinophils 0.2 10^3/ul (0-0.6); ABS Lymphocytes 0.7 10^3/ul (1.0-4.8); ABS Monocytes 0.6 10^3/ul (0-0.8); ABS Neutrophils 6.5 10^3/ul (1.5-7.7); Eosinophil % 2.2 %; Hematocrit 30 % (35-47); Hemoglobin 9.2 g/dL (12.0-16.0); Lymphocyte % 8.5 %; Mean Corpuscular HGB Conc 31 g/dL (31-36); Mean Corpuscular Hemoglobin 28 pg (27-31); Mean Corpuscular Volume 89 fL (80-97); Mean Platelet Volume 9.1 fL (7.4-10.4); Platelet Count 246 10^3/uL (150-450); Red Blood Count 3.36 10^6 /uL (3.70-4.87); Red Cell Distribution Width 17 % (10-15)
[2020-09-06 07:28] LABS: Albumin 3.3 g/dL (3.2-5.2); Albumin/Globulin Ratio 0.9 (1-3); BUN/Creatinine Ratio 23.9 (8-20); C Reactive Protein 134.31 mg/L (<8.01); Calcium 8.8 mg/dL (8.6-10.3); EGFR African American 155.8 (>60); EGFR Non-African American 128.8 (>60); Globulin 3.8 g/dL (2-4); Potassium 3.6 mmol/L (3.5-5.0); Total Bilirubin 0.7 mg/dL (0.2-1.0); Total Protein 7.1 g/dL (6.4-8.9)
[2020-09-06] MEDS: Furosemide 40 mg/4 ml IV VIAL IV SCH (08:46)
[2020-09-06] MEDS: DOXYcycline 100 MG in NS 0.9% 250 ml 250 ML IVPB SCH (13:12)
[2020-09-06] MEDS ORDERED: Ondansetron ODT 4 mg TAB 4 MG TAB PO PRN (14:48)
[2020-09-06] MEDS ORDERED: Nystatin TOP POWDER 15 GM BTL TOPICAL PRN (14:48)
[2020-09-06] MEDS: Lidocaine PATCH 5% PATCH TRANSDERM SCH (16:25)
[2020-09-06] MEDS ORDERED: Warfarin DAILY REMINDER **NOTE FOLLOW UP SCH (17:00)
[2020-09-06] MEDS: Lidocaine Patch REMOVE PATCH PATCH OFF SCH (21:07)
[2020-09-07] MEDS: DOXYcycline 100 MG in NS 0.9% 250 ml 250 ML IVPB SCH ×2 (00:23→13:12)
[2020-09-07] MEDS: cefTRIAXone 1 gm/50 mL NS BAG 1 GM/50 ML BAG IVPB SCH (05:51)
[2020-09-07 06:32] LABS: ABS Basophils 0.1 10^3/ul (0-0.2); ABS Eosinophils 0.2 10^3/ul (0-0.6); ABS Lymphocytes 0.6 10^3/ul (1.0-4.8); ABS Monocytes 0.4 10^3/ul (0-0.8); ABS Neutrophils 3.4 10^3/ul (1.5-7.7); Eosinophil % 4.4 %; Hematocrit 28 % (35-47); Hemoglobin 8.7 g/dL (12.0-16.0); Lymphocyte % 12.9 %; Mean Corpuscular HGB Conc 31 g/dL (31-36); Mean Corpuscular Hemoglobin 28 pg (27-31); Mean Corpuscular Volume 88 fL (80-97); Mean Platelet Volume 8.3 fL (7.4-10.4); Nucleated Red Blood Cells % 0.1; Platelet Count 194 10^3/uL (150-450); Red Blood Count 3.17 10^6 /uL (3.70-4.87); Red Cell Distribution Width 17 % (10-15); White Blood Count 4.7 10^3/uL (3.5-10.8)
[2020-09-07 06:37] LABS: INR 3.65 (0.82-1.09)
[2020-09-07 06:52] LABS: Potassium 3.7 mmol/L (3.5-5.0)
[2020-09-07] MEDS ORDERED: Buffered Lidocaine 1% SYRIN 1 ml INTRADERM ONE (07:03)
[2020-09-07 07:29] LABS: Albumin 2.9 g/dL (3.2-5.2); Albumin/Globulin Ratio 0.9 (1-3); BUN/Creatinine Ratio 16.7 (8-20); Calcium 8.3 mg/dL (8.6-10.3); EGFR African American 148.4 (>60); EGFR Non-African American 122.6 (>60); Globulin 3.4 g/dL (2-4); Total Bilirubin 0.6 mg/dL (0.2-1.0); Total Protein 6.3 g/dL (6.4-8.9)
[2020-09-07] MEDS: Aspirin EC 81 mg TAB.EC (enteric coated) PO SCH (09:39)
[2020-09-07] MEDS: Cholecalciferol (VIT D3) 1,000 unit TAB PO SCH (09:40)
[2020-09-07] MEDS: Potassium Chlor 10 meq TAB PO SCH (09:42)
[2020-09-07] MEDS: Cholecalciferol (VIT D3) 400 units TAB PO SCH (09:43)
[2020-09-07] MEDS: Furosemide 40 mg/4 ml IV VIAL IV SCH (09:43)
[2020-09-07] MEDS: Lidocaine PATCH 5% PATCH TRANSDERM SCH (09:43)
[2020-09-07 11:53] LABS: Digoxin 0.8 ng/ml (0.8-2.0)
[2020-09-07] MEDS ORDERED: Warfarin - No Order Today **NOTE FOLLOW UP ONE (17:00)
[2020-09-07] MEDS: Warfarin per PHARMACY **NOTE FOLLOW UP SCH (19:07)
[2020-09-07] MEDS: Lidocaine Patch REMOVE PATCH PATCH OFF SCH (22:25)
[2020-09-07] MEDS: Erythromycin OPTH OINT APPLIC OINT RIGHT EYE SCH (22:25)
[2020-09-08] MEDS: DOXYcycline 100 MG in NS 0.9% 250 ml 250 ML IVPB SCH ×3 (01:30→23:41)
[2020-09-08] MEDS: cefTRIAXone 1 gm/50 mL NS BAG 1 GM/50 ML BAG IVPB SCH (05:50)
[2020-09-08 07:37] LABS: INR 3.94 (0.82-1.09)
[2020-09-08 07:40] LABS: ABS Basophils 0.1 10^3/ul (0-0.2); ABS Eosinophils 0.2 10^3/ul (0-0.6); ABS Lymphocytes 0.7 10^3/ul (1.0-4.8); ABS Monocytes 0.4 10^3/ul (0-0.8); ABS Neutrophils 4.9 10^3/ul (1.5-7.7); Eosinophil % 3.5 %; Hematocrit 30 % (35-47); Hemoglobin 9.2 g/dL (12.0-16.0); Lymphocyte % 10.5 %; Mean Corpuscular HGB Conc 31 g/dL (31-36); Mean Corpuscular Hemoglobin 27 pg (27-31); Mean Corpuscular Volume 89 fL (80-97); Mean Platelet Volume 8.8 fL (7.4-10.4); Platelet Count 218 10^3/uL (150-450); Red Blood Count 3.34 10^6 /uL (3.70-4.87); Red Cell Distribution Width 17 % (10-15); White Blood Count 6.3 10^3/uL (3.5-10.8)
[2020-09-08 07:56] LABS: BUN/Creatinine Ratio 27.7 (8-20); Calcium 8.5 mg/dL (8.6-10.3); EGFR Non-African American 125.6 (>60); Magnesium 1.9 mg/dL (1.9-2.7); Potassium 3.7 mmol/L (3.5-5.0)
[2020-09-08] MEDS: Cholecalciferol (VIT D3) 1,000 unit TAB PO SCH (10:05)
[2020-09-08] MEDS: Potassium Chlor 10 meq TAB PO SCH (10:05)
[2020-09-08] MEDS: Aspirin EC 81 mg TAB.EC (enteric coated) PO SCH (10:05)
[2020-09-08] MEDS: Cholecalciferol (VIT D3) 400 units TAB PO SCH (10:05)
[2020-09-08] MEDS: Furosemide 40 mg/4 ml IV VIAL IV SCH (10:06)
[2020-09-08] MEDS: Lidocaine PATCH 5% PATCH TRANSDERM SCH (10:07)
[2020-09-08] MEDS: Erythromycin OPTH OINT APPLIC OINT RIGHT EYE SCH ×3 (10:07→20:46)
[2020-09-08] MEDS: Iron Sucrose 200 MG in NS 0.9% 100 ml BAG 100 ML IVPB SCH (14:09)
[2020-09-08] MEDS ORDERED: Warfarin - No Order Today **NOTE FOLLOW UP ONE (17:00)
[2020-09-08] MEDS: Warfarin per PHARMACY **NOTE FOLLOW UP SCH (17:05)
[2020-09-08] MEDS: Lidocaine Patch REMOVE PATCH PATCH OFF SCH (20:47)
[2020-09-09] MEDS: cefTRIAXone 1 gm/50 mL NS BAG 1 GM/50 ML BAG IVPB SCH (06:42)
[2020-09-09] MEDS: Aspirin EC 81 mg TAB.EC (enteric coated) PO SCH (09:04)
[2020-09-09] MEDS: Cholecalciferol (VIT D3) 1,000 unit TAB PO SCH (09:10)
[2020-09-09] MEDS: Cholecalciferol (VIT D3) 400 units TAB PO SCH (09:10)
[2020-09-09] MEDS: Potassium Chlor 10 meq TAB PO SCH (09:12)
[2020-09-09] MEDS: Furosemide 40 mg/4 ml IV VIAL IV SCH (09:15)
[2020-09-09] MEDS: Erythromycin OPTH OINT APPLIC OINT RIGHT EYE SCH ×3 (09:23→21:19)
[2020-09-09] MEDS: Lidocaine PATCH 5% PATCH TRANSDERM SCH (09:56)
[2020-09-09] MEDS: DOXYcycline 100 MG in NS 0.9% 250 ml 250 ML IVPB SCH (11:52)
[2020-09-09] MEDS: Iron Sucrose 200 MG in NS 0.9% 100 ml BAG 100 ML IVPB SCH (13:20)
[2020-09-09 15:54] LABS: INR 3.94 (0.82-1.09)
[2020-09-09] MEDS ORDERED: Warfarin - No Order Today **NOTE FOLLOW UP ONE (17:00)
[2020-09-09] MEDS: Warfarin per PHARMACY **NOTE FOLLOW UP SCH (17:24)
[2020-09-09] MEDS: Lidocaine Patch REMOVE PATCH PATCH OFF SCH (23:31)
[2020-09-10] MEDS: DOXYcycline 100 MG in NS 0.9% 250 ml 250 ML IVPB SCH ×2 (00:30→13:03)
[2020-09-10] MEDS: cefTRIAXone 1 gm/50 mL NS BAG 1 GM/50 ML BAG IVPB SCH (06:33)
[2020-09-10 08:00] LABS: INR 2.93 (0.82-1.09)
[2020-09-10] MEDS: Potassium Chlor 10 meq TAB PO SCH (10:15)
[2020-09-10] MEDS: Cholecalciferol (VIT D3) 1,000 unit TAB PO SCH (10:20)
[2020-09-10] MEDS: Cholecalciferol (VIT D3) 400 units TAB PO SCH (10:21)
[2020-09-10] MEDS: Aspirin EC 81 mg TAB.EC (enteric coated) PO SCH (10:22)
[2020-09-10] MEDS: Erythromycin OPTH OINT APPLIC OINT RIGHT EYE SCH ×2 (10:24→12:31)
[2020-09-10] MEDS: Furosemide 40 mg/4 ml IV VIAL IV SCH (10:24)
[2020-09-10] MEDS: Lidocaine PATCH 5% PATCH TRANSDERM SCH (10:35)
[2020-09-10] MEDS: Iron Sucrose 200 MG in NS 0.9% 100 ml BAG 100 ML IVPB SCH (12:32)
[2020-09-10 12:52] VITALS: BP 139/69
[2020-09-12] MEDS ORDERED: CMC:Alendronate 70 mg TAB (NF) PO SCH (14:48)
== END 2020-09-10 15:45 | DRG 871 ==
LOC: ED 04:47 → MED 07:28
PROVIDERS: ADMIT Hospitalist; ATTEND Student in an Organized Health Care Education/Training Program

== ENCOUNTER 2020-10-05 10:59 | Inpatient (IN) ==
[2020-10-05 11:57] LABS: ABS Basophils 0.1 10^3/ul (0-0.2); ABS Lymphocytes 0.3 10^3/ul (1.0-4.8); ABS Monocytes 0.6 10^3/ul (0-0.8); ABS Neutrophils 14.1 10^3/ul (1.5-7.7); Eosinophil % 0.1 %; Hematocrit 37 % (35-47); Hemoglobin 11.8 g/dL (12.0-16.0); Mean Corpuscular HGB Conc 32 g/dL (31-36); Mean Corpuscular Hemoglobin 29 pg (27-31); Mean Corpuscular Volume 90 fL (80-97); Mean Platelet Volume 8.2 fL (7.4-10.4); Platelet Count 155 10^3/uL (150-450); Red Blood Count 4.16 10^6 /uL (3.70-4.87); Red Cell Distribution Width 21 % (10-15); White Blood Count 15.1 10^3/uL (3.5-10.8)
[2020-10-05 12:17] LABS: ALT 20 U/L (7-52); AST 26 U/L (13-39); Albumin 3.6 g/dL (3.2-5.2); Albumin/Globulin Ratio 1.1 (1-3); Alkaline Phosphatase 100 U/L (34-104); Anion Gap 7 mmol/L (2-11); Blood Urea Nitrogen 16 mg/dL (6-24); CO2 Carbon Dioxide 28 mmol/L (22-32); Calcium 9.4 mg/dL (8.6-10.3); Chloride 102 mmol/L (101-111); EGFR African American 82.3 (>60); Globulin 3.4 g/dL (2-4); Glucose 122 mg/dL (70-100); INR 3.04 (0.82-1.09); Magnesium 1.7 mg/dL (1.9-2.7); Sodium 137 mmol/L (135-145)
[2020-10-05] MEDS ORDERED: NS 0.9% 1000 ml BAG 1,000 ML IV ONE ×2 (12:19→14:16)
[2020-10-05] MEDS ORDERED: Iohexol 300 (CONTRAST) 10 ML SDV IV ONE (12:27)
[2020-10-05 12:41] LABS: Troponin I 0.04 ng/mL (<0.03)
[2020-10-05 12:59] LABS: Urine Appearance Clear; Urine Bilirubin Negative (Negative); Urine Blood Negative (Negative); Urine Color Yellow; Urine Glucose Negative (Negative); Urine Ketones Negative (Negative); Urine Nitrite Negative (Negative); Urine Protein Negative (Negative); Urine Specific Gravity 1.009 (1.002-1.030); Urine Urobilinogen Negative (Negative)
[2020-10-05] MEDS ORDERED: DOXYcycline 100 MG in NS 0.9% 250 ml 250 ML IVPB ONE (14:15)
[2020-10-05] MEDS ORDERED: cefTRIAXone 1 gm/50 mL NS BAG 1 GM/50 ML BAG IV ONE (14:15)
[2020-10-05] MEDS ORDERED: Warfarin per PHARMACY **NOTE FOLLOW UP SCH (16:00)
[2020-10-05] MEDS: Warfarin DAILY REMINDER **NOTE FOLLOW UP SCH (17:36)
[2020-10-05 18:14] LABS: Troponin I 0.04 ng/mL (<0.03)
[2020-10-06] MEDS ORDERED: DOXYcycline 100 MG in NS 0.9% 250 ml 250 ML IVPB SCH (06:00)
[2020-10-06 06:33] LABS: ABS Basophils 0.1 10^3/ul (0-0.2); ABS Eosinophils 0.1 10^3/ul (0-0.6); ABS Lymphocytes 0.7 10^3/ul (1.0-4.8); ABS Monocytes 0.6 10^3/ul (0-0.8); ABS Neutrophils 9.5 10^3/ul (1.5-7.7); Eosinophil % 0.7 %; Hematocrit 30 % (35-47); Hemoglobin 9.7 g/dL (12.0-16.0); Lymphocyte % 6.7 %; Mean Corpuscular HGB Conc 32 g/dL (31-36); Mean Corpuscular Hemoglobin 29 pg (27-31); Mean Corpuscular Volume 91 fL (80-97); Mean Platelet Volume 8.6 fL (7.4-10.4); Platelet Count 118 10^3/uL (150-450); Red Blood Count 3.35 10^6 /uL (3.70-4.87); Red Cell Distribution Width 21 % (10-15); White Blood Count 10.9 10^3/uL (3.5-10.8)
[2020-10-06 06:47] LABS: INR 4.08 (0.82-1.09)
[2020-10-06 06:58] LABS: BUN/Creatinine Ratio 23.1 (8-20); Calcium 8.6 mg/dL (8.6-10.3); EGFR African American 104.6 (>60); EGFR Non-African American 86.4 (>60); Potassium 3.8 mmol/L (3.5-5.0)
[2020-10-06] MEDS: Aspirin EC 81 mg TAB.EC (enteric coated) PO SCH (08:59)
[2020-10-06] MEDS ORDERED: cefTRIAXone 1 gm/50 mL NS BAG 1 GM/50 ML BAG IVPB SCH (15:00)
[2020-10-06] MEDS: Warfarin DAILY REMINDER **NOTE FOLLOW UP SCH (16:56)
[2020-10-06] MEDS ORDERED: Warfarin - No Order Today **NOTE FOLLOW UP ONE (17:00)
[2020-10-07 06:26] LABS: INR 2.8 (0.82-1.09)
[2020-10-07 10:34] LABS: ABS Basophils 0.1 10^3/ul (0-0.2); ABS Lymphocytes 0.6 10^3/ul (1.0-4.8); ABS Monocytes 0.6 10^3/ul (0-0.8); ABS Neutrophils 9.2 10^3/ul (1.5-7.7); Eosinophil % 0.5 %; Hematocrit 32 % (35-47); Hemoglobin 10.6 g/dL (12.0-16.0); Lymphocyte % 5.7 %; Mean Corpuscular HGB Conc 33 g/dL (31-36); Mean Corpuscular Hemoglobin 30 pg (27-31); Mean Corpuscular Volume 90 fL (80-97); Mean Platelet Volume 7.9 fL (7.4-10.4); Platelet Count 108 10^3/uL (150-450); Red Blood Count 3.54 10^6 /uL (3.70-4.87); Red Cell Distribution Width 21 % (10-15); White Blood Count 10.5 10^3/uL (3.5-10.8)
[2020-10-07 10:57] LABS: BUN/Creatinine Ratio 19.4 (8-20); C Reactive Protein 130.31 mg/L (<8.01); EGFR African American 110.4 (>60); EGFR Non-African American 91.3 (>60); Potassium 3.9 mmol/L (3.5-5.0)
[2020-10-07] MEDS: Aspirin EC 81 mg TAB.EC (enteric coated) PO SCH (11:10)
[2020-10-07] MEDS: cefTAZidime (*) 1 GM in NS 0.9% 50 ML 50 ML IVPB SCH ×3 (11:12→15:26)
[2020-10-07] MEDS: Warfarin DAILY REMINDER **NOTE FOLLOW UP SCH (17:09)
[2020-10-07] MEDS: Polyethylene Glycol 3350 17 GM PACKET PO PRN (17:31)
[2020-10-07] MEDS: Senna TAB 8.6 mg TAB PO PRN (17:31)
[2020-10-08 05:36] LABS: Hematocrit 29 % (35-47); Hemoglobin 9.5 g/dL (12.0-16.0); Mean Platelet Volume 8.6 fL (7.4-10.4); Platelet Count 117 10^3/uL (150-450)
[2020-10-08 05:38] LABS: INR 2.01 (0.82-1.09)
[2020-10-08] MEDS: cefTAZidime (*) 1 GM in NS 0.9% 50 ML 50 ML IVPB SCH (11:04)
[2020-10-08 11:11] LABS: C Reactive Protein 87.17 mg/L (<8.01)
[2020-10-08] MEDS: Aspirin EC 81 mg TAB.EC (enteric coated) PO SCH (11:12)
[2020-10-08] MEDS: Polyethylene Glycol 3350 17 GM PACKET PO PRN (11:32)
[2020-10-08 13:25] LABS: Influenza A Molecular Negative (Negative); Influenza B Molecular Negative (Negative)
[2020-10-08] MEDS: Warfarin DAILY REMINDER **NOTE FOLLOW UP SCH (19:30)
[2020-10-08] MEDS: Senna TAB 8.6 mg TAB PO PRN (20:45)
[2020-10-09 07:54] LABS: ABS Basophils 0.1 10^3/ul (0-0.2); ABS Eosinophils 0.3 10^3/ul (0-0.6); ABS Lymphocytes 0.6 10^3/ul (1.0-4.8); ABS Monocytes 0.5 10^3/ul (0-0.8); ABS Neutrophils 4.3 10^3/ul (1.5-7.7); Eosinophil % 5.8 %; Hematocrit 31 % (35-47); Hemoglobin 10.3 g/dL (12.0-16.0); Lymphocyte % 10.6 %; Mean Corpuscular HGB Conc 33 g/dL (31-36); Mean Corpuscular Hemoglobin 30 pg (27-31); Mean Corpuscular Volume 89 fL (80-97); Mean Platelet Volume 8.8 fL (7.4-10.4); Platelet Count 133 10^3/uL (150-450); Red Blood Count 3.47 10^6 /uL (3.70-4.87); Red Cell Distribution Width 20 % (10-15); White Blood Count 5.8 10^3/uL (3.5-10.8)
[2020-10-09 07:57] LABS: INR 2.31 (0.82-1.09)
[2020-10-09 08:21] LABS: Calcium 8.3 mg/dL (8.6-10.3); EGFR African American 126.8 (>60); EGFR Non-African American 104.8 (>60); Potassium 3.2 mmol/L (3.5-5.0)
[2020-10-09] MEDS: Aspirin EC 81 mg TAB.EC (enteric coated) PO SCH (08:42)
[2020-10-09] MEDS: Polyethylene Glycol 3350 17 GM PACKET PO PRN (08:52)
[2020-10-09] MEDS ORDERED: Potassium Chlor 20 meq TAB.ER PO ONE (09:13)
[2020-10-09] MEDS ORDERED: Magnesium Hydroxide LIQ 30 ML UDC PO PRN (09:15)
[2020-10-09 11:16] LABS: Folate 10.13 ng/mL (5.90-24.80)
[2020-10-09] MEDS: cefTRIAXone 1 gm/50 mL NS BAG 1 GM/50 ML BAG IVPB SCH (12:02)
[2020-10-09] MEDS: Warfarin DAILY REMINDER **NOTE FOLLOW UP SCH (17:40)
[2020-10-09] MEDS: Albuterol/Ipratropium NEB.SOL (2.5/0.5 MG) 3 ML NEB.SOLN INH SCH (19:03)
[2020-10-10] MEDS: Albuterol/Ipratropium NEB.SOL (2.5/0.5 MG) 3 ML NEB.SOLN INH SCH ×3 (01:18→13:13)
[2020-10-10 07:02] LABS: INR 2.83 (0.82-1.09)
[2020-10-10 07:07] LABS: C Reactive Protein 93.04 mg/L (<8.01); Calcium 8.6 mg/dL (8.6-10.3); EGFR African American 121.7 (>60); EGFR Non-African American 100.6 (>60); Potassium 3.6 mmol/L (3.5-5.0)
[2020-10-10] MEDS: Aspirin EC 81 mg TAB.EC (enteric coated) PO SCH (08:14)
[2020-10-10] MEDS: cefTRIAXone 1 gm/50 mL NS BAG 1 GM/50 ML BAG IVPB SCH (11:16)
[2020-10-10] MEDS: Warfarin DAILY REMINDER **NOTE FOLLOW UP SCH (17:34)
[2020-10-10] MEDS ORDERED: Albuterol/Ipratropium NEB.SOL (2.5/0.5 MG) 3 ML NEB.SOLN INH PRN (18:51)
[2020-10-11] MEDS: Aspirin EC 81 mg TAB.EC (enteric coated) PO SCH (08:19)
[2020-10-11 08:36] LABS: INR 2.55 (0.82-1.09)
[2020-10-11] MEDS ORDERED: Lidocaine PATCH 5% PATCH TRANSDERM PRN (15:05)
[2020-10-11] MEDS: Warfarin DAILY REMINDER **NOTE FOLLOW UP SCH (17:17)
[2020-10-11] MEDS: Lidocaine Patch REMOVE PATCH PATCH OFF SCH (20:18)
[2020-10-12 06:56] LABS: INR 1.97 (0.82-1.09)
[2020-10-12] MEDS ORDERED: Enoxaparin 40 MG/0.4 ML SYR SUBCUT ONE (09:00)
[2020-10-12] MEDS: Aspirin EC 81 mg TAB.EC (enteric coated) PO SCH (09:06)
[2020-10-12] MEDS: Warfarin DAILY REMINDER **NOTE FOLLOW UP SCH (16:14)
[2020-10-13] MEDS: Lidocaine Patch REMOVE PATCH PATCH OFF SCH (01:24)
[2020-10-13 07:01] LABS: INR 1.98 (0.82-1.09)
[2020-10-13] MEDS: Aspirin EC 81 mg TAB.EC (enteric coated) PO SCH (09:40)
[2020-10-13 11:24] VITALS: BP 143/67
== END 2020-10-13 15:30 | DRG 871 ==
LOC: MED 10:59 → ED 10:59 → MED 16:56 → UNDODISOB 10-07 08:38 → MED 10-07 17:50
PROVIDERS: ADMIT Hospitalist; ATTEND Internal Medicine

== ENCOUNTER 2020-10-24 08:28 | Inpatient (IN) ==
[2020-10-24] MEDS ORDERED: Cefepime 2 GM in NS 0.9% 50 ML 50 ML IVPB ONE (08:52)
[2020-10-24] MEDS ORDERED: Levofloxacin 750 MG IVPREMIX 750 MG/150 ML BAG IVPB ONE (08:52)
[2020-10-24] MEDS ORDERED: NS 0.9% 1000 ml BAG 1,000 ML IV.FLUID IV ONE (08:52)
[2020-10-24] MEDS ORDERED: Cefepime 2 GM in Dextrose 2 GM/50 ML BAG IV ONE (09:20)
[2020-10-24] MEDS ORDERED: NS 0.9% 50 ML 50 ML ONE (09:31)
[2020-10-24] MEDS ORDERED: Famotidine IV 10 MG/ML 2 ml VIAL (20 mg) ONE (09:33)
[2020-10-24 10:53] LABS: ABS Basophils 0.1 10^3/ul (0-0.2); ABS Eosinophils 0.1 10^3/ul (0-0.6); ABS Lymphocytes 0.5 10^3/ul (1.0-4.8); ABS Monocytes 0.5 10^3/ul (0-0.8); ABS Neutrophils 13.2 10^3/ul (1.5-7.7); Eosinophil % 0.4 %; Hematocrit 32 % (35-47); Hemoglobin 10.2 g/dL (12.0-16.0); Lymphocyte % 3.7 %; Mean Corpuscular HGB Conc 32 g/dL (31-36); Mean Corpuscular Hemoglobin 29 pg (27-31); Mean Corpuscular Volume 91 fL (80-97); Mean Platelet Volume 8.1 fL (7.4-10.4); Platelet Count 168 10^3/uL (150-450); Red Cell Distribution Width 20 % (10-15); White Blood Count 14.3 10^3/uL (3.5-10.8)
[2020-10-24 11:10] LABS: Troponin I 0.09 ng/mL (<0.03)
[2020-10-24 11:19] LABS: ALT 17 U/L (7-52); AST 22 U/L (13-39); Albumin 3.2 g/dL (3.2-5.2); Alkaline Phosphatase 69 U/L (34-104); Anion Gap 7 mmol/L (2-11); Blood Urea Nitrogen 12 mg/dL (6-24); C Reactive Protein 25.28 mg/L (<8.01); CO2 Carbon Dioxide 28 mmol/L (22-32); Calcium 9.1 mg/dL (8.6-10.3); Chloride 105 mmol/L (101-111); EGFR African American 132.3 (>60); EGFR Non-African American 109.4 (>60); Globulin 3.1 g/dL (2-4); Glucose 101 mg/dL (70-100); Potassium 4.3 mmol/L (3.5-5.0); Sodium 140 mmol/L (135-145); Total Protein 6.3 g/dL (6.4-8.9)
[2020-10-24 11:25] LABS: Activated Partial Thrombo Time 29.1 seconds (26.0-38.0); INR 1.8 (0.82-1.09)
[2020-10-24] MEDS ORDERED: Ondansetron 4 mg VIAL 2 MG/ML 2 ml VIAL IV PRN (12:02)
[2020-10-24 12:10] LABS: Influenza A Molecular Negative (Negative); Influenza B Molecular Negative (Negative)
[2020-10-24] MEDS ORDERED: Warfarin per PHARMACY **NOTE FOLLOW UP SCH (13:00)
[2020-10-24] MEDS ORDERED: Iohexol 300 (CONTRAST) 10 ML SDV IV ONE (13:23)
[2020-10-24 14:12] LABS: Troponin I 0.08 ng/mL (<0.03)
[2020-10-24 14:28] LABS: Urine Appearance Cloudy; Urine Bilirubin Negative (Negative); Urine Blood Negative (Negative); Urine Color Yellow; Urine Glucose Negative (Negative); Urine Ketones Negative (Negative); Urine Nitrite Negative (Negative); Urine Protein 1+(30 mg/dL) (Negative); Urine Specific Gravity 1.058 (1.002-1.030); Urine Urobilinogen Negative (Negative)
[2020-10-24 14:31] LABS: Urine Bacteria Absent (Absent); Urine Red Blood Cell Absent (Absent); Urine Squamous Epithelial Cell Present (Absent); Urine Transitional Epithelial Present (Absent); Urine White Blood Cell 2+(11-20/hpf) (Absent)
[2020-10-24] MEDS ORDERED: Lidocaine Patch REMOVE PATCH PATCH OFF SCH (21:00)
[2020-10-24] MEDS: Cefepime 2 GM in Dextrose 2 GM/50 ML BAG IV SCH (23:21)
[2020-10-25 06:24] LABS: ABS Basophils 0.1 10^3/ul (0-0.2); ABS Eosinophils 0.1 10^3/ul (0-0.6); ABS Lymphocytes 0.8 10^3/ul (1.0-4.8); ABS Monocytes 0.4 10^3/ul (0-0.8); ABS Neutrophils 4.5 10^3/ul (1.5-7.7); Eosinophil % 1.7 %; Hematocrit 28 % (35-47); Hemoglobin 8.8 g/dL (12.0-16.0); Lymphocyte % 13.9 %; Mean Corpuscular HGB Conc 32 g/dL (31-36); Mean Corpuscular Hemoglobin 29 pg (27-31); Mean Corpuscular Volume 92 fL (80-97); Mean Platelet Volume 8.1 fL (7.4-10.4); Platelet Count 124 10^3/uL (150-450); Red Cell Distribution Width 20 % (10-15); White Blood Count 5.9 10^3/uL (3.5-10.8)
[2020-10-25 06:31] LABS: INR 2.08 (0.82-1.09)
[2020-10-25 06:39] LABS: Calcium 8.6 mg/dL (8.6-10.3); EGFR African American 135.3 (>60); EGFR Non-African American 111.8 (>60); Magnesium 1.8 mg/dL (1.9-2.7); Potassium 3.9 mmol/L (3.5-5.0)
[2020-10-25] MEDS ORDERED: Magnesium Sulfate IV 1GM/100ML 1 GM/100 ML BAG IV ONE (08:04)
[2020-10-25 08:37] LABS: Hematocrit 28 % (35-47); Hemoglobin 8.8 g/dL (12.0-16.0)
[2020-10-25] MEDS ORDERED: Aspirin EC 81 mg TAB.EC (enteric coated) PO SCH (09:00)
[2020-10-25] MEDS ORDERED: DOXYcycline 100 MG in NS 0.9% 250 ml 250 ML IVPB SCH (09:00)
[2020-10-25] MEDS ORDERED: Potassium Chlor 20 meq TAB.ER PO SCH (09:00)
[2020-10-25] MEDS ORDERED: Cholecalciferol (VIT D3) 1,000 unit TAB PO SCH (09:00)
[2020-10-25] MEDS: Lidocaine PATCH 5% PATCH TRANSDERM SCH ×2 (09:31→12:30)
[2020-10-25] MEDS ORDERED: Levofloxacin 750 MG IVPREMIX 750 MG/150 ML BAG IVPB SCH (12:00)
[2020-10-25] MEDS: Cefepime 2 GM in Dextrose 2 GM/50 ML BAG IV SCH (12:25)
[2020-10-25 14:51] VITALS: BP 119/53
== END 2020-10-25 15:23 | disposition home or self-care (01) ==
LOC: ED 08:28 → MED 12:02
PROVIDERS: ADMIT Internal Medicine; ATTEND Student in an Organized Health Care Education/Training Program

== ENCOUNTER 2020-11-15 08:44 | Inpatient (IN) ==
[2020-11-15 10:28] LABS: ALT 15 U/L (7-52); Albumin 3.4 g/dL (3.2-5.2); Albumin/Globulin Ratio 0.9 (1-3); Alkaline Phosphatase 81 U/L (35-149); Blood Urea Nitrogen 13 mg/dL (6-24); CO2 Carbon Dioxide 28 mmol/L (22-32); Calcium 8.7 mg/dL (8.6-10.3); Chloride 106 mmol/L (101-111); Creatine Kinase 94 U/L (10-223); EGFR African American 126.8 (>60); EGFR Non-African American 104.8 (>60); Globulin 3.6 g/dL (2-4); Glucose 91 mg/dL (70-100); Magnesium 2.1 mg/dL (1.9-2.7); Sodium 139 mmol/L (135-145)
[2020-11-15 10:32] LABS: Anion Gap 5 mmol/L (2-11)
[2020-11-15 10:34] LABS: Troponin I 0.07 ng/mL (<0.03)
[2020-11-15 10:39] LABS: INR 2.34 (0.82-1.09)
[2020-11-15 10:44] LABS: ABS Basophils 0.1 10^3/ul (0-0.2); ABS Eosinophils 0.1 10^3/ul (0-0.6); ABS Lymphocytes 0.8 10^3/ul (1.0-4.8); ABS Monocytes 0.5 10^3/ul (0-0.8); ABS Neutrophils 12.4 10^3/ul (1.5-7.7); Eosinophil % 0.6 %; Hematocrit 30 % (35-47); Hemoglobin 9.7 g/dL (12.0-16.0); Mean Corpuscular HGB Conc 33 g/dL (31-36); Mean Corpuscular Hemoglobin 30 pg (27-31); Mean Corpuscular Volume 93 fL (80-97); Red Cell Distribution Width 21 % (10-15)
[2020-11-15 11:03] LABS: Mean Platelet Volume 8.8 fL (7.4-10.4); Platelet Count 199 10^3/uL (150-450); White Blood Count 13.9 10^3/uL (3.5-10.8)
[2020-11-15] MEDS ORDERED: cefTRIAXone 1 gm/50 mL NS BAG 1 GM/50 ML BAG IV ONE (12:15)
[2020-11-15 13:00] LABS: Potassium Redraw 3.8 mmol/L (3.5-5.0)
[2020-11-15 13:05] LABS: Urine Appearance Cloudy; Urine Bilirubin Negative (Negative); Urine Blood Negative (Negative); Urine Color Yellow; Urine Glucose Negative (Negative); Urine Ketones Negative (Negative); Urine Nitrite Negative (Negative); Urine Protein Negative (Negative); Urine Specific Gravity 1.014 (1.002-1.030); Urine Urobilinogen Negative (Negative)
[2020-11-15 13:15] LABS: Urine Bacteria Absent (Absent); Urine Red Blood Cell Absent (Absent); Urine Squamous Epithelial Cell Present (Absent); Urine Transitional Epithelial Present (Absent); Urine White Blood Cell 1+(6-10/hpf) (Absent)
[2020-11-15] MEDS: Lidocaine PATCH 5% PATCH TRANSDERM SCH (17:52)
[2020-11-15 19:27] LABS: Hematocrit 31 % (35-47); Hemoglobin 9.4 g/dL (12.0-16.0)
[2020-11-15 19:55] LABS: Troponin I 0.03 ng/mL (<0.03)
[2020-11-15] MEDS: Lidocaine Patch REMOVE PATCH PATCH OFF SCH (21:35)
[2020-11-16] MEDS: Morphine 2 MG/ML SYRINGE IV PRN ×4 (00:47→20:21)
[2020-11-16 02:00] LABS: Hematocrit 32 % (35-47); Hemoglobin 10.2 g/dL (12.0-16.0)
[2020-11-16] MEDS ORDERED: Potassium Chlor 20 meq TAB.ER PO SCH (09:00)
[2020-11-16] MEDS ORDERED: Aspirin EC 81 mg TAB.EC (enteric coated) PO SCH (09:00)
[2020-11-16] MEDS: Lidocaine PATCH 5% PATCH TRANSDERM SCH (10:12)
[2020-11-16] MEDS: cefTRIAXone 1 gm/50 mL NS BAG 1 GM/50 ML BAG IVPB SCH ×2 (13:31→17:53)
[2020-11-16 16:38] VITALS: BP 148/67
[2020-11-16] MEDS ORDERED: Warfarin DAILY REMINDER **NOTE FOLLOW UP SCH (17:00)
[2020-11-16] MEDS ORDERED: Lorazepam PYXIS KEY PRN (17:36)
[2020-11-16] MEDS: LORazepam 2 mg VIAL 1 ml IV PUSH PRN (18:21)
[2020-11-16] MEDS: Lidocaine Patch REMOVE PATCH PATCH OFF SCH (22:19)
[2020-11-17] MEDS: Morphine 2 MG/ML SYRINGE IV PRN ×5 (03:34→21:35)
[2020-11-17] MEDS: Lidocaine PATCH 5% PATCH TRANSDERM SCH (11:32)
[2020-11-17] MEDS: LORazepam 2 mg VIAL 1 ml IV PUSH PRN (16:47)
[2020-11-17] MEDS: Lidocaine Patch REMOVE PATCH PATCH OFF SCH (19:55)
[2020-11-18] MEDS: Morphine 2 MG/ML SYRINGE IV PRN ×2 (05:48→11:06)
[2020-11-18] MEDS: Lidocaine PATCH 5% PATCH TRANSDERM SCH (09:33)
[2020-11-18] MEDS: Morphine ORAL CONCENTRATE 5 MG/0.25 ML ORAL.SYRIN SL PRN ×2 (17:51→22:13)
[2020-11-18] MEDS: Lidocaine Patch REMOVE PATCH PATCH OFF SCH (22:15)
[2020-11-19] MEDS: Morphine ORAL CONCENTRATE 5 MG/0.25 ML ORAL.SYRIN SL PRN ×2 (07:20→15:25)
[2020-11-19] MEDS: Lidocaine PATCH 5% PATCH TRANSDERM SCH (10:57)
[2020-11-19] MEDS: Lidocaine Patch REMOVE PATCH PATCH OFF SCH (22:09)
[2020-11-20] MEDS: Lidocaine PATCH 5% PATCH TRANSDERM SCH (08:14)
[2020-11-20] MEDS: Morphine ORAL CONCENTRATE 5 MG/0.25 ML ORAL.SYRIN SL PRN ×2 (10:26→13:40)
== END 2020-11-20 14:31 | disposition home or self-care (01) ==
LOC: ED 08:44 → MEDTELE 15:44
PROVIDERS: ADMIT Internal Medicine; ATTEND Internal Medicine

== ENCOUNTER 2020-11-20 14:36 | Inpatient (IN) ==
[2020-11-20] MEDS: Morphine ORAL CONCENTRATE 5 MG/0.25 ML ORAL.SYRIN PO PRN (21:29)
[2020-11-21] MEDS: Morphine ORAL CONCENTRATE 5 MG/0.25 ML ORAL.SYRIN PO PRN ×5 (02:05→21:18)
[2020-11-21] MEDS: Lidocaine PATCH 5% PATCH TRANSDERM SCH (08:47)
[2020-11-21] MEDS: Lidocaine Patch REMOVE PATCH PATCH OFF SCH (21:14)
[2020-11-22] MEDS: Morphine ORAL CONCENTRATE 5 MG/0.25 ML ORAL.SYRIN PO PRN ×4 (05:56→20:21)
[2020-11-22] MEDS: Lidocaine PATCH 5% PATCH TRANSDERM SCH (09:23)
[2020-11-22] MEDS: Lidocaine Patch REMOVE PATCH PATCH OFF SCH (21:39)
[2020-11-23] MEDS: Morphine ORAL CONCENTRATE 5 MG/0.25 ML ORAL.SYRIN PO PRN ×5 (03:12→20:42)
[2020-11-23] MEDS: Lidocaine PATCH 5% PATCH TRANSDERM SCH (08:48)
[2020-11-23] MEDS: Lidocaine Patch REMOVE PATCH PATCH OFF SCH (20:54)
[2020-11-24] MEDS: Lidocaine PATCH 5% PATCH TRANSDERM SCH (08:17)
[2020-11-24] MEDS ORDERED: Glycerin ADULT 2.4 gm SUPP PR PRN (10:17)
[2020-11-24] MEDS: Morphine ORAL CONCENTRATE 5 MG/0.25 ML ORAL.SYRIN PO PRN ×3 (14:48→19:25)
[2020-11-24] MEDS: Lidocaine Patch REMOVE PATCH PATCH OFF SCH (22:27)
[2020-11-25] MEDS: Morphine ORAL CONCENTRATE 5 MG/0.25 ML ORAL.SYRIN PO PRN ×3 (05:52→14:32)
[2020-11-25] MEDS: Lidocaine PATCH 5% PATCH TRANSDERM SCH (07:09)
== END 2020-11-25 14:55 | DRG 184 ==
LOC: MEDTELE 14:36
PROVIDERS: ADMIT Internal Medicine; ATTEND Hospitalist